=== PATIENT | male | born 1955 | race Caucasian/White ===

== ENCOUNTER → 2016-05-03 | Outpatient (CLI) | payer BC ==
[~2016-05-03] MED LIST: ASPI81TA28 PO; ATOR-26 PO; AZITTAB PO; ENOX40IN SQ; ESCI10TA17 PO; GUAISYP4 PO; IBUP-103 PO; LORA-741 PO; LPR25 PO; LVNIS40 SC; LXP10 PO; METO25TA56 PO; PANT40TA PO; PRT/40 PO
--- NOTE | 2016-05-03 10:09 | DIAGNOSTIC IMAGING REPORT ---
CHEST 2 VIEWS ROUTINE HISTORY: R05 Cough COMPARISON: Chest 10/18/2015. FINDINGS: The left lung is clear. No pneumothorax. No pleural effusions. Question 2 cm nodular density within the right midlung zone. This may be due to the overlapping ribs. The heart is normal in size. There are poststernotomy changes. Nodular density left lung base is consistent with a nipple shadow. Stable calcification along within the right upper lobe. Stable thin lucency lateral to the descending thoracic aorta compared to the 12/23/2014 chest CTA and chest x-ray. IMPRESSION: 1. Possible 2 cm nodular density within the right midlung zone. This may be due to the overlapping ribs or a small developing opacity. One month chest x-ray follow is recommended to ensure resolution and to exclude the less likely possibility of a pulmonary lesion. 2. Stable thin lucency lateral to the descending thoracic aorta compared to the 12/23/2014 chest CTA and chest x-ray. This could be due to a tiny chronic loculated pneumothorax or a small bulla compared to the prior chest CTA. Given the greater than 1 year stability this is of doubtful clinical significance. This can also be reevaluated on follow-up chest x-ray. Electronically signed by: Jitendra Mckeon M.D. 05/03/2016 10:07 AM Dictated Date/Time: 05/03/2016 9:55 AM
== END | disposition home or self-care (01) ==
LOC: C.RADBC 09:37
PROVIDERS: ATTEND Internal Medicine Geriatric Medicine
DX: R05 Cough (principal); R91.8 Other nonspecific abnormal finding of lung field

== ENCOUNTER 2016-05-06 10:01 | Emergency (ER) | payer BC ==
[~2016-05-06] VITALS: Ht 170.2 cm; Wt 96.0 kg
[~2016-05-06 10:01] MED LIST changes: -ASPI81TA28 PO; -ATOR-26 PO; -AZITTAB PO; -ENOX40IN SQ; -GUAISYP4 PO; -IBUP-103 PO; -LVNIS40 SC; -LXP10 PO; -METO25TA56 PO; -PRT/40 PO
[2016-05-06 10:12] VITALS: TEMP 36.5; Ht 170.2 cm; Wt 96.0 kg
[2016-05-06] MEDS ORDERED: AZITTAB PO (10:16)
[2016-05-06] MEDS ORDERED: GUAISYP4 PO (10:16)
[2016-05-06 10:19] VITALS: O2SAT 96
[2016-05-06] MEDS ORDERED: SODIUM CHLORIDE 0.9% 1000ML 1,000 ML IV STA (10:45)
[2016-05-06 11:01] LABS: HEMATOCRIT 40.2 % (42-52); MEAN CELL VOLUME 82.2 fL (80-100); MEAN CORPUSCULAR HGB CONC 34.1 g/dl (32-36); RED BLOOD COUNT 4.89 M/uL (4.7-6.1); WHITE BLOOD COUNT 10.57 K/uL (4.8-10.8)
[2016-05-06 11:11] LABS: MEAN PLATELET VOLUME 9.3 fL (7.4-10.4); PLATELET COUNT 82 K/uL (130-400)
[2016-05-06 11:18] LABS: ALT/SGPT 21 U/L (12-78); AST/SGOT 14 U/L (15-37); BLOOD UREA NITROGEN 17 mg/dl (7-18); BUN/CREATININE RATIO 17.9 (10-20); CALCIUM 8.7 mg/dl (8.5-10.1); CARBON DIOXIDE 29 mmol/L (21-32); CHLORIDE 107 mmol/L (98-107); CREATININE 0.94 mg/dl (0.60-1.40); GLUCOSE 87 mg/dl (70-99); SODIUM 144 mmol/L (136-145)
[2016-05-06 11:21] LABS: BASO % 0.5 %; BASO ABS # 0.05 K/uL (0-0.2); COMPLETE YES; EOS % 2.9 %; IG% 0.4 %; LYMPH % 24.2 %; LYMPH ABS # 2.56 K/uL (1.2-3.4); MONO % 7.2 %; NEUT % 64.8 %
--- NOTE | 2016-05-06 11:21 | DIAGNOSTIC IMAGING REPORT ---
CHEST ONE VIEW PORTABLE CLINICAL HISTORY: Chest pain. COMPARISON STUDY: Chest radiograph May 03, 2016. FINDINGS: There are median sternotomy wires and clips from bypass grafting. No pneumothorax or pleural effusion is present. Lung volumes are diminished. This is unchanged. There is mild left basilar opacity. Cardiomegaly is unchanged. There is no evidence of pulmonary edema. There is a 1.8 cm irregular density within the right midlung. IMPRESSION: 1. 1.8 cm irregular density within the right midlung. This may reflect normal structures although a pulmonary nodule could appear similar. Follow-up PA and shallow obliques radiographs of the chest in one month are recommended. 2. Stable cardiomegaly without evidence of pulmonary edema. 3. Mild left basilar opacity which likely reflects atelectasis. Electronically signed by: Justin Garza M.D. 05/06/2016 11:20 AM Dictated Date/Time: 05/06/2016 11:16 AM
[2016-05-06 11:24] LABS: ALKALINE PHOSPHATASE 71 U/L (45-117); CKMB/CK RATIO 4.3 (0-3.0)
[2016-05-06 12:18] VITALS: BP 124/77; PULSE 66; O2SAT 97
--- NOTE | 2016-05-06 16:19 | EMERGENCY ROOM VISIT NOTE ---
History Report prepared by Christina: Diane Herrmann Under the Supervision of: Dr. Quang Martinez M.D. First contact with patient: 10:31 Chief Complaint: CARDIAC ASSESSMENT Stated Complaint: PALPITATIONS Nursing Triage Summary: PT HERE VIA ALS FROM DR STARR OFFICE WITH IRREGULAR HR. PT STATES FELT IT WAS RAPID AND IRREGULAR SINCE LAST PM, WORSE AT SOME TIMES MORE THAN OTHERS. PT DENIES ANY SOB OR CHEST PAIN. PT RECENTLY DX WITH BRONCHITIS, TAKING ZPAK AND BREO. History of Present Illness The patient is a 60 year old male arriving by ambulance from Dr. Goss's office who presents to the Emergency Room with complaints of intermittent episodes of chest palpitations over the past 4 days. Currently, he denies being in significant discomfort, and his last episode of symptoms was 4 hours prior to arrival. Patient states that he has had cough and cold like symptoms over the past 4 weeks, and after visiting his PCP 4 days prior, he was placed on a Z-pack , Breo inhaler and Robitussin cough medicine. After taking the first dose of Z- pack and using the Breo inhaler that morning (4 days prior), patient went to bed , but was awoken several times with intermittent episodes of palpitations. He also states that his FitBit recorded his heart rate at 150 BPM. Since that time , patient has continued to experience intermittent episodes of palpitations after taking his Z-pack pill and using the Breo inhaler each morning, but he denies experiencing any light headedness, dizziness, chest pain, shortness of breath or LOC during the episodes. The patient states that he did not get his Robitussin script filled until Monday afternoon, and his symptoms began prior to taking that medication. The patient does have a history of CABG in 2013 , but he is no longer on blood thinners due to his history of ITP. He does take 1 baby aspirin qd. Source of History: patient Onset: over the past 4 days Position: chest Symptom Intensity: no current discomfort Quality: other (palpitations) Timing: intermittent Modifying Factors (Worsening): other (using breo inhaler and taking z-pack) Associated Symptoms: No LOC, No SOB, No chest pain Note: Patient denies lightheadedness or dizziness. Review of Systems See HPI for pertinent positives & negatives. A total of 10 systems reviewed and were otherwise negative. Past Medical & Surgical Medical Problems: (1) Acute subendocardial infarction, initial episode of care (2) CAD (coronary artery disease), [place] coronary artery (3) Coronary artery disease Surgical Problems: (1) H/O cardiac catheterization (2) S/P CABG (coronary artery bypass graft) (3) S/P triple vessel bypass Family History FH: heart disease Social History Smoking Status: Former Smoker Alcohol Use: none Drug Use: none Marital Status: Housing Status: lives with family Occupation Status: employed Current/Historical Medications Scheduled Aspirin (Aspirin Ec), 81 MG PO QAM Atorvastatin (Lipitor), 80 MG PO HS Azithromycin (Zithromax Z-Evan), 1 PKT PO UD Escitalopram (Lexapro), 10 MG PO QAM Metoprolol Tartrate (Lopressor), 25 MG PO BID Pantoprazole (Protonix), 40 MG PO DAILY Scheduled PRN Guaifenesin/Codeine (Robitussin-Ac Syrup), 10 ML PO Q4H PRN for Cough Allergies Coded Allergies: No Known Allergies (Unverified , 05/06/16) Physical Exam Vital Signs Date Time Temp Pulse Resp B/P Pulse Ox O2 Delivery O2 Flow Rate FiO2 05/06/16 12:18 66 18 124/77 97 Room Air 05/06/16 10:39 65 05/06/16 10:19 96 Room Air 05/06/16 10:19 96 Room Air 05/06/16 10:12 36.5 64 18 149/93 96 Room Air 05/06/16 10:08 70 Physical Exam GENERAL: Patient is a healthy-appearing well-nourished 60 year old male. No acute distress. HEAD: Normocephalic atraumatic EYES: Ocular movements intact pupils equal and react to light OROPHARYNX mucous membranes are moist no exudates present no erythema or edema present NECK: Supple no nuchal rigidity CHEST: Good equal expansion LUNGS: Clear and equal to auscultation CARDIAC: Normal S1 and S2 ABDOMEN: Soft nontender no guarding BACK: No CVA tenderness EXTREMITIES: No pain upon palpation normal muscle strength in all groups no clubbing cyanosis or edema NEURO: Patient is following commands is answering questions appropriately. Alert and oriented x3 Cranial Nerves 2-12 grossly intact Medical Decision & Procedures ER Provider Diagnostic Interpretation: X-ray results as stated below per interpretation by me and the radiologist: CHEST ONE VIEW PORTABLE CLINICAL HISTORY: Chest pain. COMPARISON STUDY: Chest radiograph May 03, 2016. FINDINGS: There are median sternotomy wires and clips from bypass grafting. No pneumothorax or pleural effusion is present. Lung volumes are diminished. This is unchanged. There is mild left basilar opacity. Cardiomegaly is unchanged. There is no evidence of pulmonary edema. There is a 1.8 cm irregular density within the right midlung. IMPRESSION: 1. 1.8 cm irregular density within the right midlung. This may reflect normal structures although a pulmonary nodule could appear similar. Follow-up PA and shallow obliques radiographs of the chest in one month are recommended. 2. Stable cardiomegaly without evidence of pulmonary edema. 3. Mild left basilar opacity which likely reflects atelectasis. Electronically signed by: Justin Garza M.D. 05/06/2016 11:20 AM Dictated Date/Time: 05/06/2016 11:16 AM Laboratory Results 05/06/16 10:45 Red Blood Count 4.89, Mean Corpuscular Volume 82.2, Mean Corpuscular Hemoglobin 28.0, Mean Corpuscular Hemoglobin Concent 34.1, Mean Platelet Volume 9.3, Neutrophils (%) (Auto) 64.8, Lymphocytes (%) (Auto) 24.2, Monocytes (%) (Auto) 7.2, Eosinophils (%) (Auto) 2.9, Basophils (%) (Auto) 0.5, Neutrophils # (Auto) 6.85, Lymphocytes # (Auto) 2.56, Monocytes # (Auto) 0.76, Eosinophils # (Auto) 0.31, Basophils # (Auto) 0.05 05/06/16 10:45 Test 05/06/16 10:45 White Blood Count 10.57 K/uL (4.8-10.8) Red Blood Count 4.89 M/uL (4.7-6.1) Hemoglobin 13.7 g/dL (14.0-18.0) Hematocrit 40.2 % (42-52) Mean Corpuscular Volume 82.2 fL (80-100) Mean Corpuscular Hemoglobin 28.0 pg (25-34) Mean Corpuscular Hemoglobin Concent 34.1 g/dl (32-36) Platelet Count 82 K/uL (130-400) Mean Platelet Volume 9.3 fL (7.4-10.4) Neutrophils (%) (Auto) 64.8 % Lymphocytes (%) (Auto) 24.2 % Monocytes (%) (Auto) 7.2 % Eosinophils (%) (Auto) 2.9 % Basophils (%) (Auto) 0.5 % Neutrophils # (Auto) 6.85 K/uL (1.4-6.5) Lymphocytes # (Auto) 2.56 K/uL (1.2-3.4) Monocytes # (Auto) 0.76 K/uL (0.11-0.59) Eosinophils # (Auto) 0.31 K/uL (0-0.5) Basophils # (Auto) 0.05 K/uL (0-0.2) RDW Standard Deviation 43.6 fL (36.4-46.3) RDW Coefficient of Variation 14.6 % (11.5-14.5) Immature Granulocyte % (Auto) 0.4 % Immature Granulocyte # (Auto) 0.04 K/uL (0.00-0.02) Anion Gap 8.0 mmol/L (3-11) Est Creatinine Clear Calc Drug Dose 90.0 ml/min Estimated GFR () 100.3 Estimated GFR (Non- 86.5 BUN/Creatinine Ratio 17.9 (10-20) Calcium Level 8.7 mg/dl (8.5-10.1) Magnesium Level 2.0 mg/dl (1.8-2.4) Total Bilirubin 0.6 mg/dl (0.2-1) Direct Bilirubin 0.2 mg/dl (0-0.2) Aspartate Amino Transf (AST/SGOT) 14 U/L (15-37) Alanine Aminotransferase (ALT/SGPT) 21 U/L (12-78) Alkaline Phosphatase 71 U/L (45-117) Total Creatine Kinase 28 U/L (39-308) Creatine Kinase MB 1.2 ng/ml (0.5-3.6) Creatine Kinase MB Ratio 4.3 (0-3.0) Troponin I < 0.015 ng/ml (0-0.045) Total Protein 6.2 gm/dl (6.4-8.2) Albumin 3.4 gm/dl (3.4-5.0) Lipase 240 U/L (73-393) Labs reviewed by ED physician. Medications Administered Medications (Trade) Dose Ordered Sig/Minna Route Start Time Stop Time Status Last Admin Dose Admin Sodium Chloride (Nss 1000ml) 1,000 ml @ 999 mls/hr Q1H1M STAT IV 05/06/16 10:45 05/06/16 11:45 DC 05/06/16 10:45 999 MLS/HR ECG Indication: palpitations Rate (beats per minute): 74 Rhythm: sinus rhythm Findings: PAC, no acute ischemic change ED Course 1035: Past medical records reviewed. The patient was evaluated in room B5. A complete history and physical examination was performed. 1045: NSS bolus IV was ordered. 1225: Upon reevaluation, the patient was doing well and appeared to be resting comfortably. I updated him on the results of his radiology reports and lab tests. I advised him to stop taking the Z-pack and Breo inhaler. I asked the patient if he wanted to try a different antibiotic, but he stated that he was feeling improved and did not wish to be placed on anything else. Patient was also referred to follow up with Dr. Jaffe of cardiology. Additional discharge instructions were discussed. He verbalized his understanding and agreement with the treatment plan, and he is now ready for disposition. Medical Decision Differential diagnosis: Etiologies such as premature contractions, electrolyte abnormality, cardiac dysrhythmia, thyroid dysfunction, pulmonary embolism, infection, gastrointestinal, as well as others were entertained. This is a 60-year-old male who presents emergency department complaining of palpitations after being started on several medications including azithromycin as well as an inhaler for a cough. The patient reports his cough is feeling much better however he has been having palpitations. Upon arrival to the emergency Department patient has no complaints. The patient does have a history of coronary bypass surgery however he feels that he is not having any chest pain or shortness of breath compared to what he needed his surgery. The patient was observed in emergency department for appear to 2 hours and at no time did the patient have any palpitations. I believe he is well enough to be discharged home for follow-up with cardiology however I did stressed the need to stop both the azithromycin as well as the inhaler. Patient was in agreement with the treatment plan. Impression Primary Impression: Palpitations Scribe Attestation The scribe's documentation has been prepared under my direction and personally reviewed by me in its entirety. I confirm that the note above accurately reflects all work, treatment, procedures, and medical decision making performed by me. Departure Information Dispostion Home / Self-Care Referrals Niraj Goss D.O.Int.Med. (PCP) Forms IMPORTANT VISIT INFORMATION, Work Instructions Patient Instructions My [facility] Additional Instructions Follow up with DR Jaffe's office STOP taking Azithromycin and inhaler You have been examined and treated today on an emergency basis only. This is not a substitute for, or an effort to provide, complete comprehensive medical care. It is impossible to recognize and treat all injuries or illnesses in a single emergency department visit. It is therefore important that you follow up closely with Dr Goss. Call as soon as possible for an appointment. Thank you for your time and consideration. I look forward to speaking with you again soon. Please don't hesitate to call us if you have any questions.
[2016-12-27] MEDS ORDERED: ATOR-26 PO (05:40)
[2016-12-27] MEDS ORDERED: ASPI81TA28 PO (05:42)
== END 2016-05-06 12:38 | disposition home or self-care (01) ==
LOC: EDBD 10:01 → C.EDB 10:03
DX: R00.2 Palpitations (principal); Z95.1 Presence of aortocoronary bypass graft; I25.10 Atherosclerotic heart disease of native coronary artery without angina pectoris; Z98.890 Other specified postprocedural states; Z82.49 Family history of ischemic heart disease and other diseases of the circulatory system; Z87.891 Personal history of nicotine dependence

== ENCOUNTER → 2016-11-18 | Outpatient (CLI) | payer BC, OTHER ==
[~2016-11-18] MED LIST changes: +ASPI81TA28 PO; +ATOR-26 PO; +AZITTAB PO; +ENOX40IN SQ; +GUAISYP4 PO; +IBUP-103 PO; -LORA-741 PO; +LVNIS40 SC; +LXP10 PO; +METO25TA56 PO; +PRT/40 PO
[2016-11-18 18:10] LABS: ALT/SGPT 20 U/L (12-78); AST/SGOT 21 U/L (15-37); BLOOD UREA NITROGEN 9 mg/dl (7-18); BUN/CREATININE RATIO 9.2 (10-20); CARBON DIOXIDE 27 mmol/L (21-32); CHLORIDE 107 mmol/L (98-107); GLUCOSE 72 mg/dl (70-99); SODIUM 141 mmol/L (136-145)
[2016-11-18 18:13] LABS: ALB/GLOB RATIO 1.2 (0.9-2); ALKALINE PHOSPHATASE 75 U/L (45-117)
[2016-11-18 18:17] LABS: HEMATOCRIT 41.4 % (42-52); MEAN CELL VOLUME 85.5 fL (80-100); MEAN CORPUSCULAR HEMOGLOBIN 27.9 pg (25-34); MEAN CORPUSCULAR HGB CONC 32.6 g/dl (32-36); RED BLOOD COUNT 4.84 M/uL (4.7-6.1); WHITE BLOOD COUNT 7.87 K/uL (4.8-10.8)
[2016-11-18 18:19] LABS: MEAN PLATELET VOLUME 11.3 fL (7.4-10.4); PLATELET COUNT 58 K/uL (130-400)
[2016-11-18 18:20] LABS: BASO % 0.5 %; BASO ABS # 0.04 K/uL (0-0.2); COMPLETE YES; EOS % 2.5 %; IG% 0.1 %; LYMPH % 27.1 %; LYMPH ABS # 2.13 K/uL (1.2-3.4); MONO % 8.1 %; NEUT % 61.7 %; PLT ESTIMATE DECREASED
== END | disposition home or self-care (01) ==
LOC: C.LABPBG 15:55
PROVIDERS: ATTEND Internal Medicine
DX: D69.3 Immune thrombocytopenic purpura (principal)

== ENCOUNTER 2016-12-17 13:52 | Emergency (ER) | payer BC, OTHER ==
[~2016-12-17] VITALS: Ht 170.2 cm; Wt 90.9 kg
[~2016-12-17 13:52] MED LIST changes: -ASPI81TA28 PO; -ATOR-26 PO; -ENOX40IN SQ; -IBUP-103 PO; -LVNIS40 SC; -LXP10 PO; -METO25TA56 PO; -PRT/40 PO
[2016-12-17 13:54] VITALS: Ht 170.2 cm; Wt 90.9 kg
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
[2016-12-17 14:45] LABS: HEMATOCRIT 40.1 % (42-52); MEAN CELL VOLUME 83.9 fL (80-100); MEAN CORPUSCULAR HEMOGLOBIN 28.7 pg (25-34); MEAN CORPUSCULAR HGB CONC 34.2 g/dl (32-36); RED BLOOD COUNT 4.78 M/uL (4.7-6.1); WHITE BLOOD COUNT 8.16 K/uL (4.8-10.8)
[2016-12-17 14:52] LABS: PARTIAL THROMBOPLASTIN RATIO 1.3; PROTHROMBIN TIME (PATIENT) 10.2 SECONDS (9.0-12.0)
[2016-12-17 14:57] LABS: BUN/CREATININE RATIO 15.4 (10-20); CALCIUM 8.7 mg/dl (8.5-10.1); CREATININE 0.82 mg/dl (0.60-1.40)
[2016-12-17 15:08] LABS: BASO % 0.4 %; BASO ABS # 0.03 K/uL (0-0.2); COMPLETE YES; EOS % 2.1 %; IG% 0.1 %; LYMPH % 22.5 %; LYMPH ABS # 1.84 K/uL (1.2-3.4); MEAN PLATELET VOLUME 10.1 fL (7.4-10.4); MONO % 9.1 %; NEUT % 65.8 %; PLATELET COUNT 50 K/uL (130-400); PLT ESTIMATE DECREASED
--- NOTE | 2016-12-17 16:19 | DIAGNOSTIC IMAGING REPORT ---
RIGHT VENOUS DOPP LOWER EXT UNILAT CLINICAL HISTORY: 61 years-old Male presenting with Leg swelling/pain Right. TECHNIQUE: Real-time grayscale and color and spectral Doppler ultrasound imaging of the veins of the right lower extremity was performed. Compression and augmentation were also utilized. COMPARISON: None. FINDINGS: Right: Common femoral vein: Patent. Femoral vein: Patent. Likely duplicated femoral vein. Greater saphenous vein: Patent. Popliteal vein: Patent. Calf veins: Limited visualization. Other: Filling defect consistent with thrombus within the greater saphenous vein at the level of the proximal thigh extending into the proximal calf. This appears occlusive in most regions. IMPRESSION: No evidence of deep venous thrombosis. Extensive superficial venous thrombosis in the greater saphenous vein. Electronically signed by: Daniel Prather M.D. 12/17/2016 4:18 PM Dictated Date/Time: 12/17/2016 4:15 PM
[2016-12-17] MEDS ORDERED: ENOX40IN SQ (17:20)
[2016-12-17] MEDS ORDERED: ENOXAPARIN 40 MG/0.4 ML SYR SQ ONE (17:30)
[2016-12-17 17:40] VITALS: BP 124/65; PULSE 61; TEMP 36.7; O2SAT 95
[2016-12-27] MEDS ORDERED: ATOR-26 PO (05:40)
[2016-12-27] MEDS ORDERED: ASPI81TA28 PO (05:42)
== END 2016-12-17 17:41 | disposition home or self-care (01) ==
LOC: C.EDB 13:53 → C.EDA 17:41
DX: I82.811 Embolism and thrombosis of superficial veins of right lower extremity (principal); D69.3 Immune thrombocytopenic purpura; I25.10 Atherosclerotic heart disease of native coronary artery without angina pectoris; I10 Essential (primary) hypertension; Z95.1 Presence of aortocoronary bypass graft; Z79.82 Long term (current) use of aspirin; Z87.891 Personal history of nicotine dependence; Z83.3 Family history of diabetes mellitus; Z82.49 Family history of ischemic heart disease and other diseases of the circulatory system

== ENCOUNTER → 2016-12-21 | Outpatient (CLI) | payer BC, OTHER ==
[~2016-12-21] MED LIST changes: +ASPI81TA28 PO; +ATOR-26 PO; -AZITTAB PO; +ENOX40IN SQ; +IBUP-103 PO; +LVNIS40 SC; +LXP10 PO; +METO25TA56 PO; +PRT/40 PO
--- NOTE | 2016-12-21 10:19 | DIAGNOSTIC IMAGING REPORT ---
CHEST-PA,LAT AND OBLIQUE VIEWS HISTORY: 61 years-old Male R93.8 Abnormal chest xray. Follow-up study. COMPARISON: Portable chest radiograph 05/06/2016 TECHNIQUE: Frontal, oblique and lateral views of the chest. FINDINGS: Cardiac silhouette is again mildly enlarged. Prior median sternotomy. There is atherosclerosis of the aorta. No overt pulmonary edema. There is no pneumothorax or pleural effusion. Hazy subsegmental right perihilar opacity suggests atelectasis or scarring. The previously questioned nodular opacity of the right midlung is no longer identified. No suspicious pulmonary nodules are seen. The bones are grossly intact. IMPRESSION: 1. Cardiomegaly without acute cardiopulmonary process. 2. Previously questioned nodular opacity of the right midlung is not identified. There is however minimal linear subsegmental right midlung opacity coursing towards the hilum suggesting atelectasis or scarring. The above report was generated using voice recognition software. It may contain grammatical, syntax or spelling errors. Electronically signed by: Ventura Rodgers M.D. 12/21/2016 10:17 AM Dictated Date/Time: 12/21/2016 10:14 AM
== END | disposition home or self-care (01) ==
LOC: C.RADBC 09:17
PROVIDERS: ATTEND Physician Assistant
DX: R93.8 Abnormal findings on diagnostic imaging of other specified body structures (principal)

== ENCOUNTER 2016-12-27 15:13 | Emergency (ER) | payer BC, OTHER ==
[~2016-12-27] VITALS: Ht 170.2 cm; Wt 92.0 kg
[~2016-12-27 15:13] MED LIST changes: -ENOX40IN SQ; -IBUP-103 PO; -LVNIS40 SC; -LXP10 PO; -METO25TA56 PO; -PRT/40 PO
[2016-12-27 15:19] VITALS: BP 148/89; PULSE 61; TEMP 36.7; O2SAT 96; Ht 170.2 cm; Wt 92.0 kg
--- NOTE | 2016-12-27 16:50 | DIAGNOSTIC IMAGING REPORT ---
RIGHT VENOUS DOPP LOWER EXT UNILAT CLINICAL HISTORY: R posterior knee and calf pain Right pain TECHNIQUE: Venous Doppler COMPARISON STUDY: 12/17/2016 FINDINGS: Unchanging thrombus within the greater saphenous vein. All deep venous structures are unremarkable. Compressibility and augmentation characteristics are unremarkable. IMPRESSION: Unchanging chronic superficial thrombophlebitis involving the greater saphenous vein. The study remains negative for deep venous thrombosis. The above report was generated using voice recognition software. It may contain grammatical, syntax or spelling errors. Electronically signed by: Robert Colvin M.D. 12/27/2016 4:48 PM Dictated Date/Time: 12/27/2016 4:47 PM
[2016-12-27] MEDS ORDERED: METO25TA56 PO (17:08)
[2016-12-27] MEDS ORDERED: LXP10 PO (17:08)
[2016-12-27] MEDS ORDERED: PRT/40 PO (17:08)
[2016-12-27] MEDS ORDERED: LVNIS40 SC (17:08)
[2016-12-27] MEDS ORDERED: IBUP-103 PO (17:09)
--- NOTE | 2016-12-28 22:09 | EMERGENCY ROOM VISIT NOTE ---
ED Visit Note First contact with patient: 15:38 Chief Complaint: The back of my right leg hurts. History of Present Illness: Mr. Dia is a 61-year-old white male who ambulates into the ED accompanied by his complaining of posterior right knee pain and calf pain. Historically patient was seen in this emergency department on December 17 with similar complaints and an ultrasound of the right lower extremity was performed that showed a superficial thrombophlebitis. Historically patient reports she feels like that pain has resolved and today's visit is because the pain is " much different and deeper." Patient reports 2 days ago he developed a severe muscle cramping like pain in the posterior aspect of the right knee which radiated down into the calf. Since that time his pain has been constant. He rates his discomfort 4/10. His pain worsens with weightbearing, ambulation, dorsiflexion and palpation. He has not identified any alleviating factors related to the pain. He reports he has been taken ibuprofen without relief of his discomfort. He denies fevers, chills, sweats, skin eruptions, skin color changes, recent trauma, chest pain, shortness of breath, palpitations, previous clots, claudication, recent surgery/inactivity/extended travel, lumbar back pain, hip pain, thigh pain, ankle pain, foot pain, leg weakness/numbness/tingling. Review of Systems: As noted above in history of present illness. All body systems were reviewed and found to be negative as noted above. Past Medical History: (1) Acute subendocardial infarction, initial episode of care (2) CAD (coronary artery disease), kiana coronary artery (3) Coronary artery disease (4) Heart disease (5) Hypertension Surgical Problems: (1) H/O cardiac catheterization (2) S/P CABG (coronary artery bypass graft) (3) S/P triple vessel bypass Current Medications: Medications Dose Route/Sig Max Daily Dose Days Date Category Robitussin-Ac Syrup (Codeine Phosphate/Guaifenesin) Syrp 10 Ml PO Q4H PRN 4 05/06/16 Reported Protonix (Pantoprazole Sodium) 40 Mg Tab 40 Mg PO DAILY 12/23/14 Reported Lexapro (Escitalopram Oxalate) 10 Mg Tab 10 Mg PO QAM 11/27/14 Reported Lopressor (Metoprolol Tartrate) 25 Mg Tab 25 Mg PO BID 30 11/09/14 Rx Aspirin Ec (Aspirin) 81 Mg Tab 81 Mg PO QAM 11/06/14 Reported Lipitor (Atorvastatin Calcium) 80 Mg Tab 80 Mg PO HS 11/06/14 Reported Allergies to Medications: Azithromycin. Social History: Patient is currently retired; he lives with his and feels safe in his home environment; he denies tobacco and alcohol use. Physical Examination: Vital Signs: Date Time Temp Pulse Resp B/P (MAP) Pulse Ox O2 Delivery O2 Flow Rate FiO2 12/27/16 15:19 36.7 61 18 148/89 96 Room Air GENERAL: 61-year-old male in mild distress due to pain, nontoxic-appearing, afebrile and hemodynamically stable. NEUROLOGICAL: Awake, alert and oriented to person, place and time. Answering questions appropriately and following commands. Patient was walking on his right toes with a limped gait. SKIN: Warm, dry and pink. No soft tissue eruptions or trauma noted. HEENT: Atraumatic and normocephalic. BACK: No tenderness over the bony lumbar spine. The tenderness or muscle spasm in the paraspinous muscles. No CVA tenderness. THORAX: Lungs sounds are clear to auscultation and equal bilaterally with symmetrical chest wall. No wheezing, rales or rhonchi. No crepitus, tenderness , subcutaneous air or deformities noted. HEART: Regular rate and rhythm. No gallops, rubs or murmurs are appreciated. ABDOMEN: Flat, soft and nontender. Positive bowel sounds in all quadrants. No guarding, rigidity or organomegaly. RIGHT LOWER EXTREMITY: No gross bony deformity. No shortening or malrotation. No tenderness in the hip, thigh, lower leg, ankle or foot. Moderate tenderness with minimal swelling over the posterior knee in the popliteal area. Negative ballottement test. Negative patellar apprehension test. No joint line tenderness. No laxity of collateral cruciate ligaments. Meniscus testing deferred due to pain. There is moderate tenderness in the proximal gastrocnemius muscle without deformity. There is no local erythema or lymphangitis. Skin does not appear cellulitic. Full range of motion in flexion and extension of the knee and plantar flexion and dorsiflexion of the ankle against resistance. Throughout the foot the skin was warm and pink and capillary was brisk. No palpable cords. ED Course: Patient is assessed as noted above. Patient's medication list was reviewed. Patient was offered pain medication and refused. Right Lower Extremity Venous Doppler Ultrasound: Was reviewed by myself and read by the radiologist showing unchanged chronic superficial thrombophlebitis. Negative deep vein thrombus. Patient was educated about today's findings and instructed on his treatment plan ; he verbalized understanding and agreement with this plan. Clinical Impression: Posterior right knee pain. Disposition: Patient discharged home in stable condition accompanied by his ; prior to departure he was reassessed and subjectively reported he was feeling the same. Plan: Shows encouraged to continue his current medications as prescribed. Patient was encouraged to use 650 mg of acetaminophen as needed for additional for additional pain. Patient was encouraged to use his walker, slow down his walker until it returns to normal and avoid toe walking. Patient is encouraged to follow-up with his PCP for recheck in 5-6 days. Patient was encouraged return ED for worsening/uncontrolled pain, uncontrolled swelling, leg weakness/numbness/tingling or any new/concerning symptoms.
== END 2016-12-27 17:17 | disposition home or self-care (01) ==
LOC: C.EDB 15:14 → C.EDD 17:17
DX: M25.561 Pain in right knee (principal); I25.10 Atherosclerotic heart disease of native coronary artery without angina pectoris; I10 Essential (primary) hypertension; I25.2 Old myocardial infarction; Z86.72 Personal history of thrombophlebitis; Z95.1 Presence of aortocoronary bypass graft; Z98.890 Other specified postprocedural states; Z79.82 Long term (current) use of aspirin; Z79.899 Other long term (current) drug therapy

== ENCOUNTER → 2016-12-28 | Outpatient (CLI) | payer OTHER ==
[~2016-12-28] MED LIST changes: -ESCI10TA17 PO; -GUAISYP4 PO; +IBUP-103 PO; -LPR25 PO; +LVNIS40 SC; +LXP10 PO; +METO25TA56 PO; -PANT40TA PO; +PRT/40 PO
[2016-12-28 12:41] LABS: ESTIMATED AVERAGE GLUCOSE 108 mg/dl; HA1C FLAG Normal (Normal)
[2016-12-28 17:22] LABS: CHOLESTEROL/HDL RATIO 1.8; PROSTATE SPECIFIC ANTIGEN 0.293 ng/ml (0.000-4.000)
== END | disposition home or self-care (01) ==
LOC: C.LABPBG 10:43
PROVIDERS: ATTEND Physician Assistant
DX: Z00.00 Encounter for general adult medical examination without abnormal findings (principal); I25.10 Atherosclerotic heart disease of native coronary artery without angina pectoris; R73.03 Prediabetes

== ENCOUNTER → 2017-05-01 | Outpatient (CLI) | payer OTHER ==
[~2017-05-01] MED LIST changes: +LPR25 PO; -LVNIS40 SC; -METO25TA56 PO; +PANT40TA2 PO; -PRT/40 PO
[2017-05-01 18:37] LABS: HEMATOCRIT 42.3 % (42-52); HEMOGLOBIN 14.8 g/dL (14.0-18.0); MEAN CELL VOLUME 83.6 fL (80-100); MEAN CORPUSCULAR HEMOGLOBIN 29.2 pg (25-34); MEAN PLATELET VOLUME 12.8 fL (7.4-10.4); PLATELET COUNT 47 K/uL (130-400); RED CELL DISTRIBUTION WIDTH CV 13.6 % (11.5-14.5); RED CELL DISTRIBUTION WIDTH SD 40.9 fL (36.4-46.3); WHITE BLOOD COUNT 8.32 K/uL (4.8-10.8)
[2017-05-01 18:38] LABS: BASO % 0.5 %; BASO ABS # 0.04 K/uL (0-0.2); EOS % 2.2 %; EOS ABS # 0.18 K/uL (0-0.5); IG# 0.02 K/uL (0.00-0.02); LYMPH % 27.4 %; LYMPH ABS # 2.28 K/uL (1.2-3.4); MONO % 8.3 %; MONO ABS # 0.69 K/uL (0.11-0.59); NEUT % 61.4 %; NEUT ABS # 5.11 K/uL (1.4-6.5)
[2017-05-01 18:53] LABS: HEMOGLOBIN A1C 5.4 % (4.5-5.6)
== END | disposition home or self-care (01) ==
LOC: C.LABPBG 15:49
PROVIDERS: ATTEND Internal Medicine
DX: D69.3 Immune thrombocytopenic purpura (principal); R73.03 Prediabetes

== ENCOUNTER → 2017-05-25 | Outpatient (CLI) | payer OTHER ==
[2017-05-25 18:12] LABS: ALBUMIN 3.4 gm/dl (3.4-5.0); ALT/SGPT 21 U/L (12-78); AST/SGOT 20 U/L (15-37); BLOOD UREA NITROGEN 14 mg/dl (7-18); CARBON DIOXIDE 28 mmol/L (21-32); CREATININE 0.97 mg/dl (0.60-1.40); GLUCOSE 95 mg/dl (70-99); POTASSIUM 4.3 mmol/L (3.5-5.1); SODIUM 138 mmol/L (136-145)
[2017-05-25 18:15] LABS: ALKALINE PHOSPHATASE 76 U/L (45-117); TOTAL PROTEIN 6.8 gm/dl (6.4-8.2)
[2017-05-25 18:21] LABS: HEMATOCRIT 43.4 % (42-52); HEMOGLOBIN 14.4 g/dL (14.0-18.0); MEAN CELL VOLUME 85.9 fL (80-100); MEAN CORPUSCULAR HEMOGLOBIN 28.5 pg (25-34); MEAN CORPUSCULAR HGB CONC 33.2 g/dl (32-36); MEAN PLATELET VOLUME 12.7 fL (7.4-10.4); PLATELET COUNT 55 K/uL (130-400); RED CELL DISTRIBUTION WIDTH CV 14.2 % (11.5-14.5); RED CELL DISTRIBUTION WIDTH SD 44.2 fL (36.4-46.3); WHITE BLOOD COUNT 7.91 K/uL (4.8-10.8)
[2017-05-25 18:23] LABS: BASO % 0.6 %; BASO ABS # 0.05 K/uL (0-0.2); EOS ABS # 0.16 K/uL (0-0.5); IG# 0.03 K/uL (0.00-0.02); LYMPH ABS # 1.82 K/uL (1.2-3.4); MONO % 8.7 %; MONO ABS # 0.69 K/uL (0.11-0.59); NEUT % 65.3 %; NEUT ABS # 5.16 K/uL (1.4-6.5)
== END | disposition home or self-care (01) ==
LOC: C.LABPBG 11:53
PROVIDERS: ATTEND Internal Medicine
DX: D69.3 Immune thrombocytopenic purpura (principal)

== ENCOUNTER 2019-01-08 12:11 | Observation (INO) ==
[2019-01-08] MEDS ORDERED: NITROGLYCERIN SL 0.4 MG/TAB TAB SL STA (12:42)
[2019-01-08] MEDS ORDERED: ASPIRIN CHEW 324 MG PO STA (12:42)
--- NOTE | 2019-01-08 12:52 | XRay Report ---
XR chest 1V portable CLINICAL HISTORY: Chest Pain COMPARISON STUDY: Chest radiograph December 21, 2016. FINDINGS: There are median sternotomy wires and clips from bypass grafting. Mild cardiomegaly is note d without evidence for pulmonary edema. Severe emphysema is present. There is no consolidation to sug gest pneumonia. IMPRESSION: 1. No acute cardiopulmonary findings. 2. Severe emphysema. Electronically signed by: Justin Garza M.D. 01/08/2019 12:50 PM
[2019-01-08 13:10] LABS: Hematocrit (blood only) 44.5 % (42-52); Hemoglobin 15.2 g/dL (14.0-18.0); Mean Corpuscular Hemoglobin 28.7 pg (25-34); Mean Corpuscular Hgb Conc 34.2 g/dL (32-36); RDW Coefficient of Variation 13.8 % (11.5-14.5); RDW Standard Deviation 42.5 fL (36.4-46.3); White Blood Count 8.71 K/uL (4.8-10.8)
[2019-01-08 13:16] LABS: Mean Platelet Volume 10.1 fL (7.4-10.4); Platelet Count 75 K/uL (130-400)
[2019-01-08 13:26] LABS: Alanine Aminotransferase 24 U/L (12-78); Albumin Level 3.4 gm/dl (3.4-5.0); Aspartate Aminotransferase 21 U/L (15-37); BUN Creatinine Ratio 11.3 (10-20); Blood Urea Nitrogen 11 mg/dl (7-18); Calcium 9.4 mg/dl (8.5-10.1); Carbon Dioxide 24 mmol/L (21-32); Chloride 108 mmol/L (98-107); Creatinine Clr Calc Pharmacy 81.7 ml/min; Est GFR (African American) 92.2; Est GFR (Non-African American) 79.6; Glucose 98 mg/dl (70-99); Lipase 131 U/L (73-393); Potassium 4.4 mmol/L (3.5-5.1); Sodium 140 mmol/L (136-145)
[2019-01-08 13:30] LABS: Basophils # (auto) 0.02 K/uL (0-0.2); Basophils % (auto) 0.2 %; Eosinophils # (auto) 0.17 K/uL (0-0.5); Immature Granulocytes # (auto) 0.03 K/uL (0.00-0.02); Immature Granulocytes % (auto) 0.3 %; Lymphocytes # (auto) 2.39 K/uL (1.2-3.4); Lymphocytes % (auto) 27.4 %; Monocytes # (auto) 0.66 K/uL (0.11-0.59); Monocytes % (auto) 7.6 %; Neutrophils # (auto) 5.44 K/uL (1.4-6.5); Neutrophils % (auto) 62.5 %
[2019-01-08 13:31] LABS: Alkaline Phosphatase 81 U/L (45-117); Bilirubin,Total 1.3 mg/dl (0.2-1); Globulin 3.3 gm/dl (2.5-4.0); Total Protein 6.7 gm/dl (6.4-8.2); Troponin I < 0.015 ng/ml (0-0.045)
--- NOTE | 2019-01-08 16:44 | History & Physical Report ---
Date of Service January 08, 2019 Assessment & Plan (1) Chest pain: Cardiac vs. gastric in etiology. Concerning that his symptoms are very similar to prior NSTEMI in 2015; however, not worse with activity and he has had some medication and dietary changes that point toward GERD as cause of pain. - Trend troponins and EKGs - Limited echo for EF/wall motion and for aortic root to help rule out dissection (I think this is extremely unlikely and therefore am not pursuing CTA tonight). - Cardiology consult in the AM - Restart his PPI and treat with Mylanta PRN - Continue ASA (2) Hypertension: BP was 110/90 in the ED. - Continue home meds (3) Dilated aortic root: Gets routine monitoring with ultrasound. Low concern for acute issue. - Limited echo to assess, as his next one was planned for next month. (4) Chronic ITP (idiopathic thrombocytopenia): Receives Nplate as outpatient. - Monitor plts while inpatient. Stable around 70-80. (5) DVT prophylaxis: SCDs - Low DVT risk per admission calculator History of Present Illness Primary Care Provider: Daniel Alba MD 63yo M w/ hx of NSTEMI and 3vCABG in 2015 who presents for chest tightness. Started on Monday and has been a low-level, 2-3/10 "tightness" in the chest and radiating up to the left upper arm. He reports this is similar to his prior MA. He has not had any diaphoresis, nausea, vomiting, dizziness, lightheadedness, shortness of breath. He does report 1-2 times last week, he had brief (minutes) episodes of palpitations where he checked his pulse and just had some skipped beats. He took a full-strength aspirin last night for the discomfort without a change. He notes that he has been taking his PPI less often on the advice of his PCP and probably hasn't taken it in a week or so. 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 Allergies Allergy/AdvReac Type Severity Reaction Status Date / Time azithromycin AdvReac Unknown ATRIAL Unverified 01/08/19 13:36 [From Zithromax Z-Evan] FIBRILLATION Home Medications Home Medications Medication Instructions Recorded Confirmed Type aspirin [Aspir-81] 81 mg PO QAM 02/08/18 01/08/19 History escitalopram oxalate 1 tab PO QAM 02/08/18 01/08/19 History ibuprofen 200 mg PO QID PRN 02/08/18 01/08/19 History metoprolol tartrate 25 mg PO BID 02/08/18 01/08/19 History pantoprazole 40 mg tablet,delayed 40 mg PO QAM #30 tab 11/20/18 01/08/19 Rx release multivitamin tablet 1 tab PO QAM 12/28/18 01/08/19 History atorvastatin 80 mg tablet 80 mg PO HS #90 tab 01/03/19 01/08/19 Rx aspirin, buffered 325 mg PO DAILY PRN 01/08/19 01/08/19 History Past Med/Surg History Medical History AAA (abdominal aortic aneurysm) Dilated aortic root Hypertension Chronic ITP (idiopathic thrombocytopenia) (Chronic) Surgical History H/O inguinal hernia repair Hx of CABG - 3 vessle Family History Father Motor vehicle accident Family/Other Hypertension Grandmother Stroke Grandfather (Paternal) Cardiac disorder Grandmother (Paternal) Diabetes Other Cancer Social History Preferred Language: Romanian Communication Ability: Effective Visual Impairment: Limited Hearing Ability: Normal Beliefs That Will Affect Care: None marital status: Current Living Situation: Spouse current occupational status: employed 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 Other Information That Helps Us Care for You: No Feels Safe at Home: Yes Safety Concerns: Feels Safe At This Time Smoking Status: Former smoker Tobacco Type: cigarettes ; packs per day: 2 ; Hx Alcohol Use: No Hx Substance Use: No Childhood Exposure to Second-Hand Smoke: No caffeine: Yes (coffee 2 per day.) during the past year weight has: remained stable Dental Care, Regularly: Yes Physical Activity Frequency: Does not Exercise Seatbelt Use: always Sunscreen Use: Yes Review of Systems Review of Systems: All systems reviewed & are unremarkable except as noted in HPI & below Physical Exam Constitutional: WD/WN, vitals as above Eyes: EOM intact bilaterally; no conjunctival abnormality ENMT: external ear and nose normal, oropharynx normal Neck: trachea midline, no thyromegaly normal visual inspection Respiratory: normal respiratory effort, lungs clear to auscultation no respiratory distress Cardiovascular: RRR, no murmur, no edema Gastrointestinal (Abdomen): Inspection/Auscultation: abdomen normal to inspection; abdomen not distended Musculoskeletal: no cyanosis or clubbing, extremities motor strength 5/5 Skin: no rashes, warm and dry Neurologic: moves all extremities and awake Psychiatric: Orientation: alert, oriented to person and cooperative Results & Data Vital Signs (Past 12 Hours) Vital Signs Temp Pulse Pulse Resp BP BP Pulse Ox 01/08/19 16:00 67 18 109/88 96 01/08/19 15:10 79 19 118/72 94 01/08/19 14:53 65 16 102/75 95 01/08/19 13:48 83 18 122/83 98 01/08/19 12:56 86 16 98/75 L 94 01/08/19 12:50 65 96 01/08/19 12:15 36.6 C 68 20 121/80 94 Code Status & VTE Plan VTE Prophylaxis Plan VTE Prophylaxis will be ordered: Yes PG Care Time/CCT Total # of Minutes Spent Total Time Spent with Patient: Total time spent is greater than 50% in coordination of care (as documented) at patient's floor/unit and/or counseling patient:
--- NOTE | 2019-01-08 17:20 | Emergency Department Note ---
Entered by Brii Villagran acting as a scribe for History of Present Illness General Chief complaint: Cardiac Assessment Stated complaint: CHEST DISCOMFORT Source: patient Mode of arrival: EMS Limitations: no limitations History of Present Illness Onset (ago): day(s) 3 Location: chest Radiation: non-radiation Pain Consistency: + intermittent Maximum Pain Intensity: 3 Current Pain Intensity: 3 Relieved By: + none Exacerbated By: + none Associated symptoms: + other (-diarrhea, -dysuria); no nausea/vomiting Treatments prior to arrival: none The patient is a 63 year old male with a PMHX of AAA, GI bleed, CABG, chronic ITP and triple vessel bypass surgery who presents to the ED with complaints of intermittent chest pain for the past 3 days. He has an extensive heart history and states the pain is not as bad as his previous episode when he needed CABG at [facility]. The pain does radiate into his left arm. It is worsened by movement. He denies any shortness of breath. He notes last week he noticed some tachycardia, which has resolved. He denies any recent nausea, vomiting, diarrhea or dysuria. Home Medications Home Medications Medication Instructions Recorded Confirmed Type aspirin [Aspir-81] 81 mg PO QAM 02/08/18 01/08/19 History escitalopram oxalate 1 tab PO QAM 02/08/18 01/08/19 History ibuprofen 200 mg PO QID PRN 02/08/18 01/08/19 History metoprolol tartrate 25 mg PO BID 02/08/18 01/08/19 History pantoprazole 40 mg tablet,delayed 40 mg PO QAM #30 tab 11/20/18 01/08/19 Rx release multivitamin tablet 1 tab PO QAM 12/28/18 01/08/19 History atorvastatin 80 mg tablet 80 mg PO HS #90 tab 01/03/19 01/08/19 Rx aspirin, buffered 325 mg PO DAILY PRN 01/08/19 01/08/19 History Allergies Allergy/AdvReac Type Severity Reaction Status Date / Time azithromycin AdvReac Unknown ATRIAL Unverified 01/08/19 13:36 [From Zithromax Z-Evan] FIBRILLATION Past Med/Surg History Medical History AAA (abdominal aortic aneurysm) Dilated aortic root Hypertension Chronic ITP (idiopathic thrombocytopenia) (Chronic) Surgical History H/O inguinal hernia repair Hx of CABG - 3 vessle Family History Father Motor vehicle accident Family/Other Hypertension Grandmother Stroke Grandfather (Paternal) Cardiac disorder Grandmother (Paternal) Diabetes Other Cancer Social History Preferred Language: Hungarian Communication Ability: Effective Visual Impairment: Limited Hearing Ability: Normal Beliefs That Will Affect Care: None marital status: Current Living Situation: Spouse current occupational status: employed 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 and A total of 10 systems reviewed and were otherwise negative Physical Exam Vital Signs Vital Signs - 24 hr 01/08/19 12:15 01/08/19 12:50 01/08/19 12:56 Temperature 36.6 C Temperature Source Oral Sepsis Recent Fever Within 48 Hours No Sepsis New/Unexplained Change in Mental Status No Sepsis Action Taken by Nursing No Action Required Pulse Rate 68 65 Pulse Rate [Left] 86 Pulse Rhythm Regular Pulse Rhythm [Left] Pulse Strength Normal Respiratory Rate 20 16 Respiratory Effort / Characteristics Non-Labored Spontaneous Non-Labored Spontaneous Respiratory Depth Normal Normal Respiratory Pattern Regular Blood Pressure 121/80 Blood Pressure [Right Arm] 98/75 L Blood Pressure Mean 93 Blood Pressure Mean [Right Arm] 82 Blood Pressure Position Sitting Blood Pressure Position [Right Arm] Lying Pulse Oximetry 94 96 94 Oxygen Delivery Method Room Air Room Air Room Air 01/08/19 13:26 01/08/19 13:48 01/08/19 14:53 Temperature Temperature Source Sepsis Recent Fever Within 48 Hours Sepsis New/Unexplained Change in Mental Status Sepsis Action Taken by Nursing Pulse Rate Pulse Rate [Left] 83 65 Pulse Rhythm Pulse Rhythm [Left] Pulse Strength Respiratory Rate 18 16 Respiratory Effort / Characteristics Non-Labored Spontaneous Non-Labored Spontaneous Respiratory Depth Normal Respiratory Pattern Blood Pressure Blood Pressure [Right Arm] 122/83 102/75 Blood Pressure Mean Blood Pressure Mean [Right Arm] 96 84 Blood Pressure Position Blood Pressure Position [Right Arm] Lying Pulse Oximetry 98 95 Oxygen Delivery Method Room Air Room Air Room Air 01/08/19 15:10 01/08/19 16:00 Temperature Temperature Source Sepsis Recent Fever Within 48 Hours Sepsis New/Unexplained Change in Mental Status Sepsis Action Taken by Nursing Pulse Rate Pulse Rate [Left] 79 67 Pulse Rhythm Pulse Rhythm [Left] Regular Pulse Strength Respiratory Rate 19 18 Respiratory Effort / Characteristics Non-Labored Non-Labored Respiratory Depth Normal Normal Respiratory Pattern Regular Regular Blood Pressure Blood Pressure [Right Arm] 118/72 109/88 Blood Pressure Mean Blood Pressure Mean [Right Arm] 87 95 Blood Pressure Position Blood Pressure Position [Right Arm] Pulse Oximetry 94 96 Oxygen Delivery Method Room Air Room Air GENERAL: Patient is alert, sitting up in bed, talking in full sentences, well nourished, no distress, non-toxic EYE EXAM: normal conjunctiva OROPHARYNX: no exudate, no erythema, lips, buccal mucosa, and tongue normal and mucous membranes are moist NECK: supple, no nuchal rigidity, no adenopathy, non-tender LUNGS: Clear to auscultation. Normal chest wall mechanics HEART: no murmurs, S1 normal and S2 normal ABDOMEN: abdomen soft, non-tender, normo-active bowel sounds, no masses, no rebound or guarding. BACK: Back is symmetrical on inspection and there is no deformity, no midline tenderness, no CVA tenderness. SKIN: no rashes and no bruising UPPER EXTREMITIES: upper extremities are grossly normal. LOWER EXTREMITIES: No pitting edema. Calves are equal bilaterally. NEURO EXAM: Normal sensorium, cranial nerves II-XII grossly intact, normal speech, no gross weakness of arms, no gross weakness of legs. Gross sensation intact. Course ED COURSE: Vital signs were reviewed and showed normal vital signs The patients medical record was reviewed The above diagnostic studies were performed and reviewed. ED treatments and interventions as stated above. 1231: The patient was evaluated in room B6. A complete history and physical examination was performed. 1350: I reevaluated the patient. His chest pain is going away. He is agreeable with further evaluation. I discussed my findings with the patient and he understands and agrees with the treatment plan. 1429: I discussed the patients case with Dr. Huong Arango, [facility]. The patient will be further evaluated. Based on the patients age, coexisting illnesses, exam and lab findings the decision to treat as an outpatient was made. The patient remained stable while under my care. The patient will be evaluated for further management. Administered Medications Discontinued Medications Aspirin (Aspirin) 324 mg PO NOW STA Stop: 01/08/19 12:43 Last Admin: 01/08/19 12:49 Dose: 324 mg Documented by: [id number] Nitroglycerin (Nitrostat) 0.4 mg SL NOW STA Stop: 01/08/19 12:43 Last Admin: 01/08/19 12:49 Dose: 0.4 mg Documented by: [id number] Medical Decision Making Differential Diagnosis Differential diagnoses includes but is not limited to acute coronary syndrome, myocardial infarction, pericarditis, pulmonary embolus, aortic dissection, pneumonia, pneumothorax, musculoskeletal, shingles, esophageal. Medical Records Attestation: I reviewed the patient's medical records. Home Medications Current Medication List: was personally reviewed by me Laboratory Data Attestation: I reviewed the patient's lab results. Result diagrams: 01/08/19 12:54 01/08/19 12:54 Lab Results 01/08/19 01/08/19 Range/Units 12:54 12:54 WBC 8.71 (4.8-10.8) K/uL RBC 5.30 (4.7-6.1) M/uL Hgb 15.2 (14.0-18.0) g/dL Hct 44.5 (42-52) % MCV 84.0 (80-100) fL MCH 28.7 (25-34) pg MCHC 34.2 (32-36) g/dL RDW Std Deviation 42.5 (36.4-46.3) fL RDW Coeff of Kilo 13.8 (11.5-14.5) % Plt Count 75 L (130-400) K/uL MPV 10.1 (7.4-10.4) fL Immature Gran % (Auto) 0.3 % Neut % (Auto) 62.5 % Lymph % (Auto) 27.4 % [place] % (Auto) 7.6 % Eos % (Auto) 2.0 % Baso % (Auto) 0.2 % Immature Gran # (Auto) 0.03 H (0.00-0.02) K/uL Neut # (Auto) 5.44 (1.4-6.5) K/uL Lymph # (Auto) 2.39 (1.2-3.4) K/uL [place] # (Auto) 0.66 H (0.11-0.59) K/uL Eos # (Auto) 0.17 (0-0.5) K/uL Baso # (Auto) 0.02 (0-0.2) K/uL Sodium 140 (136-145) mmol/L Potassium 4.4 (3.5-5.1) mmol/L Chloride 108 H (98-107) mmol/L Carbon Dioxide 24 (21-32) mmol/L Anion Gap 8.0 (3-11) BUN 11 (7-18) mg/dl Creatinine 0.99 (0.6-1.4) mg/dl Est Cr Clr Drug Dosing 81.7 ml/min Est GFR ( Amer) 92.2 Est GFR (Non-Af Amer) 79.6 BUN/Creatinine Ratio 11.3 (10-20) Glucose 98 (70-99) mg/dl Calcium 9.4 (8.5-10.1) mg/dl Total Bilirubin 1.3 H (0.2-1) mg/dl AST 21 (15-37) U/L ALT 24 (12-78) U/L Alkaline Phosphatase 81 (45-117) U/L Troponin I < 0.015 (0-0.045) ng/ml Total Protein 6.7 (6.4-8.2) gm/dl Albumin 3.4 (3.4-5.0) gm/dl Globulin 3.3 (2.5-4.0) gm/dl Albumin/Globulin Ratio 1.0 (0.9-2) Lipase 131 (73-393) U/L Imaging Data Radiologist's Impression: Radiology results as stated below per my review and the radiologist's interpretation: XR chest 1V portable CLINICAL HISTORY: Chest Pain COMPARISON STUDY: Chest radiograph December 21, 2016. FINDINGS: There are median sternotomy wires and clips from bypass grafting. Mild cardiomegaly is noted without evidence for pulmonary edema. Severe emphysema is present. There is no consolidation to suggest pneumonia. IMPRESSION: 1. No acute cardiopulmonary findings. 2. Severe emphysema. Electronically signed by: Justin Garza M.D. 01/08/2019 12:50 PM ECG Data Attestation: I personally reviewed and interpreted this ECG as follows: Indication: chest pain Rate (beats per minute): 66 Findings: + ST depression (in anterior and lateral leads); no PVC Comparison ECG Date: from (05/06/2016) Change: the following changes noted (ST depressions in the lateral leads are new) Blood Pressure Blood Pressure Findings: Normal blood pressure Blood Pressure Disposition: did not require urgent referral MDM Narrative Patient is a 63-year-old male with a past medical history of ITP CAD with VT and previous CABG 5 years ago the presents the ER for precordial chest pain associated with left arm pain. He notes that this is present with walking and resolves with rest. He notes this does feel like his previous VT but not as severe. He was given aspirin resolution with nitro. Vitals were stable. Labs show no significant leukocytosis but a thrombocytopenia at 75. BMP with LFTs bilirubin and troponin was negative. Lipase unremarkable. Chest x-ray without any focal infiltrate. EKG was not significantly changed from previous. Patient was updated bedside. Discussed the hospitalist and patient will be observed overnight. Impression & Plan Chest pain, Thrombocytopenia, CAD (coronary artery disease), [place] coronary artery Discharge Plan Visit Data Chief Complaint: Cardiac Assessment Stated Complaint: CHEST DISCOMFORT ED Provider: Donell Putnam Discharge Problem: Chest pain, Thrombocytopenia, CAD (coronary artery disease), [place] coronary artery Patient Disposition: Being Evaluated by Hospitalist Discharge Instructions Interventions: ED Discharge Assessment Last Done: 01/08/19 17:07 The scribe's documentation has been prepared under my direction and personally reviewed by me in its entirety. I confirm that the note above accurately reflects all work, treatment, procedures, and medical decision making performed by me.
[2019-01-08] MEDS ORDERED: ACETAMINOPHEN 325 MG TAB PO PRN (17:35)
[2019-01-08] MEDS: PANTOprazole 40 MG TAB PO SCH (18:32)
[2019-01-08] MEDS: METOPROLOL TARTRATE 25 MG TAB PO SCH (20:23)
[2019-01-08] MEDS ORDERED: ATORVASTATIN 40 MG TAB PO SCH (21:00)
[2019-01-09 06:07] LABS: Hematocrit (blood only) 44.6 % (42-52); Hemoglobin 14.6 g/dL (14.0-18.0); Mean Corpuscular Hgb Conc 32.7 g/dL (32-36); Mean Corpuscular Volume 85.4 fL (80-100); RDW Coefficient of Variation 13.9 % (11.5-14.5); RDW Standard Deviation 43.4 fL (36.4-46.3); Red Blood Count 5.22 M/uL (4.7-6.1); White Blood Count 8.51 K/uL (4.8-10.8)
[2019-01-09 06:08] LABS: Mean Platelet Volume 10.3 fL (7.4-10.4); Platelet Count 71 K/uL (130-400)
[2019-01-09 06:30] LABS: BUN Creatinine Ratio 13.7 (10-20); Blood Urea Nitrogen 15 mg/dl (7-18); Calcium 8.6 mg/dl (8.5-10.1); Carbon Dioxide 26 mmol/L (21-32); Chloride 106 mmol/L (98-107); Creatinine Clr Calc Pharmacy 72.2 ml/min; Est GFR (African American) 79.5; Est GFR (Non-African American) 68.6; Glucose 94 mg/dl (70-99); Magnesium 2.1 mg/dl (1.8-2.4); Sodium 139 mmol/L (136-145)
[2019-01-09 06:36] LABS: Troponin I < 0.015 ng/ml (0-0.045)
[2019-01-09] MEDS: PANTOprazole 40 MG TAB PO SCH (08:49)
[2019-01-09] MEDS: METOPROLOL TARTRATE 25 MG TAB PO SCH (08:49)
[2019-01-09] MEDS ORDERED: ASPIRIN 81 MG ECTAB PO SCH (09:00)
[2019-01-09] MEDS ORDERED: ESCITALOPRAM OXALATE 10 MG TAB PO SCH (09:00)
--- NOTE | 2019-01-09 09:43 | Cardiology Consultation ---
Date of Consultation January 09, 2019 Assessment & Plan (1) Chest pain: 2. Coronary artery disease-- NSTEMI 2015 status post CABG x3 3. Dilated ascending aorta 4. Dyslipidemia 5. ITP 6. GERD Patient with history of coronary artery disease status post coronary bypass grafting 2014 admitted yesterday with chest pain. Chest pain atypical in nature but somewhat reminiscent of prior angina. Symptoms persisted for about 48 hours with negative troponins and no acute EKG changes. Echo pending. He is currently chest pain free and hemodynamically/electrically stable. He stopped his Protonix about 2 weeks ago and suspect symptoms are more likely due to a GI cause than cardiac. Will perform stress echo for further risk stratification. History of Present Illness Reason for Consultation: Chest pain Attending Physician: Franklin Farris MD History of Present Illness Mr. Dia is a 63 year old male with a medical history significant for coronary artery disease with NSTEMI post CABG x 3 10/2014 (TAVAREZ to LAD, SVG to RCA, SVG to distal circumflex/OM), dyslipidemia, ITP, dilated ascending aorta, history of PACs and GERD. He is being seen in consultation for chest pain. Patient was previously followed by Dr. Perez in our office. In 2014 he presented to [facility] with NSTEMI and underwent cardiac cath showing multivessel coronary disease. He was transferred to and underwent coronary artery bypass grafting. He has done well from a cardiac standpoint since. He reports that he recently started tapering off his Protonix as he was no longer having symptoms of heart burn. He stopped the Protonix completely about 2 weeks ago. Monday he developed central chest pain he describes as a dull ache. The chest pain occurred intermittently lasting several minutes to 30 minutes in duration. No association with exertion or food. Actually felt that eating improved his symptoms. No associated nausea, vomiting, diaphoresis, shortness of breath or palpitations. Symptoms are reminiscent of his prior angina more than his heartburn except with his NSTEMI symptoms were worse with exertion. Due to persistent symptoms he presented to the ED yesterday morning. Initial EKG with nonspecific ST abnormality similar to previous. Serial troponin remains negative. His pain persisted throughout the day until last evening when it resolved. He attributes the resolution of his pain to being started back on Protonix. Currently feeling well. No recurrent chest pain. No shortness of breath, orthopnea, PND or edema. No palpitations, lightheadedness, near syncope or syncope. No abnormal bleeding. Remains fairly active at home without limiting cardiac symptoms. Social history: and lives with . 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 Quit smoking about 15 years ago. No alcohol or drug use. Allergies Allergy/AdvReac Type Severity Reaction Status Date / Time azithromycin AdvReac Unknown ATRIAL Unverified 01/08/19 13:36 [From Zithromax Z-Evan] FIBRILLATION Home Medications Home Medications Medication Instructions Recorded Confirmed Type aspirin [Aspir-81] 81 mg PO QAM 02/08/18 01/08/19 History escitalopram oxalate 1 tab PO QAM 02/08/18 01/08/19 History ibuprofen 200 mg PO QID PRN 02/08/18 01/08/19 History metoprolol tartrate 25 mg PO BID 02/08/18 01/08/19 History pantoprazole 40 mg tablet,delayed 40 mg PO QAM #30 tab 11/20/18 01/08/19 Rx release multivitamin tablet 1 tab PO QAM 12/28/18 01/08/19 History atorvastatin 80 mg tablet 80 mg PO HS #90 tab 01/03/19 01/08/19 Rx aspirin, buffered 325 mg PO DAILY PRN 01/08/19 01/08/19 History Patient History Medical History AAA (abdominal aortic aneurysm) Dilated aortic root Hypertension Chronic ITP (idiopathic thrombocytopenia) (Chronic) Surgical History H/O inguinal hernia repair Hx of CABG - 3 vessle Family History Father Motor vehicle accident Family/Other Hypertension Grandmother Stroke Grandfather (Paternal) Cardiac disorder Grandmother (Paternal) Diabetes Other Cancer Social History Preferred Language: Northern Irish Communication Ability: Effective Visual Impairment: Limited Hearing Ability: Normal Beliefs That Will Affect Care: None marital status: Current Living Situation: Spouse current occupational status: employed 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 HEENT: Head is normal. PERRLA. EOMI. Sclerae anicteric. Ears, nose and throat unremarkable. Mucous membranes moist. Neck: Normal carotid upstrokes, no bruits. No appreciable JVD. Lungs: Clear to auscultation bilaterally without rales, rhonchi or wheezes. Cardiac: Regular rate and rhythm. S1-S2 normal. No appreciable murmur, gallop or rub. Abdomen: Soft and nontender. Bowel sounds normal. No mass or organomegaly. No abdominal bruit. Extremities/vascular: Well perfused. No peripheral edema. Radial, DP and PT pulses 2+ bilaterally Skin: No rash or abnormal lesions. Normal turgor. Neurologic: Nonfocal Psychiatric: Affect appropriate. Alert and oriented. Results & Data Vital Signs (Past 12 Hours) Vital Signs Temp Pulse Resp BP Pulse Ox 01/09/19 07:47 36.5 C 60 17 105/70 94 01/09/19 04:00 36.6 C 58 L 18 113/74 93 01/08/19 23:00 36.7 C 59 L 18 110/71 93 Laboratory Results Laboratory Results - last 24 hr 01/08/19 01/08/19 01/08/19 12:54 12:54 20:23 WBC 8.71 RBC 5.30 Hgb 15.2 Hct 44.5 MCV 84.0 MCH 28.7 MCHC 34.2 RDW Std Deviation 42.5 RDW Coeff of Kilo 13.8 Plt Count 75 L MPV 10.1 Immature Gran % (Auto) 0.3 Neut % (Auto) 62.5 Lymph % (Auto) 27.4 [place] % (Auto) 7.6 Eos % (Auto) 2.0 Baso % (Auto) 0.2 Immature Gran # (Auto) 0.03 H Neut # (Auto) 5.44 Lymph # (Auto) 2.39 [place] # (Auto) 0.66 H Eos # (Auto) 0.17 Baso # (Auto) 0.02 Sodium 140 Potassium 4.4 Chloride 108 H Carbon Dioxide 24 Anion Gap 8.0 BUN 11 Creatinine 0.99 Est Cr Clr Drug Dosing 81.7 Est GFR ( Amer) 92.2 Est GFR (Non-Af Amer) 79.6 BUN/Creatinine Ratio 11.3 Glucose 98 Calcium 9.4 Magnesium Total Bilirubin 1.3 H AST 21 ALT 24 Alkaline Phosphatase 81 Troponin I < 0.015 < 0.015 Total Protein 6.7 Albumin 3.4 Globulin 3.3 Albumin/Globulin Ratio 1.0 Lipase 131 01/09/19 01/09/19 05:34 05:34 WBC 8.51 RBC 5.22 Hgb 14.6 Hct 44.6 MCV 85.4 MCH 28.0 MCHC 32.7 RDW Std Deviation 43.4 RDW Coeff of Kilo 13.9 Plt Count 71 L MPV 10.3 Immature Gran % (Auto) Neut % (Auto) Lymph % (Auto) [place] % (Auto) Eos % (Auto) Baso % (Auto) Immature Gran # (Auto) Neut # (Auto) Lymph # (Auto) [place] # (Auto) Eos # (Auto) Baso # (Auto) Sodium 139 Potassium 4.0 Chloride 106 Carbon Dioxide 26 Anion Gap 7.0 BUN 15 Creatinine 1.12 Est Cr Clr Drug Dosing 72.2 Est GFR ( Amer) 79.5 Est GFR (Non-Af Amer) 68.6 BUN/Creatinine Ratio 13.7 Glucose 94 Calcium 8.6 Magnesium 2.1 Total Bilirubin AST ALT Alkaline Phosphatase Troponin I < 0.015 Total Protein Albumin Globulin Albumin/Globulin Ratio Lipase Diagnostic Findings Chest xray-- No acute process. Emphysema Echo pending ECG Additional Comments: EKG sinus rhythm with nonspecific ST abnormality Tele reviewed-- sinus rhythm PG Care Time/CCT Total # of Minutes Spent Total Time Spent with Patient: Total time spent is greater than 50% in coordination of care (as documented) at patient's floor/unit and/or counseling patient: (1) Chest pain Chest pain type: unspecified Qualified Code(s): R07.9 - Chest pain, unspecified
--- NOTE | 2019-01-09 18:02 | Discharge Summary ---
Date of Service January 09, 2019 Admission HPI Per Admitting Provider 63yo M w/ hx of NSTEMI and 3vCABG in 2015 who presents for chest tightness. Started on Monday and has been a low-level, 2-3/10 "tightness" in the chest and radiating up to the left upper arm. He reports this is similar to his prior [place]. He has not had any diaphoresis, nausea, vomiting, dizziness, lightheadedness, shortness of breath. He does report 1-2 times last week, he had brief (minutes) episodes of palpitations where he checked his pulse and just had some skipped beats. He took a full-strength aspirin last night for the discomfort without a change. He notes that he has been taking his PPI less often on the advice of his PCP and probably hasn't taken it in a week or so. 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 Principal Diagnosis Chest pain, possibly GERD Discharge Exam Constitutional WD/WN, vitals as above Eyes EOM intact bilaterally; no conjunctival abnormality ENMT external ear and nose normal, oropharynx normal Neck trachea midline, no thyromegaly normal visual inspection Respiratory normal respiratory effort, lungs clear to auscultation no respiratory distress Cardiovascular RRR, no murmur, no edema Gastrointestinal (Abdomen) Inspection/Auscultation: abdomen normal to inspection; abdomen not distended Musculoskeletal no cyanosis or clubbing, extremities motor strength 5/5 Skin no rashes, warm and dry Neurologic moves all extremities and awake Psychiatric Orientation: alert, oriented to person and cooperative Discharge Data Allergies Allergy/AdvReac Type Severity Reaction Status Date / Time azithromycin AdvReac Unknown ATRIAL Unverified 01/08/19 13:36 [From Zithromax Z-Evan] FIBRILLATION Consultations 01/08/19 13:52 ED Decision to Admit Stat 01/08/19 17:35 Consult Cardiology Routine Hospital Course (1) Chest pain: Cardiac vs. gastric in etiology. Concerning that his symptoms are very similar to prior NSTEMI in 2015; however, not worse with activity and he has had some medication and dietary changes that point toward GERD as cause of pain. - Trended troponins and EKGs - All negative. No [place]. - Stress echo was normal. No aortic root dilation. Clean cardiac bill of health. - Encouraged him to continue his PPI, eat less fast foot/GERD precautions. Follow up with David Del Toro and PCP. (2) Hypertension: BP was 110/90 in the ED. - Continue home meds (3) Dilated aortic root: Gets routine monitoring with ultrasound. Low concern for acute issue. - Echo showed no worsening dilation. Normal follow up. (4) Chronic ITP (idiopathic thrombocytopenia): Receives Nplate as outpatient. - Monitor plts while inpatient. Stable around 70-80. (5) DVT prophylaxis: SCDs - Low DVT risk per admission calculator Total Time Total Time Spent Total Time Spent (In Minutes): 23 Discharge Plan Discharge Items Patient Disposition: Home - Self-Care Reason For Visit: CHEST PAIN Discharge Diagnosis: Chest pain - Likely heart burn Activity: Resume your previous activity Non-emergency contact: Primary Care Provider and Landscape Technician Call non-emergency contact if: your symptoms worsen and your pain is not controlled Follow-up/Referrals: Daniel Alba MD [Primary Care Provider] - 01/14/19 11:00 am (Please, follow up with Dr. Daniel Alba on MondayJanuary 14 at 11:00 am. *THIS APPOINTMENT WILL BE IN THE [place] OFFICE *If you need to change this appointment, call the office at [phone].) David Del Toro PA-C [Physician Utility Worker [place]] - 02/06/19 9:30 am (Please, follow up at [facility] Cardiology Office with David Del Toro PA-C on MondayFebruary 06 at 9:30 am. *If you need to change this appointment, call the office at [phone].) Diet: Heart Healthy Addtl Attending Provider Instructions: Your testing was all good! Your stress test showed a good squeeze. Your troponins were all negative (normal). The echo of your aorta was stable. Pending Studies at Discharge: No Stand-Alone Forms: [facility] Medications and DC Order Prescriptions: Continued pantoprazole 40 mg tablet,delayed release (DR/EC) 40 mg PO QAM Qty: 30 RF: 5 atorvastatin 80 mg tablet 80 mg PO HS Qty: 90 RF: 3 multivitamin [Daily Multiple] tablet 1 tab PO QAM RF: 0 aspirin [Aspir-81] 81 mg Tablet,Delayed Release (Dr/Ec) 81 mg PO QAM RF: 0 ibuprofen 200 mg Tablet 200 mg PO QID PRN (Reason: Pain) RF: 0 escitalopram oxalate 10 mg tablet 1 tab PO QAM RF: 0 metoprolol tartrate 25 mg tablet 25 mg PO BID RF: 0 aspirin, buffered 325 mg Tablet 325 mg PO DAILY PRN (Reason: Chest Pain) RF: 0 Discharge Orders: Discharge Order (Routine); Ordered 01/09/19 Ordered By: Franklin Farris Admission Data Admit Date/Time: 01/08/19 16:28 Attending Provider: Franklin Farris Admit Provider: Franklin Farris Primary Care Provider: Daniel Alba Other Providers: Hung Ruffin ; Alec Jaffe Other Interventions: Discharge Summary Assessment (RN) Last Done: 01/09/19 12:23 DC Date/Time DO NOT enter until pt leaves facility: 01/09/19 13:27
== END 2019-01-09 13:27 | disposition home or self-care (01) ==
LOC: ED 12:11 → 2N 12:11
DX: Z87.891 Personal history of nicotine dependence; Z79.899 Other long term (current) drug therapy; I77.810 Thoracic aortic ectasia; R07.89 Other chest pain; I10 Essential (primary) hypertension; Z95.1 Presence of aortocoronary bypass graft; Z79.82 Long term (current) use of aspirin; Z88.1 Allergy status to other antibiotic agents; D69.3 Immune thrombocytopenic purpura

== ENCOUNTER 2019-12-05 13:11 | Inpatient (IN) ==
--- NOTE | 2019-12-05 14:38 | Emergency Department Note ---
History of Present Illness General Chief complaint: Abnormal Labs/Diagnostic Testing Stated complaint: SENT BY DR RICH ARE DANGEROUSLY LOW Time Seen by Provider: 12/05/19 13:52 Source: patient Mode of arrival: ambulatory Limitations: no limitations History of Present Illness Provider complaint: Thrombocytopenia and bruising Maximum Pain Intensity: 0 This is a 64-year-old male who presents to the ED with a chief complaint of thrombocytopenia. The patient states that he awoke this morning and noticed a new bruise to his right arm without any significant trauma. He contacted the oncologist because he has a history of ITP and they did blood work this morning and found that his platelet count was 1. They recommended that he come to the ED for evaluation. I did speak with Dr. Rodriguez about the patient. He would like the patient to be admitted to the hospital medicine and then they will figure out what to do. The patient has no additional complaints. No other additional complaints of bleeding just a bruise to the right arm. He is on Eliquis. Home Medications Home Medications Medication Instructions Recorded Confirmed Type aspirin [Aspir-81] 81 mg PO QAM 02/08/18 12/05/19 History multivitamin 1 tab PO QAM 12/28/18 12/05/19 History atorvastatin 80 mg tablet 80 mg PO HS #90 tab 01/03/19 12/05/19 Rx metoprolol tartrate 25 mg tablet 25 mg PO BID #180 tab 07/25/19 12/05/19 Rx escitalopram oxalate 10 mg tablet 10 mg PO QAM #30 tab 08/08/19 12/05/19 Rx pantoprazole 40 mg tablet,delayed 40 mg PO QAM #30 tab 10/28/19 12/05/19 Rx release Allergies Allergy/AdvReac Type Severity Reaction Status Date / Time azithromycin AdvReac Intermediate ATRIAL Verified 12/05/19 14:41 [From Zithromax Z-Evan] FIBRILLATION Past Med/Surg History Medical History (Updated 12/05/19 @ 16:37 by Quang Roque DO) AAA (abdominal aortic aneurysm) AAA (abdominal aortic aneurysm) Abnormal EKG Acute [place] 2014 Acute subendocardial infarction, initial episode of care CAD (coronary artery disease), [place] coronary artery Chest pain Chronic ITP (idiopathic thrombocytopenia) Chronic ITP (idiopathic thrombocytopenia) Chronic ITP (idiopathic thrombocytopenia) Coronary artery disease Dark stools Dilated aortic root Dilated aortic root GI bleed Heart disease Hypertension Myocardial infarction Severe anemia Upper GI bleed Surgical History (Updated 12/05/19 @ 15:28 by Asad Page) H/O cardiac catheterization H/O chest tube placement for pneumothoraces in his 20s H/O inguinal hernia repair S/P CABG (coronary artery bypass graft) S/P triple vessel bypass [facility] Family History (Updated 12/05/19 @ 15:33 by Asad Page) Father Motor vehicle accident Grandfather (Paternal) Cardiac disorder Hypertension Coronary heart disease Grandmother (Paternal) Diabetes Grandmother (Maternal) Stroke Mother AML (acute myelogenous leukemia) Denies family history of Family history of ITP Social History (Updated 12/05/19 @ 15:31 by Asad Page) Smoking Status: Former smoker packs per day: 2; Years Smoked: 40; Smoking End Date: 2011; Hx Alcohol Use: No Hx Substance Use: No Preferred Language: Vietnamese Communication Ability: Effective Visual Impairment: Limited Hearing Ability: Normal Beliefs That Will Affect Care: None marital status: Current Living Situation: Spouse Current Living Situation Comment: lives in [place] 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 How many Children do You have: 1 How many Children do You have Comment: son Feels Safe at Home: Yes Childhood Exposure to Second-Hand Smoke: No caffeine: Yes (coffee 2 per day.) during the past year weight has: remained stable Dental Care, Regularly: Yes Physical Activity Frequency: Does not Exercise Seatbelt Use: always Sunscreen Use: Yes Review of Systems A total of 10 systems reviewed and were otherwise negative Physical Exam Vital Signs Vital Signs - 24 hr 12/05/19 13:15 12/05/19 14:52 12/05/19 15:03 Temperature 36.8 C Temperature Source Oral Pulse Rate 53 L 48 L 47 L Pulse Rate [Right Finger] 48 L Pulse Rhythm Regular Pulse Rhythm [Right Finger] Regular Pulse Strength Normal Pulse Strength [Right Finger] Normal Respiratory Rate 16 14 18 Respiratory Effort / Characteristics Non-Labored Non-Labored Spontaneous Respiratory Depth Normal Normal Respiratory Pattern Regular Regular Blood Pressure 155/92 H 146/76 H Blood Pressure [Right Arm] 146/76 H Blood Pressure Mean 113 86 Blood Pressure Mean [Right Arm] 99 Blood Pressure Position Sitting Blood Pressure Position [Right Arm] Sitting Pulse Oximetry 97 97 Oxygen Delivery Method Room Air Room Air Sepsis Recent Fever Within 48 Hours No Sepsis New/Unexplained Change in Mental Status N/A Sepsis Action Taken by Nursing No Action Required 12/05/19 15:30 12/05/19 16:00 Temperature Temperature Source Pulse Rate 48 L 63 Pulse Rate [Right Finger] Pulse Rhythm Pulse Rhythm [Right Finger] Pulse Strength Pulse Strength [Right Finger] Respiratory Rate 16 21 Respiratory Effort / Characteristics Respiratory Depth Respiratory Pattern Blood Pressure Blood Pressure [Right Arm] Blood Pressure Mean Blood Pressure Mean [Right Arm] Blood Pressure Position Blood Pressure Position [Right Arm] Pulse Oximetry Oxygen Delivery Method Sepsis Recent Fever Within 48 Hours Sepsis New/Unexplained Change in Mental Status Sepsis Action Taken by Nursing CONSTITUTIONAL/VITAL SIGNS: Reviewed / noted above. GENERAL: Non-toxic in appearance. INTEGUMENTARY: Warm, dry, and [place]. HEAD: Normocephalic. EYES: without scleral icterus or trauma. ENT/OROPHARYNX: clear and moist. LYMPHADENOPATHY/NECK: Is supple without lymphadenopathy or meningismus. RESPIRATORY: Lungs clear and equal. CARDIOVASCULAR: Regular rate and rhythm. GI/ABDOMEN: Soft and nontender. No organomegaly or pulsatile mass. No rebound or guarding. Normal bowel sounds. EXTREMITIES: Warm and well perfused. There is a small area of ecchymosis on the right forearm. BACK: No CVA tenderness. NEUROLOGICAL: Intact without focal deficits. PSYCHIATRIC: normal affect. MUSCULOSKELETAL: Normally developed with good muscle tone. TRIAGE NURSING DOCUMENTATION REVIEWED. Medical Decision Making Differential Diagnosis Differential includes acute coronary syndrome, myocardial infarction, CVA, TIA, anemia, infection, pneumonia, UTI, pyelonephritis, poor nutrition, dehydration, electrolyte disturbance,hypoglycemia. Medical Records Attestation: I reviewed the patient's medical records. Home Medications Current Medication List: was personally reviewed by me Laboratory Data Attestation: I reviewed the patient's lab results. Result diagrams: 12/05/19 14:49 12/05/19 14:49 Lab Results 12/05/19 12/05/19 12/05/19 Range/Units 14:49 14:49 14:49 PT 11.0 (9.0-12.0) Seconds INR 1.0 (0.9-1.1) APTT 35.2 H (21.0-31.0) Seconds PTT Ratio 1.3 Sodium 143 (136-145) mmol/L Potassium 4.3 (3.5-5.1) mmol/L Chloride 113 H (98-107) mmol/L Carbon Dioxide 26 (21-32) mmol/L Anion Gap 4.0 (3-11) BUN 14 (7-18) mg/dl Creatinine 0.83 (0.6-1.4) mg/dl Est Cr Clr Drug Dosing 96.4 ml/min Est GFR ( Amer) 106.3 Est GFR (Non-Af Amer) 91.7 BUN/Creatinine Ratio 17.4 (10-20) Glucose 88 (70-99) mg/dl Calcium 8.3 L (8.5-10.1) mg/dl Total Bilirubin 1.2 H (0.2-1) mg/dl AST 21 (15-37) U/L ALT 25 (12-78) U/L Alkaline Phosphatase 68 (45-117) U/L Total Protein 6.3 L (6.4-8.2) gm/dl Albumin 2.8 L (3.4-5.0) gm/dl Globulin 3.5 (2.5-4.0) gm/dl Albumin/Globulin Ratio 0.8 L (0.9-2) Blood Type A Negative Antibody Screen NEGATIVE The patient CBC done earlier today reveals a platelet count of 1. MDM Narrative The patient presents with a bruise to his right arm that was spontaneous and a low platelet count. His platelet count was 1. I talked with Dr. Reardon about the patient. The patient is to be admitted by medicine service for further inpatient evaluation by hematology. Impression & Plan Thrombocytopenia, Bruising Discharge Plan Visit Data Chief Complaint: Abnormal Labs/Diagnostic Testing Stated Complaint: SENT BY DR RICH ARE DANGEROUSLY LOW ED Provider: Quang Roque Discharge Problem: Thrombocytopenia, Bruising Patient Disposition: Being Evaluated by Hospitalist Forms Stand Alone Forms: My [facility] [employer] Prescriptions Prescriptions: No Action atorvastatin 80 mg tablet 80 mg PO HS Qty: 90 RF: 3 metoprolol tartrate 25 mg tablet 25 mg PO BID Qty: 180 RF: 3 escitalopram oxalate 10 mg tablet 10 mg PO QAM Qty: 30 RF: 6 pantoprazole 40 mg tablet,delayed release (DR/EC) 40 mg PO QAM Qty: 30 RF: 5 multivitamin [Daily Multiple] tablet 1 tab PO QAM RF: 0 aspirin [Aspir-81] 81 mg Tablet,Delayed Release (Dr/Ec) 81 mg PO QAM RF: 0 Referrals Referrals: Daniel Alba MD [Primary Care Provider] -
[2019-12-05 15:17] LABS: Partial Thromboplastin Ratio 1.3; Partial Thromboplastin Time 35.2 Seconds (21.0-31.0)
--- NOTE | 2019-12-05 15:20 | History & Physical Report ---
Date of Service December 05, 2019 Assessment & Plan (1) Chronic ITP (idiopathic thrombocytopenia): Refractory ITP despite weekly use of Nplate; previous use of prednisone, rituxan, etc. I do not see any concomitant infectious process causing platelet/bone marrow suppression. Spoke with Dr Reardon who advises 1 gm/kg of IVIG tonight, then 1gm/kg of IVIG tomorrow. CBC in am. Formal consult placed to Dr Reardon. May need to consider splenectomy since ITP has been refractory to multiple therapies. Hold aspirin given current platelet count. No platelet transfusion at this time unless he had significant bleeding. (2) CAD (coronary artery disease), [place] coronary artery: No recent ischemic symptoms. Cont BB although reduce dose to 12.5mg BID since HRs are about 40 at rest. Cont statin. Hold asa. (3) Hypertension: Reduce BB dose due to severe bradycardia as noted above. BPs otherwise controlled. (4) AAA (abdominal aortic aneurysm): 3.7cm infrarenal AAA in 2018. At discharge would recommend surveillance u/s to recheck size since no imaging in 2 years. (5) Superficial thrombophlebitis: history of. completed 6 months of eliquis. he is no longer on anticoagulation. (6) Mixed hyperlipidemia: statin (7) DVT prophylaxis: chemical means contraindicated in light severe thrombocytopenia. SCDs only History of Present Illness Chief Complaint: petechiae, low platelets Primary Care Provider: Daniel Alba MD 64yo male with history of ITP on Nplate therapy - last dose 12/03/19 and receiving it weekly - presents with concern of petechiae on arms and legs this am. He also has a bruise on his left leg present for several days. He called Dr Reardon's office, was told to have repeat CBC this am, and he indeed did so. Platelet count was 1 and he was advised to come to the ER for evaluation. He c/o fatigue for the last few weeks. Denies nosebleeds, rectal bleeding, or hematuria. Of note - he takes daily asa 81mg for CAD. Was on eliquis for 6 months for right leg superficial thrombosis. Allergies Allergy/AdvReac Type Severity Reaction Status Date / Time azithromycin AdvReac Intermediate ATRIAL Verified 12/05/19 14:41 [From Zithromax Z-Evan] FIBRILLATION Home Medications Home Medications Medication Instructions Recorded Confirmed Type aspirin [Aspir-81] 81 mg PO QAM 02/08/18 12/05/19 History multivitamin 1 tab PO QAM 12/28/18 12/05/19 History atorvastatin 80 mg tablet 80 mg PO HS #90 tab 01/03/19 12/05/19 Rx metoprolol tartrate 25 mg tablet 25 mg PO BID #180 tab 07/25/19 12/05/19 Rx escitalopram oxalate 10 mg tablet 10 mg PO QAM #30 tab 08/08/19 12/05/19 Rx pantoprazole 40 mg tablet,delayed 40 mg PO QAM #30 tab 10/28/19 12/05/19 Rx release Past Med/Surg History Medical History (Updated 12/06/19 @ 07:26 by Asad Page) AAA (abdominal aortic aneurysm) Abnormal EKG Acute [place] 2014 Acute subendocardial infarction, initial episode of care CAD (coronary artery disease), [place] coronary artery Chest pain Chronic ITP (idiopathic thrombocytopenia) Coronary artery disease Dark stools Dilated aortic root GI bleed Heart disease Hypertension Myocardial infarction Severe anemia Upper GI bleed Surgical History (Updated 12/05/19 @ 15:28 by Asad Page) H/O cardiac catheterization H/O chest tube placement for pneumothoraces in his 20s H/O inguinal hernia repair S/P CABG (coronary artery bypass graft) S/P triple vessel bypass [facility] Family History (Updated 12/05/19 @ 15:33 by Asad Page) Father Motor vehicle accident Grandfather (Paternal) Cardiac disorder Hypertension Coronary heart disease Grandmother (Paternal) Diabetes Grandmother (Maternal) Stroke Mother AML (acute myelogenous leukemia) Denies family history of Family history of ITP Social History (Updated 12/05/19 @ 15:31 by Asad Page) Smoking Status: Former smoker packs per day: 2; Years Smoked: 40; Smoking End Date: 2011; Hx Alcohol Use: No Hx Substance Use: No Preferred Language: Maltese Communication Ability: Effective Visual Impairment: Limited Hearing Ability: Normal Beliefs That Will Affect Care: None marital status: Current Living Situation: Spouse Current Living Situation Comment: lives in [place] 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 How many Children do You have: 1 How many Children do You have Comment: son Other Information That Helps Us Care for You: No Feels Safe at Home: Yes Safety Concerns: Feels Safe At This Time Childhood Exposure to Second-Hand Smoke: No caffeine: Yes (coffee 2 per day.) during the past year weight has: remained stable Dental Care, Regularly: Yes Physical Activity Frequency: Does not Exercise Seatbelt Use: always Sunscreen Use: Yes Review of Systems Constitutional: + fatigue; no fever, no chills, no anorexia and no weight loss Eyes: no worsening vision Ear, Nose, Mouth, Throat: no nasal congestion, no sore throat and no dysphagia no loss of taste or smell Respiratory: + cough (morning cough - chronic ); no dyspnea on exertion Cardiovascular: no chest pain and no edema Gastrointestinal: no abdominal pain, no nausea, no vomiting, no diarrhea/loose stools and no blood in stools Genitourinary: no hematuria Musculoskeletal: no back pain and no joint pain Integumentary: petechiae Neurologic: no loss of sensation Psychiatric: no depression Endocrine: no diabetes Hematologic / Lymphatic: + easy bruising Physical Exam Constitutional: well developed and well nourished; no acute distress and no altered mental status Eyes: + anicteric sclerae and PERRL ENMT: external ear and nose normal, oropharynx normal Neck: trachea midline, no thyromegaly Respiratory: normal respiratory effort, lungs clear to auscultation Cardiovascular: Rate/Rhythm: regular rhythm and + bradycardic Heart Sounds: normal S1 and normal S2; no murmur Vessels: posterior tibial pulses present and dorsalis pedis pulses present; no JVD Extremities: no edema Gastrointestinal (Abdomen): normal bowel sounds, soft, nontender, no hepatosplenomegaly Musculoskeletal: no cyanosis or clubbing, extremities motor strength 5/5 Skin: + ecchymosis (Left medial thigh) petechiae on arms, legs - mild Neurologic: deep tendon reflexes 2+ bilaterally and moves all extremities; no focal motor deficits Psychiatric: A+Ox3, euthymic affect Lymphatic: no cervical lymphadenopathy Results & Data Results & Data ([facility]) Vital Signs (Past 12 Hours) Vital Signs Temp Pulse Pulse Resp BP BP Pulse Ox 12/05/19 14:52 48 L 18 146/76 H 97 12/05/19 13:15 36.8 C 53 L 16 155/92 H 97 Laboratory Results Laboratory Results - last 24 hr 12/05/19 12/05/19 12/05/19 14:49 14:49 14:49 PT 11.0 INR 1.0 APTT 35.2 H PTT Ratio 1.3 Sodium 143 Potassium 4.3 Chloride 113 H Carbon Dioxide 26 Anion Gap 4.0 BUN 14 Creatinine 0.83 Est Cr Clr Drug Dosing 96.4 Est GFR ( Amer) 106.3 Est GFR (Non-Af Amer) 91.7 BUN/Creatinine Ratio 17.4 Glucose 88 Calcium 8.3 L Total Bilirubin 1.2 H AST 21 ALT 25 Alkaline Phosphatase 68 Total Protein 6.3 L Albumin 2.8 L Globulin 3.5 Albumin/Globulin Ratio 0.8 L Blood Type A Negative Antibody Screen NEGATIVE Code Status & VTE Plan Code Status full VTE Prophylaxis Plan VTE Prophylaxis will be ordered: No Reason for no VTE drug order: Contraindicated PG Care Time/CCT Total # of Minutes Spent Total Time Spent with Patient: Total time spent is greater than 50% in coordination of care (as documented) at patient's floor/unit and/or counseling patient: Coding Level of Care Code 76331 Initial Inpt Care Lvl 2 Diagnoses Chronic ITP (idiopathic thrombocytopenia) D69.3 CAD (coronary artery disease), [place] coronary artery I25.119 Associated angina: with unspecified angina [place] vs. transplanted heart: [place] heart Hypertension I10 Hypertension type: essential hypertension AAA (abdominal aortic aneurysm) I71.4 Presence of rupture: without rupture Superficial thrombophlebitis I80.9 Superficial thrombophlebitis-Involved body area: unspecified site Mixed hyperlipidemia E78.2 DVT prophylaxis Z29.9 (1) CAD (coronary artery disease), [place] coronary artery Associated angina: with unspecified angina [place] vs. transplanted heart: [place] heart Qualified Code(s): I25.119 - Atherosclerotic heart disease of [place] coronary artery with unspecified angina pectoris (2) Hypertension Hypertension type: essential hypertension Qualified Code(s): I10 - Essential (primary) hypertension (3) AAA (abdominal aortic aneurysm) Presence of rupture: without rupture Qualified Code(s): I71.4 - Abdominal aortic aneurysm, without rupture (4) Superficial thrombophlebitis Superficial thrombophlebitis-Involved body area: unspecified site Qualified Code(s): I80.9 - Phlebitis and thrombophlebitis of unspecified site
[2019-12-05 15:25] LABS: Albumin Level 2.8 gm/dl (3.4-5.0); BUN Creatinine Ratio 17.4 (10-20); Calcium 8.3 mg/dl (8.5-10.1); Creatinine Clr Calc Pharmacy 96.4 ml/min; Est GFR (African American) 106.3; Est GFR (Non-African American) 91.7; Potassium 4.3 mmol/L (3.5-5.1)
[2019-12-05 15:27] LABS: Albumin Globulin Ratio 0.8 (0.9-2); Bilirubin,Total 1.2 mg/dl (0.2-1); Globulin 3.5 gm/dl (2.5-4.0); Total Protein 6.3 gm/dl (6.4-8.2)
[2019-12-05] MEDS ORDERED: ACETAMINOPHEN 500 MG TAB PO STA (19:54)
[2019-12-05] MEDS ORDERED: IMMUNE GLOBULIN (HUMAN) SOLN IV SCH (19:54)
[2019-12-05] MEDS ORDERED: ONDANSETRON INJ 2 MG/ML 2 ML VIAL IV PRN (19:54)
[2019-12-05] MEDS ORDERED: IMMUNE GLOBULIN 10% IV SCH (21:00)
[2019-12-05] MEDS: METOPROLOL TARTRATE 25 MG TAB PO SCH (21:21)
[2019-12-05] MEDS: ATORVASTATIN 40 MG TAB PO SCH (21:21)
[2019-12-05] MEDS: IMMUNE GLOBULIN(HUMAN) 10% 200 ML IV SCH (22:18)
[2019-12-06] MEDS: IMMUNE GLOBULIN(HUMAN) 10% 200 ML IV SCH ×9 (00:28→18:48)
[2019-12-06 08:04] LABS: BUN Creatinine Ratio 15.4 (10-20); Calcium 8.6 mg/dl (8.5-10.1); Est GFR (African American) 98.8; Est GFR (Non-African American) 85.2; Potassium 3.8 mmol/L (3.5-5.1)
[2019-12-06 08:27] LABS: Hematocrit (blood only) 41.1 % (42-52); Hemoglobin 13.9 g/dL (14.0-18.0); Mean Corpuscular Hemoglobin 28.9 pg (25-34); Mean Corpuscular Hgb Conc 33.8 g/dL (32-36); Mean Corpuscular Volume 85.4 fL (80-100); Platelet Count 27 K/uL (130-400); RDW Coefficient of Variation 13.9 % (11.5-14.5); RDW Standard Deviation 43.1 fL (36.4-46.3); Red Blood Count 4.81 M/uL (4.7-6.1); White Blood Count 5.14 K/uL (4.8-10.8)
[2019-12-06] MEDS: METOPROLOL TARTRATE 25 MG TAB PO SCH ×2 (08:27→20:12)
[2019-12-06] MEDS: PANTOprazole 40 MG TAB PO SCH (08:28)
[2019-12-06] MEDS: ESCITALOPRAM OXALATE 10 MG TAB PO SCH (08:28)
[2019-12-06] MEDS: MULTIVITAMIN TAB PO SCH (08:28)
[2019-12-06 08:32] LABS: Basophils # (auto) 0.02 K/uL (0-0.2); Basophils % (auto) 0.4 %; Eosinophils % (auto) 5.8 %; Immature Granulocytes # (auto) 0.02 K/uL (0.00-0.02); Immature Granulocytes % (auto) 0.4 %; Lymphocytes # (auto) 1.82 K/uL (1.2-3.4); Lymphocytes % (auto) 35.4 %; Monocytes # (auto) 0.47 K/uL (0.11-0.59); Monocytes % (auto) 9.1 %; Neutrophils # (auto) 2.51 K/uL (1.4-6.5); Neutrophils % (auto) 48.9 %; Platelet Estimate SIGNIFIC DECREASED (Normal)
--- NOTE | 2019-12-06 09:45 | Consultation Report ---
DATE OF CONSULTATION: 12/06/2019 HEMATOLOGY CONSULTATION REASON FOR CONSULTATION: Refractory idiopathic thrombocytopenic purpura. HISTORY OF PRESENT ILLNESS: The patient is a very pleasant 64-year-old gentleman who was admitted to [facility] yesterday with platelet count of 1000. The patient has a longstanding history of ITP, initially managed by Dr. Mason Berkowitz, followed by Dr. Olivares, both who have left our practice. The patient had been receiving Nplate for several months and initially responded to therapy reasonably well. I reviewed his counts over the past year or so and noted quite a variation over a period of time. The patient admittedly has become more frustrated because of this reason. He has received steroids, IVIG, rituximab x2, and entered a discussion regarding splenectomy about a year ago, but opted to continue trying various immunomodulators. Clinically, other than fatigue, he feels well. There is no evidence of external hemorrhage. Nonetheless, I was alerted by one of our physician extenders of this gentleman's platelet count and thus recommended ER visit and admission to expedite IVIG as a temporizing measure. PAST MEDICAL HISTORY: Includes abdominal aortic aneurysm, acute subendocardial infarction, coronary artery disease, ITP, gastrointestinal bleeding, anemia. PAST SURGICAL HISTORY: Includes cardiac catheterization, chest tube placement for pneumothoraces in his 20s, inguinal hernia repair, coronary artery bypass grafting. MEDICATIONS: Had been receiving Nplate at [facility], aspirin 81 mg p.o. daily, multivitamin, atorvastatin 80 mg p.o. daily, metoprolol 25 mg p.o. b.i.d., escitalopram 10 mg p.o. daily, Protonix 40 mg p.o. daily. ALLERGIES: TO AZITHROMYCIN. SOCIAL HISTORY: The patient is retired. He is a reformed smoker registering close to 80-pack years. Negative for alcohol or illicit drugs. FAMILY HISTORY: Father attributable to motor vehicle accident. Mother from AML. REVIEW OF SYSTEMS: Other than fatigue, the rest of his systems are essentially negative. PHYSICAL EXAMINATION: GENERAL: Very pleasant 64-year-old man, in no acute distress. VITAL SIGNS: Temperature 36.8, pulse 50, respiratory rate 21, blood pressure 119/70. SKIN: Warm and dry. He has few areas of petechiae noted. HEENT: Atraumatic, normocephalic. Eyes: PERRLA, EOMI. Sclerae nonicteric. Nares patent without rhinorrhea or discharge. Throat clear. Tongue midline. Mucous membranes are moist. NECK: Supple without JVD or thyromegaly. LYMPH: No cervical, supraclavicular, axillary or inguinal palpable nodes. HEART: Regular rate and rhythm. No clicks, rubs, murmurs or gallops. ABDOMEN: Soft, nontender, nondistended without palpable hepatosplenomegaly. EXTREMITIES: No calf tenderness or swelling. No clubbing, cyanosis or edema. NEUROLOGIC: The patient is grossly intact. LABORATORY DATA: These are from yesterday by the way. WBC count 10,150, hemoglobin 14.1, platelet count 1000. Sodium 143, potassium 4.3, chloride 113, carbon dioxide 26, creatinine 0.83, BUN 14. IMPRESSION: Refractory idiopathic thrombocytopenic purpura. PLAN: I had a very pleasant discussion with the patient at bedside this morning. I reviewed Dr. Olivares's records and discussed details directly with the patient this morning. This gentleman has had a longstanding history of ITP, has received all common modalities, some twice over his clinical course. Most recently have been utilizing Nplate, which initially he responded to; however, as late, despite using maximal dose, his count has been much more labile with dramatic swings both up and down. Somewhat shocked to see his platelet count of 1000. Instructed the medical wellness manager to have the patient admitted for expedient IVIG. He has transiently responded to all modalities, but has never maintained remission for a prolonged period of time. Reengaged with the patient regarding splenectomy. He seems to be amenable to the idea at this point, knowing that there are few options moving forward. Briefly discussed the possibility of WinRho, which is used, but again does not provide a prolonged remission. The patient seemed to do the best with rituximab; however, has already received 2 separate regimens. I have recommended he at least discuss the possibility of laparoscopic splenectomy with surgery and agreed to see General Surgery in inpatient consultation, again for discussion, not necessarily to proceed with surgery immediately. I will continue to follow the patient during his hospital stay. He should receive a second dose of IVIG 1 g/kg and as long as he remains medically stable, could be discharged within the next 24 hours. Thank you very much for allowing me to participate in his care. Call me if you have questions or concerns. MELONY
--- NOTE | 2019-12-06 11:48 | Hospitalist Progress Note ---
Date of Service December 06, 2019 Assessment & Plan (1) Chronic ITP (idiopathic thrombocytopenia): Mr. Dia is a 64 yo M with a PMHx of chronic ITP who was admitted on 12/04 for a platelet level of 1 drawn on outpatient labs. He received a 1gm/kg IVIG infusion on admission, and is scheduled for another today. Chronic ITP (idiopathic thrombocytopenia): - Refractory disease despite weekly use of Nplate - platelet count of 1 on admission, up to 27 today - follows with Dr. Reardon as an outpatient, formally consulted - WBC normal. Afebrile. No apparent concomitant infectious process causing platelet/bone marrow suppression. - repeat CBC in am - May need to consider splenectomy since ITP has been refractory to multiple therapies. - continue to hold aspirin given current platelet count. - No platelet transfusion at this time unless he had significant bleeding. CAD (coronary artery disease), [place] coronary artery: - Cont BB although reduce dose to 12.5mg BID since HRs are about 40 at rest. - Cont statin. - Hold asa. Hypertension: - BP at goal at 125/78 - beta yolette dose reduced for bradycardia as above AAA (abdominal aortic aneurysm): - 3.7cm infrarenal AAA in 2018. - recommend surveillance u/s to recheck size since no imaging in 2 years. Hx of Superficial thrombophlebitis: - completed 6 months of eliquis; no longer taking Mixed hyperlipidemia: - continue home dose statin DVT prophylaxis: chemical means contraindicated in light severe thrombocytopenia. SCDs only Diet: heart healthy Dispo: med/tele Code: Full Admission and Anticipated Discharge Date Admission Date: December 05, 2019 Supervising Physician Co-Signing Physician Notes I also saw the patient independent of the resident physician and performed a history and physical. I discussed the case with the resident physician and I agree with the impression and plan as detailed above. Chronic ITP Platelets improved to 27,000 this morning Discussed with hematology Second dose of IVIG today Repeat CBC in AM Surgical consultation to discuss elective splenectomy If the patient does choose to go this route, will need to start appropriate immunizations (H flu, meningococcal, pneumococcal) prior to splenectomy. CAD (coronary artery disease) Noted reduced dose of beta-yolette given resting bradycardia Continue statin Holding aspirin given thrombocytopenia Hypertension Monitor with reduced dose of beta-yolette Subjective Doing well since admission - has discussed possible course of splenectomy with Dr. Reardon. Ambulating well. Eating and drinking well. Review of Systems Review of Systems: All systems reviewed & are unremarkable except as noted in HPI & below Physical Exam Constitutional: WD/WN, vitals as above cooperative Eyes: PERRL, conjunctivae normal, anicteric sclerae ENMT: external ear and nose normal, oropharynx normal Mouth: + oral mucosal abnormality (palantial petechiae ) Neck: normal visual inspection and trachea midline Respiratory: normal respiratory effort, lungs clear to auscultation Cardiovascular: Rate/Rhythm: regular rate and regular rhythm Heart Sounds: normal S1, normal S2 and + murmur (systolic ejection murmur) Extremities: no pedal edema Skin: +petechiae present on bilateral upper extremities Psychiatric: A+Ox3, euthymic affect Results & Data Results & Data ([facility]) Vital Signs (Past 12 Hours) Vital Signs Temp Pulse Pulse Resp BP Pulse Ox 12/06/19 08:05 59 L 12/06/19 07:57 36.8 C 55 L 16 127/85 96 12/06/19 04:00 36.8 C 50 L 21 119/70 96 Resident Activity Tracking Resident Involvement: Resident Care Provided Care Provided: Adult Hospital Medicine
[2019-12-06] MEDS ORDERED: IMMUNE GLOBULIN 10% IV SCH (12:00)
[2019-12-06] MEDS: ACETAMINOPHEN 325 MG TAB PO PRN ×2 (12:40→20:05)
[2019-12-06] MEDS ORDERED: ONDANSETRON INJ 2 MG/ML 2 ML VIAL IV PRN (17:57)
[2019-12-06] MEDS ORDERED: POLYETHYLENE (MIRALAX) 17 GM PACK PO PRN (17:57)
[2019-12-06] MEDS ORDERED: MELATONIN 3 MG TAB PO PRN (17:57)
[2019-12-06] MEDS: ATORVASTATIN 40 MG TAB PO SCH (20:12)
[2019-12-07 08:52] LABS: Hematocrit (blood only) 41.3 % (42-52); Mean Corpuscular Hgb Conc 33.9 g/dL (32-36); Mean Corpuscular Volume 85.5 fL (80-100); Mean Platelet Volume 11.1 fL (7.4-10.4); Platelet Count 116 K/uL (130-400); RDW Coefficient of Variation 13.7 % (11.5-14.5); RDW Standard Deviation 42.8 fL (36.4-46.3); Red Blood Count 4.83 M/uL (4.7-6.1); White Blood Count 6.58 K/uL (4.8-10.8)
[2019-12-07] MEDS: ESCITALOPRAM OXALATE 10 MG TAB PO SCH (10:33)
[2019-12-07] MEDS: METOPROLOL TARTRATE 25 MG TAB PO SCH (10:33)
[2019-12-07] MEDS: MULTIVITAMIN TAB PO SCH (10:34)
[2019-12-07] MEDS: PANTOprazole 40 MG TAB PO SCH (10:35)
--- NOTE | 2019-12-07 11:59 | Discharge Summary ---
Date of Service December 07, 2019 Admission HPI Per Admitting Provider 64yo male with history of ITP on Nplate therapy - last dose 12/03/19 and receiving it weekly - presents with concern of petechiae on arms and legs this am. He also has a bruise on his left leg present for several days. He called Dr Reardon's office, was told to have repeat CBC this am, and he indeed did so. Platelet count was 1 and he was advised to come to the ER for evaluation. He c/o fatigue for the last few weeks. Denies nosebleeds, rectal bleeding, or hematuria. Of note - he takes daily asa 81mg for CAD. Was on eliquis for 6 months for right leg superficial thrombosis. Principal Diagnosis Thrombocytopenia Discharge Exam Constitutional WD/WN, vitals as above Eyes PERRL, conjunctivae normal, anicteric sclerae ENMT external ear and nose normal, oropharynx normal Mouth: + oropharynx abnormality (palantial petechiae) Respiratory normal respiratory effort, lungs clear to auscultation Cardiovascular Rate/Rhythm: regular rate and regular rhythm Heart Sounds: + murmur (systolic) Skin petechiae present on bilateral upper extremities Psychiatric A+Ox3, euthymic affect Discharge Data Allergies Allergy/AdvReac Type Severity Reaction Status Date / Time azithromycin AdvReac Intermediate ATRIAL Verified 12/05/19 14:41 [From Zithromax Z-Evan] FIBRILLATION Consultations 12/05/19 14:35 ED Decision to Admit Stat 12/05/19 19:54 Consult Hematology Routine 12/06/19 18:03 Consult General Surgery Routine Hospital Course (1) Chronic ITP (idiopathic thrombocytopenia): Mr. Dia is a 64 yo M with a PMHx of chronic ITP who was admitted on 12/04 for a platelet level of 1 drawn on outpatient labs. He received a 1gm/kg IVIG infusion on admission, and another day after admission. The following is the medical management during stay here: Chronic ITP (idiopathic thrombocytopenia): - Refractory disease despite weekly use of Nplate - platelet count of 1 on admission, up to 116 on day of d/c - follows with Dr. Reardon as an outpatient, formally consulted - WBC normal. Afebrile. No apparent concomitant infectious process causing platelet/bone marrow suppression - May need to consider splenectomy since ITP has been refractory to multiple therapies. Pt has seen Dr. Hickey in the past (last summer), still contemplating splenectomy . Recommend outpt f/u on d/c . If pursues splenectomy, can get appropriate vaccinations to protect against encapsulated organisms - We held aspirin given current platelet count, but this will be resumed - No platelet transfusion given this admission CAD (coronary artery disease), [place] coronary artery: - Cont BB although reduce dose to 12.5mg BID since HRs are about 40 at rest. - Cont statin, resume ASA as above Hypertension: - Stable this admission - Beta yolette dose reduced for bradycardia as above AAA (abdominal aortic aneurysm): - 3.7cm infrarenal AAA in 2018. - recommend surveillance u/s to recheck size since no imaging in 2 years Hx of Superficial thrombophlebitis: - completed 6 months of eliquis; no longer taking Mixed hyperlipidemia: - continue home dose statin DVT prophylaxis: chemical means contraindicated in light severe thrombocytopenia, SCDs only. At time of d/c, pt with no other acute concerns or complaints. Total Time Total Time Spent Total Time Spent (In Minutes): I spent 35 minutes on this discharge -reviewing labs, examining and discussing with patient, discussion with consultants, and review and documentation of records. Discharge Plan Discharge Items Patient Disposition: Home - Self-Care Reason For Visit: SEVERE THROMBOCYTOPENIA 2ND TO ITP Discharge Diagnosis: Thrombocytopenia Activity: Per Instructions section Non-emergency contact: Primary Care Provider and Oncologist Call non-emergency contact if: you have any medication questions, your symptoms worsen and your temperature is above 101.5 Follow-up/Referrals: Daniel Alba MD [Primary Care Provider] - Diet: Heart Healthy Addtl Attending Provider Instructions: You were admitted for concerns of low platelets seen on outpatient labs. This admission you received IVIG x2, which increase her platelets up to 116 on day of discharge. Please follow the below instructions on discharge: Please follow-up with your PCP within 1 week of discharge. They can arrange for further refer to surgery for consideration for splenectomy Please follow-up with Dr. Reardon of oncology next week, you already have appointment set up We held your aspirin this admission, but this will be resumed on discharge We decreased your metoprolol dose to 12.5 mg twice a day due to concerns of low heart rate Pending Studies at Discharge: No Stand-Alone Forms: My [employer], Smoking Cessation Medications and DC Order Prescriptions: Continued atorvastatin 80 mg tablet 80 mg PO HS Qty: 90 RF: 3 escitalopram oxalate 10 mg tablet 10 mg PO QAM Qty: 30 RF: 6 pantoprazole 40 mg tablet,delayed release (DR/EC) 40 mg PO QAM Qty: 30 RF: 5 multivitamin [Daily Multiple] tablet 1 tab PO QAM RF: 0 aspirin [Aspir-81] 81 mg Tablet,Delayed Release (Dr/Ec) 81 mg PO QAM RF: 0 Changed metoprolol tartrate 25 mg tablet 12.5 mg PO BID Qty: 180 RF: 3 Discharge Orders: Discharge Order (Routine); Ordered 12/07/19 Ordered By: Karlos Murry Admission Data Admit Date/Time: 12/05/19 15:54 Attending Provider: Azar Luis Admit Provider: Asad Page Primary Care Provider: Daniel Alba Other Providers: Asad Page ; Memo Reardon V. ; Eran Gomez ; Rufus Warren ; Cyrus Johnson ; Manjeet Blanco Jr ; Arsenio Lovelace ; Blaine Hickey ; Rere Mejia ; Quan Ward ; Marcelo Ocampo Other Interventions: Discharge Summary Assessment (RN) Last Done: 12/07/19 13:26 Supervising Physician Co-Signing Physician Notes I also saw the patient independent of the resident physician and performed a history and physical. I discussed the case with the resident physician and I agree with the impression and plan as detailed above. I also personally discussed the case with the hematology reporting process consultant. Chronic ITP Platelets improved to 27,000 this morning Will follow-up with hematology on Monday for repeat CBC and Nplate Again discussed splenectomy as more definitive treatment; he had met with general surgery about a year ago to discuss. Discussed immunizations that would be required prior to surgery. CAD (coronary artery disease) Reduce beta-yolette dose given relative bradycardia Continue statin Low-dose aspirin resumed upon discharge Hypertension Monitor with reduced dose of beta-yolette Resident Activity Tracking Resident Involvement: Resident Care Provided Care Provided: Adult Hospital Medicine
== END 2019-12-07 14:47 | disposition home or self-care (01) | DRG 813 ==
LOC: ED 13:11 → 2N 15:54 → SUATTDRO 15:54 → 2N 19:30

== ENCOUNTER 2020-02-19 06:11 | Observation (INO) ==
--- NOTE | 2020-02-10 10:33 | Anesthesiology Consultation ---
Date of Service February 10, 2020 Assessment & Plan (1) Encounter for pre-operative examination: - Oncology/hematology office visit: 01/28/20: Hx ITP diagnosed 2014. S/P steroids/IVIG/Rituxan/Nplate therapies. Currently receiving N-plate therapy along with 3 recent doses of IVIG. "Continues to receive weekly Nplate with no improvement. Pt. will need to be evaluated by gen surg to consider splenectomy procedure.. Remain on Nplate. His dose schedule will be weekly pending plt count. Monitor CBC with diff q7 days." - Surgeon office visit: 01/30/20: "We would also want to try to optimize platelet count prior to surgery but working with Dr. Rodriguez as well as make sure he is typed and crossed for red blood cells and have platelets available on the day of surgery. At this point the patient is electing for surgery." - PCP office visit: 02/06/20: "He is acceptable risk for upcoming splenectomy. He does have clearance from Cardiology. He knows to hold his aspirin the morning of surgery. Continue beta-yolette and statin as usual." - Cardiology office visit: 02/06/20: "Patient to undergo splenectomy with Dr. Hickey later this month. From a cardiac standpoint he is relative low risk for planned procedure and is okay to proceed without additional cardiac testing. Ascending aorta is only minimally dilated and has been stable over years. No additional imaging necessary preoperatively. In the perioperative setting aspirin can be held as necessary. Continue current statin, beta-yolette throughout perioperative course." - Per assessment on 02/03: Travel screen negative. No known COVID-19 positive contacts or current COVID-19 related symptoms. Surgeon arranging preop COVID testing (02/12). Awaiting results. - Hx ITP (most recent plt was 33 on 02/04/20). Patient under close surveillance by hematology. Case reviewed with Dr. Headley. Will check CBC AM DOS. Shital at blood bank aware of possible transfusion AM DOS depending on CBC at surgeon/anesthesiologist discretion. Zohreh at OR aware to have patient come in early in case transfusion needed. - Check CBC AM DOS Chart Review Chart Review: Acceptable Risk for Surgery (pending evaluation AM DOS) and Patient NOT seen in Pre Admission Testing History Surgery Operation Date: 02/19/20 07:00 Proposed Procedures p Laparoscopic Splenectomy, Possible Open Splenectomy - Blaine Hickey, DO, FACS Height/Weight Height: 5 ft 7 in Weight: 95.254 kg Allergies Allergy/AdvReac Type Severity Reaction Status Date / Time azithromycin AdvReac Intermediate a-fib Verified 02/10/20 10:12 [From Zithromax Z-Evan] Medications Home Medications Medication Instructions Recorded Confirmed Last Taken aspirin [Aspir-81] 81 mg PO QAM 02/08/18 02/07/20 12/05/19 multivitamin 1 tab PO QAM 12/28/18 02/07/20 12/05/19 escitalopram oxalate 10 mg tablet 10 mg PO QAM #30 tab 08/08/19 02/07/20 12/05/19 pantoprazole 40 mg tablet,delayed 40 mg PO QAM #30 tab 10/28/19 02/07/20 12/05/19 release metoprolol tartrate 12.5 mg PO BID #180 tab 12/07/19 02/07/20 12/05/19 atorvastatin 80 mg tablet 80 mg PO HS #90 tab 01/22/20 02/07/20 Unknown [id number] 1 cap PO QAM 02/04/20 02/07/20 Unknown [Krill Oil ([place] 3 and 6)] Past Medical History Medical History (Updated 02/10/20 @ 10:25 by Breann Hernandez) Acute [place] 2014 Anxiety CAD (coronary artery disease), [place] coronary artery CABG x3 (2015) Chronic ITP (idiopathic thrombocytopenia) Dilated aortic root Mildly dilated ascending aorta4.0 cm. Mild aortic root dilatation- 4.3cm (under surveillance by cardiovascular- [facility]/Dr. Leroy) History of GI bleed Hyperlipidemia Hypertension Osteoarthritis Superficial thrombophlebitis RLE x2 (was on ~6 weeks of eliquis then discontinued per hematology records) Past Family History Family History Father Motor vehicle accident Grandfather (Paternal) Cardiac disorder Hypertension Coronary heart disease Grandmother (Paternal) Diabetes Grandmother (Maternal) Stroke Mother AML (acute myelogenous leukemia) Denies family history of Family history of ITP Past Surgical History Surgical History (Updated 02/10/20 @ 10:13 by Breann Hernandez) H/O cardiac catheterization 2014 (NO STENTS) H/O colonoscopy (2018) H/O inguinal hernia repair History of esophagogastroduodenoscopy (EGD) History of herniorrhaphy History of thoracotomy D/T HX SPONTANEOUS PNUEMOTHORAX History of tonsillectomy History of tooth extraction S/P triple vessel bypass 2014 AT [facility] Social History Smoking Status: Former smoker tobacco type: cigarettes Do You Dip or Chew Tobacco: No Smoking End Date: 58 YEARS OF AGE Hx Alcohol Use: No Hx Substance Use: No substance use type: does not use Testing Laboratory Results 02/04/20 WBC 8.99 H/H 13.8/40.3 PLATELETS 33 01/28/20 SODIUM 139 POTASSIUM 4.2 CHLORIDE 107 CO2 26 BUN 22 CREATININE 1.11 GLUCOSE 81 Electrocardiogram Date: 05/26/19 SB at 54bpm. NS TWA. No significant change compared to 05/06/19 per resident physician review. Poor data quality* Chest X-Ray Date: 05/06/19 FINDINGS: Median sternotomy wires noted. Atherosclerosis of the aortic arch. Cardiac silhouette top normal in size. Heterogeneity of lung parenchyma. No focal opacity. No large effusion or pneumothorax. Osseous structures normal. Upper abdomen normal. IMPRESSION: Heterogeneity lung parenchyma likely relates to underlying emphysema. No acute cardiopulmonary disease. Echocardiogram Date: 01/09/19 EF 65 to 70%. Mildly dilated ascending aorta4.0 cm. No RWMA. Mild cLVH. Trivial to mild AI. Mild aortic root dilatation- 4.3cm. Borderline LAE. Stress Test Date: 01/11/19 Type: exercise Normal stress echo at 8.9 METS. 81% max predicted heart rate. No induced chest pain. No EKG changes. Mild concentric LVH. Baseline echo with normal LV systolic function without wall motion abnormality. Cardiac Catheterization Date: 10/24/14 Summary of Findings LM: ostial 20%. LAD: proximal 95% stenosis at diagonal and septal takeoff. Diffuse mild disease after the severe stenosis. Diagonal 1: moderate caliber. LCx: diffuse mild disease. 30% stenosis at OM bifurcation. Large OM: 50% ostial stenosis. LVEF: 50%. Apical hypokinesis/akinesis. RCA: diffuse mild disease. Mid-vessel 70%+ stenosis. Right dominant system. Subsequent CABG done
[~2020-02-19 06:11] MED LIST changes: -ASPI81TA28 PO; -ATOR-26 PO; -IBUP-103 PO; -LPR25 PO; +LR 15ML/HR IV SCH; -LXP10 PO; -PANT40TA2 PO
[2020-02-19] MEDS ORDERED: LR 15ML/HR IV SCH (07:15)
[2020-02-19 07:16] LABS: Hematocrit (blood only) 42.8 % (42-52); Hemoglobin 14.7 g/dL (14.0-18.0); Mean Corpuscular Hgb Conc 34.3 g/dL (32-36); Mean Corpuscular Volume 87.3 fL (80-100); Mean Platelet Volume 10.2 fL (7.4-10.4); Platelet Count 459 K/uL (130-400); RDW Coefficient of Variation 14.4 % (11.5-14.5); RDW Standard Deviation 45.6 fL (36.4-46.3); White Blood Count 8.65 K/uL (4.8-10.8)
[2020-02-19 07:34] LABS: Basophils # (auto) 0.03 K/uL (0-0.2); Basophils % (auto) 0.3 %; Eosinophils # (auto) 0.13 K/uL (0-0.5); Eosinophils % (auto) 1.5 %; Immature Granulocytes # (auto) 0.03 K/uL (0.00-0.02); Immature Granulocytes % (auto) 0.3 %; Lymphocytes # (auto) 2.28 K/uL (1.2-3.4); Lymphocytes % (auto) 26.4 %; Monocytes # (auto) 0.95 K/uL (0.11-0.59); Neutrophils # (auto) 5.23 K/uL (1.4-6.5); Neutrophils % (auto) 60.5 %; RBC Morphology Unremarkable
--- NOTE | 2020-02-19 07:58 | History & Physical Bridge Note ---
Date of Service February 19, 2020 History & Physical Bridge Note I have examined the patient, reviewed the History & Physical and in the interval since the performance of the History & Physical I have noted the following changes of clinical significance: Patient received IVIG on Monday. Platelet count over 400,000. No other changes noted
[2020-02-19] MEDS ORDERED: ONDANSETRON INJ 2 MG/ML 2 ML VIAL ONE ×2 (07:59→12:42)
[2020-02-19] MEDS ORDERED: fentaNYL citrate 100 MCG/2 ML VIAL ONE ×3 (07:59→11:33)
[2020-02-19] MEDS ORDERED: DEXAMETHASONE SOD INJ 4 MG/ML VIAL ONE (07:59)
[2020-02-19] MEDS ORDERED: LIDOCAINE HCL 2% 2 ML VIAL/AMP(20MG/ML) INFIL ONE (07:59)
[2020-02-19] MEDS ORDERED: ROCURONIUM BROMIDE 10 MG/ML 5 ML VIAL IV ONE (07:59)
[2020-02-19] MEDS ORDERED: MIDAZOLAM HCL 1 MG/ML 2ML VIAL ONE (07:59)
[2020-02-19] MEDS ORDERED: PROPOFOL IV EMULSION 10 MG/ML 20 ML VIAL IV ONE (07:59)
[2020-02-19] MEDS: ceFAZolin 2000MG 2,000 MG/15 ML SYR IV SCH ×2 (08:22→08:49)
[2020-02-19] MEDS ORDERED: ePHEDrine sulfate 50 MG/ML SYR ONE (08:50)
[2020-02-19] MEDS ORDERED: BUPIVACAINE 0.5 % 5 MG/1 ML MPF 30ML VIAL ONE (09:02)
[2020-02-19] MEDS ORDERED: ACETAMINOPHEN 1000 MG/100 ML IV IV ONE (09:29)
[2020-02-19] MEDS ORDERED: BUPIVACAINE LIPOSOME 1.3% 266 MG/20 ML VIAL ONE (12:08)
[2020-02-19] MEDS ORDERED: NEOSTIGMINE METHYLSULFATE 5 MG/5 ML SYR ONE (12:18)
[2020-02-19] MEDS ORDERED: GLYCOPYRROLATE 0.2 MG/ML VIAL ONE (12:18)
[2020-02-19] MEDS ORDERED: ceFAZolin 2000MG 2,000 MG/15 ML SYR IV ONE (12:20)
[2020-02-19] MEDS ORDERED: ESMOLOL HCL INJ 10 MG/ML 10ML VIAL IV ONE (12:30)
--- NOTE | 2020-02-19 12:30 | Operative Report ---
PG Post Operative Report Pre & Post Diagnosis Operation Date: 02/19/20 08:20 Pre-Op Diagnosis: Chronic Idopathic Thrombocytopenia Post-Op Diagnosis: Chronic Idopathic Thrombocytopenia I identified the patient and participated in the time-out.: Yes Procedure Operation Date: 02/19/20 08:20 Actual Procedures p Laparoscopic Splenectomy - Blaine Hickey DO, YAKOV Surgeon Blaine Hickey DO, FACS Business Operations Analyst Rere Mejia Estimated Blood Loss 50 Findings Consistent with Post-Op Diagnosis Splenic artery ligated using 30 mm orr loaded stapler, splenic vein ligated using dental millimeters orr loaded stapler, good hemostasis. Spleen morselized and extracted. 10 mm ANGE left and left upper quadrant. Good hemostasis. Specimens Spleen Drains 10 mm ANGE in left upper quadrant Anesthesia Type General Complications none Disposition Accompanied Patient To Recovery: No Disposition: Recovery Room Indications 64-year-old male with prolonged history of refractory ITP, plan for laparoscopic splenectomy. He received IVIG treatment on Monday and his platelet count preoperatively was over 400,000. Received immunizations 2 weeks ago. The risks of the procedure were discussed, all questions were answered, and the patient agreed to proceed with surgery as planned. Description of Procedure The patient had received IVIG on Monday and his platelet count preoperatively was over 400,000. He received his immunizations 2 weeks prior to surgery. The patient was properly identified, consented, and taken to the operating room where he was placed in the supine position. General endotracheal anesthesia was induced. A bump was placed under the patient's left side and the bed was fl exed. SCDs, a Ozuna, and a safety belt were placed. Preoperative antibiotics were administered. The patient's abdomen was prepped and draped in the standard sterile fashion. A surgical timeout was performed and all parties were in agreement that this was the correct patient and procedure to be performed and we continued as planned. An incision was made superior and to the right of the umbilicus overlying the rectus muscle and the Veress needle was inserted. Saline drop test confirmed entry into the peritoneum. The abdomen was insufflated with carbon dioxide which the patient tolerated without incident. The abdomen was then entered using the Optiview technique and a 5 mm trocar. The laparoscope was inserted and no damage from initial trocar or Veress needle placement was noted, no gross abnormalities were noted within the 4 quadrants of the abdomen. 5 mm ports were then placed in the right subcostal position, the left periumbilical region, and the left subcostal position. The left periumbilical port was later replaced with a 15 mm port to allow for stapling and removal of the spleen. The patient was placed in reverse Trendelenburg position and rotated towards the right. The omentum was retracted inferiorly exposing the spleen. We began by taking down the splenocolic ligament using the Sonicision. We then used the soncision to go along the greater curve of the stomach taking down the short gastric vessels. The splenic artery was identified. The splenic artery was circumferentially dissected. A 30 mm orr loaded endoscopic TONYA stapler was then used to divide the splenic artery. Hemostasis appeared excellent. We then continued our dissection and the splenic vein was identified and was circumferentially dissected. The splenic vein was divided using the 30 mm orr loaded endoscopic TONYA stapler. Hemostasis again appeared to be excellent. We then proceeded to take down the remaining phrenosplenic and spenorenal ligaments. The spleen was then completely free and hemostasis was excellent. The left upper quadrant was irrigated. The tail of the pancreas was identified and appeared to be intact. We then placed a 10 mm flat ANGE drain in the left upper quadrant in the splenic bed and exited through the right subcostal 5 mm port site. This was secured into place using a 3-0 nylon suture. The spleen was then placed in the 15 mm bag intact and was morselized using large sponge clamps. There was no evidence of a splenule. The incision was protected with blue towels during this portion of the procedure. The spleen was eventually removed. It was sent to pathology for specimen. The 15 mm port site was then closed using 0 Vicryl [id number] suture. We then reentered laparoscopically to assess for hemostasis which appeared to be excellent. Laparoscopy was ceased and the abdomen was allowed to collapse. 5mm ports were removed under direct visualization. The wound was irrigated, and the skin of all ports was closed with 4-0 Monocryl subcuticular sutures. Dermabond was placed over the wounds. The patient was extubated in the operating room and taken to the PACU where he recovered without apparent incident. All sponge, instrument and needle counts were correct at the conclusion of the procedure. The patient tolerated the procedure well. The physician's child nutrition assistant was present and scrubbed for the entirety of the case and was essential in positioning the patient, prepping and draping, retraction and exposure, driving the laparoscope, removal of the spleen, closure of the incisions, and placement of the dressings. I attest to the content of the Intraoperative Record and any orders documented therein. Any exceptions are noted below.
[2020-02-19] MEDS ORDERED: fentaNYL citrate 100 MCG/2 ML VIAL IV PRN (12:47)
[2020-02-19] MEDS ORDERED: PROMETHAZINE HCL 12.5 MG in SODIUM CHLORIDE 0.9% 50 ML IV PRN (12:47)
[2020-02-19] MEDS ORDERED: LABETALOL HCL IV 5 MG/ML 20ML IV PRN (12:47)
[2020-02-19] MEDS ORDERED: HYDROmorphone INJ 1 MG/ML SYRINGE IV PRN (12:47)
[2020-02-19] MEDS ORDERED: NALOXONE HCL 0.4 MG/1 ML VIAL/CARP IV PRN (12:47)
[2020-02-19] MEDS ORDERED: ONDANSETRON INJ 2 MG/ML 2 ML VIAL IV PRN ×2 (12:47→14:39)
[2020-02-19] MEDS ORDERED: FLUMAZENIL 0.1 MG/1 ML 10 ML VIAL IV PRN (12:47)
[2020-02-19] MEDS ORDERED: ATROPINE SULFATE 0.1 MG/ML 10ML SYR IV PRN (12:47)
[2020-02-19] MEDS ORDERED: ePHEDrine sulfate 50 MG/ML AMP IV PRN (12:47)
[2020-02-19 13:27] LABS: Hematocrit (blood only) 34.6 % (42-52); Hemoglobin 11.8 g/dL (14.0-18.0); Mean Corpuscular Hemoglobin 29.6 pg (25-34); Mean Corpuscular Hgb Conc 34.1 g/dL (32-36); Mean Corpuscular Volume 86.7 fL (80-100); Mean Platelet Volume 9.9 fL (7.4-10.4); Platelet Count 398 K/uL (130-400); RDW Coefficient of Variation 14.2 % (11.5-14.5); RDW Standard Deviation 45.1 fL (36.4-46.3); Red Blood Count 3.99 M/uL (4.7-6.1)
--- NOTE | 2020-02-19 13:55 | Anesthesiology Progress Note ---
Date of Service February 19, 2020 Anesthesia Post Procedure Vital Signs Vital Signs: Temp Pulse Pulse Resp BP Pulse Ox 02/19/20 13:45 92 H 20 115/75 96 02/19/20 13:35 89 22 104/73 96 02/19/20 13:25 86 20 104/73 96 02/19/20 13:15 83 18 110/73 93 02/19/20 13:05 83 16 135/79 93 02/19/20 12:55 86 18 126/77 100 02/19/20 12:45 81 22 115/87 99 02/19/20 12:36 36.8 C 92 H 20 124/64 98 02/19/20 06:48 37 C 70 20 133/84 96 Pain Intensity Left Shoulder: Pain Intensity: 5 Transfer of Care Handoff Completed per policy Notes Mental Status: alert / awake / arousable Patient Amnestic to Procedure: Yes Nausea / Vomiting: adequately controlled Pain: adequately controlled Airway Patency, RR, SpO2: stable & adequate BP & HR: stable & adequate Hydration State: stable & adequate Anesthetic Complications: no major complications apparent
[2020-02-19] MEDS ORDERED: MoRPHine SULFATE 4 MG/ML 1 ML CARP\\VIAL IV PRN (14:39)
[2020-02-19] MEDS ORDERED: MoRPHine SULFATE 10 MG/ML CARP/VIAL IV PRN (14:39)
[2020-02-19] MEDS ORDERED: oxyCODONE HCL IR 5 MG TAB (IMMEDIATE RELEASE) PO PRN ×2 (14:39)
[2020-02-19] MEDS: ACETAMINOPHEN 1,000 MG/100 ML VIAL IV SCH ×2 (16:18→23:27)
[2020-02-19] MEDS: LACTATED RINGER'S 1,000 ML IV SCH (16:19)
[2020-02-19] MEDS ORDERED: ATORVASTATIN 40 MG TAB PO SCH (21:00)
[2020-02-19] MEDS: METOPROLOL TARTRATE 25 MG TAB PO SCH (21:22)
[2020-02-20] MEDS: LACTATED RINGER'S 1,000 ML IV SCH ×2 (02:38→14:47)
[2020-02-20] MEDS: ACETAMINOPHEN 1,000 MG/100 ML VIAL IV SCH ×2 (06:10→14:40)
[2020-02-20 08:00] LABS: Basophils # (auto) 0.01 K/uL (0-0.2); Basophils % (auto) 0.1 %; Eosinophils # (auto) 0.02 K/uL (0-0.5); Eosinophils % (auto) 0.2 %; Hematocrit (blood only) 31.9 % (42-52); Hemoglobin 10.3 g/dL (14.0-18.0); Immature Granulocytes # (auto) 0.03 K/uL (0.00-0.02); Immature Granulocytes % (auto) 0.2 %; Lymphocytes # (auto) 1.89 K/uL (1.2-3.4); Lymphocytes % (auto) 15.4 %; Mean Corpuscular Hemoglobin 28.4 pg (25-34); Mean Corpuscular Hgb Conc 32.3 g/dL (32-36); Mean Corpuscular Volume 87.9 fL (80-100); Mean Platelet Volume 10.3 fL (7.4-10.4); Monocytes # (auto) 1.45 K/uL (0.11-0.59); Monocytes % (auto) 11.8 %; Neutrophils # (auto) 8.91 K/uL (1.4-6.5); Neutrophils % (auto) 72.3 %; Nucleated RBC # (auto) 0.04 K/uL (0-0); Nucleated RBC % (auto) 0.3 %; Platelet Count 510 K/uL (130-400); RDW Coefficient of Variation 14.2 % (11.5-14.5); RDW Standard Deviation 45.6 fL (36.4-46.3); Red Blood Count 3.63 M/uL (4.7-6.1); White Blood Count 12.31 K/uL (4.8-10.8)
[2020-02-20 08:23] LABS: Calcium 8.5 mg/dl (8.5-10.1); Creatinine Clr Calc Pharmacy 85.6 ml/min; Est GFR (African American) 100.1; Est GFR (Non-African American) 86.4; Potassium 4.2 mmol/L (3.5-5.1)
[2020-02-20] MEDS: METOPROLOL TARTRATE 25 MG TAB PO SCH (08:40)
--- NOTE | 2020-02-20 08:41 | Surgery Progress Note ---
Date of Service February 20, 2020 Assessment & Plan (1) S/P splenectomy: POD#1 laparoscopic splenectomy for ITP Patient clinically doing well WBC: 12, Hb.3, Amylase: 78, ANGE amylase: 58 Patient's pain is well controlled Regular diet this AM Will consider removal of ANGE and possible discharge to home later today Admission and Anticipated Discharge Date Admission Date: February 19, 2020 Supervising Physician Co-Signing Physician Notes 64-year-old male with history of ITP POD #1 laparoscopic splenectomy. Overall doing well, tolerating regular diet, minimal pain. On exam he is afebrile stable vitals. ANGE drain with serosanguineous and has been removed with a low drain amylase. Abdomen soft, nontender, incisions clean dry and intact. Labs unremarkable. Drain DC'd, DC to home, activity restrictions, wound care instructions, return precautions given. We will repeat a CBC next week when he meets with hematology. Subjective Patient seen at bedside. Offers no complaints. States pain controlled with tylenol. Only had water yesterday after surgery, but feels hungry this AM. Denies nausea/vomiting. Physical Exam Physical Exam: awake/alert Respiratory: normal respiratory effort Gastrointestinal (Abdomen): Inspection/Auscultation: + abdominal surgical incision (c/d/i with dermabond overtop); abdomen not distended Percussion/Palpation: abdomen soft; abdomen nontender Results & Data ([facility]) Vital Signs (Past 12 Hours) Vital Signs Temp Pulse Pulse Resp BP Pulse Ox 02/20/20 08:06 36.5 C 74 16 134/78 97 02/20/20 03:56 36.8 C 73 18 116/78 95 02/20/20 00:48 36.9 C 74 16 110/69 98 PG Care Time/CCT Total # of Minutes Spent Total Time Spent with Patient: Total time spent is greater than 50% in coordination of care (as documented) at patient's floor/unit and/or counseling patient: Coding Level of Care Code None Diagnoses S/P splenectomy Z90.81
[2020-02-20] MEDS ORDERED: ESCITALOPRAM OXALATE 10 MG TAB PO SCH (09:00)
[2020-02-20] MEDS ORDERED: PANTOprazole 40 MG TAB PO SCH (09:00)
--- NOTE | 2020-02-21 11:05 | Discharge Summary ---
Date of Service February 21, 2020 Principal Diagnosis s/p splenectomy chronic ITP Discharge Exam Respiratory normal respiratory effort Gastrointestinal (Abdomen) Inspection/Auscultation: + abdominal surgical incision (c/d/i with dermabond overtop); abdomen not distended Percussion/Palpation: abdomen soft; abdomen nontender Discharge Data Allergies Allergy/AdvReac Type Severity Reaction Status Date / Time azithromycin AdvReac Intermediate a-fib Verified 02/19/20 06:42 [From Zithromax Z-Evan] Procedures Performed Operation Date: 02/19/20 08:20 Actual Procedures p Laparoscopic Splenectomy - Blaine Hickey DO, FACS Hospital Course (1) S/P splenectomy: This is a 64y M with a PMH of ITP who presented to the [facility] on 02/19/20 for a scheduled laparoscopic splenectomy with Dr. Hickey. The patient tolerated the procedure well, see operative note for full details. The patient recovered in the PACU and was transferred to the med/surg unit in stable condition. Post op patient had a ANGE drain in place. His diet was advanced as tolerated and pain controlled on prn pain medication. On POD#1 a ANGE drain fluid amylase was sent off that resulted at 58. Hbg stable & platelet count 510. ANGE drain was subsequently removed. He was tolerating a diet, vital signs stable, pain remained well controlled, he was voiding on his own, and incisions were clean and intact. On POD#1 he was deemed stable for discharge to home. Dispo instructions were provided and patient was asked to follow up in clinic within 1-2 weeks. Total Time Total Time Spent Total Time Spent (In Minutes): 15 Discharge Plan Discharge Items Patient Disposition: Home - Self-Care Reason For Visit: Refractory ITP Discharge Diagnosis: laparoscopic splenectomy Condition on Discharge: Good Activity: Per Instructions section Activity Comment: Increase activity as tolerated, no strenuous activity for 4 weeks Lifting Comment: No heavy lifting greater than 20 pounds for 4 weeks Bathing Comment: may shower; no soaking in tubs/pools Exercise/Sports: Gradually increase as tolerated Driving/Machine Use: Resume 3 days after discharge Non-emergency contact: Surgeon Call non-emergency contact if: you have any medication questions, your symptoms worsen, your pain is not controlled, your pain is worsening, your pain is unusual for you, you have a fever, your temperature is above 101.5, your wound has increased redness, your wound has increased drainage and your wound pain has increased Follow-up/Referrals: Daniel Alba MD [Primary Care Provider] - Blaine Hickey DO, FACS [Physician] - 03/03/20 10:30 am (Please call to schedule follow up in clinic within 1-2 weeks) Diet: Regular Addtl Attending Provider Instructions: If you are taking the narcotic Percocet for pain do not take additional Tylenol. Both Percocet and Tylenol contain Acetaminophen and you should not exceed 3grams of acetaminophen within 24 hours. Recommend repeating CBC early next week. Patient will coordinate with hematology. Pending Studies at Discharge: Yes Studies:: surgical pathology Stand-Alone Forms: My [facility] [place] [facility], Smoking Cessation Medications and DC Order Prescriptions: New oxycodone-acetaminophen [Percocet] 5-325 mg tablet 1 - 2 tab PO .q4-6h PRN (Reason: pain, for initial therapy, max 6 tabs per day) Qty: 15 RF: 0 Continued pantoprazole 40 mg tablet,delayed release (DR/EC) 40 mg PO QAM Qty: 30 RF: 5 atorvastatin 80 mg tablet 80 mg PO HS Qty: 90 RF: 3 escitalopram oxalate 10 mg tablet 10 mg PO QAM Qty: 30 RF: 6 multivitamin [Daily Multiple] tablet 1 tab PO QAM RF: 0 aspirin [Aspir-81] 81 mg Tablet,Delayed Release (Dr/Ec) 81 mg PO QAM RF: 0 metoprolol tartrate 25 mg tablet 12.5 mg PO BID Qty: 180 RF: 3 Krill Oil ([place] 3 and 6) 1,500-165-67.5 mg Capsule 1 cap PO QAM RF: 0 Discharge Orders: Discharge Order (Routine); Ordered 02/20/20 Ordered By: Blaine Hickey Admission Data Admit Date/Time: 02/19/20 12:46 Attending Provider: Blaine Hickey Admit Provider: Blaine Hickey Primary Care Provider: Daniel Alba Other Interventions: Discharge Summary Assessment (RN) Last Done: 02/20/20 13:22 Coding Level of Care Code D/C Day Management <30 mins Diagnoses S/P splenectomy Z90.81
== END 2020-02-20 15:34 | disposition home or self-care (01) ==
LOC: 3W 06:11 → ASU 06:11

== ENCOUNTER 2020-05-23 23:10 | Observation (INO) ==
--- NOTE | 2020-05-23 23:35 | Emergency Department Note ---
Impression & Plan Substernal chest pain, Leukocytosis ED Provider Note NAME: DEAN CHANEL AGE: 64 SEX: M ARRIVES VIA: Ambulance INFORMANT: Patient ED PROVIDER(S): Yuridia Woods DO CHIEF COMPLAINT: Chest pain PLAN: Disposition: Admitted to [facility] service Condition: Good MEDICAL DECISION MAKING: This is a 64-year-old male patient presents to emergency department after an episode of diffuse chest pain. The patient has a extensive past medical history which includes recent hospitalization for COVID-19 pneumonia, status post splenectomy for ITP, and cholecystostomy tube placement at [facility] in March. The patient's chest pain started around 10 PM this evening. He has a history of coronary artery disease with CABG x3 in 2014. The pain resolved on its own prior to arrival here in the emergency department by EMS. The patient has been irrigating his cholecystostomy tube with normal saline. However over the past 2 days, he has noted that his attempts at irrigation have been unsuccessful as the saline that he has introduced into the tube has not returned. This has been unusual for him. However, he has had no increasing abdominal pain associated with the cholecystostomy tube. He denies any fevers or any other symptoms at all. CT scan of the abdomen pelvis shows evidence of a perihepatic fluid collection but this is measuring smaller than it did on May 08 of this year. I did discuss the case with internal medicine doctors at [facility] and they reviewed the patient's case and felt it was okay for him to stay here at this hospital at this time since the perihepatic fluid collection is actually smaller and the patient has no abdominal pain. One concerning finding at this time is the patient's leukocytosis given his splenectomy. He is being treated with broad-spectrum antibiotics. Chest x-ray shows evidence of pneumonia versus pneumonitis. This may be residual from his previous Covid pneumonia. He has no new respiratory symptoms. Another concerning finding is the patient's LFTs are gradually increasing. These will need to be followed closely. [facility]. Triage Nursing notes reviewed and agree them. Prior medical records reviewed Vital Signs: reviewed and unremarkable Differential diagnosis: GERD, pneumonia, angina, cardiac ischemia, PE, aortic dissection ER treatment provided: IV normal saline IV Zosyn IV vancomycin Diagnostics interpreted by me: ECG: Normal sinus rhythm at a rate of 95 with T wave inversion in lead III and some ST segment depression in the lateral leads. There is no ectopy. Cardiac Monitoring: Normal sinus rhythm at a rate of 79 Laboratory studies: See below Imaging studies: As per my interpretation Portable chest x-ray: Multifocal opacities with the right being worse than the left concerning for pneumonia. As per stat rad CT chest with contrast: Comparison: None/04/2014. Normal cardiac size with coronary artery calcifications. Normal enhancement of the vascular structures with no aortic dissection or filling defect to suggest pulmonary embolus. However, exam is limited for pulmonary emboli due to technique and therefore distal small emboli are difficult to be entirely excluded. Multifocal emphysema more severe in the lung. Mild right-sided pleural effusion. Right lower lobe consolidation suggestive of infiltrate. Additional foci of coarse opacities in the peripheral distribution suggest multifocal pneumonitis. This is nonspecific and may be associated with bowel etiology including COVID-19. Clinical correlation is recommended. There is cystostomy drainage catheter in place. There is a right-sided subcapsular fluid collection along the right liver lobe with mild peripheral enhancement measuring 7.5 x 2.0 cm, cannot exclude a small subcapsular abscess. Remainder of the visualized upper abdominal structures are unremarkable. CT abdomen and pelvis with contrast: Comparison: None Lung bases described in the accompanying CT of the chest report. Redemonstrated is an elongated fluid collection along the subcapsular region of the right liver lobe measuring approximately 7.3 x 1.9 cm in axial dimension. There is mild peripheral enhancement and concerning for a subcapsular abscess. There is trace amount of ascites surrounding the liver. Small low-attenuation structure within the right liver lobe, image 24, series 3, too small to characterize likely cyst measuring 4.2 mm Gallbladder is visualized with drainage tube in place. The pancreas, spleen and bilateral kidneys are unremarkable. Normal bilateral adrenal glands. Unremarkable stomach and small bowel. Normal appendix. Unremarkable colon. Normal urinary bladder. Normal size of prostate gland. There are 2 areas of aneurysmal dilatation of the aorta, 1 in the immediate infrarenal region measuring a maximum dimension of 4.2 x 3.7 cm. Second focus of aneurysmal dilatation seen just above the bifurcation where the aorta measures 5.4 x 4.6 cm. Left-sided fat-containing inguinal hernia. Degenerative disease of the spine. Consultants: Dr. Garcia-internal medicine at [place] HPI: 64/M arrives for evaluation of diffuse chest pain. The patient was sitting and watching TV just after having dinner around 10 PM this evening when he developed a chest discomfort across anterior aspect of his chest associated with some diaphoresis. The patient has a history of three-vessel CABG in 2015. EMS was called. After they began to evaluate the patient and transfer him out to their vehicle, his discomfort began to subside. They did administer baby aspirin. No associated shortness of breath, nausea or vomiting. ROS: See above HPI for pertinent positives & negatives. A total of 10 systems reviewed and were otherwise negative. PAST MEDICAL HISTORY:See Below PAST SURGICAL HISTORY:See Below FAMILY HISTORY:See Below SOCIAL HISTORY:See Below HOME MEDICATIONS:See list ALLERGIES:See list VITALS:See Below PHYSICAL EXAMINATION: HEENT: Head - normocephalic and atraumatic Pupils are equal, round, and reactive to light. Extraocular eye muscles are intact, and sclera are anicteric. Nose - moist nasal mucosa without discharge. Mouth - moist buccal mucosa. Oropharynx is nonerythematous and there is no tonsillar exudate or edema noted. Neck: Supple; no JVD or cervical lymphadenopathy. Heart: Regular rate and rhythm. There is a normal S1 and S2 with no murmurs, clicks, or gallops appreciated. Lungs: Clear to auscultation bilaterally with no wheezes, rales, or rhonchi. Abdomen: Soft, completely nontender, nondistended, with good bowel sounds. Cholecystostomy tube in place. There are no palpable pulsatile masses or hepatosplenomegaly. There is no guarding, rigidity, or rebound noted. Extremities: No evidence of cyanosis, clubbing, or edema. There are easily palpable peripheral pulses. Skin: warm and dry with good turgor and no rashes. ED COURSE:2315: Patient was evaluated in room A 10. A complete history and physical was performed. Previous electronic medical records were reviewed. An order was placed for continuous cardiac monitoring. The patient was in a normal sinus rhythm at a rate of 79. A twelve-lead EKG was obtained. A septic protocol was performed. Normal saline was initiated. Portable chest x-ray was performed. The patient's chest discomfort has completely resolved. Because the patient is asplenic and has significant leukocytosis I will start broad-spectrum antibiotics. The patient was started on IV vancomycin and IV Zosyn. Patient will go for CT scan of the chest and abdomen/pelvis. I discussed the case with the stat rad radiologist. I discussed the case with the doctor on-call at [facility] - Dr Garcia to see if they felt this patient would require transfer there. She felt the patient could stay here since he had no abdominal pain and the perihepatic fluid collection was actually smaller. I discussed the case with the [facility] hospitalist and they will evaluate for further management. Yuridia Woods DO Past Med/Surg History Medical History (Updated 05/25/20 @ 02:14 by Yuridia Woods DO) Acute SD 2015 Anxiety Bruising CAD (coronary artery disease), [place] coronary artery CABG x3 (2015) Chronic ITP (idiopathic thrombocytopenia) Dilated aortic root Mildly dilated ascending aorta4.0 cm. Mild aortic root dilatation- 4.3cm (under surveillance by cardiovascular- [facility]/Dr. Leroy) GERD (gastroesophageal reflux disease) History of GI bleed Hyperlipidemia Hypertension Osteoarthritis Superficial thrombophlebitis RLE x2 (was on ~6 weeks of eliquis then discontinued per hematology records) Surgical History H/O cardiac catheterization 2014 (NO STENTS) H/O colonoscopy (2017) H/O inguinal hernia repair H/O splenectomy (02/19/20) Laparoscopic Splenectomy Dr. Hickey 02/19/2020 History of esophagogastroduodenoscopy (EGD) History of herniorrhaphy History of thoracotomy D/T HX SPONTANEOUS PNUEMOTHORAX History of tonsillectomy History of tooth extraction S/P triple vessel bypass 2014 AT [facility] Family History Father Motor vehicle accident Grandfather (Paternal) Cardiac disorder Hypertension Coronary heart disease Grandmother (Paternal) Diabetes Grandmother (Maternal) Stroke Mother AML (acute myelogenous leukemia) Grandfather (Paternal) Myocardial infarction Denies family history of Family history of ITP Ovarian cancer Prostate cancer Breast cancer Colorectal cancer Social History Smoking Status: Former smoker Tobacco Type: Smokeless Tobacco (Dip or Chew) packs per day: 2; Years Smoked: 40; Smoking End Date: 10/2001; Second Hand Exposure: No; Do You Dip or Chew Tobacco: No; Tobacco Cessation Education Requested by Patient: No Hx Alcohol Use: No Hx Substance Use: No Preferred Language: Northern Irish Communication Ability: Effective Visual Impairment: Limited Hearing Ability: Normal Contact Lens Assistant Required: No Beliefs That Will Affect Care: None marital status: Current Living Situation: Spouse Current Living Situation Comment: lives in [place] current occupational status: retired 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 How many Children do You have: 1 How many Children do You have Comment: son Other Information That Helps Us Care for You: No Feels Safe at Home: Yes Safety Concerns: Feels Safe At This Time Childhood Exposure to Second-Hand Smoke: No caffeine: Yes (coffee 2 per day.) during the past year weight has: remained stable Dental Care, Regularly: Yes Physical Activity Frequency: Does not Exercise Seatbelt Use: always Sunscreen Use: Yes Assistive Devices: None Allergies Allergies Allergy/AdvReac Type Severity Reaction Status Date / Time azithromycin AdvReac Intermediate a-fib Verified 05/23/20 23:47 [From Zithromax Z-Evan] Home Meds Home Medications Medication Instructions Recorded Confirmed multivitamin 1 tab PO QAM 12/28/18 05/23/20 Krill Oil (Sealy 3 and 6) 1 cap PO QAM 02/04/20 05/23/20 aspirin 81 mg PO HS 04/13/20 05/23/20 Previous Rx's Medication Instructions Recorded pantoprazole 40 mg tablet,delayed 40 mg PO QAM #30 tab 10/28/19 release metoprolol tartrate 12.5 mg PO BID #180 tab 12/07/19 atorvastatin 80 mg tablet 80 mg PO HS #90 tab 01/22/20 escitalopram oxalate 10 mg tablet 10 mg PO QAM #30 tab 02/18/20 Results & Data (ED) Vital Signs Vital Signs - 24 hr 05/23/20 23:17 05/23/20 23:23 05/24/20 00:00 Temperature 37.2 C Temperature Source Oral Pulse Rate 79 Pulse Rate [Bilateral Apical] 88 Respiratory Rate 20 20 Respiratory Effort / Characteristics Non-Labored Respiratory Depth Normal Blood Pressure 122/82 Blood Pressure [Left Arm] 98/63 L Blood Pressure Mean 95 Blood Pressure Mean [Left Arm] 74 Pulse Oximetry 95 95 94 Oxygen Delivery Method Room Air Room Air Room Air Sepsis Recent Fever Within 48 Hours No Sepsis New/Unexplained Change in Mental Status N/A Sepsis Action Taken by Nursing No Action Required 05/24/20 00:45 05/24/20 00:46 05/24/20 01:03 Temperature Temperature Source Pulse Rate Pulse Rate [Bilateral Apical] 90 83 Respiratory Rate 20 20 Respiratory Effort / Characteristics Non-Labored Respiratory Depth Blood Pressure Blood Pressure [Left Arm] 121/81 118/77 Blood Pressure Mean Blood Pressure Mean [Left Arm] 94 90 Pulse Oximetry 93 94 Oxygen Delivery Method Room Air Room Air Sepsis Recent Fever Within 48 Hours Sepsis New/Unexplained Change in Mental Status Sepsis Action Taken by Nursing 05/24/20 01:22 05/24/20 01:27 05/24/20 02:01 Temperature Temperature Source Pulse Rate Pulse Rate [Bilateral Apical] 84 86 Respiratory Rate 20 20 Respiratory Effort / Characteristics Non-Labored Non-Labored Respiratory Depth Blood Pressure Blood Pressure [Left Arm] 130/81 124/78 Blood Pressure Mean Blood Pressure Mean [Left Arm] 97 93 Pulse Oximetry 95 96 Oxygen Delivery Method Room Air Room Air Sepsis Recent Fever Within 48 Hours Sepsis New/Unexplained Change in Mental Status Sepsis Action Taken by Nursing Laboratory Data Result diagrams: 05/24/20 06:43 05/24/20 06:43 Lab Results 05/23/20 05/23/20 05/23/20 Range/Units 23:25 23:25 23:25 WBC 22.37 H (4.8-10.8) K/uL RBC 5.06 (4.7-6.1) M/uL Hgb 12.5 L (14.0-18.0) g/dL Hct 39.7 L (42-52) % MCV 78.5 L (80-100) fL MCH 24.7 L (25-34) pg MCHC 31.5 L (32-36) g/dL RDW Std Deviation 54.3 H (36.4-46.3) fL RDW Coeff of Kilo 19.2 H (11.5-14.5) % Plt Count 398 (130-400) K/uL MPV 8.7 (7.4-10.4) fL Absolute Nucleated RBC 0.04 H (0-0) K/uL Nucleated RBC % (auto) 0.2 % Neutrophils % (Manual) 68.4 % Lymphocytes % (Manual) 3.5 % Monocytes % (Manual) 4.4 % Eosinophils % (Manual) 0.9 % Neutrophils # (Manual) 15.30 H (1.4-6.5) K/uL Total Absolute Neuts 15.30 H (1.4-6.5) K/uL Lymphocytes # (Manual) 0.78 L (1.2-3.4) K/uL Total Abs Lymphocytes 5.88 H (1.2-3.4) K/uL Monocytes # (Manual) 0.98 H (0.11-0.59) K/uL Eosinophils # (Manual) 0.20 (0-0.5) K/uL Large Granular Lymphs 22.8 % # Lrg Granular Lymphs 5.10 K/uL Hypochromasia Present Spherocytes 1+ Pappenheimer Bodies 1+ PT 11.5 (9.0-12.0) Seconds INR 1.1 (0.9-1.1) APTT 41.9 H (21.0-31.0) Seconds PTT Ratio 1.5 Sodium 138 (136-145) mmol/L Potassium 3.8 (3.5-5.1) mmol/L Chloride 105 (98-107) mmol/L Carbon Dioxide 25 (21-32) mmol/L Anion Gap 8.0 (3-11) BUN 11 (7-18) mg/dl Creatinine 0.78 (0.6-1.4) mg/dl Est Cr Clr Drug Dosing 98.3 ml/min Est GFR ( Amer) 109.0 Est GFR (Non-Af Amer) 94.1 BUN/Creatinine Ratio 13.4 (10-20) Glucose 94 (70-99) mg/dl Lactate (0.4-2.0) mmol/L Calcium 8.5 (8.5-10.1) mg/dl Magnesium 1.8 (1.8-2.4) mg/dl Total Bilirubin 1.1 H (0.2-1) mg/dl AST 77 H (15-37) U/L ALT 32 (12-78) U/L Alkaline Phosphatase 300 H (45-117) U/L Troponin I < 0.015 (0-0.045) ng/ml Total Protein 6.1 L (6.4-8.2) gm/dl Albumin 2.3 L (3.4-5.0) gm/dl Globulin 3.8 (2.5-4.0) gm/dl Albumin/Globulin Ratio 0.6 L (0.9-2) Lipase 171 (73-393) U/L Urine Color Urine Appearance (Clear) Urine pH (4.5-7.5) Ur Specific Hudson (1.000-1.030) Urine Protein (Negative) Urine Glucose (UA) (Negative) Urine Ketones (Negative) Urine Blood (Negative) Urine Nitrite (Negative) Urine Bilirubin (Negative) Urine Urobilinogen (Negative) Ur Leukocyte Esterase (Negative) COVID-19 Eval Order SARS-CoV-2, RNA, NAAT (NEGATIVE) 05/24/20 05/24/20 05/24/20 Range/Units 00:34 00:40 01:00 WBC (4.8-10.8) K/uL RBC (4.7-6.1) M/uL Hgb (14.0-18.0) g/dL Hct (42-52) % MCV (80-100) fL MCH (25-34) pg MCHC (32-36) g/dL RDW Std Deviation (36.4-46.3) fL RDW Coeff of Kilo (11.5-14.5) % Plt Count (130-400) K/uL MPV (7.4-10.4) fL Absolute Nucleated RBC (0-0) K/uL Nucleated RBC % (auto) % Neutrophils % (Manual) % Lymphocytes % (Manual) % Monocytes % (Manual) % Eosinophils % (Manual) % Neutrophils # (Manual) (1.4-6.5) K/uL Total Absolute Neuts (1.4-6.5) K/uL Lymphocytes # (Manual) (1.2-3.4) K/uL Total Abs Lymphocytes (1.2-3.4) K/uL Monocytes # (Manual) (0.11-0.59) K/uL Eosinophils # (Manual) (0-0.5) K/uL Large Granular Lymphs % # Lrg Granular Lymphs K/uL Hypochromasia Spherocytes Pappenheimer Bodies PT (9.0-12.0) Seconds INR (0.9-1.1) APTT (21.0-31.0) Seconds PTT Ratio Sodium (136-145) mmol/L Potassium (3.5-5.1) mmol/L Chloride (98-107) mmol/L Carbon Dioxide (21-32) mmol/L Anion Gap (3-11) BUN (7-18) mg/dl Creatinine (0.6-1.4) mg/dl Est Cr Clr Drug Dosing ml/min Est GFR ( Amer) Est GFR (Non-Af Amer) BUN/Creatinine Ratio (10-20) Glucose (70-99) mg/dl Lactate 0.9 (0.4-2.0) mmol/L Calcium (8.5-10.1) mg/dl Magnesium (1.8-2.4) mg/dl Total Bilirubin (0.2-1) mg/dl AST (15-37) U/L ALT (12-78) U/L Alkaline Phosphatase (45-117) U/L Troponin I (0-0.045) ng/ml Total Protein (6.4-8.2) gm/dl Albumin (3.4-5.0) gm/dl Globulin (2.5-4.0) gm/dl Albumin/Globulin Ratio (0.9-2) Lipase (73-393) U/L Urine Color Yellow Urine Appearance Clear (Clear) Urine pH 5.5 (4.5-7.5) Ur Specific [place] 1.012 (1.000-1.030) Urine Protein Negative (Negative) Urine Glucose (UA) Negative (Negative) Urine Ketones Negative (Negative) Urine Blood Negative (Negative) Urine Nitrite Negative (Negative) Urine Bilirubin Negative (Negative) Urine Urobilinogen Negative (Negative) Ur Leukocyte Esterase Negative (Negative) COVID-19 Eval Order Covid19 [facility]Now [facility] SARS-CoV-2, RNA, NAAT (NEGATIVE) 05/24/20 Range/Units 01:00 WBC (4.8-10.8) K/uL RBC (4.7-6.1) M/uL Hgb (14.0-18.0) g/dL Hct (42-52) % MCV (80-100) fL MCH (25-34) pg MCHC (32-36) g/dL RDW Std Deviation (36.4-46.3) fL RDW Coeff of Kilo (11.5-14.5) % Plt Count (130-400) K/uL MPV (7.4-10.4) fL Absolute Nucleated RBC (0-0) K/uL Nucleated RBC % (auto) % Neutrophils % (Manual) % Lymphocytes % (Manual) % Monocytes % (Manual) % Eosinophils % (Manual) % Neutrophils # (Manual) (1.4-6.5) K/uL Total Absolute Neuts (1.4-6.5) K/uL Lymphocytes # (Manual) (1.2-3.4) K/uL Total Abs Lymphocytes (1.2-3.4) K/uL Monocytes # (Manual) (0.11-0.59) K/uL Eosinophils # (Manual) (0-0.5) K/uL Large Granular Lymphs % # Lrg Granular Lymphs K/uL Hypochromasia Spherocytes Pappenheimer Bodies PT (9.0-12.0) Seconds INR (0.9-1.1) APTT (21.0-31.0) Seconds PTT Ratio Sodium (136-145) mmol/L Potassium (3.5-5.1) mmol/L Chloride (98-107) mmol/L Carbon Dioxide (21-32) mmol/L Anion Gap (3-11) BUN (7-18) mg/dl Creatinine (0.6-1.4) mg/dl Est Cr Clr Drug Dosing ml/min Est GFR ( Amer) Est GFR (Non-Af Amer) BUN/Creatinine Ratio (10-20) Glucose (70-99) mg/dl Lactate (0.4-2.0) mmol/L Calcium (8.5-10.1) mg/dl Magnesium (1.8-2.4) mg/dl Total Bilirubin (0.2-1) mg/dl AST (15-37) U/L ALT (12-78) U/L Alkaline Phosphatase (45-117) U/L Troponin I (0-0.045) ng/ml Total Protein (6.4-8.2) gm/dl Albumin (3.4-5.0) gm/dl Globulin (2.5-4.0) gm/dl Albumin/Globulin Ratio (0.9-2) Lipase (73-393) U/L Urine Color Urine Appearance (Clear) Urine pH (4.5-7.5) Ur Specific [place] (1.000-1.030) Urine Protein (Negative) Urine Glucose (UA) (Negative) Urine Ketones (Negative) Urine Blood (Negative) Urine Nitrite (Negative) Urine Bilirubin (Negative) Urine Urobilinogen (Negative) Ur Leukocyte Esterase (Negative) COVID-19 Eval Order SARS-CoV-2, RNA, NAAT NEGATIVE (NEGATIVE) Administered Medications Aspirin (Aspirin 81 Mg Ectab) 81 mg PO HS [facility] Stop: 06/23/20 20:59 Last Admin: 05/24/20 21:50 Dose: 81 mg Documented by: [id number] Escitalopram Oxalate (Escitalopram Oxalate 10 Mg Tab) 10 mg PO QAM [facility] Stop: 06/23/20 08:59 Last Admin: 05/24/20 08:17 Dose: 10 mg Documented by: [id number] Levofloxacin/Dextrose (Levaquin/D5w) 750 mg in 150 mls @ 100 mls/hr IV Q24H [facility] Stop: 06/03/20 02:57 Last Infusion: 05/24/20 23:14 Dose: 0 mls/hr Documented by: [id number] Admin: 05/24/20 21:49 Dose: 100 mls/hr Documented by: [id number] Infusion: 05/24/20 04:37 Dose: 0 mls/hr Documented by: [id number] Admin: 05/24/20 03:07 Dose: 100 mls/hr Documented by: [id number] Vancomycin HCl 1,250 mg/ (Sodium Chloride) 275 mls @ 200 mls/hr IV Q8H [facility] Stop: 05/31/20 07:59 Last Admin: 05/25/20 00:19 Dose: 200 mls/hr Documented by: [id number] Infusion: 05/24/20 18:35 Dose: 0 mls/hr Documented by: [id number] Admin: 05/24/20 17:11 Dose: 200 mls/hr Documented by: [id number] Infusion: 05/24/20 10:38 Dose: 0 mls/hr Documented by: [id number] Admin: 05/24/20 08:23 Dose: 200 mls/hr Documented by: [id number] Piperacillin Sod/Tazobactam (Sod 3.375 gm/ Dextrose) 115 mls @ 28.75 mls/hr IV Q8H [facility]; Protocol Stop: 05/31/20 05:59 Last Admin: 05/24/20 23:13 Dose: 28.8 mls/hr Documented by: [id number] Infusion: 05/24/20 18:35 Dose: 0 mls/hr Documented by: [id number] Admin: 05/24/20 14:31 Dose: 28.8 mls/hr Documented by: [id number] Infusion: 05/24/20 10:38 Dose: 0 mls/hr Documented by: [id number] Admin: 05/24/20 06:20 Dose: 28.8 mls/hr Documented by: [id number] Sodium Chloride (Nss 1000ml) 1,000 mls @ 100 mls/hr IV .Q10H [facility] Stop: 06/23/20 18:37 Last Admin: 05/25/20 01:00 Dose: 100 mls/hr Documented by: [id number] Infusion: 05/25/20 00:59 Dose: 0 mls/hr Documented by: [id number] Admin: 05/24/20 16:00 Dose: 100 mls/hr Documented by: [id number] Metoprolol Tartrate (Metoprolol Tartrate 25 Mg Tab) 12.5 mg PO BID [facility] Stop: 06/23/20 08:59 Last Admin: 05/24/20 21:50 Dose: 12.5 mg Documented by: [id number] Admin: 05/24/20 08:18 Dose: 12.5 mg Documented by: [id number] Multivitamins (Multivitamin Tab) 1 tab PO QAM [facility] Stop: 06/23/20 08:59 Last Admin: 05/24/20 08:17 Dose: 1 tab Documented by: [id number] Pantoprazole Sodium (Pantoprazole 40 Mg Tab) 40 mg PO QAM [facility] Stop: 06/23/20 08:59 Last Admin: 05/24/20 08:18 Dose: 40 mg Documented by: [id number] Discontinued Medications Fish Oil (Sealy-3 (Purified Fish Oil) 1 Gm Cap) 1 gm PO QAM [facility] Stop: 06/23/20 08:59 Last Admin: 05/24/20 08:18 Dose: 1 gm Documented by: [id number] Sodium Chloride (Nss) 500 mls @ 999 mls/hr IV .Q31M ONE Stop: 05/24/20 00:55 Last Infusion: 05/24/20 01:14 Dose: 0 mls/hr Documented by: [id number] Admin: 05/24/20 00:42 Dose: 999 mls/hr Documented by: [id number] Vancomycin HCl 1,750 mg/ (Sodium Chloride) 535 mls @ 200 mls/hr IV NOW ONE Stop: 05/24/20 03:20 Last Infusion: 05/24/20 03:44 Dose: 0 mls/hr Documented by: [id number] Admin: 05/24/20 00:59 Dose: 200 mls/hr Documented by: [id number] Piperacillin Sod/Tazobactam Sod (Zosyn) 4.5 gm in 120 mls @ 240 mls/hr IV NOW ONE Stop: 05/24/20 01:09 Last Infusion: 05/24/20 01:30 Dose: 0 mls/hr Documented by: [id number] Admin: 05/24/20 00:59 Dose: 240 mls/hr Documented by: [id number] Sodium Chloride (Nss 1000ml) 1,000 mls @ 100 mls/hr IV .Q10H [facility] Stop: 05/24/20 14:39 Last Infusion: 05/24/20 15:48 Dose: 0 mls/hr Documented by: [id number] Admin: 05/24/20 05:15 Dose: 100 mls/hr Documented by: [id number] Ioversol (Ioversol 100ml) 94 ml IV ONCE ONE Stop: 05/24/20 01:03 Last Admin: 05/24/20 01:02 Dose: 94 ml Documented by: [id number] Discharge Plan Visit Data Chief Complaint: Cardiac Assessment Stated Complaint: CHEST PRESSURE ED Provider: Yuridia Woods Discharge Problem: Substernal chest pain, Leukocytosis Patient Disposition: Admitted As Inpatient Discharge Instructions Interventions: ED Discharge Assessment Last Done: 05/24/20 03:50 Discharge Problem: Leukocytosis Qualifiers: Leukocytosis type: unspecified Qualified Code(s): D72.829 - Elevated white blood cell count, unspecified
[2020-05-23 23:38] LABS: Hematocrit (blood only) 39.7 % (42-52); Hemoglobin 12.5 g/dL (14.0-18.0); Mean Corpuscular Hemoglobin 24.7 pg (25-34); Mean Corpuscular Hgb Conc 31.5 g/dL (32-36); Mean Corpuscular Volume 78.5 fL (80-100); Mean Platelet Volume 8.7 fL (7.4-10.4); Nucleated RBC # (auto) 0.04 K/uL (0-0); Nucleated RBC % (auto) 0.2 %; Platelet Count 398 K/uL (130-400); RDW Coefficient of Variation 19.2 % (11.5-14.5); RDW Standard Deviation 54.3 fL (36.4-46.3); Red Blood Count 5.06 M/uL (4.7-6.1); White Blood Count 22.37 K/uL (4.8-10.8)
[2020-05-23 23:50] LABS: INR 1.1 (0.9-1.1); Partial Thromboplastin Ratio 1.5; Partial Thromboplastin Time 41.9 Seconds (21.0-31.0); Prothrombin Time 11.5 Seconds (9.0-12.0)
[2020-05-23 23:58] LABS: ALC (manual) 5.88 K/uL (1.2-3.4); Eosinophils % (manual) 0.9 %; Hypochromasia Present; Large Granular Lymph % (manual) 22.8 %; Lymphocytes # (manual) 0.78 K/uL (1.2-3.4); Lymphocytes % (manual) 3.5 %; Monocytes # (manual) 0.98 K/uL (0.11-0.59); Monocytes % (manual) 4.4 %; Neutrophils % (manual) 68.4 %; Pappenheimer Bodies 1+; Spherocytes 1+
[2020-05-24] LABS: Alanine Aminotransferase 32 U/L (12-78); Albumin Level 2.3 gm/dl (3.4-5.0); Aspartate Aminotransferase 77 U/L (15-37); BUN Creatinine Ratio 13.4 (10-20); Blood Urea Nitrogen 11 mg/dl (7-18); Calcium 8.5 mg/dl (8.5-10.1); Carbon Dioxide 25 mmol/L (21-32); Chloride 105 mmol/L (98-107); Creatinine Clr Calc Pharmacy 98.3 ml/min; Est GFR (Non-African American) 94.1; Glucose 94 mg/dl (70-99); Lipase 171 U/L (73-393); Potassium 3.8 mmol/L (3.5-5.1); Sodium 138 mmol/L (136-145)
[2020-05-24 00:05] LABS: Albumin Globulin Ratio 0.6 (0.9-2); Alkaline Phosphatase 300 U/L (45-117); Bilirubin,Total 1.1 mg/dl (0.2-1); Globulin 3.8 gm/dl (2.5-4.0); Total Protein 6.1 gm/dl (6.4-8.2); Troponin I < 0.015 ng/ml (0-0.045)
[2020-05-24] MEDS ORDERED: SODIUM CHLORIDE 0.9% 500 ML IV ONE (00:25)
[2020-05-24 00:26] LABS: Magnesium 1.8 mg/dl (1.8-2.4)
[2020-05-24] MEDS ORDERED: VANCOMYCIN HCL 1,750 MG in SODIUM CHLORIDE 0.9% 500 ML IV ONE (00:40)
[2020-05-24] MEDS ORDERED: PIPERACILLIN/TAZOBACTAM 4.5 GM/120 ML BAG IV ONE (00:40)
[2020-05-24] MEDS ORDERED: PIPERACILL/TAZOBAC CONSULT ACTIVE PRN (00:40)
[2020-05-24] MEDS ORDERED: VANCOMYCIN CONSULT ACTIVE PRN (00:40)
[2020-05-24 00:53] LABS: Appearance Urine Clear (Clear); Bilirubin Urine Negative (Negative); Blood Urine Negative (Negative); Color Urine Yellow; Glucose Urine UA Negative (Negative); Ketones Urine Negative (Negative); Leukocyte Esterase Urine Negative (Negative); Nitrite Urine Negative (Negative); Protein Urine Negative (Negative); Specific Gravity Urine 1.012 (1.000-1.030); Urobilinogen Urine Negative (Negative); pH Urine 5.5 (4.5-7.5)
[2020-05-24] MEDS ORDERED: IOVERSOL 100ml IV ONE (01:02)
--- NOTE | 2020-05-24 02:59 | History & Physical Report ---
Date of Service May 24, 2020 Assessment & Plan (1) Chest pain: 64-year-old male with a past medical history significant for CAD status post CABG x3, chronic ITP status post splenectomy, COVID-19 in March 2020, recent admission at [facility] in for acute calculus cholecystitis now status post biliary stent placement and several weeks of antibiotics who presented to ER today following episode of chest pain after eating shrimp for dinner. Admitted for chest pain rule out and for antibiotic treatment of suspected bacterial pneumonia as well as ? abdominal infection. Chest pain: - Hx CAD with CABG x3 in 2014, follows with Dr. Leroy. - Atypical chest pain on arrival in that it was different from his typical chest pain, and occurred following food and while at rest. - Initial troponin negative, will trend serially. - EKG with possible T wave inversions in leads 3, V2-3. - Holding heparin given no chest pain, negative troponin, and patient with possible GI intervention given ? biliary stent infection. - Continue aspirin, beta yolette. Consider CARYN inhibitor. - TTE AM. NPO this morning until performed and read by Cardiology. Last EF noted to be 65-70%. - A1c, lipids with AM labs. Pneumonia: - Patient had COVID 19 in January 2020 and was admitted to [facility] COVID unit, and since that time does endorse some dyspnea with walking up stairs, but is not requiring oxygen when awake. - No recent fevers or chills, sick contacts. COVID 19 testing today negative. - CT Chest findings with multifocal pneumonitis, but also with focal consolidation in RLL consistent with superimposing bacterial pneumonia. Leukocytosis to 22 noted to be elevated from 17 on 05/08. - Given asplenia will cover patient with vanc/Zosyn, but add levofloxacin for encapsulated organisms. - Unlikely to be progression or reinfection with COVID 19 given imaging findings. ? Intraabdominal infection: - Noted on imaging to have fluid collection potentially consistent with intraabdominal abscess, however per [facility] GI this collection is actually smaller this admission as compared to 05/08. - Patient without systemic signs or symptoms. BCx collected in ED. - Broad spectrum coverage initiated with vanc/Zosyn in ED. - Levofloxacin added to cover for encapsulated organisms given asplenia. - GI consulted. NPO for now with NSS @ 100cc/hr. AAA: - Chronic, known history. - Follows with Dr. Leroy for this. - On imaging noted to have two foci of dilatation similar to previous, await final read. ITP s/p splenectomy: - With Hx of chronic ITP, s/p splenectomy in January 2020 and last dose Rituxan in 03/2020. - This admission with normal platelet count. - No intervention at this time. HTN: - Normotensive this admission. - Continue home metoprolol. Code Status: FULL CODE FENGI: NPO for possible GI intervention. DVT ppx: holding chemical ppx given GI consult and ? intervention, SCDs Dispo: Telemetry for continuous cardiac monitoring, serial troponin, TTE, and for evaluation by GI (2) Pneumonia: (3) Leukocytosis: (4) CAD (coronary artery disease), [place] coronary artery: (5) Hypertension: (6) Chronic ITP (idiopathic thrombocytopenia): (7) AAA (abdominal aortic aneurysm): (8) History of biliary stent insertion: History of Present Illness Chief Complaint: chest pain Primary Care Provider: Daniel Alba MD 64-year-old male with a past medical history significant for CAD status post CABG x3, chronic ITP status post splenectomy, COVID-19, recent admission at [facility] for acute calculus cholecystitis status post biliary stent placement and several weeks of antibiotics who presented to ER today following episode of chest pain after eating shrimp for dinner. Due to his cardiac history he called EMS immediately, and his symptoms had resolved by the time they arrived. He was given high-dose aspirin en route. In ER the patient was noted to have new T wave inversions in leads III, V2, V3, negative troponin. CTAP and CTA performed; CTA showed signs of multifocal pneumonitis with increased focal consolidation in right lower lobe, and CTAP showed 7.3 x 1.9 cm fluid collection with some peripheral attenuation suspicious for potential abscess. COVID-19 testing this visit was negative. GI primary at [facility] was called and was noted that fluid collection was actually smaller as compared to previous imaging in chart. On my interview patient denies chest pain, shortness of breath, nausea or vomiting, abdominal pain, recent diarrhea or constipation, no fevers or chills and checks his temperature daily. He reports having oxygen tank at home for use as needed following admission for COVID-19 which he rarely uses except intermittently at nighttime. Does endorse some lingering shortness of breath when going up stairs since his admission for COVID-19. He does also endorse some decrease in biliary drainage over the last several weeks, and denies any purulent drainage, erythema, tenderness at drain site. Allergies Allergy/AdvReac Type Severity Reaction Status Date / Time azithromycin AdvReac Intermediate a-fib Verified 05/23/20 23:47 [From Zithromax Z-Evan] Home Medications Medication Instructions Recorded Confirmed Type multivitamin 1 tab PO QAM 12/28/18 05/23/20 History pantoprazole 40 mg tablet,delayed 40 mg PO QAM #30 tab 10/28/19 05/23/20 Rx release metoprolol tartrate 12.5 mg PO BID #180 tab 12/07/19 05/23/20 Rx atorvastatin 80 mg tablet 80 mg PO HS #90 tab 01/22/20 05/23/20 Rx Krill Oil ([place] 3 and 6) 1 cap PO QAM 02/04/20 05/23/20 History escitalopram oxalate 10 mg tablet 10 mg PO QAM #30 tab 02/18/20 05/23/20 Rx aspirin 81 mg PO HS 04/13/20 05/23/20 History Past Med/Surg History Medical History Acute [place] 2015 Anxiety Bruising CAD (coronary artery disease), [place] coronary artery CABG x3 (2014) Chronic ITP (idiopathic thrombocytopenia) Dilated aortic root Mildly dilated ascending aorta4.0 cm. Mild aortic root dilatation- 4.3cm (under surveillance by cardiovascular- [facility]/Dr. 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 Hickey 02/19/2020 History of esophagogastroduodenoscopy (EGD) History of herniorrhaphy History of thoracotomy D/T HX SPONTANEOUS PNUEMOTHORAX History of tonsillectomy History of tooth extraction S/P triple vessel bypass [address] [facility] Family History Father Motor vehicle accident Grandfather (Paternal) Cardiac disorder Hypertension Coronary heart disease Grandmother (Paternal) Diabetes Grandmother (Maternal) Stroke Mother AML (acute myelogenous leukemia) Grandfather (Paternal) Myocardial infarction Denies family history of Family history of ITP Ovarian cancer Prostate cancer Breast cancer Colorectal cancer Social History Smoking Status: Former smoker Tobacco Type: Smokeless Tobacco (Dip or Chew) packs per day: 2; Years Smoked: 40; Smoking End Date: 10/2001; Second Hand Exposure: No; Do You Dip or Chew Tobacco: No; Tobacco Cessation Education Requested by Patient: No Hx Alcohol Use: No Hx Substance Use: No Preferred Language: Czech Communication Ability: Effective Visual Impairment: Limited Hearing Ability: Normal Lot Boss Required: No Beliefs That Will Affect Care: None marital status: Current Living Situation: Spouse Current Living Situation Comment: lives in [place] current occupational status: 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 How many Children do You have: 1 How many Children do You have Comment: son Other Information That Helps Us Care for You: No Feels Safe at Home: Yes Safety Concerns: Feels Safe At This Time Childhood Exposure to Second-Hand Smoke: No caffeine: Yes (coffee 2 per day.) during the past year weight has: remained stable Dental Care, Regularly: Yes Physical Activity Frequency: Does not Exercise Seatbelt Use: always Sunscreen Use: Yes Assistive Devices: None Review of Systems Review of Systems: All systems reviewed & are unremarkable except as noted in HPI & below Constitutional: no fever, no chills and no malaise Respiratory: + dyspnea on exertion (after climbing stairs, resolves quickly, noticed since COVID 19 diagnosis); no cough and no dyspnea Cardiovascular: no chest pain (at time of interview, endorsed pain earlier this evening), no palpitations and no edema Gastrointestinal: + abdominal pain (RUQ, achy in quality, chronic since drain placement, no change in severity); no nausea, no vomiting, no constipation and no diarrhea/loose stools Physical Exam Constitutional: WD/WN, vitals as above Eyes: PERRL, conjunctivae normal, anicteric sclerae ENMT: external ear and nose normal, oropharynx normal Neck: normal visual inspection Respiratory: Decreased breath sounds RLL, scattered rhonchi throughout Cardiovascular: RRR, no murmur, no edema Gastrointestinal (Abdomen): Normal bowel sounds, mild RUQ tenderness to deep palpation without Abbasi's sign, biliary drain site with minimal yellow-green fluid within. Minimal erythema without tenderness or warmth at drain site. Musculoskeletal: no cyanosis or clubbing, extremities motor strength 5/5 Skin: no rashes, warm and dry Neurologic: AAOx3, normal speech. PERRLA, EOMI, no nystagmus. Normal visual acuity bilaterally. Bilateral UE, LE, and face without sensory or motor deficits. No tremor. Psychiatric: A+Ox3, euthymic affect Results & Data Results & Data ([facility]) Vital Signs (Past 12 Hours) Vital Signs Temp Pulse Pulse Resp BP BP Pulse Ox 05/24/20 02:01 86 20 124/78 96 05/24/20 01:27 84 20 130/81 95 05/24/20 01:03 83 20 118/77 94 05/24/20 00:46 90 20 121/81 93 05/24/20 00:00 88 20 98/63 L 94 05/23/20 23:23 95 05/23/20 23:17 37.2 C 79 20 122/82 95 Code Status & VTE Plan VTE Prophylaxis Plan VTE Prophylaxis will be ordered: Yes Supervising Physician Co-Signing Physician Notes Attending addendum: I have physically seen this patient, have supervised the medical residents activities, and agree with the H&P unless as otherwise noted. Assessment and Plan: Chest pain/CAD/CABG x3 in 2014- The patient will be admitted to telemetry for serial cardiac enzymes, serial EKG's, cardiac rhythm monitoring and a 2-D echocardiogram with Dopplers. Continue aspirin, metoprolol tartrate. Consult cardiology Dr. Leroy Check hemoglobin A1c and fasting lipid panel Pneumonia- Previous history of COVID-19 infection. Infection today appears to be more likely bacterial. Placed on vancomycin IV, Zosyn IV and levofloxacin IV empirically Chronic intra-abdominal process- Fluid collection appears to be smaller on imaging than previously Antibiotics as above to cover potential infection N.p.o. Consult gastroenterology Remaining orders and notations as noted. Resident Activity Tracking Resident Involvement: Resident Care Provided Care Provided: Adult Hospital Medicine (1) AAA (abdominal aortic aneurysm) Presence of rupture: without rupture Qualified Code(s): I71.4 - Abdominal aortic aneurysm, without rupture (2) CAD (coronary artery disease), [place] coronary artery Associated angina: with unspecified angina [place] vs. transplanted heart: [place] heart Qualified Code(s): I25.119 - Atherosclerotic heart disease of [place] coronary artery with unspecified angina pectoris (3) Hypertension Hypertension type: essential hypertension Qualified Code(s): I10 - Essential (primary) hypertension
[2020-05-24] MEDS: levoFLOXacin/D5W 750 MG/150 ML BAG IV SCH ×2 (03:07→21:49)
[2020-05-24] MEDS ORDERED: POLYETHYLENE (MIRALAX) 17 GM PACK PO PRN (04:40)
[2020-05-24] MEDS ORDERED: NITROGLYCERIN SL 0.4 MG/TAB TAB SL PRN (04:40)
[2020-05-24] MEDS ORDERED: SODIUM CHLORIDE 0.9% 1000ML 1,000 ML IV SCH (04:40)
[2020-05-24] MEDS ORDERED: ACETAMINOPHEN 325 MG TAB PO PRN (04:40)
[2020-05-24] MEDS: PIPERACILLIN/TAZOBACTAM 3.375 GM in DEXTROSE 5% 100 ML IV SCH ×3 (06:20→23:13)
[2020-05-24 07:10] LABS: Hematocrit (blood only) 37.1 % (42-52); Hemoglobin 11.7 g/dL (14.0-18.0); Mean Corpuscular Hemoglobin 24.8 pg (25-34); Mean Corpuscular Hgb Conc 31.5 g/dL (32-36); Mean Corpuscular Volume 78.6 fL (80-100); Mean Platelet Volume 8.9 fL (7.4-10.4); Platelet Count 375 K/uL (130-400); RDW Coefficient of Variation 19.3 % (11.5-14.5); RDW Standard Deviation 55.1 fL (36.4-46.3); Red Blood Count 4.72 M/uL (4.7-6.1); White Blood Count 18.18 K/uL (4.8-10.8)
[2020-05-24 07:40] LABS: Albumin Level 2.1 gm/dl (3.4-5.0); BUN Creatinine Ratio 10.4 (10-20); Calcium 8.2 mg/dl (8.5-10.1); Creatinine Clr Calc Pharmacy 96.1 ml/min; Est GFR (African American) 108.5; Est GFR (Non-African American) 93.6; Potassium 3.9 mmol/L (3.5-5.1)
[2020-05-24 07:49] LABS: Albumin Globulin Ratio 0.6 (0.9-2); Bilirubin,Total 1.7 mg/dl (0.2-1); Globulin 3.4 gm/dl (2.5-4.0); Total Protein 5.5 gm/dl (6.4-8.2)
--- NOTE | 2020-05-24 08:10 | XRay Report ---
XR chest 1V portable CLINICAL HISTORY: Atypical chest pain COMPARISON STUDY: 04/25/2020 FINDINGS: There is pulmonary emphysema. There are persistent airspace opacities within the right uppe r lung zone. Since the prior study, the patient has developed a small opacity at the right lung base. There are also increased markings within the left mid to lower lung zone. There is minor blunting th e right lateral calcific angle suggesting a trace effusion. There are postsurgical changes of a midli ne sternotomy. There is no failure.[ IMPRESSION: 1. Pulmonary emphysema 2. Bilateral pulmonary opacities suspicious for multifocal pneumonia.. ACT 112: Negative or not required by law. Electronically signed by: Cornell Oh M.D. 05/24/2020 8:09 AM
[2020-05-24] MEDS: MULTIVITAMIN TAB PO SCH (08:17)
[2020-05-24] MEDS: ESCITALOPRAM OXALATE 10 MG TAB PO SCH (08:17)
[2020-05-24] MEDS: PANTOprazole 40 MG TAB PO SCH (08:18)
[2020-05-24] MEDS: METOPROLOL TARTRATE 25 MG TAB PO SCH ×2 (08:18→21:50)
[2020-05-24] MEDS: VANCOMYCIN HCL 1,250 MG in SODIUM CHLORIDE 0.9% 250 ML IV SCH ×2 (08:23→17:11)
--- NOTE | 2020-05-24 08:30 | CT Scan Report ---
CT abd pelvis IV con only CLINICAL HISTORY: Fever. Patient with cholecystostomy tube. RIGHT-SIDED ABDOMINAL PAIN COMPARISON STUDY: 05/08/2020 TECHNIQUE: The patient was scanned in a dynamic helical fashion during intravenous administration of 94 cc of Optiray 320 A dose lowering technique was utilized adhering to the principles of ALARA. CT DOSE: FINDINGS: Lower chest: There is pulmonary emphysema. There are coronary artery calcifications. There is a small right pleural effusion. There are persistent irregular pulmonary airspace opacities likely represent ing a multifocal pneumonia. Follow-up will be necessary to exclude underlying malignancy. Liver: There is a right hepatic subcapsular fluid collection measuring 78 x 20 x 75 mm. There is no i ntrahepatic biliary ductal dilatation. The portal and hepatic veins appear patent. Gallbladder: There is residual a cholecystostomy tube. There is gas present within the gallbladder. T here is mild gallbladder wall thickening. Spleen: The spleen appears absent. There is a small left upper quadrant splenule Pancreas: Unremarkable. Adrenal glands: Unremarkable. Kidneys: There is symmetric renal cortical enhancement. The kidneys are normal in size without hydron ephrosis. Bowel: There are no transition zones indicate bowel obstruction. There is no evidence of acute divert iculitis. The appendix appears normal. Peritoneum: There is no intraperitoneal free air or abdominal ascites. There is a fat-containing left inguinal hernia. There is a small fat-containing umbilical hernia. Vasculature: r there is a 5.4 cm infrarenal abdominal aortic aneurysm. There is also a suprarenal abd ominal aortic aneurysm measuring 41 mm. Adenopathy: None. Pelvic viscera: There is mild prostatomegaly. There is minimal bladder wall thickening likely seconda ry to chronic bladder outlet obstruction. Skeletal structures: No destructive osseous lesions are seen. IMPRESSION: 1. No evidence of bowel obstruction. No evidence of free air 2. Normal appendix. No evidence of acute diverticulitis 3. Indwelling cholecystostomy tube. There is mild gallbladder wall thickening 4. Subcapsular hepatic fluid collection measuring 78 x 75 x 20 mm. This appears smaller than on the p receding study. This likely represents a subcapsular biloma. The sterility of this collection cannot be determined but there are no gas bubbles contained within it. 5. Small right pleural effusion 6. Irregular bilateral pulmonary airspace opacity suspicious for a multifocal pneumonia. Follow-up wi ll be necessary to exclude underlying malignancy 7. Pulmonary emphysema 8. Bilobed abdominal aortic aneurysm. The infrarenal component measures 5.4 cm in maximal diameter ACT 112: Negative or not required by law. Electronically signed by: Cornell Oh M.D. 05/24/2020 8:29 AM
[2020-05-24 08:34] LABS: ALC (manual) 7.56 K/uL (1.2-3.4); ANC (manual) 9.49 K/uL (1.4-6.5); Basophils # (manual) 0.16 K/uL (0-0.2); Basophils % (manual) 0.9 %; Echinocytes 1+; Howell-Jolly Bodies 1+; Large Granular Lymph # (manua 6.93 K/uL; Large Granular Lymph % (manual) 38.1 %; Lymphocytes # (manual) 0.64 K/uL (1.2-3.4); Lymphocytes % (manual) 3.5 %; Monocytes # (manual) 0.96 K/uL (0.11-0.59); Monocytes % (manual) 5.3 %; Neutrophils # (manual) 9.49 K/uL (1.4-6.5); Neutrophils % (manual) 52.2 %; Target Cells 1+
--- NOTE | 2020-05-24 08:38 | CT Scan Report ---
CT OF THE CHEST WITH IV CONTRAST CLINICAL HISTORY: eval right sided infiltrates - pneumonia COMPARISON STUDY: Chest CT December 23, 2014. Chest radiograph May 23, 2020. TECHNIQUE: Following IV administration of 94 mL of Optiray-320, helical axial images of the chest we re obtained. Sagittal and coronal reconstructions were viewed as well as maximal intensity projectio ns on an independent 3-D workstation. Automated exposure control was utilized for the study. A dose lowering technique was utilized adhering to the principles of ALARA. CT DOSE: 962.67 mGy.cm FINDINGS: There are median sternotomy wires and postoperative findings from bypass grafting. Mild ca rdiomegaly is noted. There is extensive coronary artery calcification. No enlarged thoracic lymph nod es are noted. There is no thoracic aortic dissection. No central pulmonary embolus is identified. Not e is made of a small partially loculated right pleural effusion. There is moderate right lung multifo heriberto airspace opacity. Mild multifocal airspace opacities within the left lung are noted. There are se casper emphysema. The abdomen and pelvis will be reported separately. This demonstrates the cholecystos ji tube and a subcapsular rim-enhancing fluid collection along the right hepatic lobe. IMPRESSION: 1. Small partially loculated right pleural effusion, decreased in size since abdominal CT of May 08, 2020. 2. Multifocal bilateral airspace opacities, most pronounced within the right upper and right lower lo bes. This favors multifocal pneumonia. A follow-up chest CT in 3 months to ensure resolution is recom mended. 3. Severe emphysema. 4. Right hepatic lobe subcapsular fluid collection and cholecystostomy tube, better depicted on the C T of the abdomen and pelvis. Please see that report for further description. ACT 112: Negative or not required by law. Electronically signed by: Justin Garza M.D. 05/24/2020 8:36 AM
--- NOTE | 2020-05-24 08:56 | Pharmacy Report ---
Pharmacy Abx Initial Consult - Date of Service May 24, 2020 - Pharmacy Dosing Scope Date of Consult: 05/24/20 Consultation requested by: Dr. Hughes Pharmacy is consulted to initiate Vancomycin + Zosyn IV dosing therapy, order appropriate labs and adjust drug dose/frequency. - Subjective The patient is a 64 year old M admitted on 05/24/20 02:51. - Objective Height: 5 ft 7 in Weight: 85.6 kg Vital Signs (Past 12hrs): Vital Signs Temp Pulse Pulse Pulse Resp BP BP 05/24/20 08:00 37.1 C 87 18 117/71 05/24/20 04:45 90 05/24/20 04:40 37.1 C 77 16 124/88 05/24/20 04:30 37.1 C 77 16 124/88 05/24/20 03:36 71 20 120/78 05/24/20 03:09 75 20 122/81 05/24/20 02:01 86 20 124/78 05/24/20 01:27 84 20 130/81 05/24/20 01:03 83 20 118/77 05/24/20 00:46 90 20 121/81 05/24/20 00:00 88 20 98/63 L 05/23/20 23:23 05/23/20 23:17 37.2 C 79 20 122/82 Pulse Ox Pulse Ox 05/24/20 08:00 92 05/24/20 04:45 05/24/20 04:40 95 95 05/24/20 04:30 95 05/24/20 03:36 95 05/24/20 03:09 96 05/24/20 02:01 96 05/24/20 01:27 95 05/24/20 01:03 94 05/24/20 00:46 93 05/24/20 00:00 94 05/23/20 23:23 95 05/23/20 23:17 95 Lab Results (24hrs): Laboratory Tests (24 Hours) 05/24/20 05/24/20 05/23/20 06:43 06:43 23:25 WBC 18.18 H Creatinine 0.79 0.78 Est Cr Clr Drug Dosing 96.1 98.3 05/23/20 23:25 WBC 22.37 H Creatinine Est Cr Clr Drug Dosing Micro Results: 05/24/20 00:34 Aerobic Blood Culture - Pending Blood Anaerobic Blood Culture - Pending 05/24/20 00:34 Aerobic Blood Culture - Pending Blood Anaerobic Blood Culture - Pending - Risk Factors for Resistance * Hospitalization for 48 hours or more within the past 90 days * Current hospitalization > 5 days * Chronic dialysis within the past 30 days * Immunocompromised: * Receives Rituxan for Chronic ITP * Antimicrobial use within the last 90 days: * Unasyn, Augmentin - Assessment & Plan Assessment 64 year old M admitted secondary to chest pain * PMHx significant for CAD, chronic ITP s/p splenectomy and on Rituxan, COVID-19 in 03/2020 * Recently admitted at [facility] for acute calculus cholecystitis s/p biliary stent placement and several weeks of antibiotics * CT Chest shows multifocal pneumonitis as well as focal consolidation in RLL consistent with superimposing bacterial pneumonia * CTAP showed fluid collection potentially consistent with intraabdominal abscess but this collection is smaller than when patient was admitted at [facility]. Patient does have a right ANGE drain in gallbladder. * Patient is afebrile with a leukocytosis that has improved (22.4k --> 18.2k). Renal function stable. Procalcitonin 0.9 ng/mL.+ * Patient received Vancomycin and Zosyn in ED and Levofloxacin has been added to cover encapsulated bacteria given asplenia Plan Vancomycin + Zosyn + Levofloxacin for treatment of pneumonia and possible intraabdominal infection Vancomycin IV * Patient meets criteria for vancomycin AUC dosing nomogram * AUC/MONTEZ is the preferred PK/PD target for vancomycin * Target AUC/MONTEZ = 400-600 * AUC guided dosing is effective and associated with decreased risk of nephrotoxicity * Will monitor trough levels to ensure AUC/MONTEZ is between 400 - 600 which correlates to a trough of 15 - 20 mcg/mL * Trough ordered for 05/25/20 Piperacillin/tazobactam * 4.5 g bolus administered over 30 minutes, then 3.375 g IV extended infusion every 8 hours for CrCl greater than 20 mL/min Levofloxacin * 750 mg IV every 24 hours * Appropriate per indication and renal function Pharmacy will continue to follow and will adjust dose/frequency as necessary. Thank you.
[2020-05-24] MEDS ORDERED: OMEGA-3 (PURIFIED FISH OIL) 1 GM CAP PO SCH (09:00)
--- NOTE | 2020-05-24 09:58 | Gastrointestinal Consultation ---
Date of Consultation May 24, 2020 Assessment & Plan (1) Abdominal fluid collection: There appears to be a small collection out side the GB, by report smaller in size. Please coordinate with interventional radiology at [place]. If the collection is decreasing in size, no change may be needed, patentcy of the tube should be verified if there are concerns with a contrast study via the tube + /_ change of tube. ' believe we need to do anything different now. He looks comfortable. Present on Admission?: Yes History of Present Illness Attending Physician: Susan Lyon MD History of Present Illness Patient admitted with pain and increasing wbc. Recent placement of cholecystostomy tube. Do not appear to have a biliary stent Allergies Allergy/AdvReac Type Severity Reaction Status Date / Time azithromycin AdvReac Intermediate a-fib Verified 05/23/20 23:47 [From Zithromax Z-Evan] Home Medications Medication Instructions Recorded Confirmed Type multivitamin 1 tab PO QAM 12/28/18 05/23/20 History pantoprazole 40 mg tablet,delayed 40 mg PO QAM #30 tab 10/28/19 05/23/20 Rx release metoprolol tartrate 12.5 mg PO BID #180 tab 12/07/19 05/23/20 Rx atorvastatin 80 mg tablet 80 mg PO HS #90 tab 01/22/20 05/23/20 Rx Krill Oil ([place] 3 and 6) 1 cap PO QAM 02/04/20 05/23/20 History escitalopram oxalate 10 mg tablet 10 mg PO QAM #30 tab 02/18/20 05/23/20 Rx aspirin 81 mg PO HS 04/13/20 05/23/20 History Patient History Medical History Acute [place] 2015 Anxiety Bruising CAD (coronary artery disease), [place] coronary artery CABG x3 (2014) Chronic ITP (idiopathic thrombocytopenia) Dilated aortic root Mildly dilated ascending aorta4.0 cm. Mild aortic root dilatation- 4.3cm (under surveillance by cardiovascular- [facility]/Dr. 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 Hickey 02/19/2020 History of esophagogastroduodenoscopy (EGD) History of herniorrhaphy History of thoracotomy D/T HX SPONTANEOUS PNUEMOTHORAX History of tonsillectomy History of tooth extraction S/P triple vessel bypass 2015 AT [facility] Family History Father Motor vehicle accident Grandfather (Paternal) Cardiac disorder Hypertension Coronary heart disease Grandmother (Paternal) Diabetes Grandmother (Maternal) Stroke Mother AML (acute myelogenous leukemia) Grandfather (Paternal) Myocardial infarction Denies family history of Family history of ITP Ovarian cancer Prostate cancer Breast cancer Colorectal cancer Social History Smoking Status: Former smoker Tobacco Type: Smokeless Tobacco (Dip or Chew) packs per day: 2; Years Smoked: 40; Smoking End Date: 10/2001; Second Hand Exposure: No; Do You Dip or Chew Tobacco: No; Tobacco Cessation Education Requested by Patient: No Hx Alcohol Use: No Hx Substance Use: No Preferred Language: [place]guill[place] Communication Ability: Effective Visual Impairment: Limited Hearing Ability: Normal Instructional Designer Required: No Beliefs That Will Affect Care: None marital status: Current Living Situation: Spouse Current Living Situation Comment: lives in [place] 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 How many Children do You have: 1 How many Children do You have Comment: son Other Information That Helps Us Care for You: No Feels Safe at Home: Yes Safety Concerns: Feels Safe At This Time Childhood Exposure to Second-Hand Smoke: No caffeine: Yes (coffee 2 per day.) during the past year weight has: remained stable Dental Care, Regularly: Yes Physical Activity Frequency: Does not Exercise Seatbelt Use: always Sunscreen Use: Yes Assistive Devices: None Physical Exam Respiratory: normal respiratory effort Auscultation: lungs clear to auscultation bilaterally Cardiovascular: Rate/Rhythm: regular rate and regular rhythm Gastrointestinal (Abdomen): Inspection/Auscultation: + abdominal surgical drain present Percussion/Palpation: abdomen nontender mild focal tenderness at drain site Psychiatric: Orientation: alert Results & Data ([facility]) Vital Signs (Past 12 Hours) Vital Signs Temp Pulse Pulse Pulse Resp BP BP 05/24/20 08:00 37.1 C 84 87 18 117/71 05/24/20 04:45 90 05/24/20 04:40 37.1 C 77 16 124/88 05/24/20 04:30 37.1 C 77 16 124/88 05/24/20 03:36 71 20 120/78 05/24/20 03:09 75 20 122/81 05/24/20 02:01 86 20 124/78 05/24/20 01:27 84 20 130/81 05/24/20 01:03 83 20 118/77 05/24/20 00:46 90 20 121/81 05/24/20 00:00 88 20 98/63 L 05/23/20 23:23 05/23/20 23:17 37.2 C 79 20 122/82 Pulse Ox Pulse Ox 05/24/20 08:00 92 05/24/20 04:45 05/24/20 04:40 95 95 05/24/20 04:30 95 05/24/20 03:36 95 05/24/20 03:09 96 05/24/20 02:01 96 05/24/20 01:27 95 05/24/20 01:03 94 05/24/20 00:46 93 05/24/20 00:00 94 05/23/20 23:23 95 05/23/20 23:17 95
--- NOTE | 2020-05-24 10:36 | Surgery Consultation ---
Date of Consultation May 24, 2020 Assessment & Plan (1) History of biliary stent insertion: Patient with history of acute cholecystitis status post cholecystostomy tube placement in [place] last month Irrigation has been somewhat more difficult however does seem to have bilious fluid in the bag There is loculated perihepatic fluid which apparently is resolving He does have some additional ascites- may be old however cannot be sure this is more recent We should continue with gentle irrigation of the cholecystostomy tube It appears his liver functions are elevating- could repeat his imaging in 24-48 hrs to see if the fluid collection is enlarging At any rate he will require cholecystostomy tube exchange, possibly sooner than later-this should be done at [facility] He also continues to have evidence of right pneumonitis/pneumonia History of Present Illness Attending Physician: Susan Lyon MD History of Present Illness Patient admitted with chest pain possible indigestion, also pneumonitis possible right lower lobe pneumonia He has a cholecystostomy tube in place which was placed by IR in [place] last month for acute cholecystitis He apparently did have perihepatic fluid which apparently is resolving He does irrigate the cholecystostomy tube daily with 10 cc sterile saline-he is now unable to aspirate but the bile bag Does have bilious fluid within it His liver function studies have mildly elevated and he does have some mild perihepatic ascites He has no significant abdominal pain Allergies Allergy/AdvReac Type Severity Reaction Status Date / Time azithromycin AdvReac Intermediate a-fib Verified 05/23/20 23:47 [From Zithromax Z-Evan] Home Medications Medication Instructions Recorded Confirmed Type multivitamin 1 tab PO QAM 12/28/18 05/23/20 History pantoprazole 40 mg tablet,delayed 40 mg PO QAM #30 tab 10/28/19 05/23/20 Rx release metoprolol tartrate 12.5 mg PO BID #180 tab 12/07/19 05/23/20 Rx atorvastatin 80 mg tablet 80 mg PO HS #90 tab 01/22/20 05/23/20 Rx Krill Oil ([place] 3 and 6) 1 cap PO QAM 02/04/20 05/23/20 History escitalopram oxalate 10 mg tablet 10 mg PO QAM #30 tab 02/18/20 05/23/20 Rx aspirin 81 mg PO HS 04/13/20 05/23/20 History Patient History Medical History Acute [place] 2015 Anxiety Bruising CAD (coronary artery disease), [place] coronary artery CABG x3 (2015) Chronic ITP (idiopathic thrombocytopenia) Dilated aortic root Mildly dilated ascending aorta4.0 cm. Mild aortic root dilatation- 4.3cm (under surveillance by cardiovascular- [facility]/Dr. 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 Hickey 02/19/2020 History of esophagogastroduodenoscopy (EGD) History of herniorrhaphy History of thoracotomy D/T HX SPONTANEOUS PNUEMOTHORAX History of tonsillectomy History of tooth extraction S/P triple vessel bypass [address] [facility] Family History Father Motor vehicle accident Grandfather (Paternal) Cardiac disorder Hypertension Coronary heart disease Grandmother (Paternal) Diabetes Grandmother (Maternal) Stroke Mother AML (acute myelogenous leukemia) Grandfather (Paternal) Myocardial infarction Denies family history of Family history of ITP Ovarian cancer Prostate cancer Breast cancer Colorectal cancer Social History Smoking Status: Former smoker Tobacco Type: Smokeless Tobacco (Dip or Chew) packs per day: 2; Years Smoked: 40; Smoking End Date: 10/2001; Second Hand Exposure: No; Do You Dip or Chew Tobacco: No; Tobacco Cessation Education Requested by Patient: No Hx Alcohol Use: No Hx Substance Use: No Preferred Language: Togolese Communication Ability: Effective Visual Impairment: Limited Hearing Ability: Normal Windows Systems Administrator Required: No Beliefs That Will Affect Care: None marital status: Current Living Situation: Spouse Current Living Situation Comment: lives in [place] 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 How many Children do You have: 1 How many Children do You have Comment: son Other Information That Helps Us Care for You: No Feels Safe at Home: Yes Safety Concerns: Feels Safe At This Time Childhood Exposure to Second-Hand Smoke: No caffeine: Yes (coffee 2 per day.) during the past year weight has: remained stable Dental Care, Regularly: Yes Physical Activity Frequency: Does not Exercise Seatbelt Use: always Sunscreen Use: Yes Assistive Devices: None Review of Systems Review of Systems: All systems reviewed & are unremarkable except as noted in HPI & below Physical Exam Physical Exam: Abdomen is soft nontender he has a cholecystostomy tube in the right upper quadrant draining bilious fluid into bile bag Constitutional: well nourished; no acute distress Eyes: + anicteric sclerae Respiratory: normal respiratory effort; no respiratory distress Cardiovascular: Rate/Rhythm: regular rate Musculoskeletal: Head/Neck/Chest: head atraumatic Skin: no rashes, warm and dry Neurologic: awake Psychiatric: Orientation: alert Results & Data ([facility]) Vital Signs (Past 12 Hours) Vital Signs Temp Pulse Pulse Pulse Resp BP BP 05/24/20 08:00 37.1 C 84 87 18 117/71 05/24/20 04:45 90 05/24/20 04:40 37.1 C 77 16 124/88 05/24/20 04:30 37.1 C 77 16 124/88 05/24/20 03:36 71 20 120/78 05/24/20 03:09 75 20 122/81 05/24/20 02:01 86 20 124/78 05/24/20 01:27 84 20 130/81 05/24/20 01:03 83 20 118/77 05/24/20 00:46 90 20 121/81 05/24/20 00:00 88 20 98/63 L 05/23/20 23:23 05/23/20 23:17 37.2 C 79 20 122/82 Pulse Ox Pulse Ox 05/24/20 08:00 92 05/24/20 04:45 05/24/20 04:40 95 95 05/24/20 04:30 95 05/24/20 03:36 95 05/24/20 03:09 96 05/24/20 02:01 96 05/24/20 01:27 95 05/24/20 01:03 94 05/24/20 00:46 93 05/24/20 00:00 94 05/23/20 23:23 95 05/23/20 23:17 95 I did review his CAT scan PG Care Time/CCT Total # of Minutes Spent Total Time Spent with Patient: Total time spent is greater than 50% in coordination of care (as documented) at patient's floor/unit and/or counseling patient: Coding Level of Care Code 37922 Initial Inpt Care Lvl 3 Diagnoses History of biliary stent insertion Z98.890
--- NOTE | 2020-05-24 12:13 | XCELERA ---
[id number]
--- NOTE | 2020-05-24 12:33 | Electrocardiogram Report ---
Test Reason : Blood Pressure : / mmHG Vent. Rate : 095 BPM Atrial Rate : 096 BPM P-R Int : 188 ms QRS Dur : 070 ms QT Int : 340 ms P-R-T Axes : 051 043 029 degrees QTc Int : 427 ms Normal sinus rhythm Possible Left atrial enlargement Nonspecific ST and T wave abnormality Abnormal ECG When compared with ECG of 25-APR-2020 10:09, T wave inversion now evident in Inferior leads Nonspecific T wave abnormality now evident in Anterior leads Confirmed by Alec Jaffe ([id number]) on 05/24/2020 12:33:25 PM Referred By: REFERRED SELF Confirmed By:Alec Jaffe
[2020-05-24] MEDS: SODIUM CHLORIDE 0.9% 1000ML 1,000 ML IV SCH (16:00)
--- NOTE | 2020-05-24 17:14 | Hospitalist Progress Note ---
Date of Service May 24, 2020 Assessment & Plan (1) Chest pain: This patient is a 64-year-old male with a past medical history significant for CAD status post CABG x3, chronic ITP status post splenectomy, COVID-19 pneumonia in March 2020, recent admission at [facility] in for acute calculus ch olecystitis now status post cholecystostomy tube placement and several weeks of antibiotics who presented with chest pain after eating shrimp for dinner. Admitted for chest pain rule out and for antibiotic treatment of suspected bacterial pneumonia as well as ? abdominal infection. Chest pain: - Hx CAD with CABG x3 in 2014, follows with Dr. Leroy. - Atypical chest pain on arrival in that it was different from his typical chest pain, and occurred following food and while at rest. Suspect GI source as below - troponin serially negative x 2 - EKG with possible T wave inversions in leads 3, V2-3. - Continue aspirin, beta yolette - ECHO without WMAs (2) Cholecystitis: Suspected Intraabdominal infection: - Noted on imaging here to have fluid collection potentially consistent with intraabdominal abscess, however per [facility] GI this collection is actually smaller this admission as compared to 05/08. Is afebrile, no abdominal pain, no sepsis. Did present with acute chest pain which may be related to gallbladder LFTs up significantly today in obstructive pattern but remains asymptomatic BCx collected in ED-NGTD. - continue Broad spectrum coverage with vanc/Zosyn/Levaquin in ED. - GI consulted-recommends contrast study of joshua tube and coordination with IR at [facility]. -continue NPO except sips/chips with NSS @ 100cc/hr. -plan for FLuoro with KUB tomorrow AM to inject cholecystostomy tube to check for placement/extravasation General Surgery consulted May need transfer to [facility] for replacement or removal of cholecystostomy tube if LFTs continue to trend upward or if becomes septic -perihepatic fluid collection is smaller than previous so most likely would not need drainage -consult ID given complex case (3) Pneumonia: - Patient had COVID 19 in Mar 2020 and was admitted to [facility] COVID unit, and since that time does endorse some dyspnea with walking up stairs, but is not requiring oxygen when awake. - No recent fevers or chills, sick contacts. COVID 19 testing here now negative. - CT Chest findings with multifocal pneumonitis, but may be residual from previous COVID PNA as he essentially has no symptoms or signs otherwise of PNA (no cough, no SOB, no CP, afebrile). 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 Fortunately this does tend to be indolent and may not require treatment at this point. -consult Heme for further eval-he has already been following with Heme for his ITP -therefore, leukocytosis may NOT be from infection but could be from this leukemia -nonetheless, with microcytic anemia, will check Fe studies as possible cause of anemia and worsening leukocytosis (5) CAD (coronary artery disease), [place] coronary artery: s/p CABG 2014, chest pain ru/o for ACS as above continue ASA, metoprolol holding statin for elevated LFTs (6) Hypertension: - Normotensive this admission. - Continue home metoprolol (7) Chronic ITP (idiopathic thrombocytopenia): ITP s/p splenectomy: - With Hx of chronic ITP, s/p splenectomy in January 2020 and last dose Rituxan in 03/2020. - This admission with normal platelet count. - No intervention at this time. consulting Heme (8) AAA (abdominal aortic aneurysm): 5.4 cm, seen by Vascular recently and recommending endovascular repair ROSE after joshua issues resolved asymptomatic (9) Abdominal fluid collection: as above (10) S/P splenectomy: as above, performed for refractory ITP (11) Dilated aortic root: noted on ECHO, follow as outpt needs continued good BP control (12) Mixed hyperlipidemia: holding statin for elevated LFTs (13) Anxiety: continue SSRI (14) GERD (gastroesophageal reflux disease): continue PPI (15) DVT prophylaxis: SCDs only in case of need for procedure Dispo-continued stay on PCU Admission and Anticipated Discharge Date Admission Date: May 24, 2020 Subjective Pt feels well, no abd pains, no further chest pain, no SOB, and only mild occasional cough. No back pain. He reports being very tired as he did not sleep last night. LFTs up today. Discussed care with Surgery and plans for fluoro study of cholecystostomy tube on Monday. Tele with NSR rates 60-80s with PVCs, 5 beat run VT while sleeping Review of Systems Review of Systems: All systems reviewed & are unremarkable except as noted in HPI & below Physical Exam Constitutional: WD/WN, vitals as above Eyes: + anicteric sclerae Neck: trachea midline, no thyromegaly Respiratory: normal respiratory effort, lungs clear to auscultation Cardiovascular: RRR, no murmur, no edema Chest (Breasts): Chest: normal inspection of chest Gastrointestinal (Abdomen): Inspection/Auscultation: normal bowel sounds; + abdomen abnormal to inspection (cholecystostomy tube with bilious drainage) and abdomen not distended Percussion/Palpation: abdomen soft; abdomen nontender Musculoskeletal: Extremities: extremities normal to inspection; no cyanosis and no clubbing Skin: no rashes, warm and dry Neurologic: moves all extremities and awake; no focal motor deficits Psychiatric: A+Ox3, euthymic affect Lymphatic: no lymphedema Results & Data Results & Data ([facility]) Vital Signs (Past 12 Hours) Vital Signs Temp Pulse Pulse Resp BP Pulse Ox 05/24/20 16:00 37.1 C 62 18 113/71 92 05/24/20 15:51 65 05/24/20 12:00 37 C 63 18 106/63 93 05/24/20 08:00 37.1 C 84 87 18 117/71 92 Laboratory Results 05/24/20 05/24/20 05/24/20 Range/Units 14:42 06:43 06:43 WBC (4.8-10.8) K/uL RBC (4.7-6.1) M/uL Hgb (14.0-18.0) g/dL Hct (42-52) % MCV (80-100) fL MCH (25-34) pg MCHC (32-36) g/dL RDW Std Deviation (36.4-46.3) fL RDW Coeff of Kilo (11.5-14.5) % Plt Count (130-400) K/uL MPV (7.4-10.4) fL Neutrophils % (Manual) % Lymphocytes % (Manual) % Monocytes % (Manual) % Basophils % (Manual) % Neutrophils # (Manual) (1.4-6.5) K/uL Total Absolute Neuts (1.4-6.5) K/uL Lymphocytes # (Manual) (1.2-3.4) K/uL Total Abs Lymphocytes (1.2-3.4) K/uL Monocytes # (Manual) (0.11-0.59) K/uL Basophils # (Manual) (0-0.2) K/uL Large Granular Lymphs % # Lrg Granular Lymphs K/uL Target Cells [place] Bodies Echinocytes Sodium (136-145) mmol/L Potassium (3.5-5.1) mmol/L Chloride (98-107) mmol/L Carbon Dioxide (21-32) mmol/L Anion Gap (3-11) BUN (7-18) mg/dl Creatinine (0.6-1.4) mg/dl Est Cr Clr Drug Dosing ml/min Est GFR ( Amer) Est GFR (Non-Af Amer) BUN/Creatinine Ratio (10-20) Glucose (70-99) mg/dl Estimat Average Glucose Pending Hemoglobin A1c Pending Lactate (0.4-2.0) mmol/L Calcium (8.5-10.1) mg/dl Total Bilirubin (0.2-1) mg/dl AST (15-37) U/L ALT (12-78) U/L Alkaline Phosphatase (45-117) U/L Troponin I < 0.015 < 0.015 (0-0.045) ng/ml Total Protein (6.4-8.2) gm/dl Albumin (3.4-5.0) gm/dl Globulin (2.5-4.0) gm/dl Albumin/Globulin Ratio (0.9-2) Triglycerides (0-150) mg/dl Cholesterol (0-200) mg/dl LDL Cholesterol, Calc mg/dl VLDL Cholesterol, Calc mg/dl HDL Cholesterol mg/dl Cholesterol/HDL Ratio Urine Color Urine Appearance (Clear) Urine pH (4.5-7.5) Ur Specific [place] (1.000-1.030) Urine Protein (Negative) Urine Glucose (UA) (Negative) Urine Ketones (Negative) Urine Blood (Negative) Urine Nitrite (Negative) Urine Bilirubin (Negative) Urine Urobilinogen (Negative) Ur Leukocyte Esterase (Negative) COVID-19 Eval Order SARS-CoV-2, RNA, NAAT (NEGATIVE) 05/24/20 05/24/20 05/24/20 Range/Units 06:43 06:43 01:00 WBC 18.18 H (4.8-10.8) K/uL RBC 4.72 (4.7-6.1) M/uL Hgb 11.7 L (14.0-18.0) g/dL Hct 37.1 L (42-52) % MCV 78.6 L (80-100) fL MCH 24.8 L (25-34) pg MCHC 31.5 L (32-36) g/dL RDW Std Deviation 55.1 H (36.4-46.3) fL RDW Coeff of Kilo 19.3 H (11.5-14.5) % Plt Count 375 (130-400) K/uL MPV 8.9 (7.4-10.4) fL Neutrophils % (Manual) 52.2 % Lymphocytes % (Manual) 3.5 % Monocytes % (Manual) 5.3 % Basophils % (Manual) 0.9 % Neutrophils # (Manual) 9.49 H (1.4-6.5) K/uL Total Absolute Neuts 9.49 H (1.4-6.5) K/uL Lymphocytes # (Manual) 0.64 L (1.2-3.4) K/uL Total Abs Lymphocytes 7.56 H (1.2-3.4) K/uL Monocytes # (Manual) 0.96 H (0.11-0.59) K/uL Basophils # (Manual) 0.16 (0-0.2) K/uL Large Granular Lymphs 38.1 % # Lrg Granular Lymphs 6.93 K/uL Target Cells 1+ [place] Bodies 1+ Echinocytes 1+ Sodium 139 (136-145) mmol/L Potassium 3.9 (3.5-5.1) mmol/L Chloride 107 (98-107) mmol/L Carbon Dioxide 27 (21-32) mmol/L Anion Gap 5.0 (3-11) BUN 8 (7-18) mg/dl Creatinine 0.79 (0.6-1.4) mg/dl Est Cr Clr Drug Dosing 96.1 ml/min Est GFR ( Amer) 108.5 Est GFR (Non-Af Amer) 93.6 BUN/Creatinine Ratio 10.4 (10-20) Glucose 82 (70-99) mg/dl Estimat Average Glucose Hemoglobin A1c Lactate (0.4-2.0) mmol/L Calcium 8.2 L (8.5-10.1) mg/dl Total Bilirubin 1.7 H D (0.2-1) mg/dl AST 243 H (15-37) U/L ALT 115 H (12-78) U/L Alkaline Phosphatase 394 H (45-117) U/L Troponin I (0-0.045) ng/ml Total Protein 5.5 L (6.4-8.2) gm/dl Albumin 2.1 L (3.4-5.0) gm/dl Globulin 3.4 (2.5-4.0) gm/dl Albumin/Globulin Ratio 0.6 L (0.9-2) Triglycerides 78 (0-150) mg/dl Cholesterol 79 (0-200) mg/dl LDL Cholesterol, Calc 28 mg/dl VLDL Cholesterol, Calc 16 mg/dl HDL Cholesterol 35 mg/dl Cholesterol/HDL Ratio 2 Urine Color Urine Appearance (Clear) Urine pH (4.5-7.5) Ur Specific [place] (1.000-1.030) Urine Protein (Negative) Urine Glucose (UA) (Negative) Urine Ketones (Negative) Urine Blood (Negative) Urine Nitrite (Negative) Urine Bilirubin (Negative) Urine Urobilinogen (Negative) Ur Leukocyte Esterase (Negative) COVID-19 Eval Order SARS-CoV-2, RNA, NAAT NEGATIVE (NEGATIVE) 05/24/20 05/24/20 05/24/20 Range/Units 01:00 00:40 00:34 WBC (4.8-10.8) K/uL RBC (4.7-6.1) M/uL Hgb (14.0-18.0) g/dL Hct (42-52) % MCV (80-100) fL MCH (25-34) pg MCHC (32-36) g/dL RDW Std Deviation (36.4-46.3) fL RDW Coeff of Kilo (11.5-14.5) % Plt Count (130-400) K/uL MPV (7.4-10.4) fL Neutrophils % (Manual) % Lymphocytes % (Manual) % Monocytes % (Manual) % Basophils % (Manual) % Neutrophils # (Manual) (1.4-6.5) K/uL Total Absolute Neuts (1.4-6.5) K/uL Lymphocytes # (Manual) (1.2-3.4) K/uL Total Abs Lymphocytes (1.2-3.4) K/uL Monocytes # (Manual) (0.11-0.59) K/uL Basophils # (Manual) (0-0.2) K/uL Large Granular Lymphs % # Lrg Granular Lymphs K/uL Target Cells [place] Bodies Echinocytes Sodium (136-145) mmol/L Potassium (3.5-5.1) mmol/L Chloride (98-107) mmol/L Carbon Dioxide (21-32) mmol/L Anion Gap (3-11) BUN (7-18) mg/dl Creatinine (0.6-1.4) mg/dl Est Cr Clr Drug Dosing ml/min Est GFR ( Amer) Est GFR (Non-Af Amer) BUN/Creatinine Ratio (10-20) Glucose (70-99) mg/dl Estimat Average Glucose Hemoglobin A1c Lactate 0.9 (0.4-2.0) mmol/L Calcium (8.5-10.1) mg/dl Total Bilirubin (0.2-1) mg/dl AST (15-37) U/L ALT (12-78) U/L Alkaline Phosphatase (45-117) U/L Troponin I (0-0.045) ng/ml Total Protein (6.4-8.2) gm/dl Albumin (3.4-5.0) gm/dl Globulin (2.5-4.0) gm/dl Albumin/Globulin Ratio (0.9-2) Triglycerides (0-150) mg/dl Cholesterol (0-200) mg/dl LDL Cholesterol, Calc mg/dl VLDL Cholesterol, Calc mg/dl HDL Cholesterol mg/dl Cholesterol/HDL Ratio Urine Color Yellow Urine Appearance Clear (Clear) Urine pH 5.5 (4.5-7.5) Ur Specific [place] 1.012 (1.000-1.030) Urine Protein Negative (Negative) Urine Glucose (UA) Negative (Negative) Urine Ketones Negative (Negative) Urine Blood Negative (Negative) Urine Nitrite Negative (Negative) Urine Bilirubin Negative (Negative) Urine Urobilinogen Negative (Negative) Ur Leukocyte Esterase Negative (Negative) COVID-19 Eval Order Covid19 [facility]Now [facility] SARS-CoV-2, RNA, NAAT (NEGATIVE) PG Care Time/CCT Total # of Minutes Spent Total Time Spent with Patient: Total time spent is greater than 50% in coordination of care (as documented) at patient's floor/unit and/or counseling patient: Coding Level of Care Code None Diagnoses Chest pain R07.9 Cholecystitis K81.9 Pneumonia J18.9 Leukocytosis D72.829 CAD (coronary artery disease), [place] coronary artery I25.119 Associated angina: with unspecified angina [place] vs. transplanted heart: [place] heart Hypertension I10 Hypertension type: essential hypertension Chronic ITP (idiopathic thrombocytopenia) D69.3 AAA (abdominal aortic aneurysm) I71.4 Presence of rupture: without rupture Abdominal fluid collection R18.8 S/P splenectomy Z90.81 Dilated aortic root I77.810 Mixed hyperlipidemia E78.2 Anxiety F41.9 GERD (gastroesophageal reflux disease) K21.9 DVT prophylaxis Z29.9 (1) AAA (abdominal aortic aneurysm) Presence of rupture: without rupture Qualified Code(s): I71.4 - Abdominal aortic aneurysm, without rupture (2) CAD (coronary artery disease), [place] coronary artery Associated angina: with unspecified angina [place] vs. transplanted heart: [place] heart Qualified Code(s): I25.119 - Atherosclerotic heart disease of [place] coronary artery with unspecified angina pectoris (3) Hypertension Hypertension type: essential hypertension Qualified Code(s): I10 - Essential (primary) hypertension
[2020-05-24] MEDS ORDERED: ATORVASTATIN 40 MG TAB PO SCH (21:00)
--- NOTE | 2020-05-24 21:38 | Billing Data ---
Date of Service May 24, 2020 Coding Level of Care Code 87588 OBS Care - Level 3
[2020-05-24] MEDS: ASPIRIN 81 MG ECTAB PO SCH (21:50)
[2020-05-25] MEDS: VANCOMYCIN HCL 1,250 MG in SODIUM CHLORIDE 0.9% 250 ML IV SCH ×3 (00:19→15:28)
[2020-05-25] MEDS: SODIUM CHLORIDE 0.9% 1000ML 1,000 ML IV SCH (01:00)
[2020-05-25] MEDS: PIPERACILLIN/TAZOBACTAM 3.375 GM in DEXTROSE 5% 100 ML IV SCH ×2 (05:47→14:08)
[2020-05-25 06:11] LABS: Estimated Average Glucose 126 mg/dl
[2020-05-25 07:30] LABS: Basophils # (auto) 0.04 K/uL (0-0.2); Basophils % (auto) 0.3 %; Eosinophils % (auto) 1.4 %; Hematocrit (blood only) 36.1 % (42-52); Hemoglobin 11.4 g/dL (14.0-18.0); Immature Granulocytes # (auto) 0.06 K/uL (0.00-0.02); Immature Granulocytes % (auto) 0.4 %; Lymphocytes # (auto) 4.72 K/uL (1.2-3.4); Lymphocytes % (auto) 34.2 %; Mean Corpuscular Hemoglobin 24.6 pg (25-34); Mean Corpuscular Hgb Conc 31.6 g/dL (32-36); Mean Platelet Volume 8.8 fL (7.4-10.4); Monocytes % (auto) 9.4 %; Neutrophils # (auto) 7.49 K/uL (1.4-6.5); Neutrophils % (auto) 54.3 %; Platelet Count 399 K/uL (130-400); RDW Coefficient of Variation 19.6 % (11.5-14.5); RDW Standard Deviation 55.8 fL (36.4-46.3); Red Blood Count 4.63 M/uL (4.7-6.1); White Blood Count 13.81 K/uL (4.8-10.8)
[2020-05-25] MEDS ORDERED: VANCOMYCIN TROUGH ONE (07:30)
[2020-05-25 08:02] LABS: BUN Creatinine Ratio 9.4 (10-20); Calcium 8.7 mg/dl (8.5-10.1); Creatinine Clr Calc Pharmacy 119.1 ml/min; Est GFR (African American) 118.3
[2020-05-25 08:07] LABS: Bilirubin Direct 0.3 mg/dl (0-0.2); Ferritin 118.4 ng/ml (8-388); Total Protein 5.6 gm/dl (6.4-8.2)
[2020-05-25] MEDS: METOPROLOL TARTRATE 25 MG TAB PO SCH ×2 (08:19→19:53)
[2020-05-25] MEDS: ESCITALOPRAM OXALATE 10 MG TAB PO SCH (08:21)
[2020-05-25] MEDS: PANTOprazole 40 MG TAB PO SCH (08:21)
[2020-05-25] MEDS: MULTIVITAMIN TAB PO SCH (08:21)
--- NOTE | 2020-05-25 08:28 | Pharmacy Report ---
Pharmacy Abx Dose Short Note - Date of Service May 25, 2020 - Assessment & Plan Assessment 64 year old M receiving vancomycin/zosyn for treatment of possible pneumonia/abdominal infection. Leukocytosis improving, afebrile. Infectious disease consulted Day # 2 of antimicrobial therapy. Plan Vancomycin * AUC/MONTEZ is the preferred PK/PD target for vancomycin Target AUC/MONTEZ = 400-600 Trough level of 19.9 mcg/mL is predicted to achieve target AUC/MONTEZ AUC guided dosing is effective and associated with decreased risk of nephrotoxicity Next trough ordered for 05/26 @0730 to ensure no accumulation Pharmacy will continue to follow and will adjust dose/frequency as necessary. Thank you.
[2020-05-25] MEDS ORDERED: D5NSS + 20MEQ KCL 20 MEQ/1,000 ML BAG IV SCH (09:00)
--- NOTE | 2020-05-25 09:39 | Fluoroscopy Report ---
CHOLECYSTOSTOMY TUBE INJECTION CLINICAL HISTORY: Cholecystostomy tube,elevated LFTs COMPARISON STUDY: CT of the abdomen and pelvis May 24, 2020. FLUOROSCOPY TIME: 0.9 minutes. FLUOROSCOPIC IMAGES: 9 PROCEDURE AND FINDINGS: Research Rn Spec image of the right upper quadrant was obtained. 10 cc of Optiray 300 wa s then injected through the cholecystostomy tube. The tube is intact and located within the gallbladd er. The cystic duct is patent. There is no biliary ductal dilatation. There is opacification of the d uodenum. These images demonstrate probable small filling defects within the common bile duct. The fin dings favor choledocholithiasis. Gas bubbles could appear similar although is considered less likely. IMPRESSION: 1. Intact, properly positioned cholecystostomy tube. 2. Patent cystic duct. 3. Small apparent filling defects within the distal common bile duct. Choledocholithiasis is favored. Gas bubbles could appear similar but are considered less likely. If indicated, MRCP could be obtaine d. ACT 112: Negative or not required by law. Electronically signed by: Justin Garza M.D. 05/25/2020 9:38 AM
--- NOTE | 2020-05-25 09:44 | Surgery Progress Note ---
Date of Service May 25, 2020 Assessment & Plan (1) Abnormal liver function tests: Fluoroscopy injection of cholecystostomy tube-shows the catheter within the gallbladder which is contracted a patent cystic duct common bile duct mildly dilated Possible filling defect in meniscus in the distal common bile duct. There is no evidence of any extravasation Would continue daily catheter irrigation and may consider MRCP and/or ERCP depending on GI evaluation Admission and Anticipated Discharge Date Admission Date: May 24, 2020 Results & Data ([facility]) Vital Signs (Past 12 Hours) Vital Signs Temp Pulse Pulse Resp BP Pulse Ox 05/25/20 07:47 36.6 C 65 24 122/77 90 05/25/20 05:00 94 05/25/20 04:02 36.7 C 73 18 130/82 91 05/25/20 02:30 84 05/25/20 01:00 18 05/25/20 00:56 61 05/24/20 23:39 37.0 C 58 L 19 116/74 92 PG Care Time/CCT Total # of Minutes Spent Total Time Spent with Patient: Total time spent is greater than 50% in coordination of care (as documented) at patient's floor/unit and/or counseling patient: Coding Level of Care Code None Diagnoses Abnormal liver function tests R94.5
--- NOTE | 2020-05-25 13:21 | Progress Notes ---
DATE: 05/25/2020 REASON FOR EVALUATION: Cholecystostomy tube and chest pain. SUBJECTIVE: The patient today reveals that he has no chest or abdominal pain. His cardiac evaluation was negative. He did undergo a fluoroscopic evaluation of his cholecystostomy tube today, which appears to be patent and in good position and there is a possible distal common bile duct filling defect on fluoroscopy. OBJECTIVE: VITAL SIGNS: Normal. He is afebrile. ABDOMEN: Shows laparoscopic scars. There are no masses or tenderness. He has a tube in the right upper quadrant, which is sutured in place and in good position with some clear bilious drainage in his bile bag. LABORATORY DATA: His white count is 13.81 and he does have a form of leukemia that may explain that, hemoglobin is 11.4, platelets are 399,000. BUN 6, creatinine 0.64. Iron saturation is low at 7%. Bilirubin is 1, AST 102, ALT 77, alkaline phosphatase 307, albumin is 2.0. IMPRESSION AND PLAN: The patient may have a common duct stone. He is doing well and is pain free. He has an appointment on 06/03 to go to [place] to be reevaluated and I think they can address it at that time. In the meantime, we will continue his antibiotics and I will order him a regular diet at this point.
--- NOTE | 2020-05-25 15:25 | Hospitalist Progress Note ---
Date of Service May 25, 2020 Assessment & Plan (1) Pneumonia: RLL/RUL. Due to recent hospitalizations (here and at [facility]) will need to cover for gram negatives in addition to atypicals/typicals. Cont zosyn. Cont levaquin. Vanco is mainly to cover the fluid collection in liver region ([employer] swab neg). Stable O2 sats in room air. Supportive care. Day #2 of abx. (2) Cholecystitis: s/p cholecystostomy tube placement at [facility] with ultimate plan to have cholecystectomy. Has intraabdominal fluid collection - however per [facility] GI this collection is actually smaller this admission as compared to 05/08/20. No abdominal pain, soft abdomen, and tolerating diet. LFTs trending down. Tube study shows cholecystostomy tube is in good position but there is some concern for distal CBD stone. GI and gen surg following. Given lack of GI symptoms no plans for intervention of the ?CBD stone. Cont to trend LFTs. (3) Abnormal LFTs: Improving. Cont to trend. hold statin (4) CAD (coronary artery disease), [place] coronary artery: s/p CABG 2014. Troponins negative while here; thus no ACS. Cont asa and metoprolol. Holding statin. (5) Hypertension: Controlled. Continue home metoprolol. (6) Chronic ITP (idiopathic thrombocytopenia): With s/p splenectomy in January 2020. Last Rituxan dose - 03/2020. platelet count nl. (7) AAA (abdominal aortic aneurysm): 5.4 cm in size. Vascular recently evaluated - recommended endovascular repair ROSE after cholecystitis issues resolved. asymptomatic fortunately. monitor. 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 this is the suspected dx in light of recent w/u. may not need immediate Rx. needs to f/u with Dr Reardon post-d/c. (15) DVT prophylaxis: since no procedure planned start lovenox 40mg daily Admission and Anticipated Discharge Date Admission Date: May 24, 2020 Subjective patient feeling pretty good. mild cough but improved. no dyspnea at rest. denies abdominal pain. no nausea/emesis. no fevers. tele overnight wnl. patient asks if he should take prophylactic abx for splenectomy state. he has had pneumovax and meningitis vaccine. Review of Systems Constitutional: no fever and no chills Respiratory: no dyspnea Cardiovascular: no chest pain Gastrointestinal: no abdominal pain, no nausea and no vomiting Physical Exam Constitutional: no acute distress and no altered mental status ENMT: external ear and nose normal, oropharynx normal Respiratory: no respiratory distress Auscultation: + rales (soft rales right ant chest and right base ) Cardiovascular: Rate/Rhythm: regular rate and regular rhythm Heart Sounds: normal S1 and normal S2; no murmur Vessels: posterior tibial pulses present and dorsalis pedis pulses present; no JVD Extremities: no edema Gastrointestinal (Abdomen): normal bowel sounds, soft, nontender, no hepatosplenomegaly cholecystostomy tube in place RUQ, insertion site c/d/i; tube draining bile Psychiatric: A+Ox3, euthymic affect Results & Data Results & Data ([facility]) Vital Signs (Past 12 Hours) Vital Signs Temp Pulse Resp BP Pulse Ox 05/25/20 11:39 36.7 C 62 20 128/84 91 05/25/20 07:47 36.6 C 65 24 122/77 90 05/25/20 05:00 94 05/25/20 04:02 36.7 C 73 18 130/82 91 blood cx's neg to date PG Care Time/CCT Total # of Minutes Spent Total Time Spent with Patient: Total time spent is greater than 50% in coordination of care (as documented) at patient's floor/unit and/or counseling patient: Coding Level of Care Code 68897 Subseq Hosp Care Lvl 2 Diagnoses Pneumonia J18.9 Cholecystitis K81.9 Abnormal LFTs R94.5 CAD (coronary artery disease), [place] coronary artery I25.119 Associated angina: with unspecified angina [place] vs. transplanted heart: [place] heart Hypertension I10 Hypertension type: essential hypertension Chronic ITP (idiopathic thrombocytopenia) D69.3 AAA (abdominal aortic aneurysm) I71.4 Presence of rupture: without rupture Abdominal fluid collection R18.8 S/P splenectomy Z90.81 Dilated aortic root I77.810 Mixed hyperlipidemia E78.2 Anxiety F41.9 GERD (gastroesophageal reflux disease) K21.9 T-cell large granular lymphocytic leukemia C91.Z0 DVT prophylaxis Z29.9 (1) CAD (coronary artery disease), [place] coronary artery Associated angina: with unspecified angina [place] vs. transplanted heart: [place] heart Qualified Code(s): I25.119 - Atherosclerotic heart disease of [place] coronary artery with unspecified angina pectoris (2) Hypertension Hypertension type: essential hypertension Qualified Code(s): I10 - Essential (primary) hypertension (3) AAA (abdominal aortic aneurysm) Presence of rupture: without rupture Qualified Code(s): I71.4 - Abdominal aortic aneurysm, without rupture
--- NOTE | 2020-05-25 17:09 | Consultation ---
Date of Consultation May 25, 2020 Assessment & Plan (1) Chronic ITP (idiopathic thrombocytopenia): - refractory to multiple therapies in the past - s/p splenectomy by Dr. 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 Among newly diagnosed patients with asymptomatic T-LGL, we suggest close observation rather than immediate treatment. Treatment is reserved for patients with symptoms due to neutropenia, anemia, or thrombocytopenia, and for patients with associated autoimmune conditions requiring therapy (@Uptodate) - recommend outpatient followup with Dr. Reardon - thank you for the courtesy of this consultation. Feel free to contact if any questions. History of Present Illness Reason for Consultation: Hx of ITP, s/p splenectomy, T-cell LGL Attending Dominique iverson: Asad Page History of Present Illness 64 y/o male with history of CAD status post CABG x3, chronic ITP status post splenectomy, COVID-19, recent admission at [facility] for acute calculus cholecystitis status post biliary drain placement and several weeks of antibiotics who presented to ER following episode of chest pain after eating shrimp for dinner. Due to his cardiac history he called EMS immediately, and his symptoms had resolved by the time of arrival. He was given high-dose aspirin en route. In the ER troponins were negative, CTA showed signs of multifocal pneumonitis with increased focal consolidation in right lower lobe, and CTAP showed 7.3 x 1.9 cm fluid collection with some peripheral attenuation suspicious for potential abscess. COVID-19 testing in this visit was negative. Patient is being followed by GI, surgery and medicine. Hematology was consulted for evaluation of T-cell LGL found in a flow cytometry in Feb 2020 and chronic ITP, s/p recent splenectomy. Patient was seen and examined at bedside. Presently patient remains stable. No acute symptoms or complaints. Lab data and imaging studies were reviewed. Allergies Allergy/AdvReac Type Severity Reaction Status Date / Time azithromycin AdvReac Intermediate a-fib Verified 05/23/20 23:47 [From Zithromax Z-Evan] Home Medications Medication Instructions Recorded Confirmed Type multivitamin 1 tab PO QAM 12/28/18 05/23/20 History pantoprazole 40 mg tablet,delayed 40 mg PO QAM #30 tab 10/28/19 05/23/20 Rx release metoprolol tartrate 12.5 mg PO BID #180 tab 12/07/19 05/23/20 Rx atorvastatin 80 mg tablet 80 mg PO HS #90 tab 01/22/20 05/23/20 Rx Krill Oil ([place] 3 and 6) 1 cap PO QAM 02/04/20 05/23/20 History escitalopram oxalate 10 mg tablet 10 mg PO QAM #30 tab 02/18/20 05/23/20 Rx aspirin 81 mg PO HS 04/13/20 05/23/20 History Patient History Medical History (Updated 05/25/20 @ 09:42 by Eran Gomez MD, FACS) Acute SC 2015 Anxiety Bruising CAD (coronary artery disease), [place] coronary artery CABG x3 (2014) Chronic ITP (idiopathic thrombocytopenia) Dilated aortic root Mildly dilated ascending aorta4.0 cm. Mild aortic root dilatation- 4.3cm (under surveillance by cardiovascular- [facility]/Dr. Leroy) GERD (gastroesophageal reflux disease) History of GI bleed Hyperlipidemia Hypertension Osteoarthritis Superficial thrombophlebitis RLE x2 (was on ~6 weeks of eliquis then discontinued per hematology records) Surgical History H/O cardiac catheterization 2014 (NO STENTS) H/O colonoscopy (2017) H/O inguinal hernia repair H/O splenectomy (02/19/20) Laparoscopic Splenectomy Dr. Hickey 02/19/2020 History of esophagogastroduodenoscopy (EGD) History of herniorrhaphy History of thoracotomy D/T HX SPONTANEOUS PNUEMOTHORAX History of tonsillectomy History of tooth extraction S/P triple vessel bypass 2014 AT [facility] Family History Father Motor vehicle accident Grandfather (Paternal) Cardiac disorder Hypertension Coronary heart disease Grandmother (Paternal) Diabetes Grandmother (Maternal) Stroke Mother AML (acute myelogenous leukemia) Grandfather (Paternal) Myocardial infarction Denies family history of Family history of ITP Ovarian cancer Prostate cancer Breast cancer Colorectal cancer Social History Smoking Status: Former smoker Tobacco Type: Smokeless Tobacco (Dip or Chew) packs per day: 2; Years Smoked: 40; Smoking End Date: 10/2001; Second Hand Exposure: No; Do You Dip or Chew Tobacco: No; Tobacco Cessation Education Requested by Patient: No Hx Alcohol Use: No Hx Substance Use: No Preferred Language: Sami Communication Ability: Effective Visual Impairment: Limited Hearing Ability: Normal Truck Guard Required: No Beliefs That Will Affect Care: None marital status: Current Living Situation: Spouse Current Living Situation Comment: lives in [place] current occupational status: retired 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 How many Children do You have: 1 How many Children do You have Comment: son Other Information That Helps Us Care for You: No Feels Safe at Home: Yes Safety Concerns: Feels Safe At This Time Childhood Exposure to Second-Hand Smoke: No caffeine: Yes (coffee 2 per day.) during the past year weight has: remained stable Dental Care, Regularly: Yes Physical Activity Frequency: Does not Exercise Seatbelt Use: always Sunscreen Use: Yes Assistive Devices: None Review of Systems Review of Systems: Constitutional: Negative for weight loss, night sweats, or fever Eyes: Negative for event change of vision ENT: Negative for epistaxis, nasal discharge, sore throat, or deafness Cardiovascular: Negative for palpitations, dizziness, diaphoresis. CHEST PAIN Respiratory: Negative for new shortness of breath, hemoptysis, or purulent cough Gastrointestinal: Negative for diarrhea, hematemesis, melena, nausea, vomiting, or dyspepsia Integumentary (skin): Negative for rash or jaundice discoloration Genitourinary: Negative for urinary frequency, hematuria, or dysuria Neurological: Negative for weakness, seizure activity, headache, or dizziness Lymphatic/Hematologic: Negative for petechiae, bleeding or new adenopathy Musculoskeletal: Negative for new joint or back pain Allergic/Immunologic: Negative for unusual rash or pruritus Physical Exam Physical Exam: Constitutional: Vitals are stable Eyes: Eyes are CORINE EOMI without conjunctival erythema or icterus. ENT: External examination was negative for masses. Neck: Negative for masses or palpable thyromegaly. Respiratory: Lung sounds were generally clear bilaterally. SCATTERED RALES Cardiovascular: Heart was RRR without significant murmur, gallops or rubs. Gastrointestinal: The abdomen was soft with normal bowel sounds. PERCUTANEOUS BILIARY DRAIN PRESENT Lymphatic system: There was no palpable peripheral lymphadenopathy. Musculoskeletal System: The musculoskeletal system seemed concordant with age. Skin: The skin was negative for jaundice. Neurologic Exam: The exam was negative for any focal findings. Extremities: Negative for edema or erythema Results & Data ([facility]) Vital Signs (Past 12 Hours) Vital Signs Temp Pulse Resp BP Pulse Ox 05/25/20 16:06 37.0 C 102 H 20 131/78 92 05/25/20 11:39 36.7 C 62 20 128/84 91 05/25/20 07:47 36.6 C 65 24 122/77 90 Laboratory Results 05/24/20 05/24/20 05/24/20 Range/Units 14:42 06:43 06:43 WBC (4.8-10.8) K/uL RBC (4.7-6.1) M/uL Hgb (14.0-18.0) g/dL Hct (42-52) % MCV (80-100) fL MCH (25-34) pg MCHC (32-36) g/dL RDW Std Deviation (36.4-46.3) fL RDW Coeff of Kilo (11.5-14.5) % Plt Count (130-400) K/uL MPV (7.4-10.4) fL Neutrophils % (Manual) % Lymphocytes % (Manual) % Monocytes % (Manual) % Basophils % (Manual) % Neutrophils # (Manual) (1.4-6.5) K/uL Total Absolute Neuts (1.4-6.5) K/uL Lymphocytes # (Manual) (1.2-3.4) K/uL Total Abs Lymphocytes (1.2-3.4) K/uL Monocytes # (Manual) (0.11-0.59) K/uL Basophils # (Manual) (0-0.2) K/uL Large Granular Lymphs % # Lrg Granular Lymphs K/uL Target Cells Day-[place] Bodies Echinocytes Sodium (136-145) mmol/L Potassium (3.5-5.1) mmol/L Chloride (98-107) mmol/L Carbon Dioxide (21-32) mmol/L Anion Gap (3-11) BUN (7-18) mg/dl Creatinine (0.6-1.4) mg/dl Est Cr Clr Drug Dosing ml/min Est GFR ( Amer) Est GFR (Non-Af Amer) BUN/Creatinine Ratio (10-20) Glucose (70-99) mg/dl Estimat Average Glucose Pending Hemoglobin A1c Pending Lactate (0.4-2.0) mmol/L Calcium (8.5-10.1) mg/dl Total Bilirubin (0.2-1) mg/dl AST (15-37) U/L ALT (12-78) U/L Alkaline Phosphatase (45-117) U/L Troponin I < 0.015 < 0.015 (0-0.045) ng/ml Total Protein (6.4-8.2) gm/dl Albumin (3.4-5.0) gm/dl Globulin (2.5-4.0) gm/dl Albumin/Globulin Ratio (0.9-2) Triglycerides (0-150) mg/dl Cholesterol (0-200) mg/dl LDL Cholesterol, Calc mg/dl VLDL Cholesterol, Calc mg/dl HDL Cholesterol mg/dl Cholesterol/HDL Ratio Urine Color Urine Appearance (Clear) Urine pH (4.5-7.5) Ur Specific [place] (1.000-1.030) Urine Protein (Negative) Urine Glucose (UA) (Negative) Urine Ketones (Negative) Urine Blood (Negative) Urine Nitrite (Negative) Urine Bilirubin (Negative) Urine Urobilinogen (Negative) Ur Leukocyte Esterase (Negative) COVID-19 Eval Order SARS-CoV-2, RNA, NAAT (NEGATIVE) 05/24/20 05/24/20 05/24/20 Range/Units 06:43 06:43 01:00 WBC 18.18 H (4.8-10.8) K/uL RBC 4.72 (4.7-6.1) M/uL Hgb 11.7 L (14.0-18.0) g/dL Hct 37.1 L (42-52) % MCV 78.6 L (80-100) fL MCH 24.8 L (25-34) pg MCHC 31.5 L (32-36) g/dL RDW Std Deviation 55.1 H (36.4-46.3) fL RDW Coeff of Kilo 19.3 H (11.5-14.5) % Plt Count 375 (130-400) K/uL MPV 8.9 (7.4-10.4) fL Neutrophils % (Manual) 52.2 % Lymphocytes % (Manual) 3.5 % Monocytes % (Manual) 5.3 % Basophils % (Manual) 0.9 % Neutrophils # (Manual) 9.49 H (1.4-6.5) K/uL Total Absolute Neuts 9.49 H (1.4-6.5) K/uL Lymphocytes # (Manual) 0.64 L (1.2-3.4) K/uL Total Abs Lymphocytes 7.56 H (1.2-3.4) K/uL Monocytes # (Manual) 0.96 H (0.11-0.59) K/uL Basophils # (Manual) 0.16 (0-0.2) K/uL Large Granular Lymphs 38.1 % # Lrg Granular Lymphs 6.93 K/uL Target Cells 1+ Day-[place] Bodies 1+ Echinocytes 1+ Sodium 139 (136-145) mmol/L Potassium 3.9 (3.5-5.1) mmol/L Chloride 107 (98-107) mmol/L Carbon Dioxide 27 (21-32) mmol/L Anion Gap 5.0 (3-11) BUN 8 (7-18) mg/dl Creatinine 0.79 (0.6-1.4) mg/dl Est Cr Clr Drug Dosing 96.1 ml/min Est GFR ( Amer) 108.5 Est GFR (Non-Af Amer) 93.6 BUN/Creatinine Ratio 10.4 (10-20) Glucose 82 (70-99) mg/dl Estimat Average Glucose Hemoglobin A1c Lactate (0.4-2.0) mmol/L Calcium 8.2 L (8.5-10.1) mg/dl Total Bilirubin 1.7 H D (0.2-1) mg/dl AST 243 H (15-37) U/L ALT 115 H (12-78) U/L Alkaline Phosphatase 394 H (45-117) U/L Troponin I (0-0.045) ng/ml Total Protein 5.5 L (6.4-8.2) gm/dl Albumin 2.1 L (3.4-5.0) gm/dl Globulin 3.4 (2.5-4.0) gm/dl Albumin/Globulin Ratio 0.6 L (0.9-2) Triglycerides 78 (0-150) mg/dl Cholesterol 79 (0-200) mg/dl LDL Cholesterol, Calc 28 mg/dl VLDL Cholesterol, Calc 16 mg/dl HDL Cholesterol 35 mg/dl Cholesterol/HDL Ratio 2 Urine Color Urine Appearance (Clear) Urine pH (4.5-7.5) Ur Specific [place] (1.000-1.030) Urine Protein (Negative) Urine Glucose (UA) (Negative) Urine Ketones (Negative) Urine Blood (Negative) Urine Nitrite (Negative) Urine Bilirubin (Negative) Urine Urobilinogen (Negative) Ur Leukocyte Esterase (Negative) COVID-19 Eval Order SARS-CoV-2, RNA, NAAT NEGATIVE (NEGATIVE) 05/24/20 05/24/20 05/24/20 Range/Units 01:00 00:40 00:34 WBC (4.8-10.8) K/uL RBC (4.7-6.1) M/uL Hgb (14.0-18.0) g/dL Hct (42-52) % MCV (80-100) fL MCH (25-34) pg MCHC (32-36) g/dL RDW Std Deviation (36.4-46.3) fL RDW Coeff of Kilo (11.5-14.5) % Plt Count (130-400) K/uL MPV (7.4-10.4) fL Neutrophils % (Manual) % Lymphocytes % (Manual) % Monocytes % (Manual) % Basophils % (Manual) % Neutrophils # (Manual) (1.4-6.5) K/uL Total Absolute Neuts (1.4-6.5) K/uL Lymphocytes # (Manual) (1.2-3.4) K/uL Total Abs Lymphocytes (1.2-3.4) K/uL Monocytes # (Manual) (0.11-0.59) K/uL Basophils # (Manual) (0-0.2) K/uL Large Granular Lymphs % # Lrg Granular Lymphs K/uL Target Cells Day-[place] Bodies Echinocytes Sodium (136-145) mmol/L Potassium (3.5-5.1) mmol/L Chloride (98-107) mmol/L Carbon Dioxide (21-32) mmol/L Anion Gap (3-11) BUN (7-18) mg/dl Creatinine (0.6-1.4) mg/dl Est Cr Clr Drug Dosing ml/min Est GFR ( Amer) Est GFR (Non-Af Amer) BUN/Creatinine Ratio (10-20) Glucose (70-99) mg/dl Estimat Average Glucose Hemoglobin A1c Lactate 0.9 (0.4-2.0) mmol/L Calcium (8.5-10.1) mg/dl Total Bilirubin (0.2-1) mg/dl AST (15-37) U/L ALT (12-78) U/L Alkaline Phosphatase (45-117) U/L Troponin I (0-0.045) ng/ml Total Protein (6.4-8.2) gm/dl Albumin (3.4-5.0) gm/dl Globulin (2.5-4.0) gm/dl Albumin/Globulin Ratio (0.9-2) Triglycerides (0-150) mg/dl Cholesterol (0-200) mg/dl LDL Cholesterol, Calc mg/dl VLDL Cholesterol, Calc mg/dl HDL Cholesterol mg/dl Cholesterol/HDL Ratio Urine Color Yellow Urine Appearance Clear (Clear) Urine pH 5.5 (4.5-7.5) Ur Specific [place] 1.012 (1.000-1.030) Urine Protein Negative (Negative) Urine Glucose (UA) Negative (Negative) Urine Ketones Negative (Negative) Urine Blood Negative (Negative) Urine Nitrite Negative (Negative) Urine Bilirubin Negative (Negative) Urine Urobilinogen Negative (Negative) Ur Leukocyte Esterase Negative (Negative) COVID-19 Eval Order Covid19 [facility]Now [facility] SARS-CoV-2, RNA, NAAT (NEGATIVE) Diagnostic Findings CT OF THE CHEST WITH IV CONTRAST IMPRESSION: 1. Small partially loculated right pleural effusion, decreased in size since abdominal CT of May 08, 2020. 2. Multifocal bilateral airspace opacities, most pronounced within the right upper and right lower lobes. This favors multifocal pneumonia. A follow-up chest CT in 3 months to ensure resolution is recommended. 3. Severe emphysema. 4. Right hepatic lobe subcapsular fluid collection and cholecystostomy tube, better depicted on the CT of the abdomen and pelvis. Please see that report for further description.
[2020-05-25] MEDS: ASPIRIN 81 MG ECTAB PO SCH (19:53)
[2020-05-25] MEDS: levoFLOXacin/D5W 750 MG/150 ML BAG IV SCH (22:18)
[2020-05-26] MEDS: VANCOMYCIN HCL 1,250 MG in SODIUM CHLORIDE 0.9% 250 ML IV SCH ×2 (00:07→07:49)
[2020-05-26] MEDS: PIPERACILLIN/TAZOBACTAM 3.375 GM in DEXTROSE 5% 100 ML IV SCH ×3 (00:08→13:52)
[2020-05-26] MEDS ORDERED: VANCOMYCIN TROUGH ONE (07:30)
[2020-05-26] MEDS: METOPROLOL TARTRATE 25 MG TAB PO SCH ×2 (07:53→21:09)
[2020-05-26] MEDS: MULTIVITAMIN TAB PO SCH (07:53)
[2020-05-26] MEDS: ESCITALOPRAM OXALATE 10 MG TAB PO SCH (07:53)
[2020-05-26 08:14] LABS: BUN Creatinine Ratio 6.2 (10-20); Calcium 8.7 mg/dl (8.5-10.1); Creatinine Clr Calc Pharmacy 99.5 ml/min; Est GFR (African American) 110.2; Est GFR (Non-African American) 95.1; Potassium 3.6 mmol/L (3.5-5.1)
[2020-05-26 08:17] LABS: Albumin Globulin Ratio 0.6 (0.9-2); Bilirubin,Total 0.6 mg/dl (0.2-1); Globulin 3.4 gm/dl (2.5-4.0); Total Protein 5.4 gm/dl (6.4-8.2)
[2020-05-26] MEDS: PANTOprazole 40 MG TAB PO SCH (08:51)
--- NOTE | 2020-05-26 10:00 | Gastroenterology Progress Note ---
Date of Service May 26, 2020 Assessment & Plan (1) Abnormal LFTs: (2) Cholecystitis: (3) Abdominal fluid collection: The patient denies abdominal or chest pain. Tolerating regular diet. Reports he is doing well. Cholecystostomy tube intact and patent. ? common bile duct stone. Has follow-up appointment scheduled in [facility] 06/03/2020. WBC 13.81 this morning. LFTs continue to improve. Continue antibiotics. Please refer to supervising physician addendum for further recommendations. Admission and Anticipated Discharge Date Admission Date: May 24, 2020 Subjective The patient is a pleasant 64-year-old male with past medical history to include significant for CAD status post CABG x3, chronic ITP status post splenectomy, COVID-19 in March 2020, recent admission at [facility] in for acute calculus cholecystitis now status post biliary stent placement and several weeks of antibiotics who presented to the ED on 05/23/2020 with complaints of chest pain. He was subsequently admitted for chest pain rule out and GI consulted due to fluid collection potentially consistent with intraabdominal abscess. This collection is noted to be smaller compared to 05/08/2020. Patient seen in consult by Dr. Davis and Dr. Johnson the last two days. On exam/interview today, patient notes he is feeling pretty good. Denies any abdominal pain or chest pain. Denies nausea or vomiting. Reports he has tolerated advanced diet well. Reports + flatus. Reports loose bowel movement both today and yesterday. Denies blood in stool. The patient is a former smoker. Quit in 2001. Smoked 2 ppd of cigarettes for at least 25 years. Denies any alcohol or recreational drug use including marijuana. The patient is retired. 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 He is and has one adult child. Review of Systems Review of Systems: All systems reviewed & are unremarkable except as noted in Subjective Physical Exam Constitutional: WD/WN, vitals as above Neck: normal visual inspection Respiratory: normal respiratory effort Auscultation: lungs clear to auscultation bilaterally Cardiovascular: Rate/Rhythm: regular rate and regular rhythm Gastrointestinal (Abdomen): Inspection/Auscultation: + abdominal surgical drain present Percussion/Palpation: abdomen nontender biliary drainage tube with scant to small amount of drainage noted Psychiatric: Orientation: alert and oriented x 3 Results & Data ([facility]) Vital Signs (Past 12 Hours) Vital Signs Temp Pulse Resp BP BP Pulse Ox 05/26/20 08:09 36.7 C 71 18 114/75 91 05/26/20 04:51 36.7 C 73 20 121/78 92 05/26/20 00:09 36.8 C 68 17 133/83 94 Laboratory Results - last 24 hr 05/25/20 05/26/20 05/26/20 11:20 07:20 07:20 Sodium 143 Potassium 3.6 Chloride 111 H Carbon Dioxide 26 Anion Gap 6.0 BUN 5 L Creatinine 0.76 Est Cr Clr Drug Dosing 99.5 Est GFR ( Amer) 110.2 Est GFR (Non-Af Amer) 95.1 BUN/Creatinine Ratio 6.2 L Glucose 92 Calcium 8.7 Total Bilirubin 0.6 AST 46 H ALT 48 Alkaline Phosphatase 240 H Total Protein 5.4 L Albumin 2.0 L Globulin 3.4 Albumin/Globulin Ratio 0.6 L Nasal Screen MRSA (PCR) Negative Vancomycin Trough 22.0
[2020-05-26] MEDS: ENOXAPARIN INJ 40 MG/0.4 ML SYR SQ SCH (10:29)
--- NOTE | 2020-05-26 12:53 | Progress Notes ---
DATE: 05/26/2020 Supplement to the progress note by Gisela Riley: The patient reports no abdominal pain and is tolerating a regular diet. He is afebrile. His white count remains slightly elevated due to his form of leukemia. The patient continues to remain on antibiotics for possible intraabdominal infection and pneumonia. He does have an appointment on 06/03 at [facility] for reevaluation of his cholecystostomy tube. The only question that remains is whether or not he has a common duct stone, but obviously this is not the time to pursue that given his other health issues and the fact that he has an appointment in 8 days at [facility]. At this point, I would continue his antibiotics and we will sign off the case unless any further GI input is needed later in this hospitalization.
--- NOTE | 2020-05-26 13:56 | Pharmacy Report ---
Pharmacy Abx Dose Progress Nt - Date of Service May 26, 2020 - Pharmacy Dosing Scope The patient is currently receiving the following antimicrobial agents per Pharmacy consult: Vancomycin 1,250 mg IV every 8 hours + Zosyn 3.375g IV Q8hrs + Levaquin 750mg IV Q24hrs - Objective Vital Signs (Past 12hrs): Vital Signs Temp Pulse Resp BP BP Pulse Ox 05/26/20 12:00 18 05/26/20 11:56 37.2 C 54 L 18 121/74 93 05/26/20 08:09 36.7 C 71 18 114/75 91 05/26/20 08:00 18 91 05/26/20 04:51 36.7 C 73 20 121/78 92 Lab Results (24hrs): Laboratory Tests (24 Hours) 05/26/20 05/26/20 07:20 07:20 Creatinine 0.76 Est Cr Clr Drug Dosing 99.5 Vancomycin Trough 22.0 - Risk Factors for Resistance * Hospitalization for 48 hours or more within the past 90 days * Antimicrobial use within the last 90 days: Augmentin - Assessment & Plan Assessment 64 year old M receiving Vancomycin +Zosyn + Levaquin for treatment of PNA & Abdominal infection Day # 3 of antimicrobial therapy Plan Vancomycin IV * Trough level of 22 mcg/mL is supratherapeutic * Change to 1,500 mg IV every 12 hours * Goal trough level for abdominal infection : 15 to 20 mcg/mL * Vancomycin is being used to treat the fluid collection in liver region * Repeat trough level on: 05/28/20 @ 0900 Piperacillin/tazobactam * Continue 3.375 g IV extended infusion every 8 hours for CrCl greater than 20 mL/min Levaquin * Continue 750mg IV Q24hrs Pharmacy will continue to follow and will adjust dose/frequency as necessary. Thank you.
[2020-05-26] MEDS: ADVANCED PROBIOTIC 1250 MG CAPSULE PO SCH (15:56)
--- NOTE | 2020-05-26 20:01 | Hospitalist Progress Note ---
Date of Service May 26, 2020 Assessment & Plan (1) Pneumonia: RLL/RUL. Due to recent hospitalizations (here and at [facility] [place] will need to cover for gram negatives in addition to atypicals/typicals. Cont zosyn. Cont levaquin. Vanco is mainly to cover the fluid collection in liver region ([employer] swab neg however). Stable O2 sats in room air. Supportive care. Day #3. Overall clinically improved. (2) Cholecystitis: s/p cholecystostomy tube placement at [facility] [place] on 04/15/20 with ultimate plan to have cholecystectomy in the future. Has intraabdominal fluid collection - however per [facility] [place] this collection is actually smaller this admission as compared to 05/08/20 imaging at [facility]. No abdominal pain, soft abdomen, and tolerating diet. LFTs trending down. Tube study shows cholecystostomy tube is in good position but there is some concern for distal CBD stone. GI and gen surg following. Given lack of GI symptoms no plans for intervention of the ?CBD stone. Cont to trend LFTs in am. (3) Abdominal fluid collection: Marva-hepatic. Seen during prior admission - either hematoma vs biliary fluid collection with ?infection. Collection is smaller by report. He has no symptoms from it. Triple abx including MRSA coverage will adequately cover this collection if there is any element of infection in this fluid collection. ID consult today with [facility] [facility] tele[facility] - will f/u with their abx recomme ndations for pneumonia and this issue. (4) Abnormal LFTs: Continue to decrease daily. May have been related to the ?CBD stone seen on recent cholecystostomy tube study. Cont to trend. hold statin GI consult/recs appreciated. no plans for ERCP per GI this admission. (5) CAD (coronary artery disease), [place] coronary artery: s/p CABG 2014. Troponins negative while here; thus no ACS. Cont asa and metoprolol. Holding statin due to elevated LFTs. (6) Hypertension: Controlled. Continue home metoprolol. (7) Chronic ITP (idiopathic thrombocytopenia): With s/p splenectomy in January 2020. Last Rituxan dose - 03/2020. platelet count nl. follows with Dr Reardon, [facility]. (8) AAA (abdominal aortic aneurysm): 5.4 cm in size. Vascular recently evaluated - recommended endovascular repair ROSE after cholecystitis issues resolved. asymptomatic fortunately. monitor. 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 may not need immediate Rx. needs to f/u with Dr Reardon post-d/c. I told patient (and by phone today) that there appears to be new blood disorder that needs rose f/u with Dr Reardon post-d/c (15) COVID-19: 03/2020 some of his chest findings could be residual from his COVID [id number] treating for new bacterial pneumonia (16) DVT prophylaxis: lovenox 40mg daily diarrhea - at minimum has abx-associated diarrhea check c diff however add lactinex updated by phone today home next 48 hours?? Admission and Anticipated Discharge Date Admission Date: May 24, 2020 Subjective patient feeling "very well" minimal cough no dyspnea appetite has returned and eating well no GI symptoms - no abd pain with eating, no nausea or vomiting 2 episodes of diarrhea since middle of the night 5cc of bile obtained from cholecystostomy tube today no chest pain to have telehealth ID consult at 1630 today w/ [facility] hoping for d/c soon tele - NSR Review of Systems Constitutional: no fever, no chills, no fatigue and no anorexia Respiratory: + cough and + sputum production; no dyspnea on exertion Cardiovascular: no chest pain Gastrointestinal: + abdominal pain and + diarrhea/loose stools; no bloating, no nausea, no vomiting, no constipation and no blood in stools Physical Exam Constitutional: no acute distress and no altered mental status ENMT: external ear and nose normal, oropharynx normal Respiratory: no respiratory distress Auscultation: + rales (soft rales R ant chest; R base posteriorly; L base minimally ) Cardiovascular: Rate/Rhythm: regular rate and regular rhythm Heart Sounds: normal S1 and normal S2; no murmur Vessels: posterior tibial pulses present and dorsalis pedis pulses present; no JVD Extremities: no edema Gastrointestinal (Abdomen): normal bowel sounds, soft, nontender, no hepatospl enomegaly cholecystostomy tube RUQ with yellow bile in bag Psychiatric: A+Ox3, euthymic affect Results & Data Results & Data ([facility]) Vital Signs (Past 12 Hours) Vital Signs Temp Pulse Resp BP BP Pulse Ox 05/26/20 19:44 36.7 C 83 16 158/76 H 94 05/26/20 16:00 16 92 05/26/20 15:33 36.6 C 71 16 114/74 92 05/26/20 12:00 18 05/26/20 11:56 37.2 C 54 L 18 121/74 93 05/26/20 08:09 36.7 C 71 18 114/75 91 Laboratory Results Laboratory Results - last 24 hr 05/26/20 05/26/20 07:20 07:20 Sodium 143 Potassium 3.6 Chloride 111 H Carbon Dioxide 26 Anion Gap 6.0 BUN 5 L Creatinine 0.76 Est Cr Clr Drug Dosing 99.5 Est GFR ( Amer) 110.2 Est GFR (Non-Af Amer) 95.1 BUN/Creatinine Ratio 6.2 L Glucose 92 Calcium 8.7 Total Bilirubin 0.6 AST 46 H ALT 48 Alkaline Phosphatase 240 H Total Protein 5.4 L Albumin 2.0 L Globulin 3.4 Albumin/Globulin Ratio 0.6 L Vancomycin Trough 22.0 blood cultures negative PG Care Time/CCT Total # of Minutes Spent Total Time Spent with Patient: Total time spent is greater than 50% in coordination of care (as documented) at patient's floor/unit and/or counseling patient: Coding Level of Care Code 91588 Subseq Hosp Care Lvl 3 Diagnoses Pneumonia J18.9 Cholecystitis K81.9 Abdominal fluid collection R18.8 Abnormal LFTs R94.5 CAD (coronary artery disease), [place] coronary artery I25.119 Associated angina: with unspecified angina [place] vs. transplanted heart: [place] heart Hypertension I10 Hypertension type: essential hypertension Chronic ITP (idiopathic thrombocytopenia) D69.3 AAA (abdominal aortic aneurysm) I71.4 Presence of rupture: without rupture S/P splenectomy Z90.81 Dilated aortic root I77.810 Mixed hyperlipidemia E78.2 Anxiety F41.9 GERD (gastroesophageal reflux disease) K21.9 T-cell large granular lymphocytic leukemia C91.Z0 COVID-19 U07.1 DVT prophylaxis Z29.9 (1) AAA (abdominal aortic aneurysm) Presence of rupture: without rupture Qualified Code(s): I71.4 - Abdominal aortic aneurysm, without rupture (2) CAD (coronary artery disease), [place] coronary artery Associated angina: with unspecified angina [place] vs. transplanted heart: [place] heart Qualified Code(s): I25.119 - Atherosclerotic heart disease of [place] coronary artery with unspecified angina pectoris (3) Hypertension Hypertension type: essential hypertension Qualified Code(s): I10 - Essential (primary) hypertension
[2020-05-26] MEDS: ASPIRIN 81 MG ECTAB PO SCH (21:09)
[2020-05-26] MEDS: VANCOMYCIN HCL 1,500 MG in SODIUM CHLORIDE 0.9% 500 ML IV SCH (21:11)
[2020-05-26] MEDS: levoFLOXacin/D5W 750 MG/150 ML BAG IV SCH (23:55)
[2020-05-27] MEDS: PIPERACILLIN/TAZOBACTAM 3.375 GM in DEXTROSE 5% 100 ML IV SCH ×2 (01:33→06:30)
[2020-05-27 07:17] LABS: Hematocrit (blood only) 36.8 % (42-52); Hemoglobin 11.5 g/dL (14.0-18.0); Mean Corpuscular Hemoglobin 24.4 pg (25-34); Mean Corpuscular Hgb Conc 31.3 g/dL (32-36); Mean Corpuscular Volume 78.1 fL (80-100); Mean Platelet Volume 8.9 fL (7.4-10.4); Platelet Count 359 K/uL (130-400); RDW Coefficient of Variation 19.2 % (11.5-14.5); RDW Standard Deviation 54.5 fL (36.4-46.3); Red Blood Count 4.71 M/uL (4.7-6.1); White Blood Count 12.56 K/uL (4.8-10.8)
--- NOTE | 2020-05-27 07:33 | Surgery Progress Note ---
Date of Service May 27, 2020 Assessment & Plan (1) Abnormal liver function tests: Patient's bilirubin is normal GI evaluation and plan noted Patient does not need urgent surgical intervention He will follow-up with the GI/IR team in [place] Admission and Anticipated Discharge Date Admission Date: May 24, 2020 Results & Data ([facility]) Vital Signs (Past 12 Hours) Vital Signs Temp Pulse Pulse Resp BP Pulse Ox 05/27/20 03:51 37 C 69 18 127/81 91 05/27/20 00:38 60 05/26/20 23:58 37.4 C 66 18 126/76 92 05/26/20 20:00 20 05/26/20 19:44 36.7 C 83 16 158/76 H 94 PG Care Time/CCT Total # of Minutes Spent Total Time Spent with Patient: Total time spent is greater than 50% in coordination of care (as documented) at patient's floor/unit and/or counseling patient: Coding Level of Care Code None Diagnoses Abnormal liver function tests R94.5
[2020-05-27 07:45] LABS: BUN Creatinine Ratio 4.1 (10-20); Creatinine Clr Calc Pharmacy 96.8 ml/min; Est GFR (Non-African American) 94.1; Potassium 3.5 mmol/L (3.5-5.1)
[2020-05-27 07:48] LABS: Albumin Globulin Ratio 0.6 (0.9-2); Bilirubin,Total 0.6 mg/dl (0.2-1); Globulin 3.5 gm/dl (2.5-4.0); Total Protein 5.5 gm/dl (6.4-8.2)
[2020-05-27] MEDS: METOPROLOL TARTRATE 25 MG TAB PO SCH (08:27)
[2020-05-27] MEDS: ADVANCED PROBIOTIC 1250 MG CAPSULE PO SCH (08:27)
[2020-05-27] MEDS: MULTIVITAMIN TAB PO SCH (08:27)
[2020-05-27] MEDS: PANTOprazole 40 MG TAB PO SCH (08:27)
[2020-05-27] MEDS: ESCITALOPRAM OXALATE 10 MG TAB PO SCH (08:27)
[2020-05-27] MEDS: ENOXAPARIN INJ 40 MG/0.4 ML SYR SQ SCH (08:28)
--- NOTE | 2020-05-27 09:13 | XRay Report ---
TWO VIEW CHEST CLINICAL HISTORY: Pneumonia. FINDINGS: PA and lateral chest radiographs are compared to study dated 05/23/2020 and correlated with chest CT dated 05/24/2020. The patient is status post midline sternotomy. The heart is enlarged noting atherosclerotic calcification of the thoracic aorta. The pulmonary vasculature is noncongested. Adva nced emphysema and chronic interstitial thickening is similar to previous. There is elevation of the right hemidiaphragm and a small right pleural effusion. Loculated pleural fluid is again suggested in the right mid chest. Patchy airspace opacities are seen in both lungs, right greater than left. Foci of parenchyma scarring are seen bilaterally. There is no pneumothorax. The skeletal structures are o steopenic. The bony thorax appears intact. Degenerative changes noted throughout the thoracic spine. A cholecystostomy tube is seen in the right upper quadrant. IMPRESSION: 1. Cardiomegaly and advanced emphysema. 2. There is a small right pleural effusion which is at least partially loculated. This is similar to previous. 3. Patchy airspace opacities are seen in both lungs, right greater than left. This is also unchanged and likely represents multifocal pneumonia. Clinical correlation will be required and radiographic fo llow-up to resolution is recommended. 4. A cholecystostomy tube is noted in the right upper quadrant. ACT 112: Negative or not required by law. Electronically signed by: Robert Mijares M.D. 05/27/2020 9:11 AM
[2020-05-27] MEDS: VANCOMYCIN HCL 1,500 MG in SODIUM CHLORIDE 0.9% 500 ML IV SCH (10:58)
--- NOTE | 2020-05-27 11:56 | Discharge Summary ---
Date of Service May 27, 2020 Admission HPI Per Admitting Provider 64-year-old male with a past medical history significant for CAD status post CABG x3, chronic ITP status post splenectomy, COVID-19, recent admission at [facility] for acute calculus cholecystitis status post biliary stent placement and several weeks of antibiotics who presented to ER today following episode of chest pain after eating shrimp for dinner. Due to his cardiac history he called EMS immediately, and his symptoms had resolved by the time they arrived. He was given high-dose aspirin en route. In ER the patient was noted to have new T wave inversions in leads III, V2, V3, negative troponin. CTAP and CTA performed; CTA showed signs of multifocal pneumonitis with increased focal consolidation in right lower lobe, and CTAP showed 7.3 x 1.9 cm fluid collection with some peripheral attenuation suspicious for potential abscess. COVID-19 testing this visit was negative. GI primary at [facility] was called and was noted that fluid collection was actually smaller as compared to previous imaging in chart. On my interview patient denies chest pain, shortness of breath, nausea or vomiting, abdominal pain, recent diarrhea or constipation, no fevers or chills and checks his temperature daily. He reports having oxygen tank at home for use as needed following admission for COVID-19 which he rarely uses except intermittently at nighttime. Does endorse some lingering shortness of breath when going up stairs since his admission for COVID-19. He does also endorse some decrease in biliary drainage over the last several weeks, and denies any purulent drainage, erythema, tenderness at drain site. Principal Diagnosis Bilateral pneumonia Discharge Exam Constitutional WD/WN, vitals as above Eyes PERRL, conjunctivae normal, anicteric sclerae ENMT external ear and nose normal, oropharynx normal Neck trachea midline, no thyromegaly Respiratory Auscultation: + vesicular breath sounds Cardiovascular RRR, no murmur, no edema Gastrointestinal (Abdomen) normal bowel sounds, soft, nontender, no hepatosplenomegaly cholecystostomy tube in place Musculoskeletal no cyanosis or clubbing, extremities motor strength 5/5 Skin no rashes, warm and dry Neurologic CN's II-XI intact bilaterally Psychiatric A+Ox3, euthymic affect Discharge Data Allergies Allergy/AdvReac Type Severity Reaction Status Date / Time azithromycin AdvReac Intermediate a-fib Verified 05/23/20 23:47 [From Zithromax Z-Evan] Consultations 05/24/20 02:06 ED Decision to Admit Stat 05/24/20 04:40 Consult Gastroenterology Stat 05/24/20 08:44 Consult General Surgery Routine 05/24/20 10:59 Consult Infectious Diseases Routine 05/25/20 01:07 Consult Hematology Routine Ordered Studies 05/24/20 00:38 CT abd pelvis IV con only Urgent 05/24/20 00:39 CT chest diagnostic w con Urgent 05/25/20 07:00 FL KUB Routine Hospital Course (1) Pneumonia: RLL/RUL. Due to recent hospitalizations (here and at [facility]) will need to cover for gram negatives in addition to atypicals/typicals. Treated with zosyn/levaquin/ vanco. Stable O2 sats in room air. Supportive care. Home on augmentin and levaquin. CXR today, 05/27, unchanged. (2) Cholecystitis: s/p cholecystostomy tube placement at [facility] on 04/15/20 with ultimate plan to have cholecystectomy in the future. Has intraabdominal fluid collection - however per [facility] GI this collection is actually smaller this admission as compared to 05/08/20 imaging at [facility]. No abdominal pain, soft abdomen, and tolerating diet. LFTs trending down. Tube study shows cholecystostomy tube is in good position but there is some concern for distal CBD stone. GI and gen surg following. Given lack of GI symptoms no plans for intervention of the possible CBD stone. (3) Abdominal fluid collection: Marva-hepatic. Seen during prior admission - either hematoma vs biliary fluid collection with ?infection. Collection is smaller by report. He has no symptoms from it. Triple abx including MRSA coverage will adequately cover this collection if there is any element of infection in this fluid collection. ID consult with [facility] tele[facility] - will f/u with their abx recommendations for pneumonia and this issue. (4) Abnormal LFTs: Continue to decrease daily. May have been related to the ?CBD stone seen on recent cholecystostomy tube study. Cont to trend. hold statin GI consult/recs appreciated. no plans for ERCP per GI this admission. (5) CAD (coronary artery disease), [place] coronary artery: s/p CABG 2014. Troponins negative while here; thus no ACS. Cont asa and metoprolol. Holding statin due to elevated LFTs. (6) Hypertension: Controlled. Continue home metoprolol. (7) Chronic ITP (idiopathic thrombocytopenia): With s/p splenectomy in January 2020. Last Rituxan dose - 03/2020. platelet count nl. follows with Dr Reardon, [facility]. (8) AAA (abdominal aortic aneurysm): 5.4 cm in size. Vascular recently evaluated - recommended endovascular repair ROSE after cholecystitis issues resolved. asymptomatic fortunately. monitor. 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 may not need immediate Rx. needs to f/u with Dr Reardon post-d/c. (15) COVID-19: 03/2020 some of his chest findings could be residual from his COVID [id number] treating for new bacterial pneumonia (16) DVT prophylaxis: lovenox 40mg daily diarrhea - at minimum has abx-associated diarrhea Dispo: home today, 2/3 Total Time Total Time Spent Total Time Spent (In Minutes): 35 minutes Total Time Includes: Examination of the Patient, Discharge Planning and Medication Reconciliation Discharge Plan Discharge Items Reason For Visit: PNEUMONIA,CHEST PAIN RULE OUT,?BILIARY INFECTION Follow-up/Referrals: Daniel Alba MD [Primary Care Provider] - Medications and DC Order Prescriptions: No Action pantoprazole 40 mg tablet,delayed release (DR/EC) 40 mg PO QAM Qty: 30 RF: 5 atorvastatin 80 mg tablet 80 mg PO HS Qty: 90 RF: 3 escitalopram oxalate 10 mg tablet 10 mg PO QAM Qty: 30 RF: 6 multivitamin [Daily Multiple] tablet 1 tab PO QAM RF: 0 metoprolol tartrate 25 mg tablet 12.5 mg PO BID Qty: 180 RF: 3 Krill Oil ([place] 3 and 6) 1,500-165-67.5 mg Capsule 1 cap PO QAM RF: 0 aspirin 81 mg Tablet,Delayed Release (Dr/Ec) 81 mg PO HS RF: 0 Krames/Other Patient Handouts: 5 Steps for Eating Healthier, A1C Admission Data Admit Date/Time: 05/24/20 02:51 Attending Provider: Eran Olsen Admit Provider: Angela Hughes Primary Care Provider: Daniel Alba Other Providers: Dylan Johnson ; Byron Soni ; Eran Gomez ; Harmeet Delaney ; Jb Brown ; Hilario Tamayo I. ; Vin Gagnon II ; Jaymie Lockett ; Robert Garcia ; Memo Reardon V. Coding Level of Care Code D/C Day Management >30 mins Diagnoses Pneumonia J18.9 Cholecystitis K81.9 Abdominal fluid collection R18.8 Abnormal LFTs R94.5 CAD (coronary artery disease), [place] coronary artery I25.119 Associated angina: with unspecified angina [place] vs. transplanted heart: [place] heart Hypertension I10 Hypertension type: essential hypertension Chronic ITP (idiopathic thrombocytopenia) D69.3 AAA (abdominal aortic aneurysm) I71.4 Presence of rupture: without rupture S/P splenectomy Z90.81 Dilated aortic root I77.810 Mixed hyperlipidemia E78.2 Anxiety F41.9 GERD (gastroesophageal reflux disease) K21.9 T-cell large granular lymphocytic leukemia C91.Z0 COVID-19 U07.1 DVT prophylaxis Z29.9
[2020-05-28] MEDS ORDERED: VANCOMYCIN TROUGH ONE (08:30)
== END 2020-05-27 13:40 | disposition home or self-care (01) ==
LOC: ED 23:10 → INTOOBSV 05-24 02:51 → 2S 05-24 02:51 → SUATTDRO 05-24 02:51 → 2S 05-24 03:50

== ENCOUNTER 2020-09-23 07:15 | Inpatient (IN) ==
--- NOTE | 2020-09-04 10:13 | PAT Medication Instructions ---
Medication Instructions Date of Service September 04, 2020 Home Medications Medication Instructions Recorded metoprolol tartrate 25 mg tablet 12.5 mg PO BID #90 tab 07/21/20 escitalopram oxalate 10 mg tablet 10 mg PO QAM #30 tab 08/19/20 multivitamin 1 tab PO QAM Krill Oil ([place] 3 and 6) 2 cap PO PM aspirin 81 mg PO HS acetaminophen [Tylenol Extra Strength] 1,000 mg PO Q6H PRN metoprolol tartrate 25 mg tablet 12.5 mg PO BID atorvastatin 80 mg tablet 80 mg PO PM oxycodone 5 mg capsule 5 mg PO Q4H PRN escitalopram oxalate 10 mg tablet 10 mg PO QAM pantoprazole 40 mg PO QAM ASK your prescriber and surgeon aspirin 81 mg PO HS STOP taking 2 weeks before surgery (or as soon as possible if surgery is within 2 weeks) Krill Oil ([place] 3 and 6) 2 cap PO PM DO NOT take the morning of surgery multivitamin 1 tab PO QAM Take morning of surgery With a small sip of water, OTHERWISE NOTHING TO EAT OR DRINK AFTER MIDNIGHT: acetaminophen [Tylenol Extra Strength] 1,000 mg PO Q6H PRN (okay to take up to 4 hours prior to surgery if needed) metoprolol tartrate 25 mg tablet 12.5 mg PO BID oxycodone 5 mg capsule 5 mg PO Q4H PRN (okay to take up to 4 hours prior to surgery if needed) escitalopram oxalate 10 mg tablet 10 mg PO QAM pantoprazole 40 mg PO QAM Take evening before surgery acetaminophen [Tylenol Extra Strength] 1,000 mg PO Q6H PRN (if needed) metoprolol tartrate 25 mg tablet 12.5 mg PO BID atorvastatin 80 mg tablet 80 mg PO PM oxycodone 5 mg capsule 5 mg PO Q4H PRN (if needed) Other Notes If you have any questions please call us at [phone] or [phone] or [phone] or [phone]
--- NOTE | 2020-09-07 10:18 | Anesthesiology Consultation ---
Date of Service September 07, 2020 Assessment & Plan (1) Encounter for pre-operative examination: - COVID screening: Per assessment on 09/07: Travel screen negative, no known COVID-19 positive contacts or current COVID-19 related symptoms. Patient was COVID positive 03/2020 > Dyspnea, hypoxia [place] [facility] > symptoms res olved. Surgeon arranging preop COVID testing (being [facility]; [facility] Awaiting results. - S/P Laparoscopic Splenectomy (02/19/2020): Grade view 2, MAC#4, ETT 7.5 at [facility] - Cardiology office visit: 02/06/20: "Patient to undergo splenectomy with Dr. Hickey later this month. From a cardiac standpoint he is relative low risk for planned procedure and is okay to proceed without additional cardiac testing. Ascending aorta is only minimally dilated and has been stable over years. No additional imaging necessary preoperatively. In the perioperative setting aspirin can be held as necessary. Continue current statin, beta-yolette throughout perioperative course." - PCP office visit (08/15/20): "calculous cholecystitis. Initially treated with cholecystostomy. Most recently underwent laparoscopic cholecystectomy. Reviewed hospitalization and operative report with him. Clinically doing well. He will call surgeon today.. AAA. Discussed with him. Reviewed last vascular note with him. He states he will wait 6 weeks and then notify vascular surgery.. Coronary artery disease. Clinically stable. Medications reviewed. Continue the same.. Hypertension. BP at goal. Blood pressure medications reviewed. Home blood pressure monitoring, low-sodium diet and exercise stres sed. BP guidelines reviewed.. Iron deficiency anemia. [place] to be secondary to frequent phlebotomies during hospitalizations. Underwent iron replacement. Iron now replaced and Hgb now normal. To see [facility] [place] 08/24/2020 to evaluated re: EGD/Colonoscopy." - GI office visit (08/24/20): "Given normal H&H, recent endoscopic work up and possible need for AAA repair, no plan for invasive GI work up at this time.. Could consider outpatient colonoscopy in the near future if clinically indicated. Patient states he will contact our office after his vascular surgery appointment." - Thrombocytopenia: platelets 91 on 09/07/20 preop labs. 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 Platelets recently WNL until preop labs. Reviewed personally by Dr. Velazco- received response that "91 is ok." He does not feel that preop platelets needed from his perspective. Reviewed with Dr. Ruggiero. Will check CBC AM DOS. Blood bank aware of possibility of needing platelets jamarcus/post-operatively. Chart Review Chart Review: Patient seen in Pre Admission Testing Teaching & Discussion Pre-Anesthesia Teaching/Discussion Notes: Instructed NPO after midnight before surgery,except medications with 15 cc of water. Medication instructions provided according to the PAT guidelines. History Surgery Operation Date: 09/23/20 10:55 Proposed Procedures p Percutaneous Endovascular Aneurysm Repair - Octavio Velazco MD Height/Weight Height: 5 ft 7 in Weight: 89.4 kg Allergies Allergy/AdvReac Type Severity Reaction Status Date / Time azithromycin AdvReac Intermediate a-fib Verified 09/04/20 08:34 [From Zithromax Z-Evan] Medications Home Medications Medication Instructions Recorded Confirmed Last Taken multivitamin 1 tab PO QAM 12/28/18 09/04/20 06/20/20 Krill Oil ([place] 3 and 6) 2 cap PO PM 02/04/20 09/04/20 06/20/20 aspirin 81 mg PO HS 04/13/20 09/04/20 06/20/20 acetaminophen [Tylenol Extra 1,000 mg PO Q6H PRN 06/21/20 09/04/20 06/20/20 23:00 Strength] metoprolol tartrate 25 mg tablet 12.5 mg PO BID #90 tab 07/21/20 09/04/20 Unknown atorvastatin 80 mg tablet 80 mg PO PM 08/14/20 09/04/20 Unknown oxycodone 5 mg capsule 5 mg PO Q4H PRN 08/17/20 09/04/20 Unknown escitalopram oxalate 10 mg tablet 10 mg PO QAM #30 tab 08/19/20 09/04/20 Unknown pantoprazole 40 mg PO QAM 09/04/20 09/04/20 Unknown Past Medical History Medical History AAA (abdominal aortic aneurysm) Per 06/21/20 CT "5.5 cm infrarenal abdominal aortic aneurysm. Interval development of minimal infiltration adjacent to the aneurysm sac. This is nonspecific. Impending rupture is considered unlikely but cannot be completely excluded" Coronary artery disease s/p CABG (2015) COVID-19 03/2020 > Dyspnea, hypoxia (hospitalized at [facility] > symptoms resolved History of GI bleed History of ITP s/p splenectomy (01/2020) History of [place] (myocardial infarction) Hyperlipidemia Hypertension Osteoarthritis Superficial thrombophlebitis RLE x2 (was on ~6 weeks of eliquis then discontinued per hematology records) T-cell large granular lymphocytic leukemia Exercise / Class Metabolic Activity II 4-5 Yardwork/Stairs/Walk up hill Past Family History Family History Father Motor vehicle accident Grandfather (Paternal) Cardiac disorder Hypertension Coronary heart disease Grandmother (Paternal) Diabetes Grandmother (Maternal) Stroke Mother AML (acute myelogenous leukemia) Grandfather (Paternal) Myocardial infarction Denies family history of Family history of ITP Ovarian cancer Prostate cancer Breast cancer Colorectal cancer Past Surgical History Surgical History H/O cardiac catheterization 2014 > no stents H/O colonoscopy H/O inguinal hernia repair H/O splenectomy Laparoscopic Splenectomy (02/19/2020): Grade view 2, MAC#4, ETT 7.5 at [facility] History of cholecystectomy [place]12/[place] History of esophagogastroduodenoscopy (EGD) History of herniorrhaphy History of thoracotomy D/T hx spontaneous pneumothorax History of tonsillectomy History of tooth extraction S/P triple vessel bypass 2014 ([facility] Past Anesthesia History No Family Hx of Anesthesia Complications and Other (Post-op urinary retention re quiring cath after cholecystectomy (07/2020)) History of PONV No Hx of PONV and No Hx of Motion Sickness Social History Smoking Status: Former smoker tobacco type: cigarettes Do You Dip or Chew Tobacco: Yes (1 can/1.5 days > advised none DOS) Smoking End Date: Quit 10 years ago Hx Alcohol Use: No alcohol intake frequency: holidays/special occasions only Hx Substance Use: No substance use type: does not use Review of Systems Patient denies chest pain, shortness of breath, dyspnea on exertion, fever, chills, cough, wheezing, palpitations. Physical Exam Vital Signs VITALS BP 130/81 P 53 TEMP WNL SP02 97%RA RESP 18 PHYSICAL Full cervical extension range of motion. Full TMJ range of motion. TMD 3 finger breaths Mallampati Score 3 Dentition: missing including lower front Lungs: clear throughout to auscultation Cardiac: regular rate and rhythm, no murmurs noted Spine: normal Carotid arteries: negative bruit Extremities: no edema Testing Laboratory Results 09/07/20 10:47 09/07/20 10:47 PT 10.0 Seconds (9.0-12.0) 09/07/20 10:47 INR 1.0 (0.9-1.1) 09/07/20 10:47 APTT 32.2 Seconds (21.0-31.0) H 09/07/20 10:47 Blood Type A Negative 09/07/20 10:47 Antibody Screen NEGATIVE 09/07/20 10:47 Elevated WBC. Low platelets (known hx of ITP s/p splenectomy 01/2020). Surgeon's office made aware. Per message from Sharri, information will be forwarded to Diane/Dr. Velazco for further review. Electrocardiogram Date: 06/21/20 NSR at 68bpm. LAE. Difficult NS TWA. Chest X-Ray Date: 09/07/20 Interval enlargement of the focal lesion partially silhouetting of the midportion of the right hemidiaphragm might represent atelectasis/infiltrate versus other etiology. Please correlate above-mentioned findings was prior history. Further correlation with CT of the chest might be considered. Received response from PCP (09/07/20): "Only way to know would be to have a CT scan of the chest." CT chest done 09/11/20. Echocardiogram Date: 05/24/20 EF greater than 70%. No regional motion abnormality. Borderline KAYE. Mild LAD. Mild MR. Mild aortic root dilatation4.3 cm in diameter. Mildly dilated ascending aorta4.0 cm in diameter. Compared with study from 01/09/2019, no significant change per report. Stress Test Date: 01/11/19 Type: exercise Normal stress echo at 8.9 METS. 81% max predicted heart rate. No induced chest pain. No EKG changes. Mild concentric LVH. Baseline echo with normal LV systolic function without wall motion abnormality. Other Testing CT Chest: 09/11/20: Cardiomegaly and emphysema. There are foci of parenchymal scarring and atelectasis seen at the lung bases. This corresponds to the finding of concern on the 09/07/2020 chest x-ray. There is trace right pleural effusion. There is fibrotic change/scarring in the posterior right upper lobe at the site of consolidation seen on 05/24/2020. Consolidative change has almost completely resolved. Trace loculated pleural fluid is again seen at this site. A 6 month follow-up chest CT is recommended to document complete resolution. A normal spleen is not identified and presumed surgically absent. There is mild aneurysmal dilatation of the ascending thoracic aorta which measures up to 4.3 cm.
[2020-09-07 11:17] LABS: Mean Corpuscular Hgb Conc 32.5 g/dL (32-36)
[2020-09-07 11:25] LABS: Hematocrit (blood only) 44.6 % (42-52); Hemoglobin 14.5 g/dL (14.0-18.0); Mean Corpuscular Volume 80.1 fL (80-100); RDW Coefficient of Variation 23.4 % (11.5-14.5); RDW Standard Deviation 67.2 fL (36.4-46.3); Red Blood Count 5.57 M/uL (4.7-6.1); White Blood Count 11.99 K/uL (4.8-10.8)
[2020-09-07 11:32] LABS: Partial Thromboplastin Ratio 1.2; Partial Thromboplastin Time 32.2 Seconds (21.0-31.0)
[2020-09-07 11:41] LABS: Platelet Count 91 K/uL (130-400)
[2020-09-07 11:55] LABS: ALC (manual) 6.73 K/uL (1.2-3.4); ANC (manual) 4.32 K/uL (1.4-6.5); Anisocytosis Present; Basophils # (manual) 0.31 K/uL (0-0.2); Basophils % (manual) 2.6 %; Eosinophils # (manual) 0.22 K/uL (0-0.5); Eosinophils % (manual) 1.8 %; Howell-Jolly Bodies 1+; Large Granular Lymph # (manua 5.58 K/uL; Large Granular Lymph % (manual) 46.5 %; Lymphocytes # (manual) 1.15 K/uL (1.2-3.4); Lymphocytes % (manual) 9.6 %; Monocytes # (manual) 0.42 K/uL (0.11-0.59); Monocytes % (manual) 3.5 %; Neutrophils # (manual) 4.32 K/uL (1.4-6.5); Platelet Estimate Decreased (Normal); Target Cells 1+
--- NOTE | 2020-09-07 12:49 | XRay Report ---
XR chest Pre-admission PA/Lat CLINICAL HISTORY: pat COMPARISON STUDY: June 21, 2020 FINDINGS: No pneumothorax. No pleural effusion. Mild interval enlargement of the focal lesion partially silhouetting midportion of the right hemidiap hragm might present atelectasis/infiltrate versus other etiology. Redemonstration of mild pleural thi ckening at the peripheral aspect of the right mid lung region. Mild reticular prominence of pulmonary interstitium is seen within right mid to lower lung. The rest of lung parenchyma is clear. Cardiomediastinal silhouette is stable. Aorta is tortuous. Prominence of the right hilum is again see n. No significant pulmonary vascular congestion.. Osseous structures: Degenerative changes of the spine are again seen. Midline sternotomy wires and mediastinal surgical clips are again seen. IMPRESSION: 1. Interval enlargement of the focal lesion partially silhouetting of the midportion of the right he midiaphragm might represent atelectasis/infiltrate versus other etiology. Please correlate above-ment ioned findings was prior history. Further correlation with CT of the chest might be considered. ACT 112: Positive. There are findings on this exam that require communication between the performing entity and the patient following Patient Test Result Information Act ([place] Act 112) guidelines. Electronically signed by: Viri Kyle DO 09/07/2020 3:39 PM
[2020-09-07 13:30] LABS: BUN Creatinine Ratio 15.5 (10-20); Creatinine Clr Calc Pharmacy 88.9 ml/min; Est GFR (Non-African American) 89.7 ml/min; Potassium 4.7 mmol/L (3.5-5.1)
[~2020-09-23 07:15] MED LIST changes: +LACTATED RINGER'S 1,000 ML IV SCH; -LR 15ML/HR IV SCH; +ceFAZolin 2000MG 2,000 MG/15 ML SYR IV SCH
[2020-09-23 08:07] LABS: Hematocrit (blood only) 45.1 % (42-52); Mean Corpuscular Hemoglobin 26.8 pg (25-34); Mean Corpuscular Volume 80.7 fL (80-100); RDW Coefficient of Variation 22.3 % (11.5-14.5); RDW Standard Deviation 64.6 fL (36.4-46.3); Red Blood Count 5.59 M/uL (4.7-6.1); White Blood Count 12.19 K/uL (4.8-10.8)
[2020-09-23 08:17] LABS: Mean Corpuscular Hgb Conc 33.3 g/dL (32-36); Platelet Count 68 K/uL (130-400)
[2020-09-23 08:30] LABS: ALC (manual) 6.73 K/uL (1.2-3.4); ANC (manual) 4.28 K/uL (1.4-6.5); Anisocytosis Present; Eosinophils # (manual) 0.65 K/uL (0-0.5); Eosinophils % (manual) 5.3 %; Howell-Jolly Bodies 1+; Large Granular Lymph # (manua 5.12 K/uL; Lymphocytes # (manual) 1.61 K/uL (1.2-3.4); Lymphocytes % (manual) 13.2 %; Monocytes # (manual) 0.54 K/uL (0.11-0.59); Monocytes % (manual) 4.4 %; Neutrophils # (manual) 4.28 K/uL (1.4-6.5); Neutrophils % (manual) 35.1 %; Platelet Estimate Decreased (Normal); Target Cells 1+
[2020-09-23] MEDS ORDERED: fentaNYL citrate 100 MCG/2 ML VIAL ONE ×2 (09:23→11:17)
[2020-09-23] MEDS ORDERED: MIDAZOLAM HCL 1 MG/ML 2ML VIAL ONE (09:23)
--- NOTE | 2020-09-23 09:23 | History & Physical Report ---
Date of Service September 23, 2020 Assessment & Plan (1) AAA (abdominal aortic aneurysm) without rupture: Patient for a PEVAR of his AAA. I have discussed the risks options and benefits of the procedure with the patient. The patient understands the risks options and benefits and agrees to the procedure. History of Present Illness Chief Complaint: AAA Primary Care Provider: Daniel Alba MD History of Present Illness Mr. Rasmussen is a 65-year-old gentleman with a large abdominal aortic aneurysm. He had his cholecystectomy and his cholecystostomy tube removed at [place] recently. He is doing well at this time with no complaints. He denies any fever or chills. Allergies Allergy/AdvReac Type Severity Reaction Status Date / Time azithromycin AdvReac Intermediate a-fib Verified 09/04/20 08:34 [From Zithromax Z-Evan] Home Medications Medication Instructions Recorded Confirmed Type multivitamin 1 tab PO QAM 12/28/18 09/23/20 History Krill Oil ([place] 3 and 6) 2 cap PO PM 02/04/20 09/23/20 History aspirin 81 mg PO HS 04/13/20 09/23/20 History acetaminophen [Tylenol Extra 1,000 mg PO Q6H PRN 06/21/20 09/23/20 History Strength] metoprolol tartrate 25 mg tablet 12.5 mg PO BID #90 tab 07/21/20 09/23/20 Rx atorvastatin 80 mg tablet 80 mg PO PM 08/14/20 09/23/20 History pantoprazole [Protonix] 40 mg PO QAM 09/04/20 09/23/20 History escitalopram oxalate [Lexapro] 10 mg PO QAM 09/23/20 09/23/20 History Past Med/Surg History Medical History AAA (abdominal aortic aneurysm) Per 06/21/20 CT "5.5 cm infrarenal abdominal aortic aneurysm. Interval development of minimal infiltration adjacent to the aneurysm sac. This is nonspecific. Impending rupture is considered unlikely but cannot be completely excluded" Coronary artery disease s/p CABG (2015) COVID-19 03/2020 > [place]yspnea, [place] [facility] symptoms resolved History of GI bleed History of ITP s/p splenectomy (01/2020) History of [place] (myocardial infarction) Hyperlipidemia Hypertension Osteoarthritis Superficial thrombophlebitis RLE x2 (was on ~6 weeks of eliquis then discontinued per hematology records) T-cell large granular lymphocytic leukemia Surgical History H/O cardiac catheterization 2014 > no stents H/O colonoscopy H/O inguinal hernia repair H/O splenectomy Laparoscopic Splenectomy (02/19/2020): Grade view 2, MAC#4, ETT 7.5 at [facility] History of [place]olecyst[place]12/[place] History of esophagogastroduodenoscopy (EGD) History of herniorrhaphy History of thoracotomy D/T hx spontaneous pneumothorax History of tonsillectomy History of tooth extraction S/P triple vessel bypass [place] Family History Father Motor vehicle accident Grandfather (Paternal) Cardiac disorder Hypertension Coronary heart disease Grandmother (Paternal) Diabetes Grandmother (Maternal) Stroke Mother AML (acute myelogenous leukemia) Grandfather (Paternal) Myocardial infarction Denies family history of Family history of ITP Ovarian cancer Prostate cancer Breast cancer Colorectal cancer Social History Smoking Status: Former smoker Tobacco Type: Cigarettes packs per day: 2; Years Smoked: 40; Smoking End Date: Quit 10 years ago; Second Hand Exposure: No; Do You Dip or Chew Tobacco: Yes (1 can/1.5 days > advised none DOS); Tobacco Cessation Education Requested by Patient: No Hx Alcohol Use: No Hx Substance Use: No Preferred Language: Tristanian Communication Ability: Effective Visual Impairment: Limited Hearing Ability: Normal Hand Coke Drawer Required: No Beliefs That Will Affect Care: None marital status: Current Living Situation: Spouse Current Living Situation Comment: lives in [place] current occupational status: retired 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 How many Children do You have: 1 How many Children do You have Comment: son Other Information That Helps Us Care for You: No Feels Safe at Home: Yes Safety Concerns: Feels Safe At This Time Childhood Exposure to Second-Hand Smoke: No caffeine: Yes (coffee 2 per day.) during the past year weight has: remained stable Dental Care, Regularly: Yes Physical Activity Frequency: Does not Exercise Seatbelt Use: always Sunscreen Use: Yes Assistive Devices: Glasses Review of Systems All systems reviewed & are unremarkable except as noted in HPI & below Physical Exam Constitutional: WD/WN, vitals as above Neck: trachea midline Respiratory: normal respiratory effort, lungs clear to auscultation Cardiovascular: RRR, no murmur, no edema Vessels: normal peripheral pulses Gastrointestinal (Abdomen): Inspection/Auscultation: abdomen normal to in spection Percussion/Palpation: abdomen soft and + pulsatile mass; abdomen nontender Musculoskeletal: no cyanosis or clubbing, extremities motor strength 5/5 Skin: no rashes, warm and dry Neurologic: CN's II-XI intact bilaterally and moves all extremities Psychiatric: Orientation: oriented x 3 Results & Data ([facility]) Vital Signs (Past 12 Hours) Vital Signs Temp Pulse Resp BP Pulse Ox 09/23/20 08:04 36.7 C 54 L 18 143/83 H 95
[2020-09-23] MEDS ORDERED: ONDANSETRON INJ 2 MG/ML 2 ML VIAL ONE (10:23)
[2020-09-23] MEDS ORDERED: PROPOFOL IV EMULSION 10 MG/ML 20 ML VIAL IV ONE ×2 (10:23→11:22)
[2020-09-23] MEDS ORDERED: ROCURONIUM BROMIDE 10 MG/ML 5 ML VIAL IV ONE (10:23)
[2020-09-23] MEDS ORDERED: HEPARIN SOD (PORCINE) 1000 UNIT/ML ONE (10:23)
[2020-09-23] MEDS ORDERED: LIDOCAINE 2% 2 ML VIAL/AMP(20MG/ML) INFIL ONE (10:23)
[2020-09-23] MEDS ORDERED: PHENYLEPHRINE HCL 10 MG/ML VIAL ONE (10:23)
[2020-09-23] MEDS ORDERED: DEXAMETHASONE SOD INJ 4 MG/ML VIAL ONE (10:23)
[2020-09-23] MEDS ORDERED: GLYCOPYRROLATE 0.2 MG/ML VIAL ONE ×2 (10:24→11:14)
[2020-09-23] MEDS ORDERED: ePHEDrine sulfate 50 MG/ML AMP ONE (10:24)
[2020-09-23] MEDS ORDERED: METOCLOPRAMIDE HCL INJ 5 MG/ML 2 ML VIAL IV PRN (10:46)
[2020-09-23] MEDS ORDERED: PROMETHAZINE HCL 12.5 MG in SODIUM CHLORIDE 0.9% 50 ML IV PRN (10:46)
[2020-09-23] MEDS ORDERED: ATROPINE SULFATE 0.1 MG/ML 10ML SYR IV PRN (10:46)
[2020-09-23] MEDS ORDERED: ONDANSETRON INJ 2 MG/ML 2 ML VIAL IV PRN ×2 (10:46→13:12)
[2020-09-23] MEDS ORDERED: HYDROmorphone INJ 2 MG/ML SYR/VIAL IV PRN (10:46)
[2020-09-23] MEDS ORDERED: fentaNYL citrate 100 MCG/2 ML VIAL IV PRN (10:46)
[2020-09-23] MEDS ORDERED: ePHEDrine sulfate 50 MG/ML AMP IV PRN (10:46)
[2020-09-23] MEDS ORDERED: NEOSTIGMINE METHYLSULFATE 1 MG/ML 10ML VIAL ONE (11:14)
[2020-09-23] MEDS ORDERED: VISIPAQUE IV PRN (11:24)
[2020-09-23] MEDS ORDERED: ARISTA ABSORBABLE HEMOSTAT 3GM TOP ONE (11:24)
--- NOTE | 2020-09-23 11:24 | Post Operative Brief Note ---
Immediate Post Op Note v1 Date of Surgery September 23, 2020 Pre & Post Diagnosis Operation Date: 09/23/20 09:10 Pre-Op Diagnosis: Abdominal Aortic Aneurysm Post-Op Diagnosis: Abdominal Aortic Aneurysm I identified the patient and participated in the time-out.: Yes Procedure Operation Date: 09/23/20 09:10 Actual Procedures p Percutaneous Endovascular Aneurysm Repair, Bilateral Percutaneous Approach, Ultrasound Localization of Bilateral Femoral Arteries, (Bilateral) - Octavio Velazco MD Surgeon Octavio Velazco MD Drupal Architect MD Smooth Estimated Blood Loss 25 Findings Consistent with Post-Op Diagnosis Drains Ozuna Catheter Anesthesia Type General Complications none Disposition Accompanied Patient To Recovery: No Disposition: Recovery Room
[2020-09-23 12:04] LABS: Hematocrit (blood only) 44.3 % (42-52); Hemoglobin 14.4 g/dL (14.0-18.0)
--- NOTE | 2020-09-23 12:37 | Procedure Note ---
Angiogram Post Procedure Fluoroscopy Time (minutes): 11.6 Radiation (mGy): 290 Contrast: 115 Post Operative Report Pre & Post Diagnosis Operation Date: 09/23/20 09:10 Pre-Op Diagnosis: Abdominal Aortic Aneurysm Post-Op Diagnosis: Abdominal Aortic Aneurysm I identified the patient and participated in the time-out.: Yes Procedure Operation Date: 09/23/20 09:10 Actual Procedures p Percutaneous Endovascular Aneurysm Repair, Bilateral Percutaneous Approach, Ultrasound Localization of Bilateral Femoral Arteries, (Bilateral) - Octavio Velazco MD Surgeon Octavio Velazco MD Carpenter Mate MD Smooth Estimated Blood Loss 25 Findings Consistent with Post-Op Diagnosis Specimens none Anesthesia Type General Complications none Disposition Accompanied Patient To Recovery: No Disposition: Recovery Room Indications This patient is a 65 yo male who was found to have a large AAA. PEVAR was recommended. I have discussed the risks options and benefits of the procedure with the patient. The patient understands the risks options and benefits and agrees to the procedure. Description of Procedure The patient was taken to the operating room and placed in supine position. After general anesthesia was accomplished the groins were prepped and draped in a sterile manner. The patient was identified and a timeout was performed. A puncture was made of the right common femoral artery. A 5 Italian sheath was inserted. Arteriography was performed showing the puncture to be in the common femoral artery proper. The puncture was preclosed with 2 Pro-glide devices placed in the right common femoral artery at 10:00 and 2:00. The sheath was exchanged an 8 Italian sheath. Same procedure was done on the left side. The artery was punctured and a 5 Italian sheath was inserted. Arteriography confirmed that the puncture was in the common femoral artery proper. The puncture was preclosed using 2 pro glide devices at 10:00 and 2:00. 8 Italian sheath was then inserted. An 035 Glidewire was inserted through the right groin. This was passed up into the suprarenal aorta. The Kumpe catheter was then passed over the wire. The wire was exchanged to a Kohler wire. The 8 Italian sheath was removed. A 12 Italian dry seal sheath into the left groin. Next the 035 wire was passed up the right groin again followed by a Kumpe. Kohler wire was exchanged for the 035 wire and placed in the suprarenal aorta. The Kumpe was removed. The 8 Italian sheath was removed using a 14 Italian dilator was used to dilate the puncture site. An 18 Italian dry seal sheath was then inserted. The pigtail catheter was then passed up the left groin. Arteriography was performed showing the renal artery origins. The excluder device was placed up the right groin. We used a [id number] excluder device. This was placed right at the inferior margin of the renal arteries. The sheath was pulled back. The graft was deployed at that level. Arteriography then confirmed the positioning to be just below the renals. The pigtail was pulled out into the sac and the hooks deployed. We then cannulated the gate from the left side using a Kumpe catheter and 035 Glidewire. Once this was cannulated and the catheter was placed in the neck of the graft. The wire was pulled back. The catheter spun easily within the main body of the graft. The wire was exchanged for a stiffened wire. The pigtail was then inserted. The sheath was pulled back into the left external iliac and a hand-injection was done marking the origin of the internal iliac on the left side. It was decided to use a 16 x 14.5 x 12 mm contralateral limb. The 12 Italian dilator was reinserted over the wire and the sheath advanced into the gate. The main body device sheath was pulled down beyond the graft and a hand injection done to kevin the right internal iliac artery origin. The ipsilateral limb of the graft was then deployed. The contralateral limb device was then inserted into the left groin sheath and positioned in the appropriate position in the gate. The sheath was pulled back and the device was deployed in the appropriate position. After this was done the Q50 balloon was passed up the left side. All attachment sites and overlaps were then ballooned without difficulty. The balloon was passed up the right groin and the right side attachment sites were then ballooned. The pigtail was then reinserted. Completion arteriogram was then performed which showed a 2 small type II endoleaks in the midportion of the aorta. No type I endoleaks were noted. Good flow was seen through the graft. Both limbs of the grafts landed just proximal to the internal iliac artery origins. The 035 wire was then reinserted and the pigtail removed. The 12 Italian sheath was then pulled and the proglide sutures tied. Adequate hemostasis was noted on the left side. Same was done on the right side. Again active hemostasis was noted. Pressure dressings were then applied to the groins.The patient left the operation room in satisfactory condition and tolerated the procedure well. All needle and sponge counts were correct at the end of the procedure. I attest to the content of the Intraoperative Record and any orders documented therein. Any exceptions are noted below.
[2020-09-23] MEDS ORDERED: oxyCODONE/ACETAMINOPHEN 5mg/325mg TAB PO PRN (13:12)
[2020-09-23] MEDS ORDERED: MoRPHine SULFATE 4 MG/ML 1 ML CARP\\VIAL IV PRN (13:12)
[2020-09-23] MEDS ORDERED: ACETAMINOPHEN 500 MG TAB PO PRN (13:20)
[2020-09-23] MEDS: LACTATED RINGER'S 1,000 ML IV SCH ×2 (13:38→20:41)
--- NOTE | 2020-09-23 14:25 | Critical Care Consultation ---
Date of Consultation September 23, 2020 Assessment & Plan (1) AAA (abdominal aortic aneurysm) without rupture: Patient is status post PEVAR. He is hemodynamically stable. Good peripheral pulses noted in the lower extremities. Blood pressure parameters, pain control and anticoagulation per vascular surgery. We will provide the patient with an incentive spirometer. ICU will continue to follow along. History of Present Illness Reason for Consultation: Post PEVAR ICU monitoring Attending Physician: Octvaio Velazco MD History of Present Illness 65-year-old male with a past medical history of T-cell large granular lymphocytic leukemia, ITP status post splenectomy, AAA coronary artery disease who was admitted to the hospital status post PEVAR repair by Dr. Velazco today. Patient denies any significant complaint at present. He is hemodynamically stable. He is accompanied by his at the bedside. Denies any chest pain, fevers, chills, nausea or vomiting. Patient had COVID-19 illness in March. He has had no significant residual effects. Allergies Allergy/AdvReac Type Severity Reaction Status Date / Time azithromycin AdvReac Intermediate a-fib Verified 09/04/20 08:34 [From Zithromax Z-Evan] Home Medications Medication Instructions Recorded Confirmed Type multivitamin 1 tab PO QAM 12/28/18 09/23/20 History Krill Oil ([place] 3 and 6) 2 cap PO PM 02/04/20 09/23/20 History aspirin 81 mg PO HS 04/13/20 09/23/20 History acetaminophen [Tylenol Extra 1,000 mg PO Q6H PRN 06/21/20 09/23/20 History Strength] metoprolol tartrate 25 mg tablet 12.5 mg PO BID #90 tab 07/21/20 09/23/20 Rx atorvastatin 80 mg tablet 80 mg PO PM 08/14/20 09/23/20 History pantoprazole [Protonix] 40 mg PO QAM 09/04/20 09/23/20 History escitalopram oxalate [Lexapro] 10 mg PO QAM 09/23/20 09/23/20 History Patient History Medical History AAA (abdominal aortic aneurysm) Per 06/21/20 CT "5.5 cm infrarenal abdominal aortic aneurysm. Interval development of minimal infiltration adjacent to the aneurysm sac. This is nonspecific. Impending rupture is considered unlikely but cannot be completely excluded" Coronary artery disease s/p CABG (2015) COVID-19 03/2020 > Dyspnea, hypoxia [place] [facility] [place] > symptoms resolved History of GI bleed History of ITP s/p splenectomy (01/2020) History of PR (myocardial infarction) Hyperlipidemia Hypertension Osteoarthritis Superficial thrombophlebitis RLE x2 (was on ~6 weeks of eliquis then discontinued per hematology records) T-cell large granular lymphocytic leukemia Surgical History H/O cardiac catheterization 2014 > no stents H/O colonoscopy H/O inguinal hernia repair H/O splenectomy Laparoscopic Splenectomy (02/19/2020): Grade view 2, MAC#4, ETT 7.5 at [facility] History of [place]ole[place]12/[place] [place] History of esophagogastroduodenoscopy (EGD) History of herniorrhaphy History of thoracotomy D/T hx spontaneous pneumothorax History of tonsillectomy History of tooth extraction S/P triple vessel bypass 2014 [place] [place] Family History Father Motor vehicle accident Grandfather (Paternal) Cardiac disorder Hypertension Coronary heart disease Grandmother (Paternal) Diabetes Grandmother (Maternal) Stroke Mother AML (acute myelogenous leukemia) Grandfather (Paternal) Myocardial infarction Denies family history of Family history of ITP Ovarian cancer Prostate cancer Breast cancer Colorectal cancer Social History Smoking Status: Former smoker Tobacco Type: Cigarettes packs per day: 2; Years Smoked: 40; Smoking End Date: Quit 10 years ago; Second Hand Exposure: No; Do You Dip or Chew Tobacco: Yes (1 can/1.5 days > advised none DOS); Tobacco Cessation Education Requested by Patient: No Hx Alcohol Use: No Hx Substance Use: No Preferred Language: Stateless Communication Ability: Effective Visual Impairment: Limited Hearing Ability: Normal Outer Diameter Grinder Required: No Beliefs That Will Affect Care: None marital status: Current Living Situation: Spouse Current Living Situation Comment: lives in [place] current occupational status: retired 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 How many Children do You have: 1 How many Children do You have Comment: son Other Information That Helps Us Care for You: No Feels Safe at Home: Yes Safety Concerns: Feels Safe At This Time Childhood Exposure to Second-Hand Smoke: No caffeine: Yes (coffee 2 per day.) during the past year weight has: remained stable Dental Care, Regularly: Yes Physical Activity Frequency: Does not Exercise Seatbelt Use: always Sunscreen Use: Yes Assistive Devices: None Review of Systems Review of Systems: All systems reviewed & are unremarkable except as noted in HPI & below Physical Exam Constitutional: WD/WN, vitals as above Respiratory: normal respiratory effort, lungs clear to auscultation Cardiovascular: RRR, no murmur, no edema Gastrointestinal (Abdomen): normal bowel sounds, soft, nontender, no hepatosplenomegaly Neurologic: PERRL, EOMI, accommodation nl, no face palsy, no dysarthria Psychiatric: A+Ox3, euthymic affect Results & Data Results & Data ([facility]) Vital Signs (Past 12 Hours) Vital Signs Temp Pulse Pulse Pulse Resp BP BP 09/23/20 14:02 62 20 86/63 L 09/23/20 14:01 63 20 09/23/20 13:46 63 20 09/23/20 13:31 72 09/23/20 13:16 63 20 09/23/20 13:02 64 20 104/60 09/23/20 13:01 61 09/23/20 13:00 99.1 F 09/23/20 12:45 64 20 106/70 09/23/20 12:30 97.5 F L 63 17 108/68 09/23/20 12:20 66 17 105/67 09/23/20 12:10 66 17 110/66 09/23/20 12:00 67 19 107/65 09/23/20 11:50 72 18 110/67 09/23/20 11:44 97.7 F 77 19 130/84 09/23/20 08:04 98.1 F 54 L 18 143/83 H BP Pulse Ox 09/23/20 14:02 96 09/23/20 14:01 94 09/23/20 13:46 94 09/23/20 13:31 93 09/23/20 13:16 93 09/23/20 13:02 95 09/23/20 13:01 94 09/23/20 13:00 09/23/20 12:45 103/49 L 95 09/23/20 12:30 100/47 L 94 09/23/20 12:20 102/50 L 97 09/23/20 12:10 102/48 L 97 09/23/20 12:00 105/50 L 96 09/23/20 11:50 102/48 L 96 09/23/20 11:44 96 09/23/20 08:04 95 Vital signs and labs reviewed. Coding Level of Care Code 82346 Inpt Consult Level 3 Diagnoses AAA (abdominal aortic aneurysm) without rupture I71.4
[2020-09-23] MEDS: ceFAZolin 2000MG 2,000 MG/15 ML SYR IV SCH (16:54)
--- NOTE | 2020-09-23 17:21 | Anesthesiology Progress Note ---
Date of Service September 23, 2020 Anesthesia Post Procedure Vital Signs Vital Signs: Temp Pulse Pulse Pulse Resp BP BP 09/23/20 16:00 36.7 C 90 20 09/23/20 14:02 62 20 86/63 L 09/23/20 14:01 63 20 09/23/20 13:46 63 20 09/23/20 13:31 72 09/23/20 13:16 63 20 09/23/20 13:02 64 20 104/60 09/23/20 13:01 61 09/23/20 13:00 37.3 C 09/23/20 12:45 64 20 106/70 09/23/20 12:30 36.4 C L 63 17 108/68 09/23/20 12:20 66 17 105/67 09/23/20 12:10 66 17 110/66 09/23/20 12:00 67 19 107/65 09/23/20 11:50 72 18 110/67 09/23/20 11:44 36.5 C 77 19 130/84 09/23/20 08:04 36.7 C 54 L 18 143/83 H BP Pulse Ox 09/23/20 16:00 113/64 94 09/23/20 14:02 96 09/23/20 14:01 94 09/23/20 13:46 94 09/23/20 13:31 93 09/23/20 13:16 93 09/23/20 13:02 95 09/23/20 13:01 94 09/23/20 13:00 09/23/20 12:45 103/49 L 95 09/23/20 12:30 100/47 L 94 09/23/20 12:20 102/50 L 97 09/23/20 12:10 102/48 L 97 09/23/20 12:00 105/50 L 96 09/23/20 11:50 102/48 L 96 09/23/20 11:44 96 09/23/20 08:04 95 Transfer of Care Handoff Completed per policy Notes Mental Status: alert / awake / arousable and participated in evaluation Patient Amnestic to Procedure: Yes Nausea / Vomiting: adequately controlled Pain: adequately controlled Airway Patency, RR, SpO2: stable & adequate BP & HR: stable & adequate Hydration State: stable & adequate Anesthetic Complications: no major complications apparent
[2020-09-23] MEDS: METOPROLOL TARTRATE 25 MG TAB PO SCH (20:41)
[2020-09-23] MEDS ORDERED: KRILL OM3 DHA EPA OM6 LIP ASTX PO SCH (21:00)
[2020-09-23] MEDS ORDERED: [UNRECOGNIZED DRUG - OTHER] PO SCH (21:00)
[2020-09-23] MEDS ORDERED: ATORVASTATIN 40 MG TAB PO SCH (21:00)
[2020-09-23] MEDS ORDERED: ASPIRIN 81 MG ECTAB PO SCH (21:00)
[2020-09-24] MEDS: ceFAZolin 2000MG 2,000 MG/15 ML SYR IV SCH (00:17)
[2020-09-24 05:04] LABS: Mean Corpuscular Hgb Conc 33.7 g/dL (32-36)
[2020-09-24 05:15] LABS: Hematocrit (blood only) 40.7 % (42-52); Hemoglobin 13.7 g/dL (14.0-18.0); Mean Corpuscular Hemoglobin 27.2 pg (25-34); Mean Corpuscular Volume 80.9 fL (80-100); RDW Coefficient of Variation 22.1 % (11.5-14.5); RDW Standard Deviation 64.2 fL (36.4-46.3); Red Blood Count 5.03 M/uL (4.7-6.1); White Blood Count 18.99 K/uL (4.8-10.8)
[2020-09-24 05:22] LABS: BUN Creatinine Ratio 19.3 (10-20); Calcium 8.6 mg/dl (8.5-10.1); Creatinine Clr Calc Pharmacy 119.4 ml/min; Est GFR (African American) 116.7 ml/min; Est GFR (Non-African American) 100.7 ml/min; Magnesium 2.2 mg/dl (1.8-2.4); Phosphorus 3.3 mg/dl (2.5-4.9); Potassium 4.1 mmol/L (3.5-5.1)
[2020-09-24 05:29] LABS: Platelet Count 74 K/uL (130-400)
[2020-09-24 05:30] LABS: Anisocytosis Present; Basophils # (auto) 0.01 K/uL (0-0.2); Basophils % (auto) 0.1 %; Howell-Jolly Bodies 1+; Immature Granulocytes # (auto) 0.04 K/uL (0.00-0.02); Immature Granulocytes % (auto) 0.2 %; Lymphocytes # (auto) 4.09 K/uL (1.2-3.4); Lymphocytes % (auto) 21.5 %; Monocytes # (auto) 1.26 K/uL (0.11-0.59); Monocytes % (auto) 6.6 %; Neutrophils # (auto) 13.59 K/uL (1.4-6.5); Neutrophils % (auto) 71.6 %; Platelet Estimate Decreased (Normal); Target Cells 1+
[2020-09-24] MEDS: METOPROLOL TARTRATE 25 MG TAB PO SCH (07:38)
[2020-09-24] MEDS: LACTATED RINGER'S 1,000 ML IV SCH ×2 (07:39→14:40)
[2020-09-24] MEDS ORDERED: MULTIVITAMIN TAB PO SCH (09:00)
[2020-09-24] MEDS ORDERED: PANTOprazole 40 MG TAB PO SCH (09:00)
[2020-09-24] MEDS ORDERED: ESCITALOPRAM OXALATE 10 MG TAB PO SCH (09:00)
--- NOTE | 2020-09-24 11:00 | Critical Care Progress Note ---
Date of Service September 24, 2020 Assessment & Plan (1) AAA (abdominal aortic aneurysm) without rupture: Patient is status post PEVAR. He is hemodynamically stable. No issues thus far. Likely discharge home today per vascular surgery. ICU will sign off. Admission and Anticipated Discharge Date Admission Date: September 23, 2020 Subjective No overnight event. Patient discussed in multidisciplinary rounds. Physical Exam Constitutional: WD/WN, vitals as above Respiratory: normal respiratory effort, lungs clear to auscultation Cardiovascular: RRR, no murmur, no edema Gastrointestinal (Abdomen): normal bowel sounds, soft, nontender, no hepatosplenomegaly Neurologic: PERRL, EOMI, accommodation nl, no face palsy, no dysarthria Psychiatric: A+Ox3, euthymic affect Results & Data Results & Data ([facility]) Vital Signs (Past 12 Hours) Vital Signs Temp Pulse BP Pulse Ox 09/24/20 08:30 98.2 F 73 94 09/24/20 08:00 81 107/67 94 09/24/20 07:30 80 93 09/24/20 07:01 70 86 L 09/24/20 06:59 64 129/80 91 09/24/20 06:45 64 91 09/24/20 05:59 65 119/72 92 09/24/20 04:59 69 123/76 94 09/24/20 03:59 70 126/76 94 09/24/20 02:59 68 134/82 95 09/24/20 01:59 66 124/79 94 09/24/20 00:59 69 130/83 95 09/24/20 00:37 98.6 F 09/23/20 23:59 68 119/77 95 09/23/20 23:00 69 vital signs, labs and imaging reviewed. Coding Level of Care Code 29670 Subseq Hosp Care Lvl 1 Diagnoses AAA (abdominal aortic aneurysm) without rupture I71.4
--- NOTE | 2020-09-24 14:29 | Surgery Progress Note ---
Date of Service September 24, 2020 Assessment & Plan (1) S/P endovascular aneurysm repair: Patient doing well. Will D/C today. Admission and Anticipated Discharge Date Admission Date: September 23, 2020 Subjective Patient without complaint. Physical Exam Constitutional: WD/WN, vitals as above Respiratory: normal respiratory effort; no respiratory distress Cardiovascular: Rate/Rhythm: regular rate and regular rhythm Vessels: normal peripheral pulses Extremities: normal capillary refill Results & Data ([facility]) Vital Signs (Past 12 Hours) Vital Signs Temp Pulse BP Pulse Ox 09/24/20 13:31 63 94 09/24/20 13:01 63 95 09/24/20 12:31 63 95 09/24/20 12:10 64 95 09/24/20 12:01 61 95 09/24/20 11:50 63 95 09/24/20 11:40 67 93 09/24/20 11:31 68 94 09/24/20 11:20 61 95 09/24/20 11:10 61 95 09/24/20 11:00 61 95 09/24/20 10:51 62 94 09/24/20 10:45 65 09/24/20 10:21 64 96 09/24/20 10:10 65 95 09/24/20 10:00 62 94 09/24/20 09:51 62 94 09/24/20 09:40 65 94 09/24/20 09:30 68 94 09/24/20 09:21 75 92 09/24/20 09:10 70 95 09/24/20 09:00 70 94 09/24/20 08:51 69 94 09/24/20 08:40 70 94 09/24/20 08:30 36.8 C 73 94 09/24/20 08:00 81 107/67 94 09/24/20 07:30 80 93 09/24/20 07:01 70 86 L 09/24/20 06:59 64 129/80 91 09/24/20 06:45 64 91 09/24/20 05:59 65 119/72 92 09/24/20 04:59 69 123/76 94 09/24/20 03:59 70 126/76 94 09/24/20 02:59 68 134/82 95
--- NOTE | 2020-09-28 09:08 | Discharge Summary ---
Date of Service September 28, 2020 Admission HPI Per Admitting Provider History of Present Illness Mr. Rasmussen is a 65-year-old gentleman with a large abdominal aortic aneurysm. He had his cholecystectomy and his cholecystostomy tube removed at [facility] recently. He is doing well at this time with no complaints. He denies any fever or chills. Admission Exam Per Admitting Provider Constitutional: WD/WN, vitals as above Neck: trachea midline Respiratory: normal respiratory effort, lungs clear to auscultation Cardiovascular: RRR, no murmur, no edema Vessels: normal peripheral pulses Gastrointestinal (Abdomen): Inspection/Auscultation: abdomen normal to inspection Percussion/Palpation: abdomen soft and + pulsatile mass; abdomen nontender Musculoskeletal: no cyanosis or clubbing, extremities motor strength 5/5 Skin: no rashes, warm and dry Neurologic: CN's II-XI intact bilaterally and moves all extremities Psychiatric: Orientation: oriented x 3 Principal Diagnosis 1. s/p PEVAR 2. AAA Discharge Exam Constitutional WD/WN, vitals as above Neck trachea midline Respiratory normal respiratory effort, lungs clear to auscultation normal respiratory effort; no respiratory distress Cardiovascular RRR, no murmur, no edema Rate/Rhythm: regular rate and regular rhythm Vessels: normal peripheral pulses Extremities: normal capillary refill Gastrointestinal (Abdomen) Inspection/Auscultation: abdomen normal to inspection Percussion/Palpation: abdomen soft and + pulsatile mass; abdomen nontender Musculoskeletal no cyanosis or clubbing, extremities motor strength 5/5 Skin no rashes, warm and dry Neurologic CN's II-XI intact bilaterally and moves all extremities Psychiatric Orientation: oriented x 3 Discharge Data Allergies Allergy/AdvReac Type Severity Reaction Status Date / Time azithromycin AdvReac Intermediate a-fib Verified 09/04/20 08:34 [From Zithromax Z-Evan] Consultations 09/23/20 09:23 Consult Oil Sales And Service Rep Routine Procedures Performed Operation Date: 09/23/20 09:10 Actual Procedures p Percutaneous Endovascular Aneurysm Repair, Bilateral Percutaneous Approach, Ultrasound Localization of Bilateral Femoral Arteries, (Bilateral) - Octavio Velazco MD Ordered Studies 09/23/20 07:13 EV Angio Abdomen Aorta Routine US EV guide vascular access Routine Hospital Course (1) S/P endovascular aneurysm repair: Patient doing well POD #1. Will D/C home today. Total Time Total Time Spent Total Time Spent (In Minutes): 0 Discharge Plan Discharge Items Patient Disposition: Home - Self-Care Reason For Visit: Abdominal Aortic Aneurysm Discharge Diagnosis: Abdominal aortic aneurysm endovascular repair Activity: Per Instructions section Lifting: Gradually increase as tolerated Bathing Comment: May shower Non-emergency contact: Surgeon Call non-emergency contact if: your temperature is above 101, your temperature is above 101.5, your wound has increased redness, your wound has increased drainage and your wound pain has increased Follow-up/Referrals: Daniel Alba MD [Primary Care Provider] - Diet: Heart Healthy Addtl Attending Provider Instructions: SPECIAL CARE INSTRUCTIONS: Medications: * Continue to take your medications as directed. Incision/Puncture Site Care: * You will have an incision or puncture in each of your groins. Liquid glue will be used to seal your incisions/puncture site. This will lift off as the incisions/puncture sites heal. * If Liquid glue is not used, there will be small dressings covering your incisions. After you get home, you may remove the dressings and shower - allowing the warm soapy water to run over it. * Be sure to dry the sites well and keep them dry. * DO NOT SOAK IN A TUB/POOL/etc. UNTIL ALL SURGICAL SITES ARE HEALED. DO NOT REMOVE THE GLUE UNTIL THE INCISIONS HEAL. Restrictions: * Limit yourself to helper teacher activity for the first week. * You may walk and go up and down steps. * Avoid excessive bending or movement at the level of the incisions or punctures. Risks and Possible Complications: * Infection/Drainage/Bleeding - Drainage or bleeding from the incisions/puncture site should be minimal. If you have excessive bleeding or drainage, call our office ([phone]) right away. * Pain/Numbness - You may experience some mild pain or soreness at your incision sites. You may also have some numbness around the incisions or into the insides of your thighs. Bruising is normal and should resolve within 2 weeks. * Changes in Appetite or Bowel Habits - Mostly related to anesthesia and pain medication, some patients have reported decreased appetite and/or problems with constipation. These symptoms usually improve over a few weeks. Remembering to take an [id number] stool softener, as directed, will help you to avoid constipation. Call our office and seek emergent treatment if you develop: * Fever or chills * Have a temperature greater than 101 degrees F * Any redness or purulent drainage from your incisions or punctures * Severe abdominal, chest or back pain SKIN IRRITATION: * You may experience some redness and/or swelling in the area where radiation was administered. If any skin irritation occurs, please contact your family physician. You will be receiving a call from the Vascular Surgery Nurse after you are discharged. FOLLOW UP VISIT: It is important for you to keep your follow up appointments with your medical provider. Keep any scheduled doctor appointments. Call [phone] to schedule a follow up appointment if one not already scheduled. Pending Studies at Discharge: No Stand-Alone Forms: My [facility] [employer], Smoking Cessation Medications and DC Order Prescriptions: Continued metoprolol tartrate 25 mg tablet 12.5 mg PO BID Qty: 90 RF: 3 atorvastatin 80 mg tablet 80 mg PO PM RF: 0 multivitamin [Daily Multiple] tablet 1 tab PO QAM RF: 0 Krill Oil ([place] 3 and 6) 1,500-165-67.5 mg Capsule 2 cap PO PM RF: 0 aspirin 81 mg Tablet,Delayed Release (Dr/Ec) 81 mg PO HS RF: 0 acetaminophen 500 mg Capsule 1,000 mg PO Q6H PRN (Reason: Pain) RF: 0 pantoprazole [Protonix] 40 mg tablet,delayed release (DR/EC) 40 mg PO QAM RF: 0 escitalopram oxalate [Lexapro] 10 mg tablet 10 mg PO QAM RF: 0 Discharge Orders: Discharge Order (Routine); Ordered 09/24/20 Ordered By: Octavio Velazco Admission Data Admit Date/Time: 09/23/20 09:23 Attending Provider: Octavio Velazco Admit Provider: Octavio Velazco Primary Care Provider: Daniel Alba Other Providers: Robert Rodriguez ; Scar Andrews ; Giovanni Armendariz ; Jung Lindsay ; Nando Reeder ; Bradly Templeton ; Jose Mckenzie Other Interventions: Discharge Summary Assessment (RN) Last Done: 09/24/20 14:41
== END 2020-09-24 15:21 | disposition home or self-care (01) | DRG 269 ==
LOC: ASU 07:15 → 1E 09:23

== ENCOUNTER 2021-11-07 15:20 | Observation (INO) ==
--- NOTE | 2021-11-07 16:17 | Emergency Department Note ---
History of Present Illness General Chief complaint: Shortness of Breath/Dyspnea Stated complaint: SOB Time Seen by Provider: 11/07/21 16:01 Source: patient Mode of arrival: ambulatory Limitations: no limitations History of Present Illness Provider complaint: Shortness of breath Onset (ago): week(s) Associated symptoms: + diaphoresis and + shortness of breath; no chest pain, no cough, no fever/chills or no nausea/vomiting Treatments prior to arrival: other This is a 58-year-old male presents emergency department complaining of worsening shortness of breath. Patient states he first began noticing increased shortness of breath with exertion 2 to 3 weeks ago. Patient does have an underlying history of COPD as well as known CAD status post CABG. he denies any change in cough, fevers, chills, nasal congestion, rhinorrhea, sore throat. P atient states that shortness of breath is markedly worse with exertion. He does have a home pulse oximeter and has been periodically checking. He states at rest not moving his pulse ox is in the low 90s, however with any movement he drops into the mid to low 80s. Patient states he did have a small portable oxygen tank from when he had COVID-pneumonia 2 years ago. He states he has started wearing that again recently. He had not been wearing it up to this point. Patient does see pulmonology due to his underlying COPD. Patient denies any known sick contacts or other medication changes. Denies any leg swelling. Patient states he does routinely see David Del Toro PA-C with cardiology. Patient also notes he takes prednisone daily and has history of ITP. Patient states he has managed by hematology for his ITP as well as an underlying history of iron deficiency anemia. Pt seen during a time of high acuity and national emergency pandemic while wearing PPE. Home Medications Medication Instructions Recorded Confirmed Type multivitamin (Daily Multiple) 1 tab PO QAM 12/28/18 08/31/21 History krill 2 cap PO PM 02/04/20 08/31/21 History ako-ba2-ffy-him-xj2-izg-astax 1,500 mg-165 mg-67.5 mg capsule (Krill Oil ([place] 3 and 6)) aspirin 81 mg tablet,delayed 81 mg PO HS 04/13/20 08/31/21 History release acetaminophen 500 mg capsule 1,000 mg PO Q6H PRN Pain 06/21/20 08/31/21 History vitamin B complex-vit B12 1,000 mcg PO DAILY 04/30/21 08/31/21 History ondansetron HCl 8 mg tablet 8 mg PO Q8H PRN Nausea 05/18/21 08/31/21 History metoprolol tartrate 25 mg tablet 12.5 mg PO BID #90 tabs 07/26/21 08/31/21 Rx pantoprazole 40 mg tablet,delayed See Rx Instructions .Route 07/26/21 08/31/21 Rx release .COMPLEX #90 tabs escitalopram oxalate 10 mg tablet See Rx Instructions .Route 08/23/21 08/31/21 Rx .COMPLEX #90 tabs fostamatinib 150 mg tablet 150 mg PO BID 08/31/21 08/31/21 History ([place]) atorvastatin 80 mg tablet 80 mg PO DAILY #100 tabs 11/01/21 Rx Allergies Allergy/AdvReac Type Severity Reaction Status Date / Time azithromycin AdvReac Intermediate a-fib Verified 09/07/21 10:13 [From Zithromax Z-Evan] Past Med/Surg History Medical History AAA (abdominal aortic aneurysm) Per 06/21/20 CT "5.5 cm infrarenal abdominal aortic aneurysm. Interval development of minimal infiltration adjacent to the aneurysm sac. This is nonspecific. 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) History of GA (myocardial infarction) Hyperlipidemia Hypertension Osteoarthritis Superficial thrombophlebitis RLE x2 (was on ~6 weeks of eliquis then discontinued per hematology records) T-cell large granular lymphocytic leukemia Surgical History H/O cardiac catheterization 2014 > no stents H/O colonoscopy H/O inguinal hernia repair H/O splenectomy Laparoscopic Splenectomy (02/19/2020): Grade view 2, MAC#4, ETT 7.5 at [facility] History of AAA (abdominal aortic aneurysm) repair History of cholecystectomy 08/12/2020 ([facility] [place] History of esophagogastroduodenoscopy (EGD) History of herniorrhaphy History of thoracotomy D/T hx spontaneous pneumothorax History of tonsillectomy History of tooth extraction S/P triple vessel bypass 2014 ([facility] [place]) Family History Father Motor vehicle accident Grandfather (Paternal) Cardiac disorder Hypertension Coronary heart disease Grandmother (Paternal) Diabetes Grandmother (Maternal) Stroke Mother AML (acute myelogenous leukemia) Grandfather (Paternal) Myocardial infarction Denies family history of Family history of ITP Ovarian cancer Prostate cancer Breast cancer Colorectal cancer Social History (Updated 11/07/21 @ 19:09 by SINDHU Nath) Smoking Status: Former smoker Tobacco Type: Cigarettes and Smokeless Tobacco (Dip or Chew) packs per day: 2; Years Smoked: 40; Second Hand Exposure: No; Do You Dip or Chew Tobacco: Yes; Hx Alcohol Use: No Hx Substance Use: No Preferred Language: British Communication Ability: Effective Visual Impairment: No Limitations Hearing Ability: Normal Control And Recovery Special Tactics Required: No Beliefs That Will Affect Care: None marital status: Current Living Situation: Spouse Current Living Situation Comment: lives in [place] current occupational status: 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 How many Children do You have: 1 How many Children do You have Comment: son Other Information That Helps Us Care for You: No Feels Safe at Home: Yes Safety Concerns: Feels Safe At This Time Childhood Exposure to Second-Hand Smoke: No Diet Comment: regular caffeine: Yes (coffee 2 per day.) during the past year weight has: remained stable Dental Care, Regularly: Yes Physical Activity Frequency: Does not Exercise Seatbelt Use: always Sunscreen Use: Yes Assistive Devices: Cane, Glasses and Other Assistive Devices Comment: uses O2 concentrator PRN with PAPPAS 2-3L until breathlessness resolves Review of Systems A total of 10 systems reviewed and were otherwise negative All systems reviewed & are unremarkable except as noted in HPI & below Physical Exam Vital Signs Vital Signs - 24 hr 11/07/21 15:23 11/07/21 15:20 11/07/21 16:00 Temperature 36.4 C L Temperature Source Temporal Artery Scan Pulse Rate 68 Pulse Rate from SpO2 Sensor Respiratory Rate 22 Respiratory Effort / Characteristics Non-Labored Respiratory Depth Normal Blood Pressure 114/73 120/71 Blood Pressure Mean 86 87 Pulse Oximetry 97 Oxygen Delivery Method Nasal Cannula Room Air Oxygen Flow Rate 4 Sepsis Recent Fever Within 48 Hours No Sepsis New/Unexplained Change in Mental Status No Sepsis Action Taken by Nursing No Action Required 11/07/21 16:00 11/07/21 17:00 11/07/21 17:01 Temperature Temperature Source Pulse Rate 63 Pulse Rate from SpO2 Sensor 65 65 Respiratory Rate 12 Respiratory Effort / Characteristics Respiratory Depth Blood Pressure 130/84 Blood Pressure Mean 99 Pulse Oximetry 97 97 Oxygen Delivery Method Nasal Cannula Oxygen Flow Rate 4 Sepsis Recent Fever Within 48 Hours Sepsis New/Unexplained Change in Mental Status Sepsis Action Taken by Nursing 11/07/21 17:31 11/07/21 17:31 11/07/21 18:00 Temperature Temperature Source Pulse Rate 74 Pulse Rate from SpO2 Sensor 72 Respiratory Rate 27 H Respiratory Effort / Characteristics Respiratory Depth Blood Pressure 136/81 127/82 Blood Pressure Mean 99 97 Pulse Oximetry 94 Oxygen Delivery Method Nasal Cannula Oxygen Flow Rate 4 Sepsis Recent Fever Within 48 Hours Sepsis New/Unexplained Change in Mental Status Sepsis Action Taken by Nursing 11/07/21 18:00 Temperature Temperature Source Pulse Rate 70 Pulse Rate from SpO2 Sensor Respiratory Rate 25 H Respiratory Effort / Characteristics Respiratory Depth Blood Pressure Blood Pressure Mean Pulse Oximetry 97 Oxygen Delivery Method Nasal Cannula Oxygen Flow Rate 4 Sepsis Recent Fever Within 48 Hours Sepsis New/Unexplained Change in Mental Status Sepsis Action Taken by Nursing GENERAL: alert, well appearing, well nourished, no distress, non-toxic EYE EXAM: normal conjunctiva, PERRL and EOM's grossly intact OROPHARYNX: no exudate, no erythema, lips, buccal mucosa, and tongue normal and mucous membranes are moist NECK: supple, no nuchal rigidity, no adenopathy, non-tender LUNGS: Clear to auscultation. Normal chest wall mechanics, no w/r/r HEART: no murmurs, S1 normal and S2 normal ABDOMEN: abdomen soft, non-tender, normo-active bowel sounds, no masses, no re bound or guarding. BACK: Back is symmetrical on inspection and there is no deformity, no midline te nderness, no CVA tenderness. SKIN: no rashes and no bruising UPPER EXTREMITIES: upper extremities are grossly normal. FROM, nml pulses b/l. LOWER EXTREMITIES: No pitting edema. FROM, nml pulses b/l. NEURO EXAM: Normal sensorium, cranial nerves II-XII grossly intact, normal speech, no gross weakness of arms, no gross weakness of legs. No pronator drift. Finger to nose intact. Gross sensation intact. Course Administered Medications Aspirin (Aspirin 81 Mg Ectab) 81 mg PO HS [facility] Stop: 12/07/21 20:59 Last Admin: 11/07/21 21:49 Dose: 81 mg Documented By: DUANE Heparin Sodium/Dextrose (Heparin Sodium/Dextrose) 25,000 units in 500 mls @ 27 mls/hr IV .[id number] [facility]; Protocol Stop: 12/07/21 19:29 Last Admin: 11/07/21 19:51 Dose: 1,350 units/hr, 27 mls/hr Documented By: GILMAR Co-signed By: LEATHA Metoprolol Tartrate (Metoprolol Tartrate 25 Mg Tab) 12.5 mg PO BID [facility] Stop: 12/07/21 20:59 Last Admin: 11/07/21 21:50 Dose: 12.5 mg Documented By: DUANE Pantoprazole Sodium (Pantoprazole 40 Mg Tab) 40 mg PO BID [facility] Stop: 12/07/21 20:59 Last Admin: 11/07/21 21:50 Dose: 40 mg Documented By: DUANE Discontinued Medications Escitalopram Oxalate (Escitalopram Oxalate 10 Mg Tab) 10 mg PO NOW ONE Stop: 11/07/21 22:16 Last Admin: 11/07/21 22:06 Dose: 10 mg Documented By: DUANE Heparin Sodium (Porcine) (Heparin Sod (Porcine) 1000 Unit/Ml) 6,000 units IV NOW ONE Stop: 11/07/21 19:24 Last Admin: 11/07/21 19:47 Dose: 5,000 units Documented By: GILMAR Co-signed By: LEATHA Heparin Sodium/Dextrose (Heparin Iv Adult Wt-Based Standard With Bolus Protocol) 1 each IV NOW [facility]; Protocol Stop: 11/07/21 19:08 Last Admin: 11/07/21 21:34 Dose: Not Given Documented By: HEATHER Ioversol (Optiray 320 125ml) 114 ml IV ONCE ONE Stop: 11/07/21 18:34 Last Admin: 11/07/21 21:38 Dose: Not Given Documented By: HEATHER Medical Decision Making Differential Diagnosis Differential diagnoses includes but is not limited to pneumonia, bronchitis, COPD/Asthma exacerbation, pneumothorax, pulmonary embolism, congestive heart failure, acute coronary syndrome Medical Records Attestation: I reviewed the patient's medical records. Home Medications Current Medication List: was personally reviewed by me Laboratory Data Attestation: I reviewed the patient's lab results. Result diagrams: 11/07/21 19:26 11/07/21 15:44 Lab Results 11/07/21 11/07/21 11/07/21 Range/Units 15:44 15:44 15:44 WBC 12.95 H (4.8-10.8) K/ul RBC 5.19 (4.63-6.08) M/uL Hgb 12.9 L (14.0-18.0) g/dl Hct 41.1 (40.1-51.0) % MCV 79.2 L (80.0-100.0) fL MCH 24.9 L (25.0-34.0) pg MCHC 31.4 L (32.0-36.0) g/dL RDW Std Deviation 60.0 H (36.4-46.3) fL RDW Coeff of Kilo 21.5 H (11.5-14.5) % Plt Count 86 L (130-400) K/uL MPV 9.3 L (9.4-12.4) fL Immature Gran % (Auto) 0.6 % Neut % (Auto) 68.7 % Lymph % (Auto) 29.3 % [place] % (Auto) 1.2 % Eos % (Auto) 0.0 % Baso % (Auto) 0.2 % Neut # (Auto) 8.89 H (1.4-6.5) K/uL Lymph # (Auto) 3.80 H (1.2-3.4) K/uL [place] # (Auto) 0.15 L (0.24-0.82) K/uL Eos # (Auto) 0.00 (0-0.50) K/uL Baso # (Auto) 0.03 (0-0.2) K/uL Immature Gran # (Auto) 0.08 H (0.00-0.02) K/uL Absolute Nucleated RBC 0.03 H (0-0) K/uL Nucleated RBC % (auto) 0.2 % Platelet Estimate Decreased L (Normal) Anisocytosis Present Echinocytes 1+ Acanthocytes (Spur) 1+ Schistocytes 1+ PT (9.0-12.0) Seconds INR (0.9-1.1) APTT (21.0-31.0) Seconds PTT Ratio Sodium 136 (136-145) mmol/L Potassium 4.2 (3.5-5.1) mmol/L Chloride 101 (98-107) mmol/L Carbon Dioxide 28 (21-32) mmol/L Anion Gap 7 (3-11) BUN 22 (6-23) mg/dl Creatinine 0.87 (0.6-1.4) mg/dl Est Cr Clr Drug Dosing 85.0 ml/min Est GFR ( Amer) 102.8 ml/min Est GFR (Non-Af Amer) 88.7 ml/min BUN/Creatinine Ratio 25.3 H (10-20) Glucose 117 H (70-99(Fasting)) mg/dl Calcium 8.7 (8.5-10.1) mg/dl Magnesium 1.9 (1.7-2.4) mg/dl Iron (35-175) mcg/dl TIBC (250-450) mcg/dl Unsaturated IBC (155-355) mcg/dl Transferrin % Sat (20-50) % Total Bilirubin 1.6 H (0.2-1.0) mg/dl AST 23 (13-39) U/L ALT 21 (7-52) U/L Alkaline Phosphatase 61 (34-104) U/L Troponin I High Sens 11.4 (0-20) pg/ml B-Natriuretic Peptide (0-100) pg/ml Total Protein 6.4 (6.0-8.3) gm/dl Albumin 3.7 (3.4-5.0) gm/dl Globulin 2.7 (2.5-4.0) gm/dl Albumin/Globulin Ratio 1.4 (0.9-2) Lipase 40 (11-82) U/L TSH 0.530 (0.300-4.500) uIu/ml SARS-CoV-2 (PCR) (Negative) Influenza Type A (PCR) (Neg) Influenza Type B (PCR) (Neg) RSV (RT-PCR) (Neg) 11/07/21 11/07/21 11/07/21 Range/Units 15:44 15:44 16:20 WBC (4.8-10.8) K/ul RBC (4.63-6.08) M/uL Hgb (14.0-18.0) g/dl Hct (40.1-51.0) % MCV (80.0-100.0) fL MCH (25.0-34.0) pg MCHC (32.0-36.0) g/dL RDW Std Deviation (36.4-46.3) fL RDW Coeff of Kilo (11.5-14.5) % Plt Count (130-400) K/uL MPV (9.4-12.4) fL Immature Gran % (Auto) % Neut % (Auto) % Lymph % (Auto) % [place] % (Auto) % Eos % (Auto) % Baso % (Auto) % Neut # (Auto) (1.4-6.5) K/uL Lymph # (Auto) (1.2-3.4) K/uL [place] # (Auto) (0.24-0.82) K/uL Eos # (Auto) (0-0.50) K/uL Baso # (Auto) (0-0.2) K/uL Immature Gran # (Auto) (0.00-0.02) K/uL Absolute Nucleated RBC (0-0) K/uL Nucleated RBC % (auto) % Platelet Estimate (Normal) Anisocytosis Echinocytes Acanthocytes (Spur) Schistocytes PT 10.1 (9.0-12.0) Seconds INR 0.9 (0.9-1.1) APTT 30.5 (21.0-31.0) Seconds PTT Ratio 1.1 Sodium (136-145) mmol/L Potassium (3.5-5.1) mmol/L Chloride (98-107) mmol/L Carbon Dioxide (21-32) mmol/L Anion Gap (3-11) BUN (6-23) mg/dl Creatinine (0.6-1.4) mg/dl Est Cr Clr Drug Dosing ml/min Est GFR ( Amer) ml/min Est GFR (Non-Af Amer) ml/min BUN/Creatinine Ratio (10-20) Glucose (70-99(Fasting)) mg/dl Calcium (8.5-10.1) mg/dl Magnesium (1.7-2.4) mg/dl Iron 32 L (35-175) mcg/dl TIBC 443 (250-450) mcg/dl Unsaturated IBC 411 H (155-355) mcg/dl Transferrin % Sat 7 L (20-50) % Total Bilirubin (0.2-1.0) mg/dl AST (13-39) U/L ALT (7-52) U/L Alkaline Phosphatase (34-104) U/L Troponin I High Sens (0-20) pg/ml B-Natriuretic Peptide (0-100) pg/ml Total Protein (6.0-8.3) gm/dl Albumin (3.4-5.0) gm/dl Globulin (2.5-4.0) gm/dl Albumin/Globulin Ratio (0.9-2) Lipase (11-82) U/L TSH (0.300-4.500) uIu/ml SARS-CoV-2 (PCR) NEGATIVE (Negative) Influenza Type A (PCR) Negative (Neg) Influenza Type B (PCR) Negative (Neg) RSV (RT-PCR) Negative (Neg) 11/07/21 Range/Units 16:31 WBC (4.8-10.8) K/ul RBC (4.63-6.08) M/uL Hgb (14.0-18.0) g/dl Hct (40.1-51.0) % MCV (80.0-100.0) fL MCH (25.0-34.0) pg MCHC (32.0-36.0) g/dL RDW Std Deviation (36.4-46.3) fL RDW Coeff of Kilo (11.5-14.5) % Plt Count (130-400) K/uL MPV (9.4-12.4) fL Immature Gran % (Auto) % Neut % (Auto) % Lymph % (Auto) % [place] % (Auto) % Eos % (Auto) % Baso % (Auto) % Neut # (Auto) (1.4-6.5) K/uL Lymph # (Auto) (1.2-3.4) K/uL [place] # (Auto) (0.24-0.82) K/uL Eos # (Auto) (0-0.50) K/uL Baso # (Auto) (0-0.2) K/uL Immature Gran # (Auto) (0.00-0.02) K/uL Absolute Nucleated RBC (0-0) K/uL Nucleated RBC % (auto) % Platelet Estimate (Normal) Anisocytosis Echinocytes Acanthocytes (Spur) Schistocytes PT (9.0-12.0) Seconds INR (0.9-1.1) APTT (21.0-31.0) Seconds PTT Ratio Sodium (136-145) mmol/L Potassium (3.5-5.1) mmol/L Chloride (98-107) mmol/L Carbon Dioxide (21-32) mmol/L Anion Gap (3-11) BUN (6-23) mg/dl Creatinine (0.6-1.4) mg/dl Est Cr Clr Drug Dosing ml/min Est GFR ( Amer) ml/min Est GFR (Non-Af Amer) ml/min BUN/Creatinine Ratio (10-20) Glucose (70-99(Fasting)) mg/dl Calcium (8.5-10.1) mg/dl Magnesium (1.7-2.4) mg/dl Iron (35-175) mcg/dl TIBC (250-450) mcg/dl Unsaturated IBC (155-355) mcg/dl Transferrin % Sat (20-50) % Total Bilirubin (0.2-1.0) mg/dl AST (13-39) U/L ALT (7-52) U/L Alkaline Phosphatase (34-104) U/L Troponin I High Sens (0-20) pg/ml B-Natriuretic Peptide 66 (0-100) pg/ml Total Protein (6.0-8.3) gm/dl Albumin (3.4-5.0) gm/dl Globulin (2.5-4.0) gm/dl Albumin/Globulin Ratio (0.9-2) Lipase (11-82) U/L TSH (0.300-4.500) uIu/ml SARS-CoV-2 (PCR) (Negative) Influenza Type A (PCR) (Neg) Influenza Type B (PCR) (Neg) RSV (RT-PCR) (Neg) Imaging Data Radiologist's Impression: Chest X-Ray 11/07/21 16:11 SINGLE VIEW CHEST CLINICAL HISTORY: Dyspnea FINDINGS: An AP, portable, upright chest radiograph is compared to study dated 09/07/2020 and correlated with chest CT dated 04/30/2021. The patient is status post midline sternotomy. The heart is enlarged noting atherosclerotic calcification of the thoracic aorta. The pulmonary vasculature is noncongested. Enlargement of the right pulmonary arteries suggests pulmonary artery hypertension. Emphysema and chronic interstitial thickening is similar to previous. Foci of parenchymal scarring are seen throughout both lungs, greatest at the lung bases. There is no airspace consolidation typical for pneumonia or pleural effusion. No pneumothorax is seen. The skeletal structures are osteopenic. The bony thorax is grossly intact. IMPRESSION: Cardiomegaly and emphysema with no acute cardiopulmonary abnormality identified. ACT 112: Negative or not required by law. Electronically signed by: Robert Mijares M.D. 11/07/2021 4:48 PM Chest CTA 11/07/21 18:07 CT ANGIOGRAM OF THE CHEST CLINICAL HISTORY: Dyspnea. COMPARISON STUDY: Chest x-ray dated 11/07/2021. Chest CT dated 04/30/2021. TECHNIQUE: Following the IV administration of 114 cc of Optiray 320, CT angiogram of the chest was performed from the upper abdomen to the thoracic inlet utilizing the pulmonary embolus protocol. Images are reviewed in the axial, sagittal, and coronal planes. 3-D MIPS images are created and assessed. IV contrast was administered without complication. A dose lowering technique was utilized adhering to the principles of ALARA. CT DOSE: 751.19 mGy.cm FINDINGS: Thyroid: Imaged portions of the thyroid gland are normal in size and attenuation. Thoracic aorta: There is atherosclerotic calcification of the thoracic aorta, which is normal in caliber and demonstrates standard 3-vessel arch anatomy. No dissection is seen. Pulmonary vasculature: The pulmonary trunk is normal in caliber. There are tiny segmental pulmonary emboli within the right middle lobe pulmonary artery. Subsegmental pulmonary emboli are seen within branches of the right upper and right lower lobe pulmonary arteries. No left-sided pulmonary emboli are identified. Heart: The patient is status post midline sternotomy. The heart is mildly enlarged and without pericardial effusion. The coronary arteries are densely calcified. Lungs and pleural spaces: There is moderate emphysema. Foci of parenchymal scarring are seen throughout both lungs. There are scattered calcified granulomas. No airspace consolidation typical for pneumonia or pleural effusion is identified. The trachea and central airways are clear. There is an irregular linear density at the left apex seen on images #[id number]. This measures approximately 2 cm in length and is new from 04/30/2021. Mediastinum: There is no mediastinal lymphadenopathy. Sara: Clear. Axillae: There is no axillary lymphadenopathy. Upper abdomen: Cholecystectomy clips are noted. The spleen is surgically absent and a subcentimeter splenule is noted below the left hemidiaphragm. A duodenal diverticulum is noted. Skeletal structures: The skeletal structures are osteopenic. No lytic or blastic bony lesions are seen. IMPRESSION: 1. Tiny right-sided segmental and subsegmental pulmonary emboli as above. 2. Cardiomegaly and emphysema. 3. There is no airspace consolidation typical for pneumonia or pleural effusion. 4. There is an irregular linear 2 cm density at the left apex which is new from 04/30/2021. This is pathologically indeterminant and may be inflammatory. A 3-4 month follow-up chest CT is recommended for reassessment and to exclude the possibility of underlying pulmonary lesion. 5. No mediastinal or hilar adenopathy is identified. 6. Additional findings as above. ACT 112: Positive. There are findings on this exam that require communication between the performing entity and the patient following Patient Test Result Information Act ([place] Act 112) guidelines. Electronically signed by: Robert Mijares M.D. 11/07/2021 6:52 PM ECG Data Attestation: I personally reviewed and interpreted this ECG as follows: Indication: + SOB/dyspnea Rate (beats per minute): 67 Rhythm: + normal sinus ECG Intervals/blocks: + Normal QRS and + Normal QT ECG [place]: + Normal ECG ST segments: + Normal ST segments MDM Narrative An order was placed for continuous cardiac monitoring. The monitor shows a rate of _62_ with normal sinus__ rhythm. This is a 58-year-old male presents emergency department due to concern for worsening shortness of breath over the last 3 weeks, acutely worse with exertion. Patient denies any other accompanying symptoms, no recent illness or sick contact. Patient is on chronic prednisone due to ITP. Patient has been using home oxygen that he had leftover from when he had COVID 2 years ago. Patient's home pulse ox checks have been down in the 80s with exertion. Labs drawn and sent and chest x-ray performed. No acute changes noted on EKG, troponin negative. Patient does have significant cardiac history. No evidence of overt CHF. Patient was hemodynamically stable while in the emergency room. Chest x-ray otherwise unremarkable. Due to concern for hypoxia and need for additional cardiac evaluation, case discussed with hospitalist for additional evaluation and management. Patient was made aware of all results, verbalized understanding, and was in agreement with plan. Impression & Plan Dyspnea, Chronic ITP (idiopathic thrombocytopenia), Hypoxia, Thrombocytopenia Discharge Plan Visit Data Chief Complaint: Shortness of Breath/Dyspnea Stated Complaint: SOB ED Provider: Selena Mendez Discharge Problem: Dyspnea, Chronic ITP (idiopathic thrombocytopenia), Hypoxia, Thrombocytopenia Patient Disposition: Admitted As Inpatient Discharge Instructions Interventions: ED Discharge Assessment Last Done: 11/07/21 20:03
[2021-11-07 16:44] LABS: Albumin Globulin Ratio 1.4 (0.9-2); Albumin Level 3.7 gm/dl (3.4-5.0); BUN Creatinine Ratio 25.3 (10-20); Bilirubin,Total 1.6 mg/dl (0.2-1.0); Calcium 8.7 mg/dl (8.5-10.1); Est GFR (African American) 102.8 ml/min; Est GFR (Non-African American) 88.7 ml/min; Globulin 2.7 gm/dl (2.5-4.0); Magnesium 1.9 mg/dl (1.7-2.4); Potassium 4.2 mmol/L (3.5-5.1); Total Protein 6.4 gm/dl (6.0-8.3)
[2021-11-07 16:49] LABS: Troponin I High Sensitivity 11.4 pg/ml (0-20)
--- NOTE | 2021-11-07 16:49 | XRay Report ---
SINGLE VIEW CHEST CLINICAL HISTORY: Dyspnea FINDINGS: An AP, portable, upright chest radiograph is compared to study dated 09/07/2020 and correlat ed with chest CT dated 04/30/2021. The patient is status post midline sternotomy. The heart is enlarged noting atherosclerotic calcification of the thoracic aorta. The pulmonary vasculature is noncongeste d. Enlargement of the right pulmonary arteries suggests pulmonary artery hypertension. Emphysema and chronic interstitial thickening is similar to previous. Foci of parenchymal scarring are seen through out both lungs, greatest at the lung bases. There is no airspace consolidation typical for pneumonia or pleural effusion. No pneumothorax is seen. The skeletal structures are osteopenic. The bony thorax is grossly intact. IMPRESSION: Cardiomegaly and emphysema with no acute cardiopulmonary abnormality identified. ACT 112: Negative or not required by law. Electronically signed by: Robert Mijares M.D. 11/07/2021 4:48 PM
[2021-11-07 16:53] LABS: Acanthocytes 1+; Anisocytosis Present; Basophils # (auto) 0.03 K/uL (0-0.2); Basophils % (auto) 0.2 %; Echinocytes 1+; Hematocrit (blood only) 41.1 % (40.1-51.0); Hemoglobin 12.9 g/dl (14.0-18.0); Immature Granulocytes # (auto) 0.08 K/uL (0.00-0.02); Immature Granulocytes % (auto) 0.6 %; Lymphocytes % (auto) 29.3 %; Mean Corpuscular Hemoglobin 24.9 pg (25.0-34.0); Mean Corpuscular Hgb Conc 31.4 g/dL (32.0-36.0); Mean Corpuscular Volume 79.2 fL (80.0-100.0); Mean Platelet Volume 9.3 fL (9.4-12.4); Monocytes # (auto) 0.15 K/uL (0.24-0.82); Monocytes % (auto) 1.2 %; Neutrophils # (auto) 8.89 K/uL (1.4-6.5); Neutrophils % (auto) 68.7 %; Nucleated RBC # (auto) 0.03 K/uL (0-0); Nucleated RBC % (auto) 0.2 %; Platelet Count 86 K/uL (130-400); Platelet Estimate Decreased (Normal); RDW Coefficient of Variation 21.5 % (11.5-14.5); Red Blood Count 5.19 M/uL (4.63-6.08); Schistocytes 1+; White Blood Count 12.95 K/ul (4.8-10.8)
[2021-11-07 17:05] LABS: Influenza A virus by PCR Negative (Neg); Influenza B virus by PCR Negative (Neg); RSV by PCR Negative (Neg); SARS CoV2 RNA(COVID-19) InHosp NEGATIVE (Negative)
[2021-11-07] MEDS ORDERED: OPTIRAY 320 125ml IV ONE (18:33)
--- NOTE | 2021-11-07 18:55 | CT Scan Report ---
CT ANGIOGRAM OF THE CHEST CLINICAL HISTORY: Dyspnea. COMPARISON STUDY: Chest x-ray dated 11/07/2021. Chest CT dated 04/30/2021. TECHNIQUE: Following the IV administration of 114 cc of Optiray 320, CT angiogram of the chest was pe rformed from the upper abdomen to the thoracic inlet utilizing the pulmonary embolus protocol. Images are reviewed in the axial, sagittal, and coronal planes. 3-D MIPS images are created and assessed. I V contrast was administered without complication. A dose lowering technique was utilized adhering to the principles of ALARA. CT DOSE: 751.19 mGy.cm FINDINGS: Thyroid: Imaged portions of the thyroid gland are normal in size and attenuation. Thoracic aorta: There is atherosclerotic calcification of the thoracic aorta, which is normal in sae cait and demonstrates standard 3-vessel arch anatomy. No dissection is seen. Pulmonary vasculature: The pulmonary trunk is normal in caliber. There are tiny segmental pulmonary e mboli within the right middle lobe pulmonary artery. Subsegmental pulmonary emboli are seen within br anches of the right upper and right lower lobe pulmonary arteries. No left-sided pulmonary emboli are identified. Heart: The patient is status post midline sternotomy. The heart is mildly enlarged and without perica rdial effusion. The coronary arteries are densely calcified. Lungs and pleural spaces: There is moderate emphysema. Foci of parenchymal scarring are seen througho ut both lungs. There are scattered calcified granulomas. No airspace consolidation typical for pneumo tay or pleural effusion is identified. The trachea and central airways are clear. There is an irregul ar linear density at the left apex seen on images #[id number]. This measures approximately 2 cm in lengt h and is new from 04/30/2021. Mediastinum: There is no mediastinal lymphadenopathy. Sara: Clear. Axillae: There is no axillary lymphadenopathy. Upper abdomen: Cholecystectomy clips are noted. The spleen is surgically absent and a subcentimeter s plenule is noted below the left hemidiaphragm. A duodenal diverticulum is noted. Skeletal structures: The skeletal structures are osteopenic. No lytic or blastic bony lesions are see n. IMPRESSION: 1. Tiny right-sided segmental and subsegmental pulmonary emboli as above. 2. Cardiomegaly and emphysema. 3. There is no airspace consolidation typical for pneumonia or pleural effusion. 4. There is an irregular linear 2 cm density at the left apex which is new from 04/30/2021. This is pat hologically indeterminant and may be inflammatory. A 3-4 month follow-up chest CT is recommended for reassessment and to exclude the possibility of underlying pulmonary lesion. 5. No mediastinal or hilar adenopathy is identified. 6. Additional findings as above. ACT 112: Positive. There are findings on this exam that require communication between the performing entity and the patient following Patient Test Result Information Act ([place] Act 112) guidelines. Electronically signed by: Robert Mijares M.D. 11/07/2021 6:52 PM
--- NOTE | 2021-11-07 18:56 | History & Physical Report ---
Date of Service November 07, 2021 Assessment & Plan (1) Pulmonary embolism: Plan: Patient presents with hypoxia and dyspnea on exertion. CTA Pulmonary embolism right subsegmental and segmental embolism. - tiny segmental pulmonary emboli within the right middle lobe pulmonary artery. Subsegmental pulmonary emboli are seen within branches of the right upper and right lower lobe pulmonary arteries. - Discussed case with hematology in regards to his history of ITP. Appreciate assistance Heparin or Lovenox was recommended up front - Heparin infusion with bolus - CBC PT/PTT/INR no - He is currently hemodynamically stable with no evidence of failure, BNP is normal and HScTNI is negative - ECHO in am - History of Superficial Clots previously on Lovenox and Eliquis - Transition when appropriate Likely primary cause of hypoxia continue with evaluating other cause (2) Emphysema lung: Plan: History of Smoking 40 years 2.5 PPD- has not had PFTs done or pulmonary visit - emphysematous/bullae on CT scan - not on any inhalers or medical therapy - Should get PFTs following admission - Consider adding BETHANY on discharge - ABG 7.43/41/73/27- on room air (3) Iron deficiency anemia: Plan: Chronic gets therapy q2 weeks - is pending following with GI for evaluation - Is supposed to get therapy this week (4) AAA (abdominal aortic aneurysm) without rupture: Plan: With repair - imaging in 06/15 without stenosis small type II endoleak- seen by vascular- stable and remaining aneurysmal sac decreasing in size - Did review with Vascular surgeon transmission line engineer- Heparin Infusion is ok (5) Chronic ITP (idiopathic thrombocytopenia): Plan: Follows with Hepiercevilletology oncology- Platelet count 86 -current therapy is with - Doptelet and started Tavalisse in July and prednisone for his ITP - Continue prednisone (6) Hyperlipidemia: Plan: Atorvastatin 80mg PO daily (7) Hypertension: Plan: Follow in house Continue metoprolol History of Present Illness Primary Care Provider: Daniel Alba MD 66 YOM with medcial history of: CABG x3v (2014), AAA repair EVAR 10/12), Previous smoker 2PPD x 40 years, HTN, Obesity, ITP, T-Cell granular Lymphocytic Leukemia, Iron deficiency Anemia (transfusions), MAT, Previous superficial venous thrombus (Lovenox- to eliquis previously for 6 weeks), Splenectomy. Patient comes to the EMD today for complaints of hypoxia with exertion. Patient states that for the past month he has noticed hypoxia with exertion. He had COVID in 2019 and since then he has had a pulse oximeter and oxygen at home. He has not had to use his oxygen since COVID this has just started over the month. Originally the patient thought this was related to his steroid dosing for his ITP as he was notably putting weight on. This has been titrated down and he is currently on 40mg of Prednisone and remains with hypoxia and dyspnea. He is fine at rest, but reports when he gets up and starts moving his oxygenation saturations drop down to 86%. He is able to lay flat at night and feels well when he gets up, but as above once he starts moving he gets dyspneic and places oxygen on and then rests. He is currently on 4LNC. He gets iron transfusions (FARHEME) for ZURI every 2 weeks, and he is currently not anemic. He is on Doptelet and started Tavalisse in July and prednisone for his ITP. He is on hold from his IVIG infusions with addition of previous treatment. In the EMD the patient had routine labs performed to include HScTNI, BNP, and CXR completed. These remain without acute changes. Hospitalist was consulted for admission. He is without evidence of CHF, lungs are clear without wheezing. He is not tachycardic. Will obtain CTA of the chest to rule out PE. Will obtain ABG on room air. ECHO in the morning. COVID test on admission: NEGATIVE Allergies Allergy/AdvReac Type Severity Reaction Status Date / Time azithromycin AdvReac Intermediate a-fib Verified 09/07/21 10:13 [From Zithromax Z-Evan] Home Medications Medication Instructions Recorded Confirmed Type multivitamin (Daily Multiple) 1 tab PO QAM 12/28/18 08/31/21 History krill 2 cap PO PM 02/04/20 08/31/21 History vfk-[id number]-qav-qpz-bw3-bze-astax 1,500 mg-165 mg-67.5 mg capsule (Krill Oil ([place] 3 and 6)) aspirin 81 mg tablet,delayed 81 mg PO HS 04/13/20 08/31/21 History release acetaminophen 500 mg capsule 1,000 mg PO Q6H PRN Pain 06/21/20 08/31/21 History vitamin B complex-vit B12 1,000 mcg PO DAILY 04/30/21 08/31/21 History ondansetron HCl 8 mg tablet 8 mg PO Q8H PRN Nausea 05/18/21 08/31/21 History metoprolol tartrate 25 mg tablet 12.5 mg PO BID #90 tabs 07/26/21 08/31/21 Rx pantoprazole 40 mg tablet,delayed See Rx Instructions .Route 07/26/21 08/31/21 Rx release .COMPLEX #90 tabs escitalopram oxalate 10 mg tablet See Rx Instructions .Route 08/23/21 08/31/21 Rx .COMPLEX #90 tabs fostamatinib 150 mg tablet 150 mg PO BID 08/31/21 08/31/21 History (Tavalisse) atorvastatin 80 mg tablet 80 mg PO DAILY #100 tabs 11/01/21 Rx Past Med/Surg History Medical History AAA (abdominal aortic aneurysm) Per 06/21/20 CT "5.5 cm infrarenal abdominal aortic aneurysm. Interval development of minimal infiltration adjacent to the aneurysm sac. This is nonspecific. Impending rupture is considered unlikely but cannot be c ompletely excluded" Abdominal fluid collection Complication of chemotherapy Coronary artery disease s/p CABG (2014) COVID-19 03/2020 > Dyspnea, hypoxia (hospitalized at [facility] [place]) > symptoms resolved History of GI bleed History of ITP s/p splenectomy (01/2020) History of UT (myocardial infarction) Hyperlipidemia Hypertension Osteoarthritis Superficial thrombophlebitis RLE x2 (was on ~6 weeks of eliquis then discontinued per hematology records) T-cell large granular lymphocytic leukemia Surgical History H/O cardiac catheterization 2014 > no stents H/O colonoscopy H/O inguinal hernia repair H/O splenectomy Laparoscopic Splenectomy (02/19/2020): Grade view 2, MAC#4, ETT 7.5 at [facility] History of AAA (abdominal aortic aneurysm) repair History of cholecystectomy 08/12/2020 ([facility] [place]) History of esophagogastroduodenoscopy (EGD) History of herniorrhaphy History of thoracotomy D/T hx spontaneous pneumothorax History of tonsillectomy History of tooth extraction S/P triple vessel bypass 2014 ([facility] [place]) Family History Father Motor vehicle accident Grandfather (Paternal) Cardiac disorder Hypertension Coronary heart disease Grandmother (Paternal) Diabetes Grandmother (Maternal) Stroke Mother AML (acute myelogenous leukemia) Grandfather (Paternal) Myocardial infarction Denies family history of Family history of ITP Ovarian cancer Prostate cancer Breast cancer Colorectal cancer Social History (Updated 11/07/21 @ 19:09 by SINDHU Nath) Smoking Status: Former smoker Tobacco Type: Cigarettes and Smokeless Tobacco (Dip or Chew) packs per day: 2; Years Smoked: 40; Second Hand Exposure: No; Hx Alcohol Use: No Hx Substance Use: No Preferred Language: Arabic Communication Ability: Effective Visual Impairment: No Limitations Hearing Ability: Normal Police Judge Required: No Beliefs That Will Affect Care: None marital status: Current Living Situation: Spouse Current Living Situation Comment: lives in [place] current occupational status: 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 How many Children do You have: 1 How many Children do You have Comment: son Feels Safe at Home: Yes Childhood Exposure to Second-Hand Smoke: No Diet Comment: regular caffeine: Yes (coffee 2 per day.) during the past year weight has: remained stable Dental Care, Regularly: Yes Physical Activity Frequency: Does not Exercise Seatbelt Use: always Sunscreen Use: Yes Assistive Devices: Glasses Review of Systems Review of Systems: REVIEW OF SYSTEMS: Constitutional: No fever, sweats or chills Eyes: No diplopia, no worsening or blurred vision ENT: normal hearing, no trouble swallowing Respiratory: (+) dyspnea/hypoxia, No cough, sputum, dyspnea at rest or on exertion Cardiovascular: No chest pain, tightness or palpitations Abdomen: No pain, nausea, vomiting, diarrhea or constipation Musculoskeletal: No joint pain, calf pain, swelling Neurologic: No weakness, numbness/tingling, or balance problems Psychiatric: No anxiety or depression Skin: No rash or itch Physical Exam Physical Exam: REVIEW OF SYSTEMS: Constitutional: No fever, sweats or chills Eyes: No diplopia, no worsening or blurred vision ENT: normal hearing, no trouble swallowing Respiratory: (+) dyspnea/hypoxia with exertion, NO cough, sputum, Cardiovascular: No chest pain, tightness or palpitations Abdomen: No pain, nausea, vomiting, diarrhea or constipation Musculoskeletal: No joint pain, calf pain, swelling Neurologic: No weakness, numbness/tingling, or balance problems Psychiatric: No anxiety or depression Skin: No rash or itch Results & Data Results & Data ([facility]) Vital Signs (Past 12 Hours) Vital Signs Temp Pulse Resp BP Pulse Ox O2 Del Method O2 Flow Rate 11/07/21 18:00 70 25 H 97 Nasal Cannula 4 11/07/21 18:00 127/82 11/07/21 17:31 136/81 11/07/21 17:31 74 27 H 94 Nasal Cannula 4 11/07/21 17:01 130/84 11/07/21 17:00 97 11/07/21 16:00 63 12 97 Nasal Cannula 4 11/07/21 16:00 120/71 11/07/21 15:20 Room Air 11/07/21 15:23 36.4 C L 68 22 114/73 97 Nasal Cannula Laboratory Results Abnormal lab results 11/07/21 11/07/21 Range/Units 15:44 15:44 WBC 12.95 H (4.8-10.8) K/ul Hgb 12.9 L (14.0-18.0) g/dl MCV 79.2 L (80.0-100.0) fL MCH 24.9 L (25.0-34.0) pg MCHC 31.4 L (32.0-36.0) g/dL RDW Std Deviation 60.0 H (36.4-46.3) fL RDW Coeff of Kilo 21.5 H (11.5-14.5) % Plt Count 86 L (130-400) K/uL MPV 9.3 L (9.4-12.4) fL Neut # (Auto) 8.89 H (1.4-6.5) K/uL Lymph # (Auto) 3.80 H (1.2-3.4) K/uL Valencia # (Auto) 0.15 L (0.24-0.82) K/uL Immature Gran # (Auto) 0.08 H (0.00-0.02) K/uL Absolute Nucleated RBC 0.03 H (0-0) K/uL Platelet Estimate Decreased L (Normal) BUN/Creatinine Ratio 25.3 H (10-20) Glucose 117 H (70-99(Fasting)) mg/dl Total Bilirubin 1.6 H (0.2-1.0) mg/dl Diagnostic Findings Chest X-Ray 11/07/21 16:11 SINGLE VIEW CHEST CLINICAL HISTORY: Dyspnea FINDINGS: An AP, portable, upright chest radiograph is compared to study dated 09/07/2020 and correlated with chest CT dated 04/30/2021. The patient is status post midline sternotomy. The heart is enlarged noting atherosclerotic calcification of the thoracic aorta. The pulmonary vasculature is noncongested. Enlargement of the right pulmonary arteries suggests pulmonary artery hypertension. Emphysema and chronic interstitial thickening is similar to previous. Foci of parenchymal scarring are seen throughout both lungs, greatest at the lung bases. There is no airspace consolidation typical for pneumonia or pleural effusion. No pneumothorax is seen. The skeletal structures are osteopenic. The bony thorax is grossly intact. IMPRESSION: Cardiomegaly and emphysema with no acute cardiopulmonary abnormality identified. ACT 112: Negative or not required by law. Electronically signed by: Robert Mijares M.D. 11/07/2021 4:48 PM Chest CTA 11/07/21 18:07 CT ANGIOGRAM OF THE CHEST CLINICAL HISTORY: Dyspnea. COMPARISON STUDY: Chest x-ray dated 11/07/2021. Chest CT dated 04/30/2021. TECHNIQUE: Following the IV administration of 114 cc of Optiray 320, CT angiogram of the chest was performed from the upper abdomen to the thoracic inlet utilizing the pulmonary embolus protocol. Images are reviewed in the axial, sagittal, and coronal planes. 3-D MIPS images are created and assessed. IV contrast was administered without complication. A dose lowering technique was utilized adhering to the principles of ALARA. CT DOSE: 751.19 mGy.cm FINDINGS: Thyroid: Imaged portions of the thyroid gland are normal in size and attenuation. Thoracic aorta: There is atherosclerotic calcification of the thoracic aorta, which is normal in caliber and demonstrates standard 3-vessel arch anatomy. No dissection is seen. Pulmonary vasculature: The pulmonary trunk is normal in caliber. There are tiny segmental pulmonary emboli within the right middle lobe pulmonary artery. Subsegmental pulmonary emboli are seen within branches of the right upper and right lower lobe pulmonary arteries. No left-sided pulmonary emboli are identified. Heart: The patient is status post midline sternotomy. The heart is mildly enlarged and without pericardial effusion. The coronary arteries are densely calcified. Lungs and pleural spaces: There is moderate emphysema. Foci of parenchymal scarring are seen throughout both lungs. There are scattered calcified granulomas. No airspace consolidation typical for pneumonia or pleural effusion is identified. The trachea and central airways are clear. There is an irregular linear density at the left apex seen on images #[id number]. This measures approximately 2 cm in length and is new from 04/30/2021. Mediastinum: There is no mediastinal lymphadenopathy. Sara: Clear. Axillae: There is no axillary lymphadenopathy. Upper abdomen: Cholecystectomy clips are noted. The spleen is surgically absent and a subcentimeter splenule is noted below the left hemidiaphragm. A duodenal diverticulum is noted. Skeletal structures: The skeletal structures are osteopenic. No lytic or blastic bony lesions are seen. IMPRESSION: 1. Tiny right-sided segmental and subsegmental pulmonary emboli as above. 2. Cardiomegaly and emphysema. 3. There is no airspace consolidation typical for pneumonia or pleural effusion. 4. There is an irregular linear 2 cm density at the left apex which is new from 04/30/2021. This is pathologically indeterminant and may be inflammatory. A 3-4 month follow-up chest CT is recommended for reassessment and to exclude the possibility of underlying pulmonary lesion. 5. No mediastinal or hilar adenopathy is identified. 6. Additional findings as above. ACT 112: Positive. There are findings on this exam that require communication between the performing entity and the patient following Patient Test Result Information Act ([place] Act 112) guidelines. Electronically signed by: Robert Mijares M.D. 11/07/2021 6:52 PM Medications Administered Home Medications multivitamin (Daily Multiple) 1 tab PO QAM 12/28/18 [History Confirmed 08/31/21] krill [id number]-[id number]-ray-astax 1,500 mg-165 mg-67.5 mg capsule (Krill Oil ([place] 3 and 6)) 2 cap PO PM 02/04/20 [History Confirmed 08/31/21] aspirin 81 mg tablet,delayed release 81 mg PO HS 04/13/20 [History Confirmed 08/31/21] acetaminophen 500 mg capsule 1,000 mg PO Q6H PRN Pain 06/21/20 [History Confirmed 08/31/21] vitamin B complex-vit B12 1,000 mcg PO DAILY 04/30/21 [History Confirmed 08/31/21] ondansetron HCl 8 mg tablet 8 mg PO Q8H PRN Nausea 05/18/21 [History Confirmed 08/31/21] metoprolol tartrate 25 mg tablet 12.5 mg PO BID #90 tabs 07/26/21 [Rx Confirmed 08/31/21] pantoprazole 40 mg tablet,delayed release See Rx Instructions .Route .COMPLEX #90 tabs 07/26/21 [Rx Confirmed 08/31/21] escitalopram oxalate 10 mg tablet See Rx Instructions .Route .COMPLEX #90 tabs 08/23/21 [Rx Confirmed 08/31/21] fostamatinib 150 mg tablet (Tavalisse) 150 mg PO BID 08/31/21 [History Confirmed 08/31/21] atorvastatin 80 mg tablet 80 mg PO DAILY #100 tabs 11/01/21 [Rx] Active Medications Heparin Sodium (Porcine) (Heparin Sod (Porcine) 1000 Unit/Ml) 1 units IV NOW ONE Stop: 11/07/21 19:24 Heparin Sodium/Dextrose (Heparin Iv Adult Wt-Based Standard With Bolus Protocol) each IV NOW STA; Protocol Stop: 11/07/21 19:08 Heparin Sodium/Dextrose (Heparin Sodium/Dextrose) 25,000 units in 500 mls @ 0.02 mls/hr IV .Q24H FELICE; Protocol Stop: 12/07/21 19:29 ECG Additional Comments: Normal sinus rhythm Normal ECG When compared with ECG of 21-JUN-2020 08:56, Nonspecific T wave abnormality no longer evident in Anterior leads Code Status & VTE Plan Code Status CODE: FULL VTE: SCDS, Heparin infusion VTE Prophylaxis Plan VTE Prophylaxis will be ordered: Yes PG Care Time/CCT Total # of Minutes Spent Total Time Spent with Patient: Total time spent is greater than 50% in coordination of care (as documented) at patient's floor/unit and/or counseling patient: Coding Level of Care Code 00969 Initial Inpt Care Lvl 3 Diagnoses Pulmonary embolism I26.99 Emphysema lung J43.9 Iron deficiency anemia D50.9 AAA (abdominal aortic aneurysm) without rupture I71.4 Chronic ITP (idiopathic thrombocytopenia) D69.3 Hyperlipidemia E78.5 Hypertension I10
[2021-11-07] MEDS ORDERED: Heparin IV Adult Wt-Based Standard WITH Bolus Protocol IV STA (19:07)
[2021-11-07] MEDS ORDERED: HEPARIN SOD (PORCINE) 1000 UNIT/ML IV ONE (19:23)
[2021-11-07 19:33] LABS: INR 0.9 (0.9-1.1); Partial Thromboplastin Ratio 1.1; Partial Thromboplastin Time 30.5 Seconds (21.0-31.0); Prothrombin Time 10.1 Seconds (9.0-12.0)
[2021-11-07] MEDS: HEPARIN SODIUM/DEXTROSE 25,000 UNITS/500 ML BAG IV SCH ×2 (19:47→19:51)
[2021-11-07 20:42] LABS: Acanthocytes 1+; Anisocytosis Present; Basophils # (auto) 0.02 K/uL (0-0.2); Basophils % (auto) 0.2 %; Hematocrit (blood only) 39.2 % (40.1-51.0); Hemoglobin 12.3 g/dl (14.0-18.0); Immature Granulocytes # (auto) 0.08 K/uL (0.00-0.02); Immature Granulocytes % (auto) 0.7 %; Lymphocytes # (auto) 5.04 K/uL (1.2-3.4); Lymphocytes % (auto) 42.9 %; Mean Corpuscular Hemoglobin 24.8 pg (25.0-34.0); Mean Corpuscular Hgb Conc 31.4 g/dL (32.0-36.0); Mean Corpuscular Volume 79.2 fL (80.0-100.0); Monocytes # (auto) 0.41 K/uL (0.24-0.82); Monocytes % (auto) 3.5 %; Neutrophils % (auto) 52.7 %; Nucleated RBC # (auto) 0.05 K/uL (0-0); Nucleated RBC % (auto) 0.4 %; Platelet Count 86 K/uL (130-400); Platelet Estimate Decreased (Normal); Poikilocytosis Present; Polychromasia 1+; RDW Coefficient of Variation 21.4 % (11.5-14.5); RDW Standard Deviation 59.7 fL (36.4-46.3); Red Blood Count 4.95 M/uL (4.63-6.08); Schistocytes 1+; Target Cells 1+; White Blood Count 11.75 K/ul (4.8-10.8)
[2021-11-07] MEDS ORDERED: ESCITALOPRAM OXALATE 10 MG TAB PO SCH (20:46)
[2021-11-07] MEDS ORDERED: ACETAMINOPHEN 325 MG TAB PO PRN (20:46)
[2021-11-07] MEDS ORDERED: ASPIRIN 81 MG ECTAB PO SCH (21:00)
[2021-11-07 21:10] LABS: Iron 32 mcg/dl (35-175); Total Iron Binding Cap Calc 443 mcg/dl (250-450); Transferrin (FE) Percent Satur 7 % (20-50); Unsaturated Iron Binding Cap 411 mcg/dl (155-355)
[2021-11-07] MEDS: PANTOprazole 40 MG TAB PO SCH (21:50)
[2021-11-07] MEDS: METOPROLOL TARTRATE 25 MG TAB PO SCH (21:50)
[2021-11-07] MEDS ORDERED: ESCITALOPRAM OXALATE 10 MG TAB PO ONE (22:15)
[2021-11-08 02:41] LABS: BUN Creatinine Ratio 19.1 (10-20); Calcium 8.3 mg/dl (8.5-10.1); Creatinine Clr Calc Pharmacy 87.3 ml/min; Est GFR (African American) 96.2 ml/min; Potassium 3.6 mmol/L (3.5-5.1)
[2021-11-08 02:42] LABS: Schistocytes Occasional
[2021-11-08 02:44] LABS: Hematocrit (blood only) 38.3 % (40.1-51.0); Hemoglobin 12.1 g/dl (14.0-18.0); Mean Corpuscular Hemoglobin 24.9 pg (25.0-34.0); Mean Corpuscular Hgb Conc 31.6 g/dL (32.0-36.0); Mean Platelet Volume 10.1 fL (9.4-12.4); Nucleated RBC # (auto) 0.05 K/uL (0-0); Nucleated RBC % (auto) 0.5 %; Platelet Count 80 K/uL (130-400); RDW Coefficient of Variation 21.4 % (11.5-14.5); RDW Standard Deviation 60.1 fL (36.4-46.3); Red Blood Count 4.85 M/uL (4.63-6.08); White Blood Count 10.39 K/ul (4.8-10.8)
[2021-11-08 02:46] LABS: Acanthocytes 1+; Anisocytosis Present; Basophils # (auto) 0.03 K/uL (0-0.2); Basophils % (auto) 0.3 %; Echinocytes 1+; Eosinophils # (auto) 0.05 K/uL (0-0.50); Eosinophils % (auto) 0.5 %; Immature Granulocytes # (auto) 0.07 K/uL (0.00-0.02); Immature Granulocytes % (auto) 0.7 %; Lymphocytes % (auto) 46.2 %; Monocytes # (auto) 0.52 K/uL (0.24-0.82); Neutrophils # (auto) 4.92 K/uL (1.4-6.5); Neutrophils % (auto) 47.3 %; Polychromasia 1+
[2021-11-08 02:54] LABS: Partial Thromboplastin Ratio > 5.1
[2021-11-08 03:01] LABS: Partial Thromboplastin Time > 139.0 Seconds (21.0-31.0)
[2021-11-08 04:54] LABS: Partial Thromboplastin Ratio > 5.1
[2021-11-08 05:32] LABS: Partial Thromboplastin Time > 139.0 Seconds (21.0-31.0)
[2021-11-08 06:26] LABS: Partial Thromboplastin Ratio 2.8
[2021-11-08 06:41] LABS: Partial Thromboplastin Time 77.6 Seconds (21.0-31.0)
--- NOTE | 2021-11-08 07:06 | Hospitalist Progress Note ---
Date of Service November 08, 2021 Assessment & Plan (1) Pulmonary embolism: (2) Emphysema lung: (3) Iron deficiency anemia: (4) AAA (abdominal aortic aneurysm) without rupture: (5) Chronic ITP (idiopathic thrombocytopenia): (6) Hyperlipidemia: (7) Hypertension: Plan Mr. Dia is a 56 y/o male with a PMHx of CABG x3v (2014), AAA repair (EVAR 10/12), 80 pack year smoking history, HTN, Obesity, ITP, T-Cell granular Lymphocytic Leukemia, Iron deficiency Anemia (transfusions), MAT, previous superficial venous thrombus (Lovenox- to eliquis previously for 6 weeks), and splenectomy here for evaluation of hyopxia with exertion of one month duration. He was using 4L NC at home from an oxygen compressor they sent him home with when he had Covid in 2019. He was also using a pulse oximeter to monitor his sats. At rest he was 94-95. Yesterday with activity his sat was 75% He gets iron transfusions (FARHEME) for ZURI every 2 weeks. Currently anemic.He is on Doptelet and started Tavalisse in July 2019 and prednisone for his ITP. He is on hold from his IVIG infusions with addition of previous treatment.In the EMD the patient had routine labs performed to include HScTNI, BNP, and CXR completed. These remain without acute changes.He is without evidence of CHF, lungs are clear without wheezing.He is not tachycardic. Will obtain ABG on room air.ECHO was unchanged from previous. #PE Patient presents with hypoxia and dyspnea on exertion. CTA Pulmonary embolism right subsegmental and segmental embolism. Tiny segmental pulmonary emboli within the right middle lobe pulmonary artery. Subsegmental pulmonary emboli are seen within branches of the right upper and right lower lobe pulmonary arteries. [] hematology rec heparin - f/u CBC and coag studies [] He is currently hemodynamically stable with no evidence of failure, BNP is normal and HScTNI is negative [] AM ECHO [] History of Superficial Clots previously on Lovenox and Eliquis [] Transition when appropriate Likely primary cause of hypoxia continue with evaluating other cause #Emphysema Patient has an 80 pack year smoking history. He has not been evaluated for COPD - not on any inhalers or medical therapy. Emphysematous/bullae on CT scan. ABG 7.43/41/73/27- on room air. Patient would benefit from outpatient PFTs and maintenance medication - anticholinergic. F/u with PCP. []f/u outpatient #Iron deficiency anemia He gets iron transfusions (FARHEME) for ZURI every 2 weeks. Currently anemic.He is on Doptelet and started Tavalisse in July 2019 and prednisone for his ITP. He is on hold from his IVIG infusions with addition of previous treatment. He was supposed to get treatment this week so we will do Venofer 300 mg x3 while inpatient. [] is pending following with GI for evaluation #AAA s/p repair - imaging in 06/15 without stenosis small type II endoleak- seen by vascular- stable and remaining aneurysmal sac decreasing in size - Did review with Vascular surgeon solar installation helper- Heparin Infusion is ok #ITP Follows with Hematology oncology- Platelet count 86. Hematology recommended we increase prednisone to 100 mg. Patient received 40 mg this morning, 60 mg given this afternoon. - current therapy is with --> Doptelet and started Tavalisse in July 2019 and prednisone for his ITP [] f/u outpatient with Heme #HLD Atorvastatin 80mg PO daily #HTN Continue home metoprolol [] monitor Admission and Anticipated Discharge Date Admission Date: November 07, 2021 Subjective The patient notes that he is feeling much better today. He reports significantly decreased SOB. He has been able to walk to and from the bathroom without feeling SOB. The patient denies any f/c/SOB/cp/abdominal pain Review of Systems Review of Systems: See subjective/HPI Physical Exam Constitutional: WD/WN, vitals as above Eyes: PERRL, conjunctivae normal, anicteric sclerae Respiratory: normal respiratory effort, lungs clear to auscultation Cardiovascular: RRR, no murmur, no edema Neurologic: moves all extremities and awake Psychiatric: A+Ox3, euthymic affect Results & Data Results & Data ([facility]) Vital Signs (Past 12 Hours) Vital Signs Temp Pulse Pulse Pulse Resp BP Pulse Ox 11/08/21 02:51 36.5 C 55 L 18 128/79 94 11/07/21 22:23 82 11/07/21 23:24 36.8 C 51 L 18 107/67 94 11/07/21 22:58 69 11/07/21 20:52 36.4 C L 67 18 122/81 95 11/07/21 19:55 63 63 20 112/67 95 11/07/21 19:07 79 79 24 132/81 94 O2 Del Method 11/08/21 02:51 Room Air 11/07/21 22:23 11/07/21 23:24 Room Air 11/07/21 22:58 11/07/21 20:52 Room Air 11/07/21 19:55 Room Air 11/07/21 19:07 Room Air Laboratory Results 11/08/21 11/08/21 11/08/21 Range/Units 05:46 04:10 01:59 WBC (4.8-10.8) K/ul RBC (4.63-6.08) M/uL Hgb (14.0-18.0) g/dl Hct (40.1-51.0) % MCV (80.0-100.0) fL MCH (25.0-34.0) pg MCHC (32.0-36.0) g/dL RDW Std Deviation (36.4-46.3) fL RDW Coeff of Kilo (11.5-14.5) % Plt Count (130-400) K/uL MPV (9.4-12.4) fL Immature Gran % (Auto) % Neut % (Auto) % Lymph % (Auto) % [place] % (Auto) % Eos % (Auto) % Baso % (Auto) % Neut # (Auto) (1.4-6.5) K/uL Lymph # (Auto) (1.2-3.4) K/uL [place] # (Auto) (0.24-0.82) K/uL Eos # (Auto) (0-0.50) K/uL Baso # (Auto) (0-0.2) K/uL Immature Gran # (Auto) (0.00-0.02) K/uL Absolute Nucleated RBC (0-0) K/uL Nucleated RBC % (auto) % Platelet Estimate (Normal) Polychromasia Poikilocytosis Anisocytosis Target Cells Echinocytes Acanthocytes (Spur) Schistocytes PT (9.0-12.0) Seconds INR (0.9-1.1) APTT 77.6 H* > 139.0 H* > 139.0 H* (21.0-31.0) Seconds PTT Ratio 2.8 > 5.1 > 5.1 Sodium (136-145) mmol/L Potassium (3.5-5.1) mmol/L Chloride (98-107) mmol/L Carbon Dioxide (21-32) mmol/L Anion Gap (3-11) BUN (6-23) mg/dl Creatinine (0.6-1.4) mg/dl Est Cr Clr Drug Dosing ml/min Est GFR ( Amer) ml/min Est GFR (Non-Af Amer) ml/min BUN/Creatinine Ratio (10-20) Glucose (70-99(Fasting)) mg/dl Calcium (8.5-10.1) mg/dl Magnesium (1.7-2.4) mg/dl Iron (35-175) mcg/dl TIBC (250-450) mcg/dl Unsaturated IBC (155-355) mcg/dl Transferrin % Sat (20-50) % Ferritin (8-388) ng/ml Total Bilirubin (0.2-1.0) mg/dl AST (13-39) U/L ALT (7-52) U/L Alkaline Phosphatase (34-104) U/L Troponin I High Sens (0-20) pg/ml B-Natriuretic Peptide (0-100) pg/ml Total Protein (6.0-8.3) gm/dl Albumin (3.4-5.0) gm/dl Globulin (2.5-4.0) gm/dl Albumin/Globulin Ratio (0.9-2) Lipase (11-82) U/L Folate (>5.38) ng/ml TSH (0.300-4.500) uIu/ml SARS-CoV-2 (PCR) (Negative) Influenza Type A (PCR) (Neg) Influenza Type B (PCR) (Neg) RSV (RT-PCR) (Neg) 11/08/21 11/08/21 11/08/21 Range/Units 01:59 01:59 01:59 WBC 10.39 (4.8-10.8) K/ul RBC 4.85 (4.63-6.08) M/uL Hgb 12.1 L (14.0-18.0) g/dl Hct 38.3 L (40.1-51.0) % MCV 79.0 L (80.0-100.0) fL MCH 24.9 L (25.0-34.0) pg MCHC 31.6 L (32.0-36.0) g/dL RDW Std Deviation 60.1 H (36.4-46.3) fL RDW Coeff of Kilo 21.4 H (11.5-14.5) % Plt Count 80 L (130-400) K/uL MPV 10.1 (9.4-12.4) fL Immature Gran % (Auto) 0.7 % Neut % (Auto) 47.3 % Lymph % (Auto) 46.2 % [place] % (Auto) 5.0 % Eos % (Auto) 0.5 % Baso % (Auto) 0.3 % Neut # (Auto) 4.92 (1.4-6.5) K/uL Lymph # (Auto) 4.80 H (1.2-3.4) K/uL [place] # (Auto) 0.52 (0.24-0.82) K/uL Eos # (Auto) 0.05 (0-0.50) K/uL Baso # (Auto) 0.03 (0-0.2) K/uL Immature Gran # (Auto) 0.07 H (0.00-0.02) K/uL Absolute Nucleated RBC 0.05 H (0-0) K/uL Nucleated RBC % (auto) 0.5 % Platelet Estimate (Normal) Polychromasia 1+ Poikilocytosis Anisocytosis Present Target Cells Echinocytes 1+ Acanthocytes (Spur) 1+ Schistocytes Occasional PT (9.0-12.0) Seconds INR (0.9-1.1) APTT (21.0-31.0) Seconds PTT Ratio Sodium 138 (136-145) mmol/L Potassium 3.6 (3.5-5.1) mmol/L Chloride 102 (98-107) mmol/L Carbon Dioxide 29 (21-32) mmol/L Anion Gap 7 (3-11) BUN 18 (6-23) mg/dl Creatinine 0.94 (0.6-1.4) mg/dl Est Cr Clr Drug Dosing 87.3 ml/min Est GFR ( Amer) 96.2 ml/min Est GFR (Non-Af Amer) 83.0 ml/min BUN/Creatinine Ratio 19.1 (10-20) Glucose 106 H (70-99(Fasting)) mg/dl Calcium 8.3 L (8.5-10.1) mg/dl Magnesium 2.0 (1.7-2.4) mg/dl Iron 35 (35-175) mcg/dl TIBC (250-450) mcg/dl Unsaturated IBC (155-355) mcg/dl Transferrin % Sat (20-50) % Ferritin 23.0 (8-388) ng/ml Total Bilirubin (0.2-1.0) mg/dl AST (13-39) U/L ALT (7-52) U/L Alkaline Phosphatase (34-104) U/L Troponin I High Sens (0-20) pg/ml B-Natriuretic Peptide (0-100) pg/ml Total Protein (6.0-8.3) gm/dl Albumin (3.4-5.0) gm/dl Globulin (2.5-4.0) gm/dl Albumin/Globulin Ratio (0.9-2) Lipase (11-82) U/L Folate 14.62 (>5.38) ng/ml TSH (0.300-4.500) uIu/ml SARS-CoV-2 (PCR) (Negative) Influenza Type A (PCR) (Neg) Influenza Type B (PCR) (Neg) RSV (RT-PCR) (Neg) 11/07/21 11/07/21 11/07/21 Range/Units 19:26 16:31 16:20 WBC 11.75 H (4.8-10.8) K/ul RBC 4.95 (4.63-6.08) M/uL Hgb 12.3 L (14.0-18.0) g/dl Hct 39.2 L (40.1-51.0) % MCV 79.2 L (80.0-100.0) fL MCH 24.8 L (25.0-34.0) pg MCHC 31.4 L (32.0-36.0) g/dL RDW Std Deviation 59.7 H (36.4-46.3) fL RDW Coeff of Kilo 21.4 H (11.5-14.5) % Plt Count 86 L (130-400) K/uL MPV 9.0 L (9.4-12.4) fL Immature Gran % (Auto) 0.7 % Neut % (Auto) 52.7 % Lymph % (Auto) 42.9 % [place] % (Auto) 3.5 % Eos % (Auto) 0.0 % Baso % (Auto) 0.2 % Neut # (Auto) 6.20 (1.4-6.5) K/uL Lymph # (Auto) 5.04 H (1.2-3.4) K/uL [place] # (Auto) 0.41 (0.24-0.82) K/uL Eos # (Auto) 0.00 (0-0.50) K/uL Baso # (Auto) 0.02 (0-0.2) K/uL Immature Gran # (Auto) 0.08 H (0.00-0.02) K/uL Absolute Nucleated RBC 0.05 H (0-0) K/uL Nucleated RBC % (auto) 0.4 % Platelet Estimate Decreased L (Normal) Polychromasia 1+ Poikilocytosis Present Anisocytosis Present Target Cells 1+ Echinocytes Acanthocytes (Spur) 1+ Schistocytes 1+ PT (9.0-12.0) Seconds INR (0.9-1.1) APTT (21.0-31.0) Seconds PTT Ratio Sodium (136-145) mmol/L Potassium (3.5-5.1) mmol/L Chloride (98-107) mmol/L Carbon Dioxide (21-32) mmol/L Anion Gap (3-11) BUN (6-23) mg/dl Creatinine (0.6-1.4) mg/dl Est Cr Clr Drug Dosing ml/min Est GFR ( Amer) ml/min Est GFR (Non-Af Amer) ml/min BUN/Creatinine Ratio (10-20) Glucose (70-99(Fasting)) mg/dl Calcium (8.5-10.1) mg/dl Magnesium (1.7-2.4) mg/dl Iron (35-175) mcg/dl TIBC (250-450) mcg/dl Unsaturated IBC (155-355) mcg/dl Transferrin % Sat (20-50) % Ferritin (8-388) ng/ml Total Bilirubin (0.2-1.0) mg/dl AST (13-39) U/L ALT (7-52) U/L Alkaline Phosphatase (34-104) U/L Troponin I High Sens (0-20) pg/ml B-Natriuretic Peptide 66 (0-100) pg/ml Total Protein (6.0-8.3) gm/dl Albumin (3.4-5.0) gm/dl Globulin (2.5-4.0) gm/dl Albumin/Globulin Ratio (0.9-2) Lipase (11-82) U/L Folate (>5.38) ng/ml TSH (0.300-4.500) uIu/ml SARS-CoV-2 (PCR) NEGATIVE (Negative) Influenza Type A (PCR) Negative (Neg) Influenza Type B (PCR) Negative (Neg) RSV (RT-PCR) Negative (Neg) 11/07/21 11/07/21 11/07/21 Range/Units 15:44 15:44 15:44 WBC (4.8-10.8) K/ul RBC (4.63-6.08) M/uL Hgb (14.0-18.0) g/dl Hct (40.1-51.0) % MCV (80.0-100.0) fL MCH (25.0-34.0) pg MCHC (32.0-36.0) g/dL RDW Std Deviation (36.4-46.3) fL RDW Coeff of Kilo (11.5-14.5) % Plt Count (130-400) K/uL MPV (9.4-12.4) fL Immature Gran % (Auto) % Neut % (Auto) % Lymph % (Auto) % [place] % (Auto) % Eos % (Auto) % Baso % (Auto) % Neut # (Auto) (1.4-6.5) K/uL Lymph # (Auto) (1.2-3.4) K/uL [place] # (Auto) (0.24-0.82) K/uL Eos # (Auto) (0-0.50) K/uL Baso # (Auto) (0-0.2) K/uL Immature Gran # (Auto) (0.00-0.02) K/uL Absolute Nucleated RBC (0-0) K/uL Nucleated RBC % (auto) % Platelet Estimate (Normal) Polychromasia Poikilocytosis Anisocytosis Target Cells Echinocytes Acanthocytes (Spur) Schistocytes PT 10.1 (9.0-12.0) Seconds INR 0.9 (0.9-1.1) APTT 30.5 (21.0-31.0) Seconds PTT Ratio 1.1 Sodium (136-145) mmol/L Potassium (3.5-5.1) mmol/L Chloride (98-107) mmol/L Carbon Dioxide (21-32) mmol/L Anion Gap (3-11) BUN (6-23) mg/dl Creatinine (0.6-1.4) mg/dl Est Cr Clr Drug Dosing ml/min Est GFR ( Amer) ml/min Est GFR (Non-Af Amer) ml/min BUN/Creatinine Ratio (10-20) Glucose (70-99(Fasting)) mg/dl Calcium (8.5-10.1) mg/dl Magnesium (1.7-2.4) mg/dl Iron 32 L (35-175) mcg/dl TIBC 443 (250-450) mcg/dl Unsaturated IBC 411 H (155-355) mcg/dl Transferrin % Sat 7 L (20-50) % Ferritin (8-388) ng/ml Total Bilirubin (0.2-1.0) mg/dl AST (13-39) U/L ALT (7-52) U/L Alkaline Phosphatase (34-104) U/L Troponin I High Sens (0-20) pg/ml B-Natriuretic Peptide (0-100) pg/ml Total Protein (6.0-8.3) gm/dl Albumin (3.4-5.0) gm/dl Globulin (2.5-4.0) gm/dl Albumin/Globulin Ratio (0.9-2) Lipase (11-82) U/L Folate (>5.38) ng/ml TSH 0.530 (0.300-4.500) uIu/ml SARS-CoV-2 (PCR) (Negative) Influenza Type A (PCR) (Neg) Influenza Type B (PCR) (Neg) RSV (RT-PCR) (Neg) 11/07/21 11/07/21 Range/Units 15:44 15:44 WBC 12.95 H (4.8-10.8) K/ul RBC 5.19 (4.63-6.08) M/uL Hgb 12.9 L (14.0-18.0) g/dl Hct 41.1 (40.1-51.0) % MCV 79.2 L (80.0-100.0) fL MCH 24.9 L (25.0-34.0) pg MCHC 31.4 L (32.0-36.0) g/dL RDW Std Deviation 60.0 H (36.4-46.3) fL RDW Coeff of Kilo 21.5 H (11.5-14.5) % Plt Count 86 L (130-400) K/uL MPV 9.3 L (9.4-12.4) fL Immature Gran % (Auto) 0.6 % Neut % (Auto) 68.7 % Lymph % (Auto) 29.3 % [place] % (Auto) 1.2 % Eos % (Auto) 0.0 % Baso % (Auto) 0.2 % Neut # (Auto) 8.89 H (1.4-6.5) K/uL Lymph # (Auto) 3.80 H (1.2-3.4) K/uL [place] # (Auto) 0.15 L (0.24-0.82) K/uL Eos # (Auto) 0.00 (0-0.50) K/uL Baso # (Auto) 0.03 (0-0.2) K/uL Immature Gran # (Auto) 0.08 H (0.00-0.02) K/uL Absolute Nucleated RBC 0.03 H (0-0) K/uL Nucleated RBC % (auto) 0.2 % Platelet Estimate Decreased L (Normal) Polychromasia Poikilocytosis Anisocytosis Present Target Cells Echinocytes 1+ Acanthocytes (Spur) 1+ Schistocytes 1+ PT (9.0-12.0) Seconds INR (0.9-1.1) APTT (21.0-31.0) Seconds PTT Ratio Sodium 136 (136-145) mmol/L Potassium 4.2 (3.5-5.1) mmol/L Chloride 101 (98-107) mmol/L Carbon Dioxide 28 (21-32) mmol/L Anion Gap 7 (3-11) BUN 22 (6-23) mg/dl Creatinine 0.87 (0.6-1.4) mg/dl Est Cr Clr Drug Dosing 85.0 ml/min Est GFR ( Amer) 102.8 ml/min Est GFR (Non-Af Amer) 88.7 ml/min BUN/Creatinine Ratio 25.3 H (10-20) Glucose 117 H (70-99(Fasting)) mg/dl Calcium 8.7 (8.5-10.1) mg/dl Magnesium 1.9 (1.7-2.4) mg/dl Iron (35-175) mcg/dl TIBC (250-450) mcg/dl Unsaturated IBC (155-355) mcg/dl Transferrin % Sat (20-50) % Ferritin (8-388) ng/ml Total Bilirubin 1.6 H (0.2-1.0) mg/dl AST 23 (13-39) U/L ALT 21 (7-52) U/L Alkaline Phosphatase 61 (34-104) U/L Troponin I High Sens 11.4 (0-20) pg/ml B-Natriuretic Peptide (0-100) pg/ml Total Protein 6.4 (6.0-8.3) gm/dl Albumin 3.7 (3.4-5.0) gm/dl Globulin 2.7 (2.5-4.0) gm/dl Albumin/Globulin Ratio 1.4 (0.9-2) Lipase 40 (11-82) U/L Folate (>5.38) ng/ml TSH (0.300-4.500) uIu/ml SARS-CoV-2 (PCR) (Negative) Influenza Type A (PCR) (Neg) Influenza Type B (PCR) (Neg) RSV (RT-PCR) (Neg) Diagnostic Findings CTA Chest 11/07 FINDINGS: Thyroid: Imaged portions of the thyroid gland are normal in size and attenuation. Thoracic aorta: There is atherosclerotic calcification of the thoracic aorta, which is normal in caliber and demonstrates standard 3-vessel arch anatomy. No dissection is seen. Pulmonary vasculature: The pulmonary trunk is normal in caliber. There are tiny segmental pulmonary emboli within the right middle lobe pulmonary artery. Subsegmental pulmonary emboli are seen within branches of the right upper and right lower lobe pulmonary arteries. No left-sided pulmonary emboli are identified. Heart: The patient is status post midline sternotomy. The heart is mildly enlarged and without pericardial effusion. The coronary arteries are densely calcified. Lungs and pleural spaces: There is moderate emphysema. Foci of parenchymal scarring are seen throughout both lungs. There are scattered calcified granulomas. No airspace consolidation typical for pneumonia or pleural effusion is identified. The trachea and central airways are clear. There is an irregular linear density at the left apex seen on images #[id number]. This measures approximately 2 cm in length and is new from 04/30/2021. Mediastinum: There is no mediastinal lymphadenopathy. Sara: Clear. Axillae: There is no axillary lymphadenopathy. Upper abdomen: Cholecystectomy clips are noted. The spleen is surgically absent and a subcentimeter splenule is noted below the left hemidiaphragm. A duodenal diverticulum is noted. Skeletal structures: The skeletal structures are osteopenic. No lytic or blastic bony lesions are seen. IMPRESSION: 1. Tiny right-sided segmental and subsegmental pulmonary emboli as above. 2. Cardiomegaly and emphysema. 3. There is no airspace consolidation typical for pneumonia or pleural effusion. 4. There is an irregular linear 2 cm density at the left apex which is new from 04/30/2021. This is pathologically indeterminant and may be inflammatory. A 3-4 month follow-up chest CT is recommended for reassessment and to exclude the poss ibility of underlying pulmonary lesion. 5. No mediastinal or hilar adenopathy is identified. 6. Additional findings as above. CXR 11/07 FINDINGS: An AP, portable, upright chest radiograph is compared to study dated 09/07/2020 and correlated with chest CT dated 04/30/2021. The patient is status post midline sternotomy. The heart is enlarged noting atherosclerotic calcification of the thoracic aorta. The pulmonary vasculature is non-congested. Enlargement of the right pulmonary arteries suggests pulmonary artery hypertension. Emphysema and chronic interstitial thickening is similar to previous. Foci of parenchymal scarring are seen throughout both lungs, greatest at the lung bases. There is no airspace consolidation typical for pneumonia or pleural effusion. No pneumothorax is seen. The skeletal structures are osteopenic. The bony thorax is grossly intact. IMPRESSION: Cardiomegaly and emphysema with no acute cardiopulmonary abnormality identified.
[2021-11-08] MEDS: METOPROLOL TARTRATE 25 MG TAB PO SCH (07:47)
[2021-11-08] MEDS: PANTOprazole 40 MG TAB PO SCH (07:47)
[2021-11-08] MEDS ORDERED: ESCITALOPRAM OXALATE 10 MG TAB PO SCH (09:00)
[2021-11-08] MEDS ORDERED: predniSONE 20 MG TAB PO SCH (09:00)
[2021-11-08] MEDS ORDERED: ATORVASTATIN 40 MG TAB PO SCH (09:00)
[2021-11-08 11:25] LABS: iSTAT Arterial Blood Gas pH 7.43 (7.35-7.45); iSTAT Hematocrit 38 % (42-52); iSTAT Hemoglobin 12.9 g/dl (14.0-18.0); iSTAT Potassium 4.2 mmol/L (3.3-5.0); iSTAT Sodium 132 mmol/L (135-144)
[2021-11-08 11:26] LABS: iSTAT Arterial Blood Gas HCO3 28 meg/L (19-24); iSTAT Arterial Blood Gas pCO2 41 mmHg (35-46); iSTAT Arterial Blood Gas pO2 73 mmHg (80-95); iSTAT Carbon Dioxide 29 mmol/L (24-31)
[2021-11-08] MEDS ORDERED: IRON SUCROSE 300 MG in SODIUM CHLORIDE 0.9% 250 ML IV ONE (11:30)
--- NOTE | 2021-11-08 11:44 | XCELERA ---
[id number]
--- NOTE | 2021-11-08 12:38 | Electrocardiogram Report ---
Test Reason : Blood Pressure : / mmHG Vent. Rate : 067 BPM Atrial Rate : 067 BPM P-R Int : 150 ms QRS Dur : 068 ms QT Int : 384 ms P-R-T Axes : 011 046 005 degrees QTc Int : 405 ms Normal sinus rhythm Normal ECG When compared with ECG of 21-JUN-2020 08:56, Nonspecific T wave abnormality no longer evident in Anterior leads Confirmed by Alec Jaffe [id number]) on 11/08/2021 12:38:07 PM Referred By: REFERRED SELF Confirmed By:Alec Jaffe
[2021-11-08 13:16] LABS: Partial Thromboplastin Ratio 3.9
[2021-11-08] MEDS ORDERED: predniSONE 20 MG TAB PO STA (13:20)
[2021-11-08 13:40] LABS: Partial Thromboplastin Time 106.8 Seconds (21.0-31.0)
--- NOTE | 2021-11-08 13:42 | Discharge Summary ---
Date of Service November 08, 2021 Admission HPI Per Admitting Provider 66 YOM with medcial history of: CABG x3v (2015), AAA repair EVAR 10/12), Previous smoker 2PPD x 40 years, HTN, Obesity, ITP, T-Cell granular Lymphocytic Leukemia, Iron deficiency Anemia (transfusions), MAT, Previous superficial venous thrombus (Lovenox- to eliquis previously for 6 weeks), Splenectomy. Patient comes to the EMD today for complaints of hypoxia with exertion. Patient states that for the past month he has noticed hypoxia with exertion. He had COVID in 2019 and since then he has had a pulse oximeter and oxygen at home. He has not had to use his oxygen since COVID this has just started over the month. Originally the patient thought this was related to his steroid dosing for his ITP as he was notably putting weight on. This has been titrated down and he is currently on 40mg of Prednisone and remains with hypoxia and dyspnea. He is fine at rest, but reports when he gets up and starts moving his oxygenation saturations drop down to 86%. He is able to lay flat at night and feels well when he gets up, but as above once he starts moving he gets dyspneic and places oxygen on and then rests. He is currently on 4LNC. He gets iron transfusions (FARHEME) for ZURI every 2 weeks, and he is currently not anemic. He is on Doptelet and started Tavalisse in July and prednisone for his ITP. He is on hold from his IVIG infusions with addition of previous treatment. In the EMD the patient had routine labs performed to include HScTNI, BNP, and CXR completed. These remain without acute changes. Hospitalist was consulted for admission. He is without evidence of CHF, lungs are clear without wheezing. He is not tachycardic. Will obtain CTA of the chest to rule out PE. Will obtain ABG on room air. ECHO in the morning. COVID test on admission: NEGATIVE Admission Exam Per Admitting Provider REVIEW OF SYSTEMS: Constitutional: No fever, sweats or chills Eyes: No diplopia, no worsening or blurred vision ENT: normal hearing, no trouble swallowing Respiratory: (+) dyspnea/hypoxia with exertion, NO cough, sputum, Cardiovascular: No chest pain, tightness or palpitations Abdomen: No pain, nausea, vomiting, diarrhea or constipation Musculoskeletal: No joint pain, calf pain, swelling Neurologic: No weakness, numbness/tingling, or balance problems Psychiatric: No anxiety or depression Skin: No rash or itch Principal Diagnosis Pulmonary Emboli Discharge Exam Gen: well appearing man in no acute distress Constitutional WD/WN, vitals as above Eyes PERRL, conjunctivae normal, anicteric sclerae Neck trachea midline Respiratory normal respiratory effort, lungs clear to auscultation normal respiratory effort; no respiratory distress Cardiovascular RRR, no murmur, no edema Rate/Rhythm: regular rate and regular rhythm Vessels: normal peripheral pulses Extremities: normal capillary refill Gastrointestinal (Abdomen) Inspection/Auscultation: abdomen normal to inspection Skin no rashes, warm and dry Neurologic CN's II-XI intact bilaterally and moves all extremities Psychiatric Orientation: oriented x 3 Discharge Data Allergies Allergy/AdvReac Type Severity Reaction Status Date / Time azithromycin AdvReac Intermediate a-fib Verified 09/07/21 10:13 [From Zithromax Z-Evan] Consultations 11/07/21 18:10 ED Decision to Admit Stat Ordered Studies 11/07/21 18:07 CT angio chest PE protocol ONCE Hospital Course (1) Pulmonary embolism: (2) Emphysema lung: (3) Iron deficiency anemia: (4) AAA (abdominal aortic aneurysm) without rupture: (5) Chronic ITP (idiopathic thrombocytopenia): (6) Hyperlipidemia: (7) Hypertension: Plan Mr. Dia is a 56 y/o male with a PMHx of CABG x3v (2014), AAA repair (EVAR 10/12), 80 pack year smoking history, HTN, Obesity, ITP, T-Cell granular Lymphocytic Leukemia, Iron deficiency Anemia (transfusions), MAT, previous superficial venous thrombus (Lovenox- to eliquis previously for 6 weeks), and splenectomy here for evaluation of hyopxia with exertion of one month duration. He was using 4L NC at home from an oxygen compressor they sent him home with when he had Covid in 2019. He was also using a pulse oximeter to monitor his sats. At rest he was 94-95. Yesterday with activity his sat was 75%, so he came for evaluation and was found to have multiple PEs. #PE Patient presents with hypoxia and dyspnea on exertion. HScTNI, BNP, and CXR completed. These remain without acute changes.He is without evidence of CHF, lungs are clear without wheezing.He is not tachycardic. CTA Pulmonary embolism right subsegmental and segmental embolism. Tiny segmental pulmonary emboli within the right middle lobe pulmonary artery. Subsegmental pulmonary emboli are seen within branches of the right upper and right lower lobe pulmonary arteries. Hematology recommended heparin drip inpatient. ABG did not show acidosis or alkalosis.ECHO was unchanged from previous. Patient is HDS. He has a hx of superficial clots previously on Lovenox then Eliquis. PE is likely the cause of his SOB though there may be some component of baseline lung disease. Discontinue heparin and start Eliquis 10 mg BID for 1 week, then 5 mg BID, consider switching to 5 mg QD after 3 months or so. #Emphysema Patient has an 80 pack year smoking history. He has not been evaluated for COPD - not on any inhalers or medical therapy. Emphysematous/bullae on CT scan. ABG 7.43/41/73/27- on room air. Patient would benefit from outpatient PFTs and maintenance medication - anticholinergics. F/u with PCP. #Iron deficiency anemia He gets iron transfusions (FARHEME) for ZURI every 2 weeks. Currently anemic.He is on Doptelet and started Tavalisse in July 2019 and prednisone for his ITP. He is on hold from his IVIG infusions with addition of previous treatment. He was supposed to get treatment this week so we will do Venofer 300 mg x3 while inpatient. GI f/u outpatient. #AAA s/p repair Imaging in 06/15 without stenosis small type II endoleak- seen by vascular- stable and remaining aneurysmal sac decreasing in size. Did review with Vascular surgeon studio operations engineer in charge- Heparin Infusion is ok #ITP Follows with Hematology oncology- Platelet count 86. Hematology recommended we increase prednisone to 100 mg. Patient received 40 mg this morning, 60 mg given this afternoon. - current therapy is with --> Doptelet and started Tavalisse in July 2019 and prednisone for his ITP. F/u labs and recs per heme/onc #HLD Atorvastatin 80mg PO daily #HTN Continue home metoprolol. Patient also takes lisinopril 10 mg at home. BP stable during admission. Restart lisinopril per PCP. Total Time Total Time Spent Total Time Spent (In Minutes): <30 Discharge Plan Discharge Items Patient Disposition: Home - Self-Care Reason For Visit: HYPOXIA ON EXERTION Discharge Diagnosis: pulmonary embolism Activity: Per Instructions section Non-emergency contact: Primary Care Provider and Oncologist Call non-emergency contact if: you have any medication questions and you have a fever Follow-up/Referrals: Daniel Alba MD [Primary Care Provider] - (hospital discharge follow up within 1 week) Yisel Frazier MD [Physician] - (hematology f/u within 1-2 weeks for ITP. per hematology, increased dose of prednisone 100mg daily until sees hematology) Diet: Regular Addtl Attending Provider Instructions: You were seen in the hospital for SOB and were found to have 2 small PEs. We started treatment with heparin in the hospital and transitioned to Eliquis 10 mg twice a day for a week then 5 mg twice a day. Your platelets were 80 on labs, so per Heme/ONC we increased your prednisone to 100 mg a day. They will readjust based on your weekly labs. You have a history of iron deficiency anemia - you were given Venofer inpatient since you were scheduled for that today. It was great being a part of your care team! Pending Studies at Discharge: No Stand-Alone Forms: [facility] [employer], Smoking Cessation Medications and DC Order Prescriptions: New Eliquis 5 mg tablet 5 mg PO BID Qty: 70 2RF Rx Instructions: 10mg twice a day for first 7 days. Afterwards, 5mg twice a day prednisone 20 mg tablet 100 mg PO DAILY 14 Days Qty: 70 0RF Rx Instructions: Take 100mg prednisone daily until hematology visit. Continued metoprolol tartrate 25 mg tablet 12.5 mg PO BID Qty: 90 3RF pantoprazole 40 mg tablet,delayed release (DR/EC) See Rx Instructions .ROUTE .COMPLEX Qty: 90 3RF Dose Instruction: TAKE 1 TABLET BY MOUTH EVERY DAY Rx Instructions: TAKE 1 TABLET BY MOUTH EVERY DAY escitalopram oxalate 10 mg tablet See Rx Instructions .ROUTE .COMPLEX Qty: 90 2RF Dose Instruction: TAKE 1 TABLET BY MOUTH EVERY MORNING Rx Instructions: TAKE 1 TABLET BY MOUTH EVERY MORNING atorvastatin 80 mg tablet 80 mg PO DAILY Qty: 100 3RF multivitamin [Daily Multiple] tablet 1 tab PO QAM Krill Oil ([place] 3 and 6) 1,500-165-67.5 mg Capsule 2 cap PO PM acetaminophen 500 mg Capsule 1,000 mg PO Q6H PRN (Reason: Pain) vitamin B complex-vit B12 1,000 mcg 1,000 mcg PO DAILY ondansetron HCl [Zofran] 8 mg Tablet 8 mg PO Q8H PRN (Reason: Nausea) Tavalisse 150 mg Tablet 150 mg PO BID Discontinued aspirin 81 mg Tablet,Delayed Release (Dr/Ec) 81 mg PO HS Discharge Orders: Discharge Order (Routine); Ordered 11/08/21 Ordered By: Caren Pedro Admission Data Admit Date/Time: 11/07/21 18:40 Attending Provider: Donell You Admit Provider: Miguel Bryant Primary Care Provider: Daniel Alba Other Providers: Miguel Bryant Supervising Physician Co-Signing Physician Notes I personally examined the patient and verified all avelar points of history and exam, discussed case, and agree with decision making with Dr Pedro. Breathing feels okay. Pain under good control. Would very much like to go home. Discussed anticoagulation in the context of his ITP and chronic iron deficiency anemiahe expresses a very good understanding of the whole situation, has been on blood thinners before, is aware of what to watch for, and already has weekly labs. Feels very comfortable with the situation. Vitals noted, in general he is awake and alert pleasant no distress. HEENT normocephalic atraumatic mucous membranes moist. Breathing unlabored no accessory muscle use good effort. Skin shows no rashes no pallor or icterus. Neuro without focal deficits. PEHeparin, transition to Eliquis. Given that it is his second clotting event, as well as the fact that he does not appear to have major and reversible provoking factors, simply looking at them from the standpoint of a clot would lead towards indefinite anticoagulationprobably with full anticoagulation for 3 months followed by a reduced dose indefinitely. That said, his iron deficiency anemia and thrombocytopenia both may preclude this, and we discussed this openly. At this point time we will discharge him on Eliquis to treat his current clot, and have the rest of the decision making made based on how he was doing over time/outpatient follow-up/etc. Ongoing weekly labs as he already does. We will hold his aspirin for now given that he does have ITP, iron d eficiency anemia, his coronary disease appears quite stable, and we need to initiate Eliquis. There is some literature with A. fib that suggest that when somebody has stable coronary disease over time they do better strictly with anticoagulation rather than anticoagulation and antiplateletbut this patient context was in A. fib not his situation, but pulling from that it appears safe for her to have him off the aspirin at least temporarily until it is clear that he does not run into bleeding issues with the Eliquis. Stable for home, otherwise as above Resident Activity Tracking Resident Involvement: Resident Care Provided Care Provided: Adult Hospital Medicine
--- NOTE | 2021-11-08 17:28 | Billing Data ---
Date of Service November 08, 2021 Coding Level of Care Code D/C DAY MANAGEMENT <30 MINS
[2021-11-08] MEDS ORDERED: HEPARIN-STOP ORDER ONE (18:45)
[2021-11-08] MEDS ORDERED: APIXABAN 5 MG TABLET PO ONE (18:45)
== END 2021-11-08 19:20 | disposition home or self-care (01) ==
LOC: ED 15:20 → INTOOBSV 18:40 → 2W 18:40 → SUATTDRO 18:40 → 2W 20:03

== ENCOUNTER 2022-02-24 09:58 | Inpatient (IN) ==
--- NOTE | 2022-02-10 12:55 | PAT Medication Instructions ---
Medication Instructions Date of Service February 10, 2022 Home Medications Medication Instructions Recorded metoprolol tartrate 25 mg tablet 12.5 mg PO BID #90 tabs 07/26/21 apixaban 5 mg tablet (Eliquis) 5 mg PO BID #70 tabs 11/08/21 multivitamin (Daily Multiple tablet) 1 tab PO QAM krill [id number] 1,500 mg-165 mg-67.5 mg capsule (Krill Oil ([place] 3 and 6)) 2 cap PO PM acetaminophen 500 mg capsule 1,000 mg PO Q6H PRN ondansetron HCl 8 mg tablet 8 mg PO Q8H PRN metoprolol tartrate 25 mg tablet 12.5 mg PO BID apixaban 5 mg tablet (Eliquis) 5 mg PO BID lisinopril 10 mg tablet 10 mg PO QAM pantoprazole 40 mg tablet,delayed release 40 mg PO BID prednisone 20 mg tablet 2.5 mg PO QAM atorvastatin 80 mg tablet 80 mg PO HS escitalopram oxalate 10 mg tablet 10 mg PO QAM fluticasone fur. 100 mcg-umeclid 62.5 mcg-vilant 25 mcg inhalat.powder (Trelegy Ellipta) 1 inh inhalation QDL tamsulosin 0.4 mg capsule 0.4 mg PO PM Hydrocortisone Sodium Succinate (Hydrocortisone Sod Succinate 100 Mg/2 Ml Vial) 100 mg IV Continue as directed ondansetron HCl 8 mg tablet 8 mg PO Q8H PRN(if needed) ASK your prescriber and surgeon Hydrocortisone Sodium Succinate (Hydrocortisone Sod Succinate 100 Mg/2 Ml Vial) 100 mg IV apixaban 5 mg tablet (Eliquis) 5 mg PO BID STOP taking 2 weeks before surgery krill [id number] 1,500 mg-165 mg-67.5 mg capsule (Krill Oil ([place] 3 and 6)) 2 cap PO PM DO NOT take the morning of surgery multivitamin (Daily Multiple tablet) 1 tab PO QAM lisinopril 10 mg tablet 10 mg PO QAM Take morning of surgery With a small sip of water, OTHERWISE NOTHING TO EAT OR DRINK AFTER MIDNIGHT: acetaminophen 500 mg capsule 1,000 mg PO Q6H PRN(if needed) metoprolol tartrate 25 mg tablet 12.5 mg PO BID pantoprazole 40 mg tablet,delayed release 40 mg PO BID prednisone 20 mg tablet 2.5 mg PO QAM escitalopram oxalate 10 mg tablet 10 mg PO QAM fluticasone fur. 100 mcg-umeclid 62.5 mcg-vilant 25 mcg inhalat.powder (Trelegy Ellipta) 1 inh inhalation QDL Take evening before surgery acetaminophen 500 mg capsule 1,000 mg PO Q6H PRN(if needed) metoprolol tartrate 25 mg tablet 12.5 mg PO BID pantoprazole 40 mg tablet,delayed release 40 mg PO BID atorvastatin 80 mg tablet 80 mg PO HS tamsulosin 0.4 mg capsule 0.4 mg PO PM Other Notes If you have any questions please call us at [phone] or [phone] or [phone] or [phone]
--- NOTE | 2022-02-11 15:29 | Anesthesiology Consultation ---
Date of Service February 11, 2022 Assessment & Plan (1) Encounter for pre-operative examination: - COVID screening: Per assessment on 02/11: No known COVID-19 positive contacts or current COVID-19 related symptoms. Travel screen negative. Patient vaccinated. At surgeon discretion if preop Covid testing being done. - S/P Laparoscopic Splenectomy (02/19/2020): Grade view 2, MAC#4, ETT 7.5 at [facility] - Eliquis instructions per surgeon/prescriber - Hx ITP: Dx 2014, refractory to multiple treatment regimens- underwent splenectomy 2019. [facility]. Patient has been tapered and patient now on prednisone 2.5mg daily (pt states he has been on this dose "for a long time"). Patient note to surgeon (02/09/22): "I met with my kip FREGOSO this morning. She wanted me to say something to you concerning "stress loading" with steroids prior to surgery. She suggested it because of my dependence on prednisone." > Surgeon response (02/10/22): "He will be given a dose of IV steroids pre op the day of surgery" - Cardiology office visit (02/16/22): "Post three-vessel CABG 2014 at [facility] (TAVAREZ to LAD, SVG to RCA, SVG to OM).. Aortic root/ascending aorta dilationaortic root 4.3 cm 10/2021 on echo (stable), 4.[address] 08/2020.. ITPplatelets as low as 1000, post splenectomy. Now on steroids.. AAA post EVAR 09/[address] Velazco. Type I, II endoleak awaiting repair.. MAT/symptomatic PACs.. Unprovoked PE, prior SVT now on extended anticoagulation with Eliquis.. T-cell large granular lymphocytic leukemiasurveillance per hematology.. Chronic cardiac issues stable. No active cardiac conditions. Recent echo showed normal biventricular function and stable mild aortic root dilation. Despite complex medical issues remains active, exercising regularly, achieving >4 METS. Patient intermediate risk for endovascular surgery but okay to proceed from a cardiac s tandpoint without additional cardiac testing. During perioperative period continue current metoprolol, atorvastatin and lisinopril. Eliquis can be held 48 hours prior to procedure. Long-term no changes made to cardiac regimen. Follow-up in 1 year" - Isolated elevated PTT: Appears chronic dating back to at least 2019. Patient following closely with heme/onc for ITP hx but do not see mention/review of abnormal coags in available records. Eliquis was only started 10/[address] Ruggiero, findings reviewed with Dr. Velazco- message sent to heme/onc to fu rther evaluate prior to surgery if possible. - Heme/onc obtained PTT mixing study- done 02/16 ([place]). Results reviewed by heme/onc > Heme/onc note (02/17/22): "can proceed with surgical intervention as scheduled, in setting of prolonged PTT. We will continue to monitor post operative labs including close monitoring of recurrent thrombocytopenia and repeat PTT and PT/INR levels." Chart Review Chart Review: Acceptable Risk for Surgery (pending evaluation AM DOS) and Patient seen in Pre Admission Testing Teaching & Discussion Pre-Anesthesia Teaching/Discussion Notes: Instructed NPO after midnight before surgery,except medications with 15 cc of water. Medication instructions provided according to the PAT guidelines. History Surgery Operation Date: 02/24/22 12:00 Proposed Procedures p Endovascular Repair of Type I Endoleak with Proximal Extension and Screws - Octavio Velazco MD Height/Weight Height: 5 ft 7 in Weight: 108.2 kg Allergies Allergy/AdvReac Type Severity Reaction Status Date / Time azithromycin AdvReac Intermediate a-fib Verified 02/16/22 13:45 [From Zithromax Z-Evan] Medications Home Medications Medication Instructions Recorded Confirmed Last Taken multivitamin (Daily Multiple 1 tab PO QAM 12/28/18 02/16/22 09/21/20 tablet) krill 2 cap PO PM 02/04/20 02/16/22 09/20/20 [id number]-qwf-astax 1,500 mg-165 mg-67.5 mg capsule (Krill Oil (Michael 3 and 6)) acetaminophen 500 mg capsule 1,000 mg PO Q6H PRN Pain 06/21/20 02/16/22 06/20/20 23:00 ondansetron HCl 8 mg tablet 8 mg PO Q8H PRN Nausea 05/18/21 02/16/22 Unknown metoprolol tartrate 25 mg tablet 12.5 mg PO BID #90 tabs 07/26/21 02/16/22 Unknown apixaban 5 mg tablet (Eliquis) 5 mg PO BID #70 tabs 11/08/21 02/16/22 Unknown lisinopril 10 mg tablet 10 mg PO QAM 11/17/21 02/16/22 Unknown pantoprazole 40 mg tablet,delayed 40 mg PO BID 11/17/21 02/16/22 Unknown release prednisone 20 mg tablet 2.5 mg PO QAM 12/13/21 02/16/22 Unknown atorvastatin 80 mg tablet 80 mg PO HS 02/10/22 02/16/22 Unknown escitalopram oxalate 10 mg tablet 10 mg PO QAM 02/10/22 02/16/22 Unknown fluticasone fur. 100 mcg-umeclid 1 inh inhalation QDL 02/10/22 02/16/22 Unknown 62.5 mcg-vilant 25 mcg inhalat.powder (Trelegy Ellipta) tamsulosin 0.4 mg capsule 0.4 mg PO PM 02/10/22 02/16/22 Unknown Past Medical History Medical History AAA (abdominal aortic aneurysm) AAA repair (2020) Coronary artery disease s/p CABG (2014) Follows with Dr. Leroy COVSADA-19 03/2020 > Dyspnea, hypoxia, PNA (hospitalized at [facility]) > symptoms resolved Emphysema lung COPD O2 HS + PRN 2 LPM History of GI bleed 2014 History of ITP s/p splenectomy (01/2020) History of PR (myocardial infarction) 2014 > CABG Hyperlipidemia Hypertension Iron deficiency anemia Lower urinary tract symptoms (LUTS) Reason for flomax Osteoarthritis Palpitations Pulmonary embolism 10/2021, no known cause > Eliquis Superficial thrombophlebitis RLE x2 T-cell large granular lymphocytic leukemia Exercise / Class Metabolic Activity III < 4 Walking/Shop/Light housework Past Family History Family History Father Motor vehicle accident Grandfather (Paternal) Cardiac disorder Hypertension Coronary heart disease Grandmother (Paternal) Diabetes Grandmother (Maternal) Stroke Mother AML (acute myelogenous leukemia) Grandfather (Paternal) Myocardial infarction Denies family history of Family history of ITP Ovarian cancer Prostate cancer Breast cancer Colorectal cancer Past Surgical History Surgical History H/O cardiac catheterization 2015 > no stents H/O chest tube placement for pneumothoraces in his 20s H/O colonoscopy H/O inguinal hernia repair H/O splenectomy Laparoscopic Splenectomy (02/19/2020): Grade view 2, MAC#4, ETT 7.5 at [facility] History of AAA (abdominal aortic aneurysm) repair July 2020 History of cholecystectomy 08/12/2020 ([facility]) History of esophagogastroduodenoscopy (EGD) History of herniorrhaphy History of thoracotomy D/T hx spontaneous pneumothorax History of tonsillectomy History of tooth extraction S/P endovascular aneurysm repair S/P triple vessel bypass 2014 ([facility]) Status post cholecystectomy Past Anesthesia History No Hx of Anesthesia Complications and No Family Hx of Anesthesia Complications History of PONV No Hx of PONV and No Hx of Motion Sickness Social History Smoking Status: Former smoker tobacco type: smokeless tobacco Do You Dip or Chew Tobacco: Yes (Advised none DOS ) Smoking End Date: Quit 2012 Hx Alcohol Use: No Hx Substance Use: No substance use type: does not use Review of Systems Patient denies chest pain, shortness of breath, fever, chills, cough, wheezing, palpitations. Physical Exam Vital Signs VITALS BP 107/68 P 69 TEMP 98.6 SP02 95%RA RESP 20 PHYSICAL Decreased cervical extension range of motion. Full TMJ range of motion. TMD 3 finger breaths Mallampati Score 3 Dentition: several missing including lower front Lungs: clear throughout to auscultation Cardiac: regular rate and rhythm, no murmurs noted Spine: normal Carotid arteries: negative bruit Extremities: no edema Short neck Lab Results Anesthesia Preop Results Results Anesthesia Widget: WBC 11.42 K/ul (4.8-10.8) H 02/16/22 Hgb 12.3 g/dl (14.0-18.0) L 02/16/22 Hct 38.2 % (40.1-51.0) L 02/16/22 Plt 250 K/uL (130-400) 02/16/22 Na 138 mmol/L (136-145) 02/16/22 K 4.0 mmol/L (3.5-5.1) 02/16/22 Cl 103 mmol/L (98-107) 02/16/22 CO2 29 mmol/L (21-32) 02/16/22 BUN 12 mg/dl (6-23) 02/16/22 Creat 0.97 mg/dl (0.6-1.4) 02/16/22 Glucose Level 92 mg/dl (70-99(Fasting)) 02/16/22 PT 11.0 Seconds (9.0-12.0) 02/16/22 PTT 49.3 Seconds (21.0-31.0) H* 02/16/22 INR 1.0 (0.9-1.1) 02/16/22 Blood Type A Negative 02/11/22 Antibody Screen NEGATIVE 02/11/22 Testing Electrocardiogram Date: 11/24/21 Sinus tachycardia at [address] abnormality. Chest X-Ray Date: 02/11/22 FINDINGS: The cardiac silhouette remains mildly enlarged. There are poststernotomy changes. No pleural effusions. No pneumothorax. No evidence for pulmonary edema. No new focal lung consolidations to suggest a pneumonia. No evidence for pulmonary edema. Chronic linear scarlike densities within the right mid to lower lung zone persists. Emphysema is again noted. IMPRESSION: No significant change compared to the prior study. No acute process. Cardiomegaly and emphysema again noted. Echocardiogram Date: 11/08/21 EF 60-65%. No regional motion abnormality. Mild concentric LVH. Mild TR. Mild aortic root dilatation (4.2 cm in diameter). Mildly dilated ascending aorta (4.0 cm in diameter). Compared to study 05/24/2020, no significant change per report. Stress Test Date: 01/11/19 Type: exercise Normal stress echo at 8.9 METS. 81% max predicted heart rate. No induced chest pain. No EKG changes. Mild concentric LVH. Baseline echo with normal LV systolic function without wall motion abnormality. COVID-19 Risk Screen Screening Information COVID-19 Screen Date: 02/11/22 Exposure 21 Days Family/Household +COVID Last 21 Days: No Exposure 10 Days Any COVID Exposure Last 10 Days: No Symptoms Last 10 Days Experienced COVID Sx Last 10 Days: No + COVID 0-90 Days COVID + in Last 0-90 Days: No
[~2022-02-24 09:58] MED LIST changes: +CEFAZOLIN 2,000 MG/15 ML SYR IV SCH; +HYDROCORTISONE SOD 100 MG in SYRINGE 0 ML IV ONE; +HYDROCORTISONE SOD SUCCINATE 100 MG/2 ML VIAL IV SCH; +MIDAZOLAM HCL 1 MG/ML 2ML VIAL ONE; -ceFAZolin 2000MG 2,000 MG/15 ML SYR IV SCH; +fentaNYL citrate 100 MCG/2 ML VIAL ONE
[2022-02-24 11:16] LABS: Creatinine Clr Calc Pharmacy 109.4 ml/min; Est GFR (African American) 109.2 ml/min; Est GFR (Non-African American) 94.3 ml/min
[2022-02-24] MEDS ORDERED: DEXAMETHASONE SOD INJ 4 MG/ML VIAL ONE (11:43)
[2022-02-24] MEDS ORDERED: PHENYLEPHRINE HCL 10 MG/ML VIAL ONE (11:43)
[2022-02-24] MEDS ORDERED: PROPOFOL IV EMULSION 10 MG/ML 20 ML VIAL IV ONE (11:43)
[2022-02-24] MEDS ORDERED: ONDANSETRON INJ 2 MG/ML 2 ML VIAL ONE (11:43)
[2022-02-24] MEDS ORDERED: ROCURONIUM BROMIDE 10 MG/ML 5 ML VIAL IV ONE (11:43)
[2022-02-24] MEDS ORDERED: SODIUM CHLORIDE 0.9% INJ 10 ML VIAL ONE (11:43)
[2022-02-24] MEDS ORDERED: HEPARIN SOD (PORCINE) 1000 UNIT/ML ONE (11:43)
[2022-02-24] MEDS ORDERED: LIDOCAINE 2% MPF LOCAL 5 ML VIAL INFIL ONE (11:43)
--- NOTE | 2022-02-24 12:22 | History & Physical Report ---
Date of Service February 24, 2022 History of Present Illness Primary Care Provider: Daniel Alba MD Chief Complaint rm#[id number] return after CTA yesterday after endoleak found on aortoiliac. endo Aorto biiliac repair 09/23/20 History of Present Illness I had the pleasure of seeing Grady today for follow-up. As you know he is a 66-year-old gentleman who had endovascular repair of his abdominal aortic aneurysm almost 2 years ago. He had a known type II endoleak in the past. His follow-up CT scan at this time showed a type II and type I endoleak with slight migration of the proximal end of the graft. He has no abdominal or back pain. He has no complaints of claudication. Review of Systems 10 systems were reviewed. Positive findings are shortness of breath with exertion secondary to COPD. He does you use oxygen when walking. Rest of positive findings in the HPI. Physical Exam Vitals & Measurements HR: 76 (Monitored) BP: 110/64 SpO2: 93% Input and Output - Last 24 hours (Last 8 hours) No I/O Data Found: On exam the patient is awake alert and oriented x3. His blood pressure is 110/64. Radials carotids are +2 bilaterally. Lungs are clear heart had a regular rate and rhythm abdominal exam is benign. Femorals and pedal pulses are +2 bilaterally. Neurologic exam is intact to motor and sensory function. CT angiogram shows a type Ia endoleak as well as a type II endoleak with slight growth of the aortic sac. Assessment/Plan 1. Type Ia endoleak of aortic graft At this point recommended an attempted endovascular repair of the endoleak with a proximal extension and possible endovascular anchors. Patient understood the risks options benefits and agreed to go ahead with this procedure. We will keep you informed of the results. Thank you very much for letting us participate in the care of this patient. 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 Weight disorder Historical No qualifying data Procedure/Surgical History PEVAR (09/23/2020) Radiography of chest (11/14/2014) CABG x 3 - Coronary artery bypass grafts x 3 (10/26/2014) EKG (10/25/2014) Thoracotomy (1975) Hernia repair (1963) Medications Inpatient No active inpatient medications Home apixaban 5 mg oral tablet, 5 mg= 1 tab, PO, bid atorvastatin 80 mg oral tablet, 80 mg= 1 tab, PO, Daily cholecalciferol 1000 intl units (25 mcg) oral tablet, 1000 Int_Unit= 1 tab, PO, Daily escitalopram 10 mg oral tablet, 10 mg= 1 tab, PO, Daily lisinopril 10 mg oral tablet, 10 mg= 1 tab, PO, Daily metoprolol tartrate 25 mg oral tablet, 12.5 mg= 0.5 tab, PO, bid multivitamin, 1 tab, PO, Daily predniSONE 20 mg oral tablet, 20 mg= 1 tab, PO, Daily Probiotic Formula, 1 cap, PO, Daily Protonix, 40 mg, Daily Trelegy Ellipta 100 mcg-62.5 mcg-25 mcg/inh inhalation powder, 1 puff, inhaled, Daily Allergies azithromycin (Irregular heart beat, Tachycardia) Social History Smoking Status Never smoked cigarettes Tobacco Former smoker Signature Line Electronic Signature on File Octavio Velazco MD Author Signature Dt/Tm: 02/03/2022 10:57 AM Weir Fisher Peyman S[facility] [place], [address] [place] [address] EJ Result Type: .Outpt Ltr Date of Service: February 03, 2022 10:57 EDT Authorization Status: Final Subject: Consult Note Author or Import Date: MD Velazco Eugene J on February 03, 2022 10:57 EDT Verified By: MD Velazco Eugene J on February 03, 2022 10:57 EDT Encounter info: [id number], [facility], Clinic, 02/03/2022 - 02/03/2022 Allergies Allergy/AdvReac Type Severity Reaction Status Date / Time azithromycin AdvReac Intermediate a-fib Verified 02/24/22 10:44 [From Zithromax Z-Evan] Home Medications Medication Instructions Recorded Confirmed Type multivitamin (Daily Multiple 1 tab PO QAM 12/28/18 02/24/22 History tablet) krill 2 cap PO PM 02/04/20 02/24/22 History [id number]-mjl-astax 1,500 mg-165 mg-67.5 mg capsule (Krill Oil ([place] 3 and 6)) acetaminophen 500 mg capsule 1,000 mg PO Q6H PRN Pain 06/21/20 02/24/22 History ondansetron HCl 8 mg tablet 8 mg PO Q8H PRN Nausea 05/18/21 02/24/22 History metoprolol tartrate 25 mg tablet 12.5 mg PO BID #90 tabs 07/26/21 02/24/22 Rx apixaban 5 mg tablet (Eliquis) 5 mg PO BID #70 tabs 11/08/21 02/24/22 Rx lisinopril 10 mg tablet 10 mg PO QAM 11/17/21 02/24/22 History pantoprazole 40 mg tablet,delayed 40 mg PO BID 11/17/21 02/24/22 History release prednisone 20 mg tablet 2.5 mg PO QAM 12/13/21 02/24/22 History atorvastatin 80 mg tablet 80 mg PO HS 02/10/22 02/24/22 History escitalopram oxalate 10 mg tablet 10 mg PO QAM 02/10/22 02/24/22 History fluticasone fur. 100 mcg-umeclid 1 inh inhalation QDL 02/10/22 02/24/22 History 62.5 mcg-vilant 25 mcg inhalat.powder (Trelegy Ellipta) tamsulosin 0.4 mg capsule 0.4 mg PO PM 02/10/22 02/24/22 History Past Med/Surg History Medical History AAA (abdominal aortic aneurysm) AAA repair (2020) Coronary artery disease s/p CABG (2014) Follows with Dr. Rad JIMENEZ-19 03/2020 > Dyspnea, hypoxia, PNA (hospitalized at 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) History of CT (myocardial infarction) 2014 > CABG Hyperlipidemia Hypertension Iron deficiency anemia Lower urinary tract symptoms (LUTS) Reason for flomax Osteoarthritis Palpitations Pulmonary embolism 10/2021, no known cause > Eliquis Superficial thrombophlebitis RLE x2 T-cell large granular lymphocytic leukemia Surgical History H/O cardiac catheterization 2015 > no stents H/O chest tube placement for pneumothoraces in his 20s H/O colonoscopy H/O inguinal hernia repair H/O splenectomy Laparoscopic Splenectomy (02/19/2020): Grade view 2, MAC#4, ETT 7.5 at [facility] History of AAA (abdominal aortic aneurysm) repair July 2020 History of cholecystectomy 08/12/2020 ([facility] [place]) History of esophagogastroduodenoscopy (EGD) History of herniorrhaphy History of thoracotomy D/T hx spontaneous pneumothorax History of tonsillectomy History of tooth extraction S/P endovascular aneurysm repair S/P triple vessel bypass 2014 ([facility] [place]) Status post cholecystectomy Family History Father Motor vehicle accident Grandfather (Paternal) Cardiac disorder Hypertension Coronary heart disease Grandmother (Paternal) Diabetes Grandmother (Maternal) Stroke Mother AML (acute myelogenous leukemia) Grandfather (Paternal) Myocardial infarction Denies family history of Family history of ITP Ovarian cancer Prostate cancer Breast cancer Colorectal cancer Social History Smoking Status: Former smoker Tobacco Type: Cigarettes and Smokeless Tobacco (Dip or Chew) packs per day: 2; Years Smoked: 40; Smoking End Date: Quit 2012; Second Hand Exposure: No; Do You Dip or Chew Tobacco: Yes (Advised none DOS ); Tobacco Cessation Education Requested by Patient: No Hx Alcohol Use: No Hx Substance Use: No Preferred Language: Polish Communication Ability: Effective Visual Impairment: No Limitations Hearing Ability: Normal Direct Response Consultant Required: No Beliefs That Will Affect Care: None marital status: Current Living Situation: Spouse Current Living Situation Comment: lives in [place] current occupational status: retired 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 How many Children do You have: 1 How many Children do You have Comment: son Other Information That Helps Us Care for You: No Feels Safe at Home: Yes Safety Concerns: Feels Safe At This Time Childhood Exposure to Second-Hand Smoke: No Diet Comment: regular caffeine: Yes (coffee 2 per day.) during the past year weight has: increased > 10 lbs Dental Care, Regularly: Yes Physical Activity Frequency: Does not Exercise Physical Activity Frequency Comment: due to physical condition Seatbelt Use: always Sunscreen Use: Yes Assistive Devices: Cane Results & Data ([facility]) Vital Signs (Past 12 Hours) Vital Signs Temp Pulse Resp BP BP Pulse Ox O2 Del Method 02/24/22 10:51 Nasal Cannula 02/24/22 10:20 36.8 C 69 20 129/77 129/79 97 Room Air O2 Flow Rate 02/24/22 10:51 2 02/24/22 10:20
[2022-02-24] MEDS ORDERED: ePHEDrine sulfate 50 MG/ML SYR ONE (13:21)
[2022-02-24] MEDS ORDERED: NEOSTIGMINE METHYLSULFATE 1 MG/ML 10ML VIAL ONE (13:40)
[2022-02-24] MEDS ORDERED: GLYCOPYRROLATE 0.2 MG/ML VIAL ONE (13:40)
[2022-02-24] MEDS ORDERED: PROTAMINE SULFATE 10 MG/ML 5 ML VIAL IV ONE (14:45)
[2022-02-24] MEDS ORDERED: VISIPAQUE IV PRN (14:52)
[2022-02-24] MEDS ORDERED: LABETALOL HCL IV 5 MG/ML 20ML IV ONE (15:00)
[2022-02-24] MEDS ORDERED: fentaNYL citrate 100 MCG/2 ML VIAL IV PRN (15:10)
[2022-02-24] MEDS ORDERED: PROMETHAZINE HCL 12.5 MG in SODIUM CHLORIDE 0.9% 50 ML IV PRN (15:10)
[2022-02-24] MEDS ORDERED: ATROPINE SULFATE 0.1 MG/ML 10ML SYR IV PRN (15:10)
[2022-02-24] MEDS ORDERED: HYDROmorphone INJ 1 MG/ML SYRINGE IV PRN (15:10)
[2022-02-24] MEDS ORDERED: FLUMAZENIL 0.1 MG/1 ML 10 ML VIAL IV PRN (15:10)
[2022-02-24] MEDS ORDERED: NALOXONE HCL 0.4 MG/1 ML VIAL/CARP IV PRN (15:10)
[2022-02-24] MEDS ORDERED: LABETALOL HCL IV 5 MG/ML 20ML IV PRN (15:10)
[2022-02-24] MEDS ORDERED: ePHEDrine sulfate 50 MG/ML AMP IV PRN (15:10)
[2022-02-24] MEDS ORDERED: ONDANSETRON INJ 2 MG/ML 2 ML VIAL IV PRN ×2 (15:10→16:06)
--- NOTE | 2022-02-24 15:10 | Procedure Note ---
Angiogram Post Procedure Fluoroscopy Time (minutes): 19.5 Radiation (mGy): 3,891 Contrast: 320 Post Operative Report Pre & Post Diagnosis Operation Date: 02/24/22 12:15 Pre-Op Diagnosis: Type I endoleak Post-Op Diagnosis: Type I endoleak I identified the patient and participated in the time-out.: Yes Procedure Operation Date: 02/24/22 12:15 Actual Procedures p Endovascular Repair of Type I Endolea with proximal Extensions, Insertion of Endo Anchors, Ultrasound Localization of Bilateral Femoral Arteries, Mechanical Closure of Bilateral Femoral Arteries (Bilateral) - Octavio Velazco MD Surgeon Octavio Velazco MD Cooler Supervisor none Estimated Blood Loss 30 Findings Consistent with Post-Op Diagnosis Specimens none Anesthesia Type General Complications none Disposition Accompanied Patient To Recovery: No Disposition: Recovery Room Indications This is a 66-year-old gentleman had an endograft repair was done aortic aneurysm approximately year ago. He was seen in the office and found to have a type I endoleak. Repair was recommended. I have discussed the risks options and benefits of the procedure with the patient. The patient understands the risks options and benefits and agrees to the procedure. Description of Procedure The patient was taken the operating room placed supine position. After general anesthesia was accomplished both groins were prepped and draped in a sterile manner. Timeout was performed and the patient was identified. Using ultrasound the left common femoral artery was identified. It was patent with minimal plaque. Under ultrasound a puncture was made in the left common femoral artery and a 5 Irish sheath inserted. On the right side again the ultrasound was used to localize the common femoral artery. It was patent again with mild plaque. This was punctured and a 5 Irish sheath inserted. After this was done the pro glides were placed at the 10 and 2 o'clock position and Steri-Stripped to the drapes. An 035 Glidewire was inserted and passed up into the suprarenal aorta. Kumpe catheter was then passed over the wire. Wire was then exchanged to a Dangelo wire. The 5 Irish sheath was removed. The puncture was dilated and 18 Irish dry seal was inserted. 035 Glidewire was passed up the left side follow ed by a pigtail and placed in the suprarenal aorta. The C-arm was moved in the oblique and cranial position. Aortography was performed showing a type I endoleak. Renal arteries were seen. We then inserted a 32 conformable [place] cuff. This was deployed. It deployed nicely. We then did another arteriogram which again showed a type I endoleak. It appeared that the cuff had slipped down slightly. We then inserted another 32 cuff and placed at higher and closer to the renal arteries. This was deployed. It was then ballooned at the proximal edge distally. Aortography then was performed and again it look like there is still a slight type I endoleak present. We then inserted 6 Endo screws, 2 along the posterior wall, 2 along the anterior wall, and 2 along the lateral wall. We then we ballooned the 2 cuffs. Aortography then performed still showed a slight type I endoleak. We then put the C-arm in the near lateral position. This gave us a good look at the endoleak. We could see the origin of the renal artery on the lateral. We then inserted a 36 conformable cuff. The cuff was then angled and deployed just below the renal arteries. Injection done at that point still showed a very mild type I endoleak. The cuff was then ballooned post deployment with resolution of the type I endoleak. The endoleak previously was a posterior endoleak. We did insert 1 more Endo anchor into the new cuff on the posterior aspect anchored against the wall. Aortography again done showed no evidence of a type I endoleak. At point the left groin puncture was closed with a Star closure device. The sheath in the right groin was pulled and the ProGlide sutures were tied. Adequate hemostasis was noted. Sterile dressings were applied to the wound.The patient left the operation room in satisfactory condition and tolerated the procedure well. All needle and sponge counts were correct at the end of the procedure. I attest to the content of the Intraoperative Record and any orders documented therein. Any exceptions are noted below.
[2022-02-24 15:37] LABS: Hematocrit (blood only) 34.9 % (40.1-51.0)
--- NOTE | 2022-02-24 15:41 | Anesthesiology Progress Note ---
Date of Service February 24, 2022 Anesthesia Post Procedure Vital Signs Vital Signs: Temp Pulse Resp BP BP Pulse Ox O2 Del Method 02/24/22 15:35 69 22 124/71 95 Room Air 02/24/22 15:25 67 20 115/65 98 Oxymask 02/24/22 15:15 76 22 120/66 97 Oxymask 02/24/22 15:08 36.8 C 72 20 124/64 94 Oxymask 02/24/22 10:51 Nasal Cannula 02/24/22 10:20 36.8 C 69 20 129/77 129/79 97 Room Air O2 Flow Rate 02/24/22 15:35 02/24/22 15:25 4 02/24/22 15:15 4 02/24/22 15:08 6 02/24/22 10:51 2 02/24/22 10:20 Pain Intensity Lower Back: Pain Intensity: 1 Transfer of Care Handoff Completed per policy Notes Mental Status: alert / awake / arousable Patient Amnestic to Procedure: Yes Nausea / Vomiting: adequately controlled Pain: adequately controlled Airway Patency, RR, SpO2: stable & adequate BP & HR: stable & adequate Hydration State: stable & adequate Anesthetic Complications: no major complications apparent
[2022-02-24] MEDS ORDERED: oxyCODONE/ACETAMINOPHEN 5mg/325mg TAB PO PRN (16:06)
[2022-02-24] MEDS ORDERED: ACETAMINOPHEN 500 MG TAB PO PRN (16:33)
[2022-02-24] MEDS ORDERED: ONDANSETRON 4 MG OD TAB PO PRN (16:37)
[2022-02-24] MEDS: D5W AND 1/2NSS 1,000 ML IV SCH (17:14)
[2022-02-24] MEDS: ceFAZolin 2000MG 2,000 MG/15 ML SYR IV SCH (18:02)
[2022-02-24] MEDS: METOPROLOL TARTRATE 25 MG TAB PO SCH (21:00)
[2022-02-24] MEDS ORDERED: ATORVASTATIN 40 MG TAB PO SCH (21:00)
[2022-02-24] MEDS ORDERED: OMEGA-3 (PURIFIED FISH OIL) 1 GM CAP PO SCH (21:00)
[2022-02-24] MEDS ORDERED: TAMSULOSIN HCL 0.4 MG CAP PO SCH (21:00)
[2022-02-24] MEDS: PANTOprazole 40 MG TAB PO SCH (21:01)
[2022-02-25] MEDS: D5W AND 1/2NSS 1,000 ML IV SCH (00:58)
[2022-02-25] MEDS: ceFAZolin 2000MG 2,000 MG/15 ML SYR IV SCH (00:59)
[2022-02-25 08:19] LABS: Basophils # (auto) 0.02 K/uL (0-0.2); Basophils % (auto) 0.1 %; Hematocrit (blood only) 35.3 % (40.1-51.0); Hemoglobin 11.2 g/dl (14.0-18.0); Immature Granulocytes # (auto) 0.06 K/uL (0.00-0.02); Immature Granulocytes % (auto) 0.4 %; Lymphocytes # (auto) 2.88 K/uL (1.2-3.4); Mean Corpuscular Hgb Conc 31.7 g/dL (32.0-36.0); Mean Corpuscular Volume 85.1 fL (80.0-100.0); Mean Platelet Volume 9.7 fL (9.4-12.4); Monocytes # (auto) 1.12 K/uL (0.24-0.82); Monocytes % (auto) 7.4 %; Neutrophils # (auto) 11.11 K/uL (1.4-6.5); Neutrophils % (auto) 73.1 %; Nucleated RBC # (auto) 0.02 K/uL (0-0); Nucleated RBC % (auto) 0.1 %; Platelet Count 282 K/uL (130-400); RDW Coefficient of Variation 15.3 % (11.5-14.5); RDW Standard Deviation 47.9 fL (36.4-46.3); Red Blood Count 4.15 M/uL (4.63-6.08); White Blood Count 15.19 K/ul (4.8-10.8)
[2022-02-25] MEDS: APIXABAN 5 MG TABLET PO SCH ×2 (08:25→08:26)
[2022-02-25] MEDS: PANTOprazole 40 MG TAB PO SCH (08:26)
[2022-02-25] MEDS: METOPROLOL TARTRATE 25 MG TAB PO SCH (08:27)
[2022-02-25 08:36] LABS: BUN Creatinine Ratio 8.6 (10-20); Calcium 8.9 mg/dl (8.5-10.1); Creatinine Clr Calc Pharmacy 117.2 ml/min; Est GFR (African American) 112.4 ml/min; Potassium 3.8 mmol/L (3.5-5.1)
[2022-02-25] MEDS ORDERED: lisinopril 10 MG TAB PO SCH (09:00)
[2022-02-25] MEDS ORDERED: MULTIVITAMIN TAB PO SCH (09:00)
[2022-02-25] MEDS ORDERED: ESCITALOPRAM OXALATE 10 MG TAB PO SCH (09:00)
[2022-02-25] MEDS ORDERED: predniSONE 2.5 MG TAB PO SCH (09:00)
--- NOTE | 2022-02-25 10:33 | Surgery Progress Note ---
Date of Service February 25, 2022 Assessment & Plan (1) Type I endoleak of aortic graft: Plan: Pt doing well s/p endo repair of endoleak. Discussed with Dr Velazco. Alok for d/c home today. Will see in office in 4 weeks after CTA adb/pelvis. Admission and Anticipated Discharge Date Admission Date: February 24, 2022 Subjective 66 yo m POD #1 after endovascular repair of TYpe I endoleak, seen in f/u today. Pt states feeling well. Denies pain or other concerns. Review of Systems Review of Systems: All systems reviewed & are unremarkable except as noted in HPI & below Physical Exam Constitutional: WD/WN, vitals as above Respiratory: normal respiratory effort, lungs clear to auscultation Auscultation: + diminished lung sounds Cardiovascular: Rate/Rhythm: regular rate and regular rhythm Vessels: femoral pulses present, posterior tibial pulses present and dorsalis pedis pulses present Extremities: normal capillary refill Gastrointestinal (Abdomen): Inspection/Auscultation: abdomen normal to inspection and normal bowel sounds Percussion/Palpation: abdomen soft; abdomen nontender Musculoskeletal: no cyanosis or clubbing, extremities motor strength 5/5 Skin: no rashes, warm and dry Neurologic: moves all extremities and awake; no focal motor deficits and not confused Psychiatric: A+Ox3, euthymic affect Results & Data ([facility]) Vital Signs (Past 12 Hours) Vital Signs Temp Pulse Resp BP Pulse Ox O2 Del Method O2 Flow Rate 02/25/22 08:00 Nasal Cannula 2 02/25/22 07:17 36.7 C 55 L 18 110/70 96 Room Air 02/25/22 03:03 36.8 C 65 18 121/72 97
--- NOTE | 2022-02-25 11:16 | Discharge Summary ---
Date of Service February 25, 2022 Admission HPI Per Admitting Provider Chief Complaint rm#[id number] return after CTA yesterday after endoleak found on aortoiliac. endo Aorto biiliac repair 09/23/20 History of Present Illness I had the pleasure of seeing Grady today for follow-up. As you know he is a 66-year-old gentleman who had endovascular repair of his abdominal aortic aneurysm almost 2 years ago. He had a known type II endoleak in the past. His follow-up CT scan at this time showed a type II and type I endoleak with slight migration of the proximal end of the graft. He has no abdominal or back pain. He has no complaints of claudication. Review of Systems 10 systems were reviewed. Positive findings are shortness of breath with exertion secondary to COPD. He does you use oxygen when walking. Rest of positive findings in the HPI. Physical Exam Vitals & Measurements HR: 76 (Monitored) BP: 110/64 SpO2: 93% Input and Output - Last 24 hours (Last 8 hours) No I/O Data Found: On exam the patient is awake alert and oriented x3. His blood pressure is 110/64. Radials carotids are +2 bilaterally. Lungs are clear heart had a regular rate and rhythm abdominal exam is benign. Femorals and pedal pulses are +2 bilaterally. Neurologic exam is intact to motor and sensory function. CT angiogram shows a type Ia endoleak as well as a type II endoleak with slight growth of the aortic sac. Assessment/Plan 1. Type Ia endoleak of aortic graft At this point recommended an attempted endovascular repair of the endoleak with a proximal extension and possible endovascular anchors. Patient understood the risks options benefits and agreed to go ahead with this procedure. We will keep you informed of the results. Thank you very much for letting us participate in the care of this patient. 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 Weight disorder Historical No qualifying data Procedure/Surgical History PEVAR (09/23/2020) Radiography of chest (11/14/2014) CABG x 3 - Coronary artery bypass grafts x 3 (10/26/2014) EKG (10/25/2014) Thoracotomy (1975) Hernia repair (1963) Medications Inpatient No active inpatient medications Home apixaban 5 mg oral tablet, 5 mg= 1 tab, PO, bid atorvastatin 80 mg oral tablet, 80 mg= 1 tab, PO, Daily cholecalciferol 1000 intl units (25 mcg) oral tablet, 1000 Int_Unit= 1 tab, PO, Daily escitalopram 10 mg oral tablet, 10 mg= 1 tab, PO, Daily lisinopril 10 mg oral tablet, 10 mg= 1 tab, PO, Daily metoprolol tartrate 25 mg oral tablet, 12.5 mg= 0.5 tab, PO, bid multivitamin, 1 tab, PO, Daily predniSONE 20 mg oral tablet, 20 mg= 1 tab, PO, Daily Probiotic Formula, 1 cap, PO, Daily Protonix, 40 mg, Daily Trelegy Ellipta 100 mcg-62.5 mcg-25 mcg/inh inhalation powder, 1 puff, inhaled, Daily Allergies azithromycin (Irregular heart beat, Tachycardia) Social History Smoking Status Never smoked cigarettes Tobacco Former smoker Signature Line Electronic Signature on File Octavio Velazco MD Author Signature Dt/Tm: 02/03/2022 10:57 AM 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 [place], [address] [place], [place] [address]PENDING SALE TO [facility] Result Type: .Outpt Ltr Date of Service: February 03, 2022 10:57 EDT Authorization Status: Final Subject: Consult Note Author or Import Date: MD Velazco Eugene J on February 03, 2022 10:57 EDT Verified By: MD Velazco Eugene J on February 03, 2022 10:57 EDT Encounter info: [id number], [facility], Clinic, 02/03/2022 - 02/03/2022 Admission Exam Per Admitting Provider On exam the patient is awake alert and oriented x3. His blood pressure is 110/64. Radials carotids are +2 bilaterally. Lungs are clear heart had a regular rate and rhythm abdominal exam is benign. Femorals and pedal pulses are +2 bilaterally. Neurologic exam is intact to motor and sensory function. CT angiogram shows a type Ia endoleak as well as a type II endoleak with slight growth of the aortic sac. Principal Diagnosis 1. s/p endovascular repair of Type I Endoleak of PEVAR 2. Type I endoleak of PEVAR Discharge Exam Constitutional WD/WN, vitals as above Respiratory normal respiratory effort, lungs clear to auscultation Auscultation: + diminished lung sounds Cardiovascular Rate/Rhythm: regular rate and regular rhythm Vessels: femoral pulses present, posterior tibial pulses present and dorsalis pedis pulses present Extremities: normal capillary refill Gastrointestinal (Abdomen) Inspection/Auscultation: abdomen normal to inspection and normal bowel sounds Percussion/Palpation: abdomen soft; abdomen nontender Musculoskeletal no cyanosis or clubbing, extremities motor strength 5/5 Skin no rashes, warm and dry Neurologic moves all extremities and awake; no focal motor deficits and not confused Psychiatric A+Ox3, euthymic affect Discharge Data Allergies Allergy/AdvReac Type Severity Reaction Status Date / Time azithromycin AdvReac Intermediate a-fib Verified 02/24/22 10:44 [From Zithromax Z-Evan] Procedures Performed Operation Date: 02/24/22 12:15 Actual Procedures p Endovascular Repair of Type I Endoleak, Proximal Extension with Insertion of Endo Anchors, Ultrasound Localization of Bilateral Femoral Arteries, Mechanical Closure of Bilateral Femoral Arteries (Bilateral) - Octavio Velazco MD Ordered Studies 02/24/22 07:57 US EV guide vascular access Routine 02/24/22 12:30 EV aortic uni ilac repair Routine Hospital Course (1) Type I endoleak of aortic graft: Pt doing well s/p endo repair of endoleak. Discussed with Dr Velazco. Ok for d/c home today. Will see in office in 4 weeks after CTA adb/pelvis. Total Time Total Time Spent Total Time Spent (In Minutes): 0 Discharge Plan Discharge Items Patient Disposition: Home - Self-Care Reason For Visit: Breakdown Mechanical of Aortic Graft Replacemnt Discharge Diagnosis: 1. s/p endovascular repair of Type I Endoleak of Endovascular AAA Repair 2. Type 1 Endoleak of EVAR Activity: Per Instructions section Non-emergency contact: Primary Care Provider and Surgeon Call non-emergency contact if: you have any medication questions, your pain is not controlled, your pain is concerning for you, you have a fever, your wound has increased redness and your wound has increased drainage Follow-up/Referrals: Daniel Alba MD [Primary Care Provider] - 03/04/22 2:00 pm (Follow up with your PCP within 2 weeks) Octavio Velazco MD [Physician] - 03/10/22 1:15 pm (Follow up with Dr Velazco or Carissa Kelley PA-C in 4 weeks after your CTA abd/pelvis) Diet: Heart Healthy Addtl Attending Provider Instructions: SPECIAL CARE INSTRUCTIONS: Medications: * Continue to take your medications as directed. Incision/Puncture Site Care: * You will have an incision or puncture in each of your groins. Liquid glue w ill be used to seal your incisions/puncture site. This will lift off as the incisions/puncture sites heal. * If Liquid glue is not used, there will be small dressings covering your incisions. After you get home, you may remove the dressings and shower - allowing the warm soapy water to run over it. * Be sure to dry the sites well and keep them dry. * DO NOT SOAK IN A TUB/POOL/etc. UNTIL ALL SURGICAL SITES ARE HEALED. DO NOT REMOVE THE GLUE UNTIL THE INCISIONS HEAL. 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 * You may walk and go up and down steps. * Avoid excessive bending or movement at the level of the incisions or punctures. Risks and Possible Complications: * Infection/Drainage/Bleeding - Drainage or bleeding from the incisions/puncture site should be minimal. If you have excessive bleeding or drainage, call our office ([phone]) right away. * Pain/Numbness - You may experience some mild pain or soreness at your incision sites. You may also have some numbness around the incisions or into the insides of your thighs. Bruising is normal and should resolve within 2 weeks. * Changes in Appetite or Bowel Habits - Mostly related to anesthesia and pain medication, some patients have reported decreased appetite and/or problems with constipation. These symptoms usually improve over a few weeks. Remembering to take an [id number] stool softener, as directed, will help you to avoid constipation. Call our office and seek emergent treatment if you develop: * Fever or chills * Have a temperature greater than 101 degrees F * Any redness or purulent drainage from your incisions or punctures * Severe abdominal, chest or back pain SKIN IRRITATION: * You may experience some redness and/or swelling in the area where radiation was administered. If any skin irritation occurs, please contact your family physician. You will be receiving a call from the Vascular Surgery Nurse after you are discharged. FOLLOW UP VISIT: It is important for you to keep your follow up appointments with your medical provider. Keep any scheduled doctor appointments. Pending Studies at Discharge: No Stand-Alone Forms: [facility] C[facility] Medications and DC Order Prescriptions: Continued metoprolol tartrate 25 mg tablet 12.5 mg PO BID Qty: 90 3RF pantoprazole 40 mg tablet,delayed release (DR/EC) 40 mg PO BID Dose Instruction: TAKE 1 TABLET BY MOUTH EVERY DAY Rx Instructions: TAKE 1 TABLET BY MOUTH EVERY DAY takes BID lisinopril 10 mg tablet 10 mg PO QAM multivitamin [Daily Multiple] tablet 1 tab PO QAM prednisone 20 mg tablet 2.5 mg PO QAM Krill Oil ([place] 3 and 6) 1,500-165-67.5 mg Capsule 2 cap PO PM acetaminophen 500 mg Capsule 1,000 mg PO Q6H PRN (Reason: Pain) Eliquis 5 mg tablet 5 mg PO BID Qty: 70 2RF Rx Instructions: 10mg twice a day for first 7 days. Afterwards, 5mg twice a day ondansetron HCl 8 mg Tablet 8 mg PO Q8H PRN (Reason: Nausea) atorvastatin 80 mg tablet 80 mg PO HS tamsulosin 0.4 mg capsule 0.4 mg PO PM escitalopram oxalate 10 mg tablet 10 mg PO QAM Rx Instructions: TAKE 1 TABLET BY MOUTH EVERY MORNING Trelegy Ellipta 100-62.5-25 mcg blister with device 1 inh inhalation QDL Discharge Orders: Discharge Order (Routine); Ordered 02/25/22 Ordered By: Carissa Kelley Admission Data Admit Date/Time: 02/24/22 12:22 Attending Provider: Octavio Velazco Admit Provider: Octavio Velazco Primary Care Provider: Daniel Alba Other Interventions: Discharge Summary Assessment (RN) Last Done: 02/25/22 10:46
[2022-02-25] MEDS ORDERED: FLUTICASONE FUROATE 100MCG 14 PUFFS/INHALER INH SCH (11:30)
[2022-02-25] MEDS ORDERED: UMECLIDINIUM/VILANTEROL 62.5/25MCG 7 PUFFS/INHALER INH SCH (11:30)
== END 2022-02-25 11:21 | disposition home or self-care (01) | DRG 269 ==
LOC: ASU 09:58 → 3E 12:22